=== PATIENT | female | born 1980 | race Hispanic/Latino ===

== ENCOUNTER 2021-01-30 18:51 | Emergency (ER) | payer SELFPAY ==
[2021-01-30 19:24] LABS: Absolute Lymphocytes (CBC) 2.9 K/uL (0.7-4.9); Basophils % 0.5 % (0-1.3); Hematocrit 37.7 % (36.0-45.0); MPV 8.1 fL (7.6-11.3); RBC Red Blood Cell Count 4.06 M/uL (3.86-4.86)
[2021-01-30 19:29] LABS: Protime INR 0.97
--- NOTE | 2021-01-30 20:04 | RAD REPORT ---
EXAM DESCRIPTION: RAD - Chest Single View - 01/30/2021 7:32 pm CLINICAL HISTORY: COUGH COMPARISON: No comparisons FINDINGS: Lines: None. Lungs: No evidence of edema or pneumonia. Pleural: No significant pleural effusions or pneumothorax. Cardiac: The heart size is within normal limits. Bones: No acute fractures. Other: IMPRESSION: No acute cardiopulmonary disease.
[2021-01-30 20:07] LABS: ALT/SGPT 17 U/L (12-78); AST/SGOT 10 U/L (15-37); Albumin 2.8 g/dL (3.4-5.0); Alkaline Phosphatase 77 U/L (45-117); BUN Blood Urea Nitrogen 10 mg/dL (7-18); Bicarbonate 23 mmol/L (21-32); Bilirubin Direct < 0.1 mg/dL (0-0.2); Bilirubin Total 0.2 mg/dL (0.2-1.0); Lipase 68 U/L (73-393); NT PRO-BNP 79 pg/mL (<125); Potassium 3.5 mmol/L (3.5-5.1); Protein, Total 6.9 g/dL (6.4-8.2); Sodium Level 135 mmol/L (136-145); Troponin (Emerg Dept Use Only) < 0.02 ng/mL (0.0-0.045)
[2021-01-30 20:10] LABS: Glucose Level 448 mg/dL (74-106)
[2021-01-30 20:32] LABS: Urine Blood 3+ (Negative); Urine Glucose 2+ (Negative); Urine Protein Negative (Negative); Urine pH 5.5 (5.0-7.0)
[2021-01-30] MEDS ORDERED: NA CHLORIDE 0.9% 2,000 ML ONE (20:43)
--- NOTE | 2021-01-30 21:41 | EDPHYS ---
Physician Documentation [facility] Name: Brenda Loyd Age: 40 yrs Sex: Female : 1980 Arrival Date: 01/30/2021 Time: 18:55 Bed 6 Private MD: ED Physician Lauri Liao HPI: 01/30 21:34 This 40 yrs old Female presents to ER via EMS with complaints of anxious, cp jamaal and high blood glucose. 21:34 The patient presents to the emergency department with anxiety, over unknown jamaal circumstances. Onset: The symptoms/episode began/occurred just prior to arrival. Past psychiatric history: Prior diagnosis: depression. The patient or guardian reports chest pain that is located primarily in the vague, mainly palpitations. Onset: just prior to arrival, today. high glucose , HI. The pain does not radiate. Associated signs and symptoms: Pertinent positives; anxiety, palpitations. The chest pain is described as palpitations. Severity of pain: At its worst the pain was mild in the emergency department the pain has resolved. 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 - Social history:: Smoking status: Patient denies any tobacco usage or history of. - Family history:: not pertinent. ROS: 21:34 Constitutional: Negative for fever, chills, and weight loss, Eyes: Negative for injury, jamaal pain, redness, and discharge, ENT: Negative for injury, pain, and discharge, Neck: Negative for injury, pain, and swelling, Respiratory: Negative for shortness of breath, cough, wheezing, and pleuritic chest pain, Abdomen/GI: Negative for abdominal pain, nausea, vomiting, diarrhea, and constipation, Back: Negative for injury and pain, : Negative for injury, bleeding, discharge, and swelling, MS/Extremity: Negative for injury and deformity, Skin: Negative for injury, rash, and discoloration, Neuro: Negative for headache, weakness, numbness, tingling, and seizure, Psych: Negative for depression, anxiety, suicide ideation, homicidal ideation, and hallucinations, Allergy/Immunology: Negative for hives, rash, and allergies, Endocrine: Negative for neck swelling, polydipsia, polyuria, polyphagia, and marked weight changes, Hematologic/Lymphatic: Negative for swollen nodes, abnormal bleeding, and unusual bruising. 21:34 Cardiovascular: Positive for palpitations. Exam: 21:37 Constitutional: This is a well developed, well nourished patient who is awake, alert, jamaal and in no acute distress. Head/Face: Normocephalic, atraumatic. Eyes: Pupils equal round and reactive to light, extra-ocular motions intact. Lids and lashes normal. Conjunctiva and sclera are non-icteric and not injected. Cornea within normal limits. Periorbital areas with no swelling, redness, or edema. ENT: Nares patent. No nasal discharge, no septal abnormalities noted. Tympanic membranes are normal and external auditory canals are clear. Oropharynx with no redness, swelling, or masses, exudates, or evidence of obstruction, uvula midline. Mucous membranes moist. Neck: Trachea midline, no thyromegaly or masses palpated, and no cervical lymphadenopathy. Supple, full range of motion without nuchal rigidity, or vertebral point tenderness. No Meningismus. Chest/axilla: Normal chest wall appearance and motion. Nontender with no deformity. No lesions are appreciated. Cardiovascular: Regular rate and rhythm with a normal S1 and S2. No gallops, murmurs, or rubs. Normal PMI, no JVD. No pulse deficits. Respiratory: Lungs have equal breath sounds bilaterally, clear to auscultation and percussion. No rales, rhonchi or wheezes noted. No increased work of breathing, no retractions or nasal flaring. Abdomen/GI: Soft, non-tender, with normal bowel sounds. No distension or tympany. No guarding or rebound. No evidence of tenderness throughout. Back: No spinal tenderness. No costovertebral tenderness. Full range of motion. Skin: Warm, dry with normal turgor. Normal color with no rashes, no lesions, and no evidence of cellulitis. MS/ Extremity: Pulses equal, no cyanosis. Neurovascular intact. Full, normal range of motion. Neuro: Awake and alert, GCS 15, oriented to person, place, time, and situation. Cranial nerves II-XII grossly intact. Motor strength 5/5 in all extremities. Sensory grossly intact. Cerebellar exam normal. Normal gait. Psych: Awake, alert, with orientation to person, place and time. Behavior, mood, and affect are within normal limits. 21:37 Musculoskeletal/extremity: DVT Exam: No signs of deep vein thrombosis. no pain, no swelling, no tenderness, negative Homans' sign noted on exam, no appreciated bluish discoloration, no erythema, no increased warmth. 21:43 ECG was reviewed by the Attending Physician. [facility] Vital Signs: 18:59 BP 146 / 79; Pulse 92; Resp 20 S; Temp 97.0(TE); Pulse Ox 100% on R/A; Weight 90.72 kg jd3 (R); Height 4 ft. 10 in. (147.32 cm) (R); Pain 9/10; 20:52 BP 132 / 79 RA Sitting (auto/lg); Pulse 83; Resp 16 S; Pulse Ox 99% on R/A; Pain 0/10; sj1 22:17 BP 145 / 85; Pulse 80; Resp 17; Pulse Ox 100% on R/A; Pain 0/10; dc2 18:59 Body Mass Index 41.80 (90.72 kg, 147.32 cm) jd3 MDM: 19:02 Patient medically screened. [facility] 21:37 Differential diagnosis: abnormal EKG, acute myocardial infarction, anxiety, coronary jamaal artery disease chest wall pain, stable angina, unstable angina. HEART Score: History: Slightly Suspicious (0), ECG: Normal (0), Age: < or = 45 years (0), Risk Factors: 1 or 2 risk factors (1), [+ Family HX] [Obesity]. The patient was given aspirin in the Emergency Department. The patient's deep vein thrombosis risk score was calculated as follows: Total Score: 0. This patient was found to be at low risk for a deep vein thrombosis by using the Well's assessment criteria. The patient's pulmonary embolism risk score was calculated as follows: Total Score: 0-2 points. This patient was found to be at low risk for a pulmonary embolism by using the Well's assessment criteria. YULISSA Risk Score: TOTAL SCORE = 0. Data reviewed: vital signs, nurses notes, lab test result(s), EKG, radiologic studies, plain films. Data interpreted: awake overnight monitor: rate is 83 beats/min, rhythm is regular, Pulse oximetry: on room air is 99 %. 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 01/30 19:04 Order name: Basic Metabolic Panel [facility] 01/30 19:04 Order name: CBC with Diff [facility] 01/30 19:04 Order name: LFT's [facility] 01/30 19:04 Order name: Magnesium [facility] 01/30 19:04 Order name: NT PRO-BNP [facility] 01/30 19:04 Order name: PT-INR; Complete Time: 20:02 [facility] 01/30 19:04 Order name: Troponin (emerg Dept Use Only); Complete Time: 20:24 [facility] 01/30 19:04 Order name: Urine Culture [facility] 01/30 19:04 Order name: Ketone, Serum; Complete Time: 20:24 [facility] 01/30 19:04 Order name: Lipase; Complete Time: 20:24 [facility] 01/30 19:05 Order name: Basic Metabolic Panel; Complete Time: 20:24 [facility] 01/30 19:05 Order name: CBC with Automated Diff; Complete Time: 20:02 [facility] 01/30 19:05 Order name: Liver (Hepatic) Function; Complete Time: 20:24 [facility] 01/30 19:05 Order name: Magnesium; Complete Time: 20:24 [facility] 01/30 19:04 Order name: XRAY Chest (1 view); Complete Time: 20:24 [facility] 01/30 19:04 Order name: EKG; Complete Time: 19:05 [facility] 01/30 19:04 Order name: Cardiac monitoring; Complete Time: 19:07 [facility] 01/30 19:04 Order name: EKG - Nurse/Tech; Complete Time: 19:07 [facility] 01/30 19:04 Order name: IV Saline Lock; Complete Time: 19:07 [facility] 01/30 19:05 Order name: NT PRO-BNP; Complete Time: 20:24 [facility] 01/30 19:09 Order name: Glucose, Ancillary Testing; Complete Time: 20:02 [facility] 01/30 20:32 Order name: Urine Dipstick-Ancillary; Complete Time: 20:43 [facility] 01/30 21:00 Order name: Glucose, Ancillary Testing; Complete Time: 21:32 [facility] 01/30 19:04 Order name: Labs collected and sent; Complete Time: 19:07 [facility] 01/30 19:04 Order name: O2 Per Protocol; Complete Time: 19:07 [facility] 01/30 19:04 Order name: O2 Sat Monitoring; Complete Time: 19:07 [facility] 01/30 19:04 Order name: Urine Dipstick-Ancillary (obtain specimen); Complete Time: 20:33 [facility] EC:43 Rate is 85 beats/min. Rhythm is regular. QRS [place] is Normal. [place] interval is normal. QRS jamaal interval is normal. QT interval is normal. No Q waves. T waves are Normal. No ST changes noted. Clinical impression: Normal ECG and No evidence of ischemia. Interpreted by me. Reviewed by me. Administered Medications: 20:24 Drug: NS 0.9% 1000 ml Route: IV; Rate: 125 ml/hr; Site: left antecubital; sj1 20:24 Drug: NS 0.9% 1000 ml Route: IV; Rate: 1 bolus; Site: left antecubital; sj1 22:16 Drug: Cipro (ciprofloxacin) 500 mg Route: PO; dc2 22:17 Drug: Rocephin (cefTRIAXone) 1 grams Route: IV; Rate: per protocol; Site: left dc2 antecubital; 22:17 Drug: Aspirin Chewable Tablet 324 mg Route: PO; dc2 Disposition Summary: 01/30/21 21:40 Discharge Ordered Location: Home jamaal Problem: new jamaal Symptoms: have improved jamaal Condition: Stable jamaal Diagnosis - Anxiety disorder, unspecified jamaal - Type 2 diabetes mellitus with hyperglycemia jamaal - Chest pain, unspecified jamaal - Obesity, unspecified jamaal Followup: jamaal - With: Private Physician - When: 2 - 3 days - Reason: Recheck today's complaints, Continuance of care, Re-evaluation by your physician Followup: jamaal - With: Bola Vieira MD - When: 2 - 3 days - Reason: Recheck today's complaints, Re-evaluation by your physician Discharge Instructions: - Discharge Summary Sheet jamaal - Nonspecific Chest Pain, Adult jamaal - Type 2 Diabetes Mellitus, Diagnosis, Adult jamaal - Hyperglycemia jamaal - Obesity, Adult jamaal - Nonspecific Chest Pain, Adult, [id number] jamaal - Diabetes Mellitus and Nutrition, Adult jamaal - Aspirin and Your Heart [facility] - Managing Anxiety, Adult [facility] Forms: - Medication Reconciliation Form [facility] - Thank You Letter jamaal - Antibiotic Education [facility] - Prescription Opioid Use [facility] Prescriptions: - Metformin 500 mg Oral Tablet - take 1 tablet by ORAL route every 12 hours for 21 days Then take 1 tablet with [facility] morning meals AND evening meals; 42 tablet; Refills: 0, Product Selection Permitted - Cipro 250 mg Oral Tablet - take 1 tablet by ORAL route every 12 hours; 14 tablet; Refills: 0, Product [facility] Selection Permitted Signatures: Dispatcher [employer] EDLauri Gloria MD MD cha Attema, Lee, WATER HAULER-C WATER HAULER-Cla1 Nathaniel Underwood RN RN jd3 Andree Clay RN RN dc2 Dione Fam RN RN sj1
--- NOTE | 2021-01-30 21:41 | ER ---
Nurse's Notes [facility] Name: Brenda Loyd Age: 40 yrs Sex: Female : 1980 Arrival Date: 01/30/2021 Time: 18:55 Bed 6 Private MD: Diagnosis: Anxiety disorder, unspecified;Type 2 diabetes mellitus with hyperglycemia;Chest pain, unspecified;Obesity, unspecified Presentation: 01/30 18:55 Chief complaint: EMS states: "pt is reporting anxiety and shortness of breath/chest jd3 pain as well as high blood sugar. pt reports having diabetes and her blood sugar on our monitor just read high. we started a 20 G IV to the left AC and started a 1 L bolus of NS.". Coronavirus screen: Vaccine status: Patient reports being unvaccinated. At this time, the client does not indicate any symptoms associated with coronavirus-19. Ebola Screen: Patient negative for fever greater than or equal to 101.5 degrees Fahrenheit, and additional compatible Ebola Virus Disease symptoms. Initial Sepsis Screen: Does the patient meet any 2 criteria? No. Patient's initial sepsis screen is negative. Does the patient have a suspected source of infection? No. Patient's initial sepsis screen is negative. Risk Assessment: Do you want to hurt yourself or someone else? Patient reports no desire to harm self or others. Onset of symptoms was January 30, 2021. 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 - Social history:: Smoking status: Patient denies any tobacco usage or history of. - Family history:: not pertinent. Screenin:00 Abuse screen: Denies threats or abuse. Nutritional screening: No deficits noted. jd3 Tuberculosis screening: No symptoms or risk factors identified. Fall Risk IV access (20 points). Ambulatory Aid- None/Bed Rest/Nurse Assist (0 pts). Gait- Normal/Bed Rest/Wheelchair (0 pts) Mental Status- Oriented to own ability (0 pts). Total Romo Fall Scale indicates No Risk (0-24 pts). Assessment: 20:50 Reassessment: MD aware of blood sugar 294 prior to insulin administration. Awaiting new sj1 orders. General: Appears in no apparent distress. comfortable, well groomed, Behavior is calm, cooperative, appropriate for age. Pain: Denies pain. Neuro: No deficits noted. Cardiovascular: No deficits noted. Respiratory: No deficits noted. GI: No deficits noted. : No deficits noted. EENT: No deficits noted. Derm: No deficits noted. Musculoskeletal: No deficits noted. 22:39 Reassessment: Pt had ordered meds after discharge patient. Patient left the ED around dc2 2220. Vital Signs: 18:59 BP 146 / 79; Pulse 92; Resp 20 S; Temp 97.0(TE); Pulse Ox 100% on R/A; Weight 90.72 kg jd3 (R); Height 4 ft. 10 in. (147.32 cm) (R); Pain 9/10; 20:52 BP 132 / 79 RA Sitting (auto/lg); Pulse 83; Resp 16 S; Pulse Ox 99% on R/A; Pain 0/10; sj1 22:17 BP 145 / 85; Pulse 80; Resp 17; Pulse Ox 100% on R/A; Pain 0/10; dc2 18:59 Body Mass Index 41.80 (90.72 kg, 147.32 cm) jd3 ED Course: 18:55 Patient arrived in ED. jd3 18:58 Triage completed. jd3 19:00 Arm band placed on. EKG completed in triage. Results shown to MD. jd3 19:00 Patient has correct armband on for positive identification. Placed in gown. Bed in low jd3 position. Call light in reach. Side rails up X 1. Adult w/ patient. panel monitor on. Pulse ox on. NIBP on. 19:00 Maintain EMS IV. Dressing intact. Good blood return noted. Site clean \\T\\ dry. Gauge \\T\\ isaac 3 site: 20 G left AC. 19:02 Lauri Liao MD is Attending Physician. jamaal 19:33 XRAY Chest (1 view) In Process Unspecified. EDMS 20:34 Basic Metabolic Panel Sent. sj1 20:34 CBC with Diff Sent. sj1 20:34 LFT's Sent. sj1 20:34 Magnesium Sent. sj1 20:34 NT PRO-BNP Sent. sj1 20:52 No provider procedures requiring assistance completed. sj1 21:39 Bola Vieira MD is Referral Physician. jamaal 22:10 IV discontinued, intact, bleeding controlled, No redness/swelling at site. Pressure dc2 dressing applied. Administered Medications: 20:24 Drug: NS 0.9% 1000 ml Route: IV; Rate: 125 ml/hr; Site: left antecubital; sj1 20:24 Drug: NS 0.9% 1000 ml Route: IV; Rate: 1 bolus; Site: left antecubital; sj1 22:16 Drug: Cipro (ciprofloxacin) 500 mg Route: PO; dc2 22:17 Drug: Rocephin (cefTRIAXone) 1 grams Route: IV; Rate: per protocol; Site: left dc2 antecubital; 22:17 Drug: Aspirin Chewable Tablet 324 mg Route: PO; dc2 Outcome: 21:40 Discharge ordered by . jamaal 22:10 Discharged to home ambulatory. dc2 22:10 Condition: stable 22:10 Discharge instructions given to patient, Instructed on discharge instructions, Demonstrated understanding of instructions, Prescriptions given X 2. 22:40 Patient left the ED. dc2 Signatures: Dispatcher [employer] Lauri Lang MD MD cha Davies, Jonathon RN RN jd3 Andree Clay RN RN dc2 Dione Fam RN RN sj1
[2021-01-30] MEDS ORDERED: CIPROFLOXACIN HCL 500 MG TAB ONE (22:39)
[2021-01-30] MEDS ORDERED: ASPIRIN EC 81 MG TAB PO ONE (22:39)
[2021-01-30] MEDS ORDERED: CEFTRIAXONE 1000 MG/VIAL ONE (22:39)
[2021-01-30 22:46] VITALS: TEMP 97
[2021-01-30 22:50] VITALS: BP 145/85; O2SAT 100
--- NOTE | 2021-01-31 16:38 | EKG ---
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
== END 2021-01-30 22:40 | disposition home or self-care (01) ==
LOC: ER 18:51
DX: F41.9 Anxiety disorder, unspecified (principal); E11.65 Type 2 diabetes mellitus with hyperglycemia; E66.9 Obesity, unspecified
CPT/HCPCS: 36415; 71045; 80048; 80076; 81003; 82010; 82947; 83690; 83735; 83880; 84484; 85025; 85610; 87086; 87088; 93005; 96374; 99284; J7030

== ENCOUNTER 2021-01-31 05:21 | Emergency (ER) | payer SELFPAY ==
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
[2021-01-31] MEDS ORDERED: HYDROCODONE/APAP 10/325 TAB ONE (06:59)
[2021-01-31 07:11] VITALS: O2SAT 100
[2021-01-31 07:16] VITALS: BP 150/97; TEMP 97.9
--- NOTE | 2021-01-31 07:45 | RAD REPORT ---
EXAM DESCRIPTION: RAD - Humerus Right - 01/31/2021 6:14 am CLINICAL HISTORY: PAIN COMPARISON: <Comparisons> FINDINGS: No acute fracture. No malalignment. No significant focal degenerative changes. IMPRESSION: No acute osseous abnormality involving the right humerus.
== END 2021-01-31 06:43 | disposition home or self-care (01) ==
LOC: ER 05:21
DX: S40.011A Contusion of right shoulder, initial encounter (principal); S40.021A Contusion of right upper arm, initial encounter; E11.65 Type 2 diabetes mellitus with hyperglycemia; W18.39XA Other fall on same level, initial encounter
CPT/HCPCS: 99284

== ENCOUNTER 2021-02-01 19:48 | Emergency (ER) | payer SELFPAY ==
[2021-02-01] MEDS ORDERED: NA CHLORIDE 0.9% 1,000 ML ONE (20:48)
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
--- NOTE | 2021-02-01 21:08 | ER ---
Nurse's Notes [facility] Name: Brenda Loyd Age: 40 yrs Sex: Female : 1980 Arrival Date: 02/01/2021 Time: 20:00 Bed 13 Private MD: Diagnosis: Dizziness and giddiness;Diabetes mellitus due to underlying condition with hyperglycemia ED Course: 02/01 20:00 Patient arrived in ED. tt3 20:05 Deion Tucker MD is Attending Physician. rn 20:05 Lauri Sorensen PA is PHCP. marychuy 20:14 Khoi Stanley, RN is Primary Nurse. mr2 Administered Medications: 21:07 Not Given (Patient Refused): NS 0.9% 1000 ml IV at 1 bolus Per protocol; 1000 mL bolus em 21:07 Not Given (Patient Refused): NS 0.9% 1000 ml IV at 1 bolus Per protocol; 1000 mL bolus em Outcome: 21:08 Patient left the ED. em Signatures: Doug Beckett RN RN em Deion Tucker MD MD rn Page, Corey, PA PA Jameson Dodson tt3 Khoi Stanley, RN RN mr2
== END 2021-02-01 21:08 | disposition left against medical advice (07) ==
LOC: ER 19:48
DX: E11.65 Type 2 diabetes mellitus with hyperglycemia (principal)
CPT/HCPCS: J7030

== ENCOUNTER 2021-02-16 19:09 | Emergency (ER) | payer SELFPAY ==
[2021-02-16] MEDS ORDERED: HYDROCODONE/APAP 5/325 MG TAB ONE (20:44)
--- NOTE | 2021-02-16 20:50 | RAD REPORT ---
EXAM DESCRIPTION: RAD - Foot Left 3 View - 02/16/2021 8:21 pm CLINICAL HISTORY: 2nd toe;Pain COMPARISON: Foot Left 3 View dated 11/12/2014 FINDINGS: No fracture, dislocation or periosteal reaction. Soft tissues of the second toe are promin ent. No acute or destructive bony process. No acute or joint finding seen. Moderately large plantar spur is present. No air or foreign body in the soft tissues. IMPRESSION: Negative left foot examination for acute bone or joint finding. No air or foreign body soft tissues.
[2021-02-16] MEDS ORDERED: NA CHLORIDE 0.9% 1,000 ML ONE (21:24)
[2021-02-16 21:25] LABS: Basophils % 0.9 % (0-1.3); Hematocrit 37.8 % (36.0-45.0); Lymphocytes % 36.1 % (15.3-44.8); RBC Red Blood Cell Count 4.08 M/uL (3.86-4.86)
[2021-02-16 21:44] LABS: Urine Blood 1+ (Negative); Urine Glucose 2+ (Negative); Urine Protein Negative (Negative)
[2021-02-16 21:45] LABS: ALT/SGPT 17 U/L (12-78); AST/SGOT 10 U/L (15-37); Albumin 2.9 g/dL (3.4-5.0); Alkaline Phosphatase 89 U/L (45-117); BUN Blood Urea Nitrogen 12 mg/dL (7-18); Bicarbonate 25 mmol/L (21-32); Bilirubin Direct < 0.1 mg/dL (0-0.2); Bilirubin Total 0.3 mg/dL (0.2-1.0); Glucose Level 311 mg/dL (74-106); Potassium 3.7 mmol/L (3.5-5.1); Protein, Total 7.3 g/dL (6.4-8.2); Sodium Level 135 mmol/L (136-145)
[2021-02-16 22:06] LABS: Urine Bacteria >50 /HPF (<20)
[2021-02-16 22:07] LABS: Urine Amorphous Sediment 1+ /HPF (NONE SEEN); Urine Mucus 2+ /HPF (NONE SEEN); Urine Yeast MANY (NONE SEEN)
--- NOTE | 2021-02-16 22:11 | EDPHYS ---
Physician Documentation [facility] Name: Brenda Loyd Age: 40 yrs Sex: Female : 1980 Arrival Date: 02/16/2021 Time: 19:12 Bed 13 Private MD: ED Physician Lucien Neal HPI: 02/16 20:00 This 40 yrs old Female presents to ER via Ambulatory with complaints of Foot mh7 Pain - infection. 20:00 The patient presents with a bite, by an insect. The complaints affect the Left foot, mh7 second toe. Context: The problem was sustained at an unknown location, resulted from Possible insect bite, but not certain, Mechanism of Injury: Possible insect bite the patient can fully bear weight, the patient is able to ambulate, without difficulty. Onset: The symptoms/episode began/occurred yesterday. Modifying factors: The symptoms are alleviated by nothing, the symptoms are aggravated by nothing. Associated signs and symptoms: Pertinent negatives: calf tenderness, fever, nausea, rash, swelling, vomiting, warmth, weakness. Severity of symptoms: At their worst the symptoms were mild, last night, in the emergency department the symptoms have improved, moderately. 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 - Social history:: Smoking status: Smoking status: Patient denies any tobacco usage or history of. Patient/guardian denies using alcohol. ROS: 20:00 Constitutional: Negative for fever, chills, and weight loss, Eyes: Negative for injury, mh7 pain, redness, and discharge, ENT: Negative for injury, pain, and discharge, Neck: Negative for injury, pain, and swelling, Cardiovascular: Negative for chest pain, palpitations, and edema, Respiratory: Negative for shortness of breath, cough, wheezing, and pleuritic chest pain, Abdomen/GI: Negative for abdominal pain, nausea, vomiting, diarrhea, and constipation, Back: Negative for injury and pain, : Negative for injury, bleeding, discharge, and swelling, Skin: Negative for injury, rash, and discoloration, Neuro: Negative for headache, weakness, numbness, tingling, and seizure, Psych: Negative for depression, anxiety, suicide ideation, homicidal ideation, and hallucinations, Allergy/Immunology: Negative for hives, rash, and allergies, Endocrine: Negative for neck swelling, polydipsia, polyuria, polyphagia, and marked weight changes, Hematologic/Lymphatic: Negative for swollen nodes, abnormal bleeding, and unusual bruising. Exam: 20:00 Constitutional: This is a well developed, well nourished patient who is awake, alert, mh7 and in no acute distress. Head/Face: Normocephalic, atraumatic. Eyes: Pupils equal round and reactive to light, extra-ocular motions intact. Lids and lashes normal. Conjunctiva and sclera are non-icteric and not injected. Cornea within normal limits. Periorbital areas with no swelling, redness, or edema. Neck: Trachea midline, no thyromegaly or masses palpated, and no cervical lymphadenopathy. Supple, full range of motion without nuchal rigidity, or vertebral point tenderness. No Meningismus. Chest/axilla: Normal chest wall appearance and motion. Nontender with no deformity. No lesions are appreciated. Cardiovascular: Regular rate and rhythm with a normal S1 and S2. No gallops, murmurs, or rubs. Normal PMI, no JVD. No pulse deficits. Respiratory: Lungs have equal breath sounds bilaterally, clear to auscultation and percussion. No rales, rhonchi or wheezes noted. No increased work of breathing, no retractions or nasal flaring. Abdomen/GI: Soft, non-tender, with normal bowel sounds. No distension or tympany. No guarding or rebound. No evidence of tenderness throughout. Back: No spinal tenderness. No costovertebral tenderness. Full range of motion. Neuro: Awake and alert, GCS 15, oriented to person, place, time, and situation. Cranial nerves II-XII grossly intact. Motor strength 5/5 in all extremities. Sensory grossly intact. Cerebellar exam normal. Normal gait. Psych: Awake, alert, with orientation to person, place and time. Behavior, mood, and affect are within normal limits. 20:00 Musculoskeletal/extremity: Extremities: noted in the Left foot, second toe: erythema, mh7 puncture, tenderness, No discharge or induration, ROM: intact in all extremities, Circulation is intact in all extremities. Sensation intact. Compartment Syndrome exam of affected extremity: is normal. no numbness, no tingling, no sensation deficit, no palor, no weak pulses, Joints: All joints appear normal with full range of motion. Weight bearing: able to fully bear weight, without difficulty, Tendon exam: specific tendon testing normal through active and passive range of motion 20:00 Skin: cellulitis, that is mild, irregular, on the Left foot, second toe, distal, mh7 dorsal aspect, induration, is not appreciated. Vital Signs: 19:19 BP 159 / 85; Pulse 90; Resp 18; Temp 97.5(TE); Pulse Ox 99% on R/A; Weight 90.72 kg; ld1 Height 4 ft. 10 in. (147.32 cm); Pain 0/10; 21:41 BP 144 / 91; Pulse 91; Resp 18; Pulse Ox 100% on R/A; ld1 22:15 BP 136 / 90; Pulse 92; Resp 18; Pulse Ox 100% on R/A; ld1 19:19 Body Mass Index 41.80 (90.72 kg, 147.32 cm) ld1 MDM: 22:07 Differential diagnosis: fracture, sprain, foreign body, penetrating trauma, arthritis, mh7 cellulitis, Insect bite. Data reviewed: vital signs, nurses notes, old medical records, lab test result(s), CBC, electrolytes, urinalysis, UPT: negative radiologic studies, plain films. Data interpreted: Pulse oximetry: on room air is 100 %. Interpretation: normal. Counseling: I had a detailed discussion with the patient and/or guardian regarding: the historical points, exam findings, and any diagnostic results supporting the discharge/admit diagnosis, the presence of at least one elevated blood pressure reading (>120/80) during this emergency department visit, lab results, radiology results, the need for outpatient follow up, to return to the emergency department if symptoms worsen or persist or if there are any questions or concerns that arise at home. Response to treatment: the patient's symptoms have markedly improved after treatment. 22:10 Patient medically screened. [facility] 02/16 20:26 Order name: Glucose, Ancillary Testing; Complete Time: 20:31 [facility] 02/16 20:32 Order name: CBC with Diff [facility] 02/16 20:32 Order name: Basic Metabolic Panel; Complete Time: 21:56 [facility] 02/16 20:32 Order name: LFT's; Complete Time: 21:56 [facility] 02/16 20:32 Order name: CBC with Automated Diff; Complete Time: 21:39 [facility] 02/16 21:44 Order name: Urine Dipstick-Ancillary; Complete Time: 21:44 [facility] 02/16 20:08 Order name: Foot Left 3 View XRAY; Complete Time: 21:21 [facility] 02/16 21:46 Order name: Urine Microscopic Only [facility] 02/16 21:46 Order name: Urine Culture [facility] 02/16 21:46 Order name: Urine Microscopic Only [facility] 02/16 21:47 Order name: Urine --Ancillary (enter results); Complete Time: 21:56 oe 02/16 20:08 Order name: Accucheck Blood Glucose; Complete Time: 20:16 [facility] 02/16 20:32 Order name: Urine Dipstick-Ancillary (obtain specimen); Complete Time: 21:43 [facility] 02/16 20:32 Order name: Urine Test (obtain specimen); Complete Time: 21:43 [facility] 02/16 20:32 Order name: Saline Lock; Complete Time: 21:17 [facility] Administered Medications: 20:21 Drug: Victor (HYDROcodone-acetaminophen) 5 mg-325 mg 1 tabs Route: PO; pv 21:16 Follow up: Response: No adverse reaction; Pain is decreased; RASS: Alert and Calm (0) bb 21:16 Drug: NS 0.9% 1000 ml Route: IV; Rate: 1000 ml; Site: left antecubital; bb 22:09 Drug: Rocephin (cefTRIAXone) 1 grams Route: IV; Rate: per protocol; Site: left ld1 antecubital; 22:09 Follow up: Response: No adverse reaction ld1 22:09 Drug: Bactrim (trimethoprim-sulfamethoxazole) (160 mg-800 mg (DS) 1 tablet Route: PO; ld1 22:09 Follow up: Response: No adverse reaction ld1 Disposition Summary: 02/16/21 22:10 Discharge Ordered Location: Home [facility] Problem: new [facility] Symptoms: have improved [facility] Condition: Stable [facility] Diagnosis - Cellulitis of left toe [facility] - UTI/ Urinary tract infection, site not specified [facility] - Other specified diabetes mellitus with hyperglycemia [facility] Followup: [facility] - With: Private Physician - When: 1 - 2 days - Reason: Worsening of condition, Recheck today's complaints, Continuance of care, Re-evaluation by your physician Followup: [facility] - With: Reagan Gordon DPM - When: 1 - 2 days - Reason: Worsening of condition, Recheck today's complaints Discharge Instructions: - Discharge Summary Sheet [facility] - Urinary Tract Infection, Adult, [id number] [facility] - Cellulitis, Adult, [id number] [facility] - Diabetes Mellitus and Nutrition, Adult [facility] - Hyperglycemia, [id number] [facility] Forms: - Medication Reconciliation Form [facility] - Thank You Letter [facility] - Antibiotic Education [facility] - Prescription Opioid Use [facility] Prescriptions: - Cephalexin 500 mg Oral Capsule - take 1 capsule by ORAL route every 6 hours for 10 days; 40 capsule; Refills: 0, [facility] Product Selection Permitted - Ibuprofen 600 mg Oral Tablet - take 1 tablet by ORAL route every 8 hours As needed take with food; 15 tablet; [facility] Refills: 0, Product Selection Permitted - Metformin 500 mg Oral Tablet - take 1 tablet by ORAL route once daily . Then take 1 tablet with morning meals [facility] AND evening meals; 30 tablet; Refills: 0, Product Selection Permitted - Bactrim DS 800-160 mg Oral Tablet - take 1 tablet by ORAL route every 12 hours for 10 days; 20 tablet; Refills: 0, [facility] Product Selection Permitted Signatures: Dispatcher [employer] Kamryn Truong RN RN Lucien Neal MD MD [facility] Claire Denson RN RN ld1 Don Davila RN RN pv Corrections: (The following items were deleted from the chart) 19:23 19:21 Immunization history: Adult Immunizations ld1 ld1
--- NOTE | 2021-02-16 22:11 | ER ---
Nurse's Notes [facility] Name: Brenda Loyd Age: 40 yrs Sex: Female : 1980 Arrival Date: 02/16/2021 Time: 19:12 Bed 13 Private MD: Diagnosis: Cellulitis of left toe;UTI/ Urinary tract infection, site not specified;Other specified diabetes mellitus with hyperglycemia Presentation: 02/16 19:19 Chief complaint: Patient states: "My left foot feels weird. I got bit by something, ld1 maybe a bug." Pt showed picture of foot and it appears to be a wound. Coronavirus screen: At this time, the client does not indicate any symptoms associated with coronavirus-19. Ebola Screen: No symptoms or risks identified at this time. Initial Sepsis Screen: Does the patient meet any 2 criteria? No. Patient's initial sepsis screen is negative. Does the patient have a suspected source of infection? Yes: Skin breakdown/wound. Risk Assessment: Do you want to hurt yourself or someone else? Patient reports no desire to harm self or others. Onset of symptoms was February 16, 2021. 19:19 Method Of Arrival: Ambulatory ld1 19:19 Acuity: SUSAN 4 ld1 Triage Assessment: 19:19 General: Appears in no apparent distress. comfortable, Behavior is calm, cooperative, ld1 appropriate for age. Pain: Denies pain. Derm: Wound noted left foot Pt reports being bit by a bug \\T\\ "popping a bump on left foot last night in shower." Woke up this morning and reports left foot has been weeping. 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 - Social history:: Smoking status: Smoking status: Patient denies any tobacco usage or history of. Patient/guardian denies using alcohol. Screenin:00 Abuse screen: Denies threats or abuse. Nutritional screening: No deficits noted. bb Tuberculosis screening: No symptoms or risk factors identified. Fall Risk None identified. Assessment: 20:00 General: Appears in no apparent distress. uncomfortable, obese, Behavior is calm, bb cooperative. Pain: Complains of pain in left foot. Neuro: Level of Consciousness is awake, alert, obeys commands, Oriented to person, place, time, situation. Cardiovascular: Capillary refill < 3 seconds Patient's skin is warm and dry. Respiratory: Airway is patent Respiratory effort is even, unlabored, Respiratory pattern is regular. GI: Abdomen is round. Derm: Skin is pink, warm \\T\\ dry. Musculoskeletal: Circulation, motion, and sensation intact. multiple abrasions to left toes. 21:19 Reassessment: Patient is alert, oriented x 3, equal unlabored respirations, skin bb warm/dry/pink. awaiting diagnostic results. 21:41 Reassessment: Patient appears in no apparent distress at this time. Patient is alert, ld1 oriented x 3, equal unlabored respirations, skin warm/dry/pink. Pt stating she is ready to go home. Denies pain at this time. 22:36 Reassessment: Patient appears in no apparent distress at this time. No changes from ld1 previously documented assessment. Patient and/or family updated on plan of care and expected duration. Pain level reassessed. Patient is alert, oriented x 3, equal unlabored respirations, skin warm/dry/pink. Vital Signs: 19:19 BP 159 / 85; Pulse 90; Resp 18; Temp 97.5(TE); Pulse Ox 99% on R/A; Weight 90.72 kg; ld1 Height 4 ft. 10 in. (147.32 cm); Pain 0/10; 21:41 BP 144 / 91; Pulse 91; Resp 18; Pulse Ox 100% on R/A; ld1 22:15 BP 136 / 90; Pulse 92; Resp 18; Pulse Ox 100% on R/A; ld1 19:19 Body Mass Index 41.80 (90.72 kg, 147.32 cm) ld1 ED Course: 19:12 Patient arrived in ED. as 19:19 Arm band placed on right wrist. ld1 19:21 Triage completed. ld1 19:57 Lucien Neal MD is Attending Physician. 7 20:00 Patient has correct armband on for positive identification. Bed in low position. Call bb light in reach. 20:00 Initial lab(s) drawn, by ED staff, sent to lab. Inserted saline lock: 20 gauge in left bb antecubital area, using aseptic technique. Blood collected. 20:21 Foot Left 3 View XRAY In Process Unspecified. EDMS 22:09 Reagan Gordon DPM is Referral Physician. [facility] 22:37 No provider procedures requiring assistance completed. IV discontinued, intact, ld1 bleeding controlled, No redness/swelling at site. Administered Medications: 20:21 Drug: [place] (HYDROcodone-acetaminophen) 5 mg-325 mg 1 tabs Route: PO; pv 21:16 Follow up: Response: No adverse reaction; Pain is decreased; RASS: Alert and Calm (0) 21:16 Drug: NS 0.9% 1000 ml Route: IV; Rate: 1000 ml; Site: left antecubital; bb 22:09 Drug: Rocephin (cefTRIAXone) 1 grams Route: IV; Rate: per protocol; Site: left ld1 antecubital; 22:09 Follow up: Response: No adverse reaction ld1 22:09 Drug: Bactrim (trimethoprim-sulfamethoxazole) (160 mg-800 mg (DS) 1 tablet Route: PO; ld1 22:09 Follow up: Response: No adverse reaction ld1 Outcome: 22:10 Discharge ordered by . [facility] 22:37 Discharged to home ambulatory. ld1 22:37 Condition: stable 22:37 Discharge instructions given to patient, Instructed on discharge instructions, follow up and referral plans. Demonstrated understanding of instructions, follow-up care. 22:37 Patient left the ED. ld1 Addendum: 02/21/2021 18:43 Addendum: Culture Results: Positive urine culture. No further action required. Bacteria s s sensitive to prescribed antibiotic. Signatures: Dispatcher [employer] EDMS Yesenia Julio Brenda RN RN bb Hannah St RN RN Lucien Neal MD MD [facility] Claire Denson RN RN 1 Don Davila RN RN pv Corrections: (The following items were deleted from the chart) 02/16 19:22 19:19 Pulse 90bpm; Resp 18bpm; Pulse Ox 99% RA; Temp 97.5F Temporal; 90.72 kg; Height 4 ld1 ft. 10 in.; BMI: 41.8; Pain 0/10; ld1 19:23 19:21 Immunization history: Adult Immunizations ld1 ld1
[2021-02-16] MEDS ORDERED: SMZ./TMP. 800/160 MG TABLET ONE (22:30)
[2021-02-16] MEDS ORDERED: CEFTRIAXONE 1000 MG/VIAL ONE (22:33)
[2021-02-16 22:44] VITALS: TEMP 97.5
[2021-02-16 22:45] VITALS: O2SAT 100
[2021-02-16 22:46] VITALS: BP 136/90
== END 2021-02-16 22:37 | disposition home or self-care (01) ==
LOC: ER 19:09
DX: L03.032 Cellulitis of left toe (principal); N39.0 Urinary tract infection, site not specified; E13.65 Other specified diabetes mellitus with hyperglycemia
CPT/HCPCS: 36415; 80048; 80076; 81003; 81015; 81025; 82947; 85025; 87077; 87086; 87088; 87186; 96374; 99284; J7030

== ENCOUNTER 2021-08-30 14:06 | Emergency (ER) | payer SELFPAY ==
--- NOTE | 2021-08-30 15:29 | RAD REPORT ---
EXAM DESCRIPTION: RAD - Foot Right 3 View - 08/30/2021 3:21 pm CLINICAL HISTORY: Right foot pain FINDINGS: No fracture or dislocation is seen No bony destructive lesions seen
[2021-08-30 17:01] LABS: RBC Red Blood Cell Count 4.29 M/uL (3.86-4.86)
[2021-08-30 17:02] LABS: Absolute Lymphocytes (CBC) 2.2 K/uL (0.7-4.9); Hematocrit 38.5 % (36.0-45.0); Lymphocytes % 23.7 % (15.3-44.8); MPV 8.2 fL (7.6-11.3)
[2021-08-30] MEDS ORDERED: NA CHLORIDE 0.9% 1,000 ML ONE (17:05)
[2021-08-30] MEDS ORDERED: VANCOMYCIN 1 GM/VIAL ONE (17:05)
[2021-08-30] MEDS ORDERED: NA CHLORIDE 0.9% 500 ML ONE ×2 (17:05→18:49)
[2021-08-30 17:09] LABS: Albumin 2.8 g/dL (3.4-5.0); Bilirubin Total 0.3 mg/dL (0.2-1.0); Potassium 3.5 mmol/L (3.5-5.1); Protein, Total 7.8 g/dL (6.4-8.2); Protime INR 1.03
[2021-08-30] MEDS ORDERED: PIPERACIL/TAZO 3.375 GM VIAL IV ONE ×2 (18:48→19:11)
[2021-08-30] MEDS ORDERED: NA CHLORIDE 0.9% 100 ML IV ONE ×2 (18:48→19:10)
--- NOTE | 2021-08-30 19:44 | ER ---
Nurse's Notes [facility] Name: Brenda Loyd Age: 41 yrs Sex: Female : 1980 Arrival Date: 08/30/2021 Time: 14:08 Bed 15 Private MD: Diagnosis: Cellulitis of right lower limb;Diabetes mellitus due to underlying condition with hyperglycemia Presentation: 08/30 14:33 Chief complaint: Patient states: redness and swelling, drainage to 2nd toe on right iw foot, noticed it this morning, picks up scrap metal with her father in law and maybe that's what happened, is diabetic. Coronavirus screen: At this time, the client does not indicate any symptoms associated with coronavirus-19. Ebola Screen: Patient negative for fever greater than or equal to 101.5 degrees Fahrenheit, and additional compatible Ebola Virus Disease symptoms Patient denies exposure to infectious person. Patient denies travel to an Ebola-affected area in the 21 days before illness onset. No symptoms or risks identified at this time. Initial Sepsis Screen: Does the patient meet any 2 criteria? No. Patient's initial sepsis screen is negative. Does the patient have a suspected source of infection? No. Patient's initial sepsis screen is negative. Risk Assessment: Do you want to hurt yourself or someone else? Patient reports no desire to harm self or others. Onset of symptoms was August 30, 2021. 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 - Social history:: Smoking status: Patient denies any tobacco usage or history of. Screenin:20 Abuse screen: Denies threats or abuse. Denies injuries from another. Nutritional ph screening: No deficits noted. Tuberculosis screening: No symptoms or risk factors identified. Fall Risk None identified. Assessment: 16:00 General: Appears in no apparent distress. comfortable, Behavior is calm, cooperative, ph appropriate for age, Denies fever. Pain: Complains of pain in plantar aspect of right second toe and right second toe. Neuro: Level of Consciousness is awake, alert, obeys commands, Oriented to person, place, time, situation. Cardiovascular: Capillary refill < 3 seconds in bilateral fingers Patient's skin is warm and dry. Respiratory: Airway is patent Respiratory effort is even, unlabored. Derm: Skin is healthy with good turgor, Skin is pink, warm \T\ dry. Derm: Wound noted plantar aspect of right second toe. Musculoskeletal: Circulation, motion, and sensation intact. Range of motion: intact in all extremities. 17:00 Reassessment: Patient appears in no apparent distress at this time. No changes from ph previously documented assessment. Patient and/or family updated on plan of care and expected duration. Pain level reassessed. Patient is alert, oriented x 3, equal unlabored respirations, skin warm/dry/pink. 18:00 Reassessment: Patient appears in no apparent distress at this time. Patient and/or ph family updated on plan of care and expected duration. Pain level reassessed. Patient is alert, oriented x 3, equal unlabored respirations, skin warm/dry/pink. Vital Signs: 14:33 BP 133 / 100; Pulse 93; Resp 16; Temp 97.9; Pulse Ox 100% on R/A; iw 16:15 BP 146 / 98; Pulse 87; Resp 18; Pulse Ox 99% on R/A; ph 17:35 BP 131 / 97; Pulse 89; Resp 18; Temp 98.2; Pulse Ox 99% on R/A; ph 19:28 BP 164 / 93; Pulse 77; Resp 18; Pulse Ox 97% on R/A; ph 20:18 BP 153 / 94; Pulse 83; Resp 17; Pulse Ox 99% on R/A; sm5 ED Course: 14:08 Patient arrived in ED. ds1 14:12 Lauri Sorensen PA is PHCP. cp 14:12 Ajit Carlton DO is Attending Physician. cp 14:35 Triage completed. iw 14:36 Arm band placed on. iw 15:20 Carmina Hartman, GIOVANNY is Primary Nurse. ph 15:22 Foot Right 3 View XRAY In Process Unspecified. EDMS 16:32 Inserted saline lock: 20 gauge in right antecubital area, using aseptic technique. zm Blood collected. 16:32 CBC with Diff Sent. zm 16:32 PT-INR Sent. zm 16:32 ESR Sent. zm 16:32 Procalcitonin Sent. zm 16:32 CRP Sent. zm 16:32 Lactate Sent. zm 16:33 CMP Sent. zm 16:39 Bed in low position. Call light in reach. Side rails up X 1. Door closed. Noise mb7 minimized. Warm blanket given. 16:44 Wound Culture Sent. mb7 19:31 Wound Culture Sent. ph 20:01 No provider procedures requiring assistance completed. Wound care: to cellulitis sm5 located on right second toe was cleaned with soap and water, dressed with cling, ABD pads. 20:18 IV discontinued, intact, bleeding controlled, No redness/swelling at site. Pressure sm5 dressing applied. Administered Medications: 17:33 Drug: NS 0.9% 1000 ml Route: IV; Rate: 1000 ml/hr; Site: right antecubital; ph 17:33 Drug: vancoMYCIN 1 grams Route: IVPB; Infused Over: 2 hrs; Site: right antecubital; ph 19:27 Follow up: Response: No adverse reaction; IV Status: Completed infusion ph 19:27 Drug: Zosyn (piperacillin-tazobactam) 3.375 grams Route: IVPB; Infused Over: 60 mins; ph Site: right antecubital; 20:25 Follow up: IV Status: Completed infusion; IV Intake: 500ml sm5 19:27 Drug: NS 0.9% 500 ml Route: IV; Rate: bolus; Site: right antecubital; ph 20:25 Follow up: IV Status: Completed infusion; IV Intake: 500ml sm5 19:37 Not Given (Physician Discretion): Insulin Regular Human 10 units IVP once cp Medication: 17:36 VIS not applicable for this client. ph Intake: 20:25 IV: 500ml; Total: 500ml. sm5 20:25 IV: 500ml; Total: 1000ml. sm5 Outcome: 19:43 Discharge ordered by MD. cp 20:18 Discharged to home ambulatory. sm5 20:18 Condition: stable 20:18 Discharge instructions given to patient, family, Instructed on discharge instructions, follow up and referral plans. medication usage, Demonstrated understanding of instructions, follow-up care, medications, Prescriptions given X 2. 20:27 Patient left the ED. sm5 Signatures: Dispatcher [employer] Doretha Dinero ds1 Sneha Ramírez, GIOVANNY RN Carmina Judge RN RN ph Page, Corey, PA PA [facility] Aleyda Lennon RN RN 5 Kristin Julio Corrections: (The following items were deleted from the chart) 20:27 20:25 IV Status: Completed infusion; IV Intake: 500ml sm5 sm5
--- NOTE | 2021-08-30 19:44 | EDPHYS ---
Physician Documentation [facility] Name: Brenda Loyd Age: 41 yrs Sex: Female : 1980 Arrival Date: 08/30/2021 Time: 14:08 Bed 15 Private MD: ED Physician Ajit Carlton HPI: 08/30 15:25 This 41 yrs old Female presents to ER via Ambulatory with complaints of Foot cp Pain. 15:25 The patient presents with pain, that is acute. The complaints affect the right second cp toe. 15:25 Context: resulted from an unknown cause, the patient can fully bear weight, the patient cp is able to ambulate, with mild difficulty. Onset: The symptoms/episode began/occurred yesterday. Associated signs and symptoms: Pertinent positives: swelling, warmth, Pertinent negatives fever. 15:25 Patient reports history DM and takes oral metformin prescribed by physician in [place]. 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 - Social history:: Smoking status: Patient denies any tobacco usage or history of. ROS: 15:30 MS/extremity: Positive for erythema, pain, swelling, tenderness, of the right second cp toe. 15:30 Constitutional: Negative for body aches, chills, fever, poor PO intake. cp 15:30 Cardiovascular: Negative for chest pain. 15:30 Respiratory: Negative for cough, shortness of breath, wheezing. 15:30 Abdomen/GI: Negative for abdominal pain. 15:30 Neuro: Negative for altered mental status, headache, weakness. 15:30 All other systems are negative. Exam: 15:35 Constitutional: The patient appears in no acute distress, alert, awake, non-toxic, well cp developed, well nourished, overweight 15:35 Head/Face: Normocephalic, atraumatic. cp 15:35 Eyes: Periorbital structures: appear normal, Conjunctiva: normal, no exudate, no injection, Sclera: no appreciated abnormality, Lids and lashes: appear normal, bilaterally. 15:35 ENT: External ear(s): are unremarkable, Nose: is normal, Mouth: Lips: moist, Oral mucosa: moist, Posterior pharynx: Airway: no evidence of obstruction, patent. 15:35 Chest/axilla: Inspection: normal. 15:35 Cardiovascular: Rate: normal, Rhythm: regular. 15:35 Respiratory: the patient does not display signs of respiratory distress, Respirations: normal, no use of accessory muscles, no retractions, labored breathing, is not present, Breath sounds: are clear throughout, no decreased breath sounds. 15:35 Abdomen/GI: Inspection: abdomen appears normal, Palpation: abdomen is soft and non-tender, in all quadrants. 15:35 Musculoskeletal/extremity: Extremities: grossly normal except: noted in the right foot: second toe appears with erythema, swelling, scant drainage from distal aspect of toe with superficial skin ulceration. Vital Signs: 14:33 BP 133 / 100; Pulse 93; Resp 16; Temp 97.9; Pulse Ox 100% on R/A; iw 16:15 BP 146 / 98; Pulse 87; Resp 18; Pulse Ox 99% on R/A; ph 17:35 BP 131 / 97; Pulse 89; Resp 18; Temp 98.2; Pulse Ox 99% on R/A; ph 19:28 BP 164 / 93; Pulse 77; Resp 18; Pulse Ox 97% on R/A; ph 20:18 BP 153 / 94; Pulse 83; Resp 17; Pulse Ox 99% on R/A; sm5 MDM: 15:18 Patient medically screened. cp 16:00 Differential diagnosis: cellulitis, abscess, osteomyelitis, sepsis. cp 17:49 Data reviewed: vital signs, nurses notes, lab test result(s), radiologic studies, plain cp films. Counseling: I had a detailed discussion with the patient and/or guardian regarding: the historical points, exam findings, and any diagnostic results supporting the discharge/admit diagnosis, lab results, radiology results. ED course: Discussed results of labs with ESR rate >140 indicating concern for osteomyelitis and recommendation for inpatient treatment with IV Vancomycin and Zosyn. Patient refuses at this time and requests outpatient treatment with oral antibiotics. 08/30 15:33 Order name: CBC with Diff; Complete Time: 17:44 cp 08/30 17:39 Interpretation: Normal except: MCV 89.8. cp 08/30 15:33 Order name: PT-INR; Complete Time: 17:39 cp 08/30 15:33 Order name: ESR; Complete Time: 17:44 cp 08/30 15:33 Order name: Procalcitonin; Complete Time: 17:39 cp 08/30 15:33 Order name: CRP; Complete Time: 17:39 cp 08/30 17:40 Interpretation: Abnormal: C-REACTIVE PROT 144.00. 08/30 15:33 Order name: CMP; Complete Time: 17:39 cp 08/30 17:40 Interpretation: Normal except: NA 134; GLUC 316; GFR 74; AST 7; ALB 2.8; GLOB 5.0; A/G cp 0.6. 08/30 14:40 Order name: Foot Right 3 View XRAY; Complete Time: 15:37 iw 08/30 15:37 Interpretation: Report reviewed. 08/30 15:33 Order name: Lactate; Complete Time: 17:39 cp 08/30 15:33 Order name: Wound Culture 08/30 19:39 Order name: Glucose, Ancillary Testing; Complete Time: 19:42 EDMS 08/30 19:42 Interpretation: Reviewed. 08/30 19:06 Order name: Wound dressing; Complete Time: 20:09 cp Administered Medications: 17:33 Drug: NS 0.9% 1000 ml Route: IV; Rate: 1000 ml/hr; Site: right antecubital; ph 17:33 Drug: vancoMYCIN 1 grams Route: IVPB; Infused Over: 2 hrs; Site: right antecubital; ph 19:27 Follow up: Response: No adverse reaction; IV Status: Completed infusion ph 19:27 Drug: Zosyn (piperacillin-tazobactam) 3.375 grams Route: IVPB; Infused Over: 60 mins; ph Site: right antecubital; 20:25 Follow up: IV Status: Completed infusion; IV Intake: 500ml sm5 19:27 Drug: NS 0.9% 500 ml Route: IV; Rate: bolus; Site: right antecubital; ph 20:25 Follow up: IV Status: Completed infusion; IV Intake: 500ml sm5 19:37 Not Given (Physician Discretion): Insulin Regular Human 10 units IVP once cp Disposition: 22:19 Co-signature as Attending Physician, Ajit STODDARD was immediately available on-site ms3 in the Emergency Department for consultation in the care of the patient.. Disposition Summary: 08/30/21 19:43 Discharge Ordered Location: Home cp Problem: new cp Symptoms: have improved cp Condition: Stable cp Diagnosis - Cellulitis of right lower limb cp - Diabetes mellitus due to underlying condition with hyperglycemia cp Followup: cp - With: Private Physician - When: 2 - 3 days - Reason: Recheck today's complaints Discharge Instructions: - Discharge Summary Sheet cp - Cellulitis, Adult cp - Hyperglycemia cp - Blood Glucose Monitoring, Adult cp - Diabetes Mellitus and Nutrition, Adult cp Forms: - Family Work Release sm5 - Medication Reconciliation Form cp - Thank You Letter cp - Antibiotic Education cp - Prescription Opioid Use cp Prescriptions: - Augmentin 875-125 mg Oral Tablet - take 1 tablet by ORAL route every 12 hours for 10 days; 20 tablet; Refills: 0, cp Product Selection Permitted - Bactrim DS 800-160 mg Oral Tablet - take 1 tablet by ORAL route every 12 hours for 10 days; 20 tablet; Refills: 0, cp Product Selection Permitted Signatures: Dispatcher [employer] Sneha Colon, RN RN Carmina Judge RN RN Lauri Soler, KRAIG PA cp Ajit Carlton DO DO ms3 Aleyda Lennon RN sm5
[2021-08-31 01:22] VITALS: TEMP 98.2
[2021-08-31 01:25] VITALS: BP 153/94; O2SAT 99
== END 2021-08-30 20:27 | disposition home or self-care (01) ==
LOC: ER 14:06
DX: L03.115 Cellulitis of right lower limb (principal); E11.65 Type 2 diabetes mellitus with hyperglycemia
CPT/HCPCS: 36415; 80053; 82947; 83605; 84145; 85025; 85610; 85652; 86140; 87070; 87077; 87186; 87205; 96365; 96366; 96367; 99284; J2543; J3370; J7030; J7040

== ENCOUNTER 2021-09-01 14:22 | Emergency (ER) | payer SELFPAY ==
--- NOTE | 2021-09-01 15:51 | EDPHYS ---
Physician Documentation [facility] Name: Brenda Loyd Age: 41 yrs Sex: Female : 1980 Arrival Date: 09/01/2021 Time: 14:23 Bed Waiting Private MD: ED Physician Alex Sandra HPI: 09/01 15:34 This 41 yrs old Female presents to ER via Ambulatory with complaints of Foot en Pain. 15:34 The patient presents with Left 2nd toe pain, swelling. The complaints affect the L 2nd en toe. Context: ulceration. Onset: The symptoms/episode began/occurred 2 week(s) ago. Modifying factors: The symptoms are alleviated by nothing. the symptoms are aggravated by movement, weight bearing. Associated signs and symptoms: The patient has no apparent associated signs or symptoms. Treatment prior to arrival includes: Pt seen in ED 2 days ago, given Rx for . 15:38 . pt was offered admission at last ED visit but declined. Given Rxs for Augmentin and en bactrim without improvement. Returns today for wound care because she doesn't want to clean it herself. She reports increased swelling and persistent drainage with pain walking. 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 No F/C/N/V. . Historical: - Allergies: 15:09 No Known Allergies; jb4 - Home Meds: 15:09 metformin 850 mg Oral tab 2 times per day [Active]; jb4 - PMHx: 15:09 diabetes mellitus; jb4 - Immunization history:: Adult Immunizations up to date. - Social history:: Smoking status: Patient denies any tobacco usage or history of. Patient uses alcohol, occasionally. Patient/guardian denies using street drugs. ROS: 15:38 Constitutional: Negative for fever, chills, and weight loss. en 15:38 MS/extremity: Positive for pain, rash, swelling, r foot and r 2nd toe. 15:38 Skin: Positive for persistent wound to right 2nd toe with drainage. . 15:38 All other systems are negative. Exam: 15:38 Constitutional: This is a well developed, well nourished patient who is awake, alert, en and in no acute distress. 15:38 Eyes: Exam is negative for erythema, exudate. 15:38 Cardiovascular: Rate: normal, Rhythm: regular, Pulses: no pulse deficits are appreciated, Heart sounds: normal, murmur, not appreciated, rub, not appreciated, gallop, not appreciated. 15:38 Respiratory: the patient does not display signs of respiratory distress, Respirations: normal, Breath sounds: are clear throughout. 15:38 Musculoskeletal/extremity: right foot with dependent edema, circumferential erythema, swelling and skin uleration to 2nd toe with thickened callous to tuft. Cap refill delayed, DROM. no cyanosis. 1+ DP pulse. No lymphantic streaking. Seen by RN that took care of pt 2 days ago who reports wound is stable.. 15:38 Skin: R 2nd toe maceration and ulceration with swelling and circumferential erythema. Vital Signs: 15:04 BP 137 / 88; Pulse 87; Resp 16; Temp 98.0(TE); Pulse Ox 99% on R/A; Weight 90.72 kg jb4 (R); Height 4 ft. 10 in. (147.32 cm) (R); Pain 9/10; 15:04 Body Mass Index 41.80 (90.72 kg, 147.32 cm) jb4 MDM: 15:35 Patient medically screened. en 15:38 Differential diagnosis: cellulitis, abscess, wet gangrene, osteomyelitis. Data en reviewed: vital signs, nurses notes, old medical records, and as a result, I will discharge patient. Counseling: I had a detailed discussion with the patient and/or guardian regarding: the historical points, exam findings, and any diagnostic results supporting the discharge/admit diagnosis, the need for further work-up and treatment in the hospital, Spoke with patient at length regarding previous recommendation for admission for IV abx at last ED visit, which she declined. Explained concern for osteomyelitis and no improvement in po medication. She is again declining admission and would like to try a "stronger" abx 2/2 primary provider for a 2mo baby. She understands chronicity of wound, concern and sequelae of untreated osteomyelitis including loss of limb, sepsis, and . She is not able to be admitted at this time and will come back after the weekend once she arranges child and family services specialist. Will switch to po doxycycline instead of bactrim and offer pain control. ED course: See above extensive counseling with pt regarding admission. . Administered Medications: No medications were administered Disposition: 18:02 Co-signature as Attending Physician, Alex Sandra MD. ma2 Disposition Summary: 09/01/21 15:50 Discharge Ordered Location: Home en Condition: Fair en Diagnosis - Cellulitis of left toe en - Other specified diabetes mellitus with foot ulcer en Followup: en - With: Carlos Queen MD - When: 1 - 2 days - Reason: Discharge Instructions: - Discharge Summary Sheet en - Cellulitis, Adult en - Diabetes Mellitus and Foot Care en Forms: - Medication Reconciliation Form en - Thank You Letter en - Antibiotic Education en - Prescription Opioid Use en Prescriptions: - Ibuprofen 600 mg Oral Tablet - take 1 tablet by ORAL route every 6 hours As needed take with food; 30 tablet; en Refills: 0, Product Selection Permitted - Neurontin 300 mg Oral Capsule - take 1 capsule by ORAL route At bedtime; 20 capsule; Refills: 0, Product en Selection Permitted - Doxycycline Hyclate 100 mg Oral Tablet - take 1 tablet by ORAL route every 12 hours; 20 tablet; Refills: 0, Product en Selection Permitted Signatures: Alan Gaitan RN RN jb4 Alex Sandra MD MD ma2 Salena Kaufman PA PA en
--- NOTE | 2021-09-01 15:51 | ER ---
Nurse's Notes [facility] Name: Brenda Loyd Age: 41 yrs Sex: Female : 1980 Arrival Date: 09/01/2021 Time: 14:23 Bed Waiting Private MD: Diagnosis: Cellulitis of left toe;Other specified diabetes mellitus with foot ulcer Presentation: 09/01 15:04 Chief complaint: Patient states: I have something on my right foot. I tried to clean it jb4 with water. When I walk it gets worse. I tried to put Osmar on it. I was seen here recently for the same thing and it has just gotten worse. Pt has a wound to her second toe. No drainage noted. appears open. Coronavirus screen: At this time, the client does not indicate any symptoms associated with coronavirus-19. Ebola Screen: No symptoms or risks identified at this time. Initial Sepsis Screen: Does the patient meet any 2 criteria? No. Patient's initial sepsis screen is negative. Does the patient have a suspected source of infection? Yes: Skin breakdown/wound. Risk Assessment: Do you want to hurt yourself or someone else? Patient reports no desire to harm self or others. Onset of symptoms was September 01, 2021. Transition of care: patient was not received from another setting of care. 15:04 Method Of Arrival: Ambulatory [facility] 15:04 Acuity: SUSAN 3 jb4 Historical: - Allergies: 15:09 No Known Allergies; jb4 - Home Meds: 15:09 metformin 850 mg Oral tab 2 times per day [Active]; jb4 - PMHx: 15:09 diabetes mellitus; jb4 - Immunization history:: Adult Immunizations up to date. - Social history:: Smoking status: Patient denies any tobacco usage or history of. Patient uses alcohol, occasionally. Patient/guardian denies using street drugs. Vital Signs: 15:04 BP 137 / 88; Pulse 87; Resp 16; Temp 98.0(TE); Pulse Ox 99% on R/A; Weight 90.72 kg jb4 (R); Height 4 ft. 10 in. (147.32 cm) (R); Pain 9/10; 15:04 Body Mass Index 41.80 (90.72 kg, 147.32 cm) 4 ED Course: 14:23 Patient arrived in ED. as 15:08 Triage completed. jb4 15:09 Arm band placed on right wrist. jb4 15:26 Salena Kaufman PA is PHCP. en 15:26 Alex Sandra MD is Attending Physician. en 15:49 Carlos Queen MD is Referral Physician. en 15:58 Sneha Ramírez, RN is Primary Nurse. iw Administered Medications: No medications were administered Outcome: 15:50 Discharge ordered by MD. en 15:58 Patient left the ED. iw Signatures: Yesenia Julio as Sneha Ramírez, RN RN iw Alan Gaitan RN RN jb4 Salena Kaufman PA PA en
[2021-09-01 20:25] VITALS: BP 137/88; TEMP 98; O2SAT 99
== END 2021-09-01 15:58 | disposition home or self-care (01) ==
LOC: ER 14:22
DX: L03.031 Cellulitis of right toe (principal); E13.621 Other specified diabetes mellitus with foot ulcer; L97.519 Non-pressure chronic ulcer of other part of right foot with unspecified severity
CPT/HCPCS: 99281

== ENCOUNTER 2021-10-31 08:08 | Emergency (ER) | payer SELFPAY ==
[2021-10-31 08:38] LABS: Urine Blood Negative (Negative); Urine Glucose 3+ (Negative); Urine Protein Negative (Negative); Urine Specific Gravity <=1.005 (1.005-1.030); Urine pH 5.5 (5.0-7.0)
[2021-10-31 08:56] LABS: Absolute Lymphocytes (CBC) 1.5 K/uL (0.7-4.9); Hematocrit 38.6 % (36.0-45.0); Lymphocytes % 19.8 % (15.3-44.8); MCV 93.1 fL (80-100); MPV 8.8 fL (7.6-11.3); RBC Red Blood Cell Count 4.15 M/uL (3.86-4.86)
[2021-10-31 09:16] LABS: Albumin 2.8 g/dL (3.4-5.0); Bilirubin Total 0.2 mg/dL (0.2-1.0); Protein, Total 7.3 g/dL (6.4-8.2)
[2021-10-31] MEDS ORDERED: NA CHLORIDE 0.9% 2,000 ML ONE (09:34)
[2021-10-31] MEDS ORDERED: INSULIN -REGULAR HUMAN 50 UNIT/0.5 ML ML ONE (09:34)
--- NOTE | 2021-10-31 11:47 | EDPHYS ---
Physician Documentation [facility] Name: Brenda Loyd Age: 41 yrs Sex: Female : 1980 Arrival Date: 10/31/2021 Time: 08:09 Bed 10 Private MD: ED Physician Lauri Liao HPI: 10/31 08:39 This 41 yrs old Female presents to ER via Wheelchair with complaints of pm1 Nausea/Vomiting. 08:39 The patient presents to the emergency department with nausea, vomiting. Onset: The pm1 symptoms/episode began/occurred yesterday. Possible causes: Patient concerned that she might be . The symptoms are aggravated by nothing. Associated signs and symptoms: The patient has no apparent associated signs or symptoms, Pertinent negatives: abdominal pain, dysuria, fever, chest pain, shortness of breath, cough. Severity of symptoms: in the emergency department the symptoms. The patient has not recently seen a physician. 08:39 Patient presenting to the ER with complaints of nausea and 1 episode of vomiting in the pm1 morning yesterday and today. Patient reports that her is concerned she might be . Patient with history of diabetes. Patient does not check her blood sugar on a regular basis and has not taken her metformin after it ran out. 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 - Social history:: Smoking status: . ROS: 08:39 Constitutional: Negative for fever, chills, and weight loss, Cardiovascular: Negative pm1 for chest pain, palpitations, and edema, Respiratory: Negative for shortness of breath, cough, wheezing, and pleuritic chest pain. 08:39 ENT: Negative for injury, pain, and discharge, Back: Negative for injury and pain, : Negative for injury, bleeding, discharge, and swelling, MS/Extremity: Negative for injury and deformity, Skin: Negative for injury, rash, and discoloration, Neuro: Negative for headache, weakness, numbness, tingling, and seizure. 08:39 Abdomen/GI: Positive for nausea and vomiting, Negative for abdominal pain, diarrhea. 08:39 All other systems are negative. Exam: 08:39 Constitutional: This is a well developed, well nourished patient who is awake, alert, pm1 and in no acute distress. Head/Face: Normocephalic, atraumatic. 08:39 Back: No spinal tenderness. No costovertebral tenderness. Full range of motion. Skin: Warm, dry with normal turgor. Normal color with no rashes, no lesions, and no evidence of cellulitis. MS/ Extremity: Pulses equal, no cyanosis. Neurovascular intact. Full, normal range of motion. 08:39 Eyes: Exam is negative for acute changes, Periorbital structures: appear normal, Extraocular movements: no acute changes, Conjunctiva: no acute changes, no injection, Sclera: icterus, is not appreciated. 08:39 ENT: Exam is negative for acute changes, Mouth: no acute changes, Lips: normal, moist, Oral mucosa: normal, pink and intact, moist. 08:39 Cardiovascular: Exam negative for acute changes, Rate: normal, Rhythm: regular, Pulses: no pulse deficits are appreciated, Heart sounds: normal, normal S1and S2. 08:39 Respiratory: Exam negative for acute changes, respiratory distress, shortness of breath, Breath sounds: are clear throughout. 08:39 Abdomen/GI: Inspection: obese Palpation: abdomen is soft and non-tender, in all quadrants. 08:39 Neuro: Exam negative for acute changes, Orientation: is normal, Mentation: is normal, Motor: is normal, moves all fours. Vital Signs: 08:15 BP 145 / 79; Pulse 85; Resp 16; Temp 98.4; Pulse Ox 100% on R/A; iw 08:16 Weight 72.57 kg; iw 09:11 BP 129 / 65; Pulse 77; Resp 17; Pulse Ox 100% on R/A; tw2 10:43 BP 100 / 60; Pulse 72; Resp 17; Pulse Ox 99% on R/A; tw2 MDM: 08:24 Patient medically screened. jamaal 10:43 Data reviewed: vital signs. Data interpreted: Pulse oximetry: on room air is 100 %. pm1 Interpretation: normal. 11:46 Counseling: I had a detailed discussion with the patient and/or guardian regarding: the pm1 historical points, exam findings, and any diagnostic results supporting the discharge/admit diagnosis, lab results, the need for outpatient follow up, for definitive care, a family practitioner, to return to the emergency department if symptoms worsen or persist or if there are any questions or concerns that arise at home. 10/31 08:38 Order name: CBC with Diff pm1 10/31 08:38 Order name: CMP; Complete Time: 09:17 pm1 10/31 08:38 Order name: Flu; Complete Time: 10:07 pm1 10/31 08:38 Order name: COVID-19 SARS RT PCR (Document "Date of Onset" if Symptomatic); Complete pm1 Time: 10:57 10/31 08:38 Order name: Urine Dipstick-Ancillary; Complete Time: 08:42 EDMS 10/31 08:51 Order name: Test, Serum; Complete Time: 10:07 em1 10/31 08:38 Order name: IV Saline Lock; Complete Time: 08:58 pm1 10/31 08:38 Order name: Urine Dipstick-Ancillary (obtain specimen); Complete Time: 08:50 pm1 10/31 08:38 Order name: Urine Test (obtain specimen); Complete Time: 08:50 pm1 10/31 11:41 Order name: Glucose, Ancillary Testing; Complete Time: 11:47 EDMS Administered Medications: 09:18 CANCELLED (Physician Discretion): Insulin Regular Human 10 units Sub-Q once pm1 09:32 Drug: NS 0.9% 1000 ml Route: IV; Rate: 1000 ml; Site: right antecubital; tw2 11:29 Follow up: Response: No adverse reaction; IV Status: Completed infusion; IV Intake: tw2 1000ml 09:32 Drug: NS 0.9% 1000 ml Route: IV; Rate: 1000 ml; Site: right antecubital; tw2 09:32 Drug: Insulin Regular Human 10 units {Co-Signature: bp (Kirk Clemente RN).} Route: IVP; tw2 Site: right antecubital; Point of Care Testing: Blood Glucose: 11:29 Blood Glucose: 289 mg/dL; tw2 Ranges: Critical Glucose Levels:Adult <50 mg/dl or >400 mg/dl <40 mg/dl or >180 mg/dl Disposition Summary: 10/31/21 11:46 Discharge Ordered Location: Home pm1 Problem: new pm1 Symptoms: have improved pm1 Condition: Stable pm1 Diagnosis - Hyperglycemia, unspecified pm1 Followup: pm1 - With: Emergency Department - When: As needed - Reason: Worsening of condition Followup: pm1 - With: Private Physician - When: 2 - 3 days - Reason: Recheck today's complaints, Continuance of care, Re-evaluation by your physician Discharge Instructions: - Hyperglycemia pm1 - Blood Glucose Monitoring, Adult pm1 - Discharge Summary Sheet tw2 - Diabetes Mellitus and Exercise pm1 - Diabetes Mellitus and Nutrition, Adult pm1 Forms: - Work release form tw2 - Medication Reconciliation Form pm1 - Thank You Letter pm1 - Antibiotic Education pm1 - Prescription Opioid Use pm1 - Family Work Release iw Prescriptions: - Metformin 500 mg Oral Tablet - take 1 tablet by ORAL route once daily for 7 days Then take 1 tablet with pm1 morning meals AND evening meals; 21 tablet; Refills: 0, Product Selection Permitted Signatures: Dispatcher [employer] EDLauri Gloria MD MD cha Williams, Irene, RN RN iw King Watson, MYRNA DISTRIBUTION SUPERINTENDENT pm1 Brigida Aragon RN RN tw2 Kirk Clemente RN bp Corrections: (The following items were deleted from the chart) 09:18 09:17 Insulin Regular Human 10 units Sub-Q once ordered. pm1 pm1
--- NOTE | 2021-10-31 11:47 | ER ---
Nurse's Notes [facility] Name: Brenda Loyd Age: 41 yrs Sex: Female : 1980 Arrival Date: 10/31/2021 Time: 08:09 Bed 10 Private MD: Diagnosis: Hyperglycemia, unspecified Presentation: 10/31 08:12 Chief complaint: Patient states: 3-4 days with nausea and she vomited three times today iw and feels weak, felt sweaty. Coronavirus screen: Client presents with at least one sign or symptom that may indicate coronavirus-19. Ebola Screen: Patient negative for fever greater than or equal to 101.5 degrees Fahrenheit, and additional compatible Ebola Virus Disease symptoms Patient denies exposure to infectious person. Patient denies travel to an Ebola-affected area in the 21 days before illness onset. No symptoms or risks identified at this time. Risk Assessment: Do you want to hurt yourself or someone else? Patient reports no desire to harm self or others. Onset of symptoms was October 28, 2021. 08:12 Method Of Arrival: Wheelchair iw 08:12 Acuity: SUSAN 3 iw 08:15 Initial Sepsis Screen: Does the patient meet any 2 criteria? No. Patient's initial iw sepsis screen is negative. Does the patient have a suspected source of infection? No. Patient's initial sepsis screen is negative. 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 - Social history:: Smoking status: . Screenin:20 Abuse screen: Denies threats or abuse. Nutritional screening: No deficits noted. tw2 Tuberculosis screening: No symptoms or risk factors identified. Fall Risk None identified. Assessment: 08:20 Reassessment: pt ambulating to the restroom at this time for urine sample. tw2 08:59 General: Appears in no apparent distress. uncomfortable, obese, well groomed, Behavior tw2 is calm, cooperative, appropriate for age. General: Reports "just nauseous in the morning and i vomit like once". Pain: Denies pain. Neuro: Level of Consciousness is awake, alert, obeys commands, Oriented to person, place, time, situation. Respiratory: Airway is patent Respiratory effort is even, unlabored, Respiratory pattern is regular, symmetrical. GI: Abdomen is round Reports bloating. 09:09 Reassessment: pt reports "i have been out of my metformin for my diabetes so that could tw2 be why i am feeling this way too, i take 500 mg of metformin just in the morning, can the provider write me a prescription", provider notified. 10:43 Reassessment: Patient appears in no apparent distress at this time. Patient and/or tw2 family updated on plan of care and expected duration. Pain level reassessed. Patient is alert, oriented x 3, equal unlabored respirations, skin warm/dry/pink. pt given water at this time, provider agreeable. 11:29 Reassessment: Patient appears in no apparent distress at this time. Patient and/or tw2 family updated on plan of care and expected duration. Pain level reassessed. Patient is alert, oriented x 3, equal unlabored respirations, skin warm/dry/pink. 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 can you let him know my sugar is down so he will let me go" ,provider notified. Vital Signs: 08:15 BP 145 / 79; Pulse 85; Resp 16; Temp 98.4; Pulse Ox 100% on R/A; iw 08:16 Weight 72.57 kg; iw 09:11 BP 129 / 65; Pulse 77; Resp 17; Pulse Ox 100% on R/A; tw2 10:43 BP 100 / 60; Pulse 72; Resp 17; Pulse Ox 99% on R/A; tw2 ED Course: 08:09 Patient arrived in ED. am2 08:15 Triage completed. iw 08:16 Arm band placed on. iw 08:17 King Watson NP is PHCP. pm1 08:17 Lauri Liao MD is Attending Physician. pm1 08:20 Brigida Araogn RN is Primary Nurse. tw2 08:23 Bed in low position. Call light in reach. Pulse ox on. NIBP on. tw2 08:59 Inserted saline lock: 20 gauge in right antecubital area, using aseptic technique. tw2 Blood collected. 09:03 Test, Serum Sent. tw2 09:13 Notified Nurse Practitioner and/or Physician [employer] Manager of a critical lab result(s), 549 tw2 mg/dL glucose. 11:51 No provider procedures requiring assistance completed. tw2 12:17 IV discontinued, intact, bleeding controlled, No redness/swelling at site. Pressure iw dressing applied. Administered Medications: 09:18 CANCELLED (Physician Discretion): Insulin Regular Human 10 units Sub-Q once pm1 09:32 Drug: NS 0.9% 1000 ml Route: IV; Rate: 1000 ml; Site: right antecubital; tw2 11:29 Follow up: Response: No adverse reaction; IV Status: Completed infusion; IV Intake: tw2 1000ml 09:32 Drug: NS 0.9% 1000 ml Route: IV; Rate: 1000 ml; Site: right antecubital; tw2 09:32 Drug: Insulin Regular Human 10 units {Co-Signature: bp (Kirk Clemente RN).} Route: IVP; tw2 Site: right antecubital; Medication: 08:21 VIS not applicable for this client. tw2 Point of Care Testing: Blood Glucose: 11:29 Blood Glucose: 289 mg/dL; tw2 Ranges: Intake: 11:29 IV: 1000ml; Total: 1000ml. tw2 Outcome: 11:46 Discharge ordered by MD. pm1 12:17 Discharged to home ambulatory. iw 12:17 Condition: good 12:17 Discharge instructions given to patient, Instructed on discharge instructions, follow up and referral plans. medication usage, Demonstrated understanding of instructions, follow-up care, medications, Prescriptions given X 1. 12:17 Patient left the ED. iw Signatures: Sneha Ramírez, RN RN iw King Watson, CHURCH SECRETARY CHURCH SECRETARY pm1 Brigida Aragon RN RN tw2 Dunia Lemos am2 Kirk Clemente RN bp
[2021-10-31 12:26] VITALS: TEMP 98.4
[2021-10-31 12:29] VITALS: BP 100/60; O2SAT 99
== END 2021-10-31 12:17 | disposition home or self-care (01) ==
LOC: ER 08:08
DX: E11.65 Type 2 diabetes mellitus with hyperglycemia (principal); Z20.822 Contact with and (suspected) exposure to COVID-19
CPT/HCPCS: 36415; 80053; 81003; 82947; 84703; 85025; 87804; J1815; J7030; U0003

== ENCOUNTER 2021-11-13 06:49 | Emergency (ER) | payer SELFPAY ==
[2021-11-13 08:54] LABS: Absolute Lymphocytes (CBC) 1.9 K/uL (0.7-4.9); Hematocrit 39.2 % (36.0-45.0); Lymphocytes % 25.7 % (15.3-44.8); MCV 90.8 fL (80-100); MPV 8.2 fL (7.6-11.3); RBC Red Blood Cell Count 4.32 M/uL (3.86-4.86)
[2021-11-13 08:56] LABS: Protime INR 1.08
--- NOTE | 2021-11-13 09:06 | RAD REPORT ---
EXAM DESCRIPTION: US - Extremity Venous Uni Ltd - 11/13/2021 8:55 am CLINICAL HISTORY: PAIN Leg swelling and edema. COMPARISON: <Comparisons> FINDINGS: Left lower extremity venous system was interrogated with Doppler technique. Normal flow, c ompressibility and augmentation was noted. There is no DVT present. IMPRESSION: No evidence of left lower extremity deep venous thrombosis.
[2021-11-13 09:11] LABS: Albumin 3.1 g/dL (3.4-5.0); Bilirubin Direct 0.1 mg/dL (0-0.2); Bilirubin Total 0.3 mg/dL (0.2-1.0); Potassium 3.5 mmol/L (3.5-5.1); Protein, Total 8.1 g/dL (6.4-8.2); Troponin High Sensitivity 3.3 pg/mL (<58.9)
[2021-11-13] MEDS ORDERED: NA CHLORIDE 0.9% 1,000 ML ONE (09:49)
[2021-11-13] MEDS ORDERED: ONDANSETRON 4 MG/2 ML VIAL ONE (09:49)
[2021-11-13] MEDS ORDERED: MORPHINE 2 MG/ML SYR ONE (09:49)
[2021-11-13 09:55] LABS: SARS-CoV-2 Antigen Rapid Res Negative (Negative)
--- NOTE | 2021-11-13 10:12 | RAD REPORT ---
EXAM DESCRIPTION: RAD - Chest Single View - 11/13/2021 9:34 am CLINICAL HISTORY: COUGH Chest pain. COMPARISON: Chest Single View dated 01/30/2021 FINDINGS: Portable technique limits examination quality. The lungs are underinflated resulting in vascular crowding. The heart is normal in size. No displaced fractures. IMPRESSION: Underinflated lungs resulting in vascular crowding.
--- NOTE | 2021-11-13 10:13 | RAD REPORT ---
EXAM DESCRIPTION: RAD - Tib Fib Left - 11/13/2021 9:34 am CLINICAL HISTORY: PAIN COMPARISON: Ankle Left 3 View dated 11/13/2021; Foot Left 3 View dated 11/13/2021 FINDINGS: Significant edema is present involving the left leg and ankle. Numerous phleboliths are pr esent in the anterior soft tissues. No fracture or evidence of osteomyelitis.
--- NOTE | 2021-11-13 10:14 | RAD REPORT ---
EXAM DESCRIPTION: RAD - Ankle Left 3 View - 11/13/2021 9:34 am CLINICAL HISTORY: PAIN COMPARISON: Ankle Left 3 View dated 11/12/2014; Foot Left 3 View dated 11/13/2021 FINDINGS: There is evidence of significant midfoot collapse present compatible with Lisfranc fractur e/ dislocation. Large plantar calcaneal spur.
--- NOTE | 2021-11-13 10:15 | RAD REPORT ---
EXAM DESCRIPTION: RAD - Foot Left 3 View - 11/13/2021 9:34 am CLINICAL HISTORY: PAIN COMPARISON: Foot Left 3 View dated 02/16/2021; Foot Left 3 View dated 11/12/2014 FINDINGS: There is Lisfranc dislocation identified. Bony fragment is seen along the dorsum of the mi dfoot presumably related to a fracture fragment. Moderate soft tissue swelling. Midfoot moderate demond apse is present. Large plantar calcaneal spur. Mild vascular calcification. IMPRESSION: Moderate Lisfranc fracture/dislocation.
--- NOTE | 2021-11-13 11:24 | ER ---
Nurse's Notes [facility] Name: Brenda Loyd Age: 41 yrs Sex: Female : 1980 Arrival Date: 11/13/2021 Time: 06:53 Bed 16 Private MD: Diagnosis: Pain in left foot-FRACTURE DISLOCATION OF LEFT FOOT, LisFranc;Type 2 diabetes mellitus with hyperglycemia-poorly controlled Presentation: 11/13 06:59 Chief complaint: Patient states: PATIENT STATES SHE NOTED SEVERE SWELLING AND PAIN IN [facility] HER LEFT FOOT AND ANKLE. Coronavirus screen: Vaccine status: Patient reports receiving the 2nd dose of the covid vaccine. At this time, the client does not indicate any symptoms associated with coronavirus-19. Ebola Screen: Patient negative for fever greater than or equal to 101.5 degrees Fahrenheit, and additional compatible Ebola Virus Disease symptoms. Initial Sepsis Screen: Does the patient meet any 2 criteria? No. Patient's initial sepsis screen is negative. Does the patient have a suspected source of infection? No. Patient's initial sepsis screen is negative. Risk Assessment: Do you want to hurt yourself or someone else? Patient reports no desire to harm self or others. Onset of symptoms was November 13, 2021. 06:59 Method Of Arrival: Ambulatory [facility] 06:59 Acuity: SUSAN 4 [facility] Triage Assessment: 07:01 General: Appears in no apparent distress. uncomfortable, Behavior is calm, cooperative, [facility] appropriate for age. Pain: Complains of pain in LEFT ANKLE AND FOOT. 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 - Social history:: Smoking status: Patient denies any tobacco usage or history of. Screenin:55 Abuse screen: Denies threats or abuse. Nutritional screening: No deficits noted. vg1 Tuberculosis screening: No symptoms or risk factors identified. Fall Risk No fall in past 12 months (0 pts). No secondary diagnosis (0 pts). IV access (20 points). Ambulatory Aid- None/Bed Rest/Nurse Assist (0 pts). Gait- Normal/Bed Rest/Wheelchair (0 pts) Mental Status- Oriented to own ability (0 pts). Total Romo Fall Scale indicates No Risk (0-24 pts). Assessment: 09:53 General: Appears in no apparent distress. uncomfortable, Behavior is calm, cooperative. vg1 Pain: Complains of pain in left foot Pain currently is 8 out of 10 on a pain scale. Quality of pain is described as heavy, throbbing. Neuro: Level of Consciousness is awake, alert, obeys commands, Oriented to person, place, time, situation. Cardiovascular: Denies chest pain, shortness of breath, Capillary refill < 3 seconds in bilateral toes Pulses are palpable in right dorsalis pedis artery and left dorsalis pedis artery. Respiratory: Airway is patent Respiratory effort is even, unlabored. GI: No signs and/or symptoms were reported involving the gastrointestinal system. : No signs and/or symptoms were reported regarding the genitourinary system. Derm: Skin is red, left foot Skin temperature is hot. Musculoskeletal: Swelling present in left foot. 10:55 Reassessment: provider at bedside. vg1 11:00 Reassessment: Patient appears in no apparent distress at this time. No changes from vg1 previously documented assessment. Patient and/or family updated on plan of care and expected duration. Pain level reassessed. Patient is alert, oriented x 3, equal unlabored respirations, skin warm/dry/pink. 12:00 Reassessment: Patient appears in no apparent distress at this time. No changes from vg1 previously documented assessment. Patient and/or family updated on plan of care and expected duration. Pain level reassessed. Patient is alert, oriented x 3, equal unlabored respirations, skin warm/dry/pink. 13:00 Reassessment: Patient appears in no apparent distress at this time. No changes from vg1 previously documented assessment. Patient and/or family updated on plan of care and expected duration. Pain level reassessed. Patient is alert, oriented x 3, equal unlabored respirations, skin warm/dry/pink. 14:00 Reassessment: Patient appears in no apparent distress at this time. Patient and/or vg1 family updated on plan of care and expected duration. Pain level reassessed. Patient is alert, oriented x 3, equal unlabored respirations, skin warm/dry/pink. resting with eyes closed. 14:30 Reassessment: report called to Ratna BALTAZAR at [facility] ER. 1 Vital Signs: 06:59 BP 145 / 83; Pulse 79; Resp 18; Temp 97.7; Pulse Ox 100% on R/A; Weight 72.57 kg; bh1 Height 4 ft. 10 in. (147.32 cm); Pain 9/10; 11:00 BP 146 / 76; Pulse 85; Resp 16; Pulse Ox 99% on R/A; vg1 12:00 BP 131 / 69; Pulse 73; Resp 16; Pulse Ox 100% on R/A; vg1 13:00 BP 131 / 81; Pulse 63; Resp 14; Pulse Ox 100% on R/A; vg1 14:00 BP 146 / 90; Pulse 70; Resp 20; Pulse Ox 100% on R/A; vg1 15:00 BP 144 / 72; Pulse 70; Resp 16; Pulse Ox 99% on R/A; vg1 06:59 Body Mass Index 33.44 (72.57 kg, 147.32 cm) [facility] ED Course: 06:53 Patient arrived in ED. ja2 07:01 Triage completed. 1 07:01 Arm band placed on right wrist. 1 07:14 Lina Coleman, GIOVANNY is Primary Nurse. jl7 07:23 Lauir Liao MD is Attending Physician. jamaal 08:35 First set of blood cultures drawn Second set of blood cultures drawn. Inserted saline kj1 lock: 20 gauge in right antecubital area, using aseptic technique. Blood collected. 08:57 US Extremity Venous Unilateral Ltd In Process Unspecified. EDMS 09:06 SARS RAPID Sent. kj1 09:06 Sed Rate Sent. kj1 09:06 Lactate Sent. kj1 09:07 Blood Culture Adult (2) Sent. kj1 09:30 Foot Left 3 View XRAY In Process Unspecified. EDMS 09:31 Ankle Left 3 View XRAY In Process Unspecified. EDMS 09:31 Tib Fib Left XRAY In Process Unspecified. EDMS 09:31 XRAY Chest (1 view) In Process Unspecified. EDMS 10:30 Patient has correct armband on for positive identification. Placed in gown. Bed in low vg1 position. Call light in reach. Side rails up X 1. 11:20 Edin Taveras MD is Referral Physician. jamaal 15:14 No provider procedures requiring assistance completed. Patient transferred, IV remains vg1 in place. Administered Medications: 09:45 Drug: NS 0.9% 1000 ml Route: IV; Rate: 125 ml/hr; Site: right antecubital; vg1 15:12 Follow up: IV Status: Infusion continued upon transfer vg1 09:45 Drug: Zofran (Ondansetron) 4 mg Route: IVP; Site: right antecubital; vg1 11:21 Follow up: Response: No adverse reaction vg1 09:47 Drug: morphine 2 mg Route: IVP; Infused Over: 4 mins; Site: right antecubital; vg1 11:15 Follow up: Response: Pain is decreased tp1 11:43 Drug: Insulin Regular Human 8 units {Co-Signature: tp1 (Luz Elena Freire RN).} Route: vg1 IVP; Site: right antecubital; 15:11 Follow up: Response: No adverse reaction; Blood sugar is lowered vg1 11:47 Drug: Zosyn (piperacillin-tazobactam) 3.375 grams Route: IVPB; Infused Over: 60 mins; vg1 Site: right antecubital; 12:50 Follow up: Response: No adverse reaction; IV Status: Completed infusion; IV Intake: vg1 100ml 11:58 Not Given (Duplicate Order): Semaglutide Pen Injector 30 mg Sub-Q once jamaal 12:01 Drug: Semaglutide Pen Injector 30 units Route: Sub-Q; Site: right upper arm; tp1 15:11 Follow up: Response: Blood sugar is lowered vg1 Medication: 15:14 VIS not applicable for this client. vg1 Intake: 12:50 IV: 100ml; Total: 100ml. vg1 Outcome: 11:23 Discharge ordered by . jamaal 12:25 ER care complete, transfer ordered by . jamaal 15:14 Transferred by ground EMS to [facility]. vg1 15:14 Condition: good 15:14 Instructed on the need for transfer. 15:15 Patient left the ED. vg1 Signatures: Dispatcher [employer] Lauri Lang MD MD cha Leal, Jahala, RN RN [id number] Sully Braden kjBerta Huffman RN RN vg1 Nola Strauss Tiffany, RN RN tp1 Isabel Abernathy RN RN bh1 Luz Elena Freire RN tp1 Corrections: (The following items were deleted from the chart) 09:57 09:53 Cardiovascular: Capillary refill < 3 seconds in bilateral toes Pulses are vg1 palpable in right dorsalis pedis artery and left dorsalis pedis artery vg1
--- NOTE | 2021-11-13 11:24 | EDPHYS ---
Physician Documentation [facility] Name: Brenda Loyd Age: 41 yrs Sex: Female : 1980 Arrival Date: 11/13/2021 Time: 06:53 Bed 16 Private MD: YVONNE Physician Lauri Liao HPI: 11/13 08:14 This 41 yrs old Female presents to ER via Ambulatory with complaints of Feet jamaal Swelling. 08:14 The patient presents with decreased range of motion, pain, swelling, tenderness. The jamaal complaints affect the lateral aspect of left calf, left lateral ankle, lateral aspect of left foot, left calf, left Achilles, medial aspect of left calf, left medial ankle, medial aspect of left foot, left nixon, anterior aspect of left ankle and dorsum of left foot. Onset: The symptoms/episode began/occurred 2 day(s) ago. Context: The problem was sustained at an unknown location. Associated signs and symptoms: The patient has no apparent associated signs or symptoms. The complaints affect the left foot, left foot, lateral aspect of left calf, left lateral ankle, lateral aspect of left foot, left calf, left Achilles, medial aspect of left calf, left medial ankle, medial aspect of left foot, left nixon, anterior aspect of left ankle and dorsum of left foot. Context: The problem was sustained at an unknown location. Modifying factors: The symptoms are alleviated by elevation of extremity, the symptoms are aggravated by weight bearing, movement. [employer]: 07:01 LMP 11/08/2021 [facility] Historical: - Allergies: 07:01 NKDA; [facility] - Home Meds: 07:01 metformin 850 mg Oral tab 2 times per day [Active]; [facility] - PMHx: 07:01 diabetes mellitus; 1 - Immunization history:: Adult Immunizations up to date. - Social history:: Smoking status: Patient denies any tobacco usage or history of. ROS: 08:15 Constitutional: Negative for fever, chills, and weight loss, Eyes: Negative for injury, jamaal pain, redness, and discharge, ENT: Negative for injury, pain, and discharge, Neck: Negative for injury, pain, and swelling, Cardiovascular: Negative for chest pain, palpitations, and edema, Respiratory: Negative for shortness of breath, cough, wheezing, and pleuritic chest pain, Abdomen/GI: Negative for abdominal pain, nausea, vomiting, diarrhea, and constipation, Back: Negative for injury and pain, : Negative for injury, bleeding, discharge, and swelling, Skin: Negative for injury, rash, and discoloration, Neuro: Negative for headache, weakness, numbness, tingling, and seizure, Psych: Negative for depression, anxiety, suicide ideation, homicidal ideation, and hallucinations, Allergy/Immunology: Negative for hives, rash, and allergies, Endocrine: Negative for neck swelling, polydipsia, polyuria, polyphagia, and marked weight changes, Hematologic/Lymphatic: Negative for swollen nodes, abnormal bleeding, and unusual bruising. 08:15 MS/extremity: Positive for decreased range of motion, pain, swelling, tenderness, of the left foot, lateral aspect of left calf, left lateral ankle, lateral aspect of left foot, medial aspect of left calf, left medial ankle, medial aspect of left foot, left nixon, anterior aspect of left ankle and dorsum of left foot. Exam: 08:15 Constitutional: This is a well developed, well nourished patient who is awake, alert, jamaal and in no acute distress. Head/Face: Normocephalic, atraumatic. Eyes: Pupils equal round and reactive to light, extra-ocular motions intact. Lids and lashes normal. Conjunctiva and sclera are non-icteric and not injected. Cornea within normal limits. Periorbital areas with no swelling, redness, or edema. ENT: Nares patent. No nasal discharge, no septal abnormalities noted. Tympanic membranes are normal and external auditory canals are clear. Oropharynx with no redness, swelling, or masses, exudates, or evidence of obstruction, uvula midline. Mucous membranes moist. Neck: Trachea midline, no thyromegaly or masses palpated, and no cervical lymphadenopathy. Supple, full range of motion without nuchal rigidity, or vertebral point tenderness. No Meningismus. Chest/axilla: Normal chest wall appearance and motion. Nontender with no deformity. No lesions are appreciated. Cardiovascular: Regular rate and rhythm with a normal S1 and S2. No gallops, murmurs, or rubs. Normal PMI, no JVD. No pulse deficits. Respiratory: Lungs have equal breath sounds bilaterally, clear to auscultation and percussion. No rales, rhonchi or wheezes noted. No increased work of breathing, no retractions or nasal flaring. Abdomen/GI: Soft, non-tender, with normal bowel sounds. No distension or tympany. No guarding or rebound. No evidence of tenderness throughout. Back: No spinal tenderness. No costovertebral tenderness. Full range of motion. Skin: Warm, dry with normal turgor. Normal color with no rashes, no lesions, and no evidence of cellulitis. Neuro: Awake and alert, GCS 15, oriented to person, place, time, and situation. Cranial nerves II-XII grossly intact. Motor strength 5/5 in all extremities. Sensory grossly intact. Cerebellar exam normal. Normal gait. Psych: Awake, alert, with orientation to person, place and time. Behavior, mood, and affect are within normal limits. 08:15 Musculoskeletal/extremity: ROM: full active range of motion, full passive range of motion, limited active range of motion due to pain, limited passive range of motion due to pain, Circulation is intact in all extremities. Pulses: noted to be 4+ in the left popliteal artery, bilateral radial, brachial, femoral, popliteal, posterior tibial and and dorsalis pedis arteries., Sensation intact. Compartment Syndrome exam of affected extremity: is normal. DVT Exam: negative Homans' sign noted on exam, no appreciated bluish discoloration, pain, swelling, tenderness, erythema, increased warmth. 11:37 ECG was reviewed by the Attending Physician. jamaal Vital Signs: 06:59 BP 145 / 83; Pulse 79; Resp 18; Temp 97.7; Pulse Ox 100% on R/A; Weight 72.57 kg; bh1 Height 4 ft. 10 in. (147.32 cm); Pain 9/10; 11:00 BP 146 / 76; Pulse 85; Resp 16; Pulse Ox 99% on R/A; vg1 12:00 BP 131 / 69; Pulse 73; Resp 16; Pulse Ox 100% on R/A; vg1 13:00 BP 131 / 81; Pulse 63; Resp 14; Pulse Ox 100% on R/A; vg1 14:00 BP 146 / 90; Pulse 70; Resp 20; Pulse Ox 100% on R/A; vg1 15:00 BP 144 / 72; Pulse 70; Resp 16; Pulse Ox 99% on R/A; vg1 06:59 Body Mass Index 33.44 (72.57 kg, 147.32 cm) [facility] MDM: 07:23 Patient medically screened. [facility] 08:17 Differential diagnosis: fracture, sprain, arthritis, gout, cellulitis. Data reviewed: [facility] vital signs, nurses notes, lab test result(s), EKG, radiologic studies, plain films. Data interpreted: laboratory monitor: not applicable for this patient encounter. rate is 79 beats/min, rhythm is regular, Pulse oximetry: on room air is 100 %. Test interpretation: by ED physician or midlevel provider: ECG, plain radiologic studies. Counseling: I had a detailed discussion with the patient and/or guardian regarding: the historical points, exam findings, and any diagnostic results supporting the discharge/admit diagnosis, lab results, radiology results. 11/13 08:13 Order name: Basic Metabolic Panel; Complete Time: 10:36 [facility] 11/13 08:13 Order name: CBC with Diff; Complete Time: 10:36 [facility] 11/13 08:13 Order name: LFT's; Complete Time: 10:36 [facility] 11/13 08:13 Order name: Magnesium; Complete Time: 10:36 [facility] 11/13 08:13 Order name: NT PRO-BNP; Complete Time: 10:36 [facility] 11/13 08:13 Order name: PT-INR; Complete Time: 10:36 [facility] 11/13 08:13 Order name: Foot Left 3 View XRAY; Complete Time: 10:36 [facility] 11/13 08:13 Order name: Ankle Left 3 View XRAY; Complete Time: 10:36 [facility] 11/13 08:13 Order name: Tib Fib Left XRAY; Complete Time: 10:36 [facility] 11/13 08:13 Order name: Troponin HS; Complete Time: 10:36 [facility] 11/13 08:14 Order name: Blood Culture Adult (2) [facility] 11/13 08:14 Order name: Lactate; Complete Time: 10:36 [facility] 11/13 08:17 Order name: Sed Rate; Complete Time: 10:36 11/13 08:19 Order name: SARS RAPID; Complete Time: 10:36 kj 11/13 08:13 Order name: XRAY Chest (1 view); Complete Time: 10:36 [facility] 11/13 08:13 Order name: EKG; Complete Time: 08:14 [facility] 11/13 08:13 Order name: Cardiac monitoring; Complete Time: 15:12 [facility] 11/13 08:13 Order name: EKG - Nurse/Tech; Complete Time: 09:09 [facility] 11/13 08:13 Order name: IV Saline Lock; Complete Time: 09: [facility] 11/13 08:13 Order name: Labs collected and sent; Complete Time: 09: [facility] 11/13 08:13 Order name: O2 Per Protocol; Complete Time: 11:31 [facility] 11/13 08:13 Order name: US Extremity Venous Unilateral Ltd; Complete Time: 10:36 [facility] 11/13 08:13 Order name: O2 Sat Monitoring; Complete Time: 11:31 [facility] EC:37 Rate is 70 beats/min. Rhythm is regular. QRS Louann is Normal. SD interval is normal. QRS jamaal interval is normal. QT interval is normal. No Q waves. T waves are Normal. No ST changes noted. Clinical impression: NSR w/ Non-specific ST/T Changes and No evidence of ischemia. Interpreted by me. Reviewed by me. Administered Medications: 09:45 Drug: NS 0.9% 1000 ml Route: IV; Rate: 125 ml/hr; Site: right antecubital; vg1 15:12 Follow up: IV Status: Infusion continued upon transfer vg1 09:45 Drug: Zofran (Ondansetron) 4 mg Route: IVP; Site: right antecubital; vg1 11:21 Follow up: Response: No adverse reaction 1 09:47 Drug: morphine 2 mg Route: IVP; Infused Over: 4 mins; Site: right antecubital; vg1 11:15 Follow up: Response: Pain is decreased tp1 11:43 Drug: Insulin Regular Human 8 units {Co-Signature: tp1 (Luz Elena Freire RN).} Route: vg1 IVP; Site: right antecubital; 15:11 Follow up: Response: No adverse reaction; Blood sugar is lowered 1 11:47 Drug: Zosyn (piperacillin-tazobactam) 3.375 grams Route: IVPB; Infused Over: 60 mins; vg1 Site: right antecubital; 12:50 Follow up: Response: No adverse reaction; IV Status: Completed infusion; IV Intake: vg1 100ml 11:58 Not Given (Duplicate Order): Semaglutide Pen Injector 30 mg Sub-Q once [facility] 12:01 Drug: Semaglutide Pen Injector 30 units Route: Sub-Q; Site: right upper arm; tp1 15:11 Follow up: Response: Blood sugar is lowered vg1 Disposition Summary: 11/13/21 12:25 Transfer Ordered Transfer Location: [facility] jamaal Reason: Higher level of care jamaal Condition: Fair(11/13/21 12:25) jamaal Problem: new(11/13/21 12:25) jamaal Symptoms: have improved(11/13/21 12:25) jamaal Accepting Physician: to [facility](11/13/21 15:15) vg1 Diagnosis - Pain in left foot - FRACTURE DISLOCATION OF LEFT FOOT, LisFranc(11/13/21 12:25) jamaal - Type 2 diabetes mellitus with hyperglycemia - poorly controlled(11/13/21 12:25) jamaal Forms: - Medication Reconciliation Form jamaal - SBAR form jamaal Signatures: Dispatcher [employer] EDLauri Gloria MD MD cha Garcia, Victoria, RN RN vg1 Luz Elena Freire RN RN tp1 Isabel Abernathy RN RN [facility] Luz Elena Freire RN tp1 Corrections: (The following items were deleted from the chart) 12:19 11:23 Home jamaal jamaal 12:19 11:23 new jamaal jamaal 12:19 11:23 have improved jamaal jamaal 12:19 11:23 Fair jamaal jamaal 12:19 11:23 Pain in left foot - COMPLEX Lisfranc FRACTURE/DISLOCATION, modersate soft tissue jamaal swelling jamaal 12:19 11:23 Type 2 diabetes mellitus with hyperglycemia - uncontrolled jamaal jamaal 15:15 12:25 to [facility] jamaal vg1
[2021-11-13] MEDS ORDERED: NA CHLORIDE 0.9% 100 ML ONE (11:45)
[2021-11-13] MEDS ORDERED: INSULIN -REGULAR HUMAN 50 UNIT/0.5 ML ML ONE (11:45)
[2021-11-13] MEDS ORDERED: PIPERACIL/TAZO 3.375 GM VIAL IV ONE (11:46)
[2021-11-13] MEDS ORDERED: INSULIN GLARGINE 100 UNIT/ML SQ ONE (12:03)
[2021-11-13 15:23] VITALS: TEMP 97.7
[2021-11-13 15:30] VITALS: BP 144/72; O2SAT 99
--- NOTE | 2021-11-14 06:40 | EKG ---
Test Date: 2021-11-13 Test Time: 09:22:35 [employer] Architect: CHRISTIANNE MEASUREMENT RESULTS: Intervals: Rate: 70 OR: 140 QRSD: 68 QT: 396 QTc: 427 [place]: P: 37 OR: 140 QRS: -27 T: 3 INTERPRETIVE STATEMENTS: Normal sinus rhythm Low voltage QRS Cannot rule out Anterior infarct, age undetermined Abnormal ECG Compared to ECG 01/30/2021 19:11:22 Myocardial infarct finding now present Electronically Signed On 11-14-21 06:38:42 CDT by Bola Vieira
== END 2021-11-13 15:15 | disposition short-term general hospital (02) ==
LOC: ER 06:49
DX: S92.902A Unspecified fracture of left foot, initial encounter for closed fracture (principal); E11.65 Type 2 diabetes mellitus with hyperglycemia; Z20.822 Contact with and (suspected) exposure to COVID-19
CPT/HCPCS: 36415; 71045; 80048; 80076; 82947; 83605; 83735; 83880; 84484; 85025; 85610; 85652; 87040; 87811; 93005; 93971; 96361; 96365; 96372; 96375; 99285; J1815; J2270; J2405; J2543; J7030

== ENCOUNTER 2022-07-09 08:38 | Emergency (ER) | payer SELFPAY ==
--- NOTE | 2022-07-09 09:24 | ER ---
Nurse's Notes [facility] Name: Brenda Loyd Age: 41 yrs Sex: Female : 1980 Arrival Date: 07/09/2022 Time: 08:39 Bed 12 Private MD: Diagnosis: Cutaneous abscess of right hand-Middle finger Presentation: 07/09 08:41 Risk Assessment: Do you want to hurt yourself or someone else?. kb3 08:57 Chief complaint: Patient states: abscess to right middle finger since this weekend. iw Coronavirus screen: At this time, the client does not indicate any symptoms associated with coronavirus-19. Ebola Screen: Patient negative for fever greater than or equal to 101.5 degrees Fahrenheit, and additional compatible Ebola Virus Disease symptoms Patient denies exposure to infectious person. Patient denies travel to an Ebola-affected area in the 21 days before illness onset. No symptoms or risks identified at this time. Initial Sepsis Screen: Does the patient meet any 2 criteria? No. Patient's initial sepsis screen is negative. Does the patient have a suspected source of infection? No. Patient's initial sepsis screen is negative. Onset of symptoms was July 09, 2022. 08:57 Method Of Arrival: Ambulatory iw 08:57 Acuity: SUSAN 4 iw Historical: - Allergies: 08:57 NKDA; iw - Home Meds: 08:57 metformin 850 mg Oral tab 2 times per day [Active]; iw - PMHx: 08:57 diabetes mellitus; iw - Family history:: not pertinent. - Hospitalizations: : No recent hospitalization is reported. Vital Signs: 08:57 BP 132 / 78; Pulse 89; Resp 16; Pulse Ox 100% on R/A; iw ED Course: 08:39 Patient arrived in ED. am2 08:47 Deion Tucker MD is Attending Physician. rn 08:57 Triage completed. iw 08:57 Arm band placed on. iw 09:41 Sneha Ramírez RN is Primary Nurse. iw Administered Medications: No medications were administered Outcome: 09:23 Discharge ordered by . rn 09:41 Patient left the ED. iw Signatures: Sneha Ramírez RN RN iw Deion Tucker MD MD rn Moreno, Amanda am2 Reena Gao RN RN kb3
--- NOTE | 2022-07-09 09:24 | EDPHYS ---
Physician Documentation [facility] Name: Brenda Loyd Age: 41 yrs Sex: Female : 1980 Arrival Date: 07/09/2022 Time: 08:39 Bed 12 Private MD: ED Physician Deion Tucker HPI: 07/09 08:52 This 41 yrs old Female presents to ER via Unassigned with complaints of Insect rn Bite - right middle finger. 08:52 The patient presents with an abscess of the right hand. Description: erythematous, rn swollen, warm. Onset: The symptoms/episode began/occurred 2 day(s) ago. Possible cause(s): unknown. Associated signs and symptoms: Pertinent positives: erythema, swelling, Pertinent negatives: discharge, drainage, fever. Modifying factors: the symptoms are alleviated by nothing, the symptoms are aggravated by squeezing the lesion and expressing the contents, touching. Severity of symptoms: At their worst the symptoms were mild, in the emergency department the symptoms are unchanged. The patient has not experienced similar symptoms in the past. The patient has not recently seen a physician. Pt reports possible spider or insect bite while at work, to right middle finger, 2 days ago. NO fever. Tried topical abx and wrapped it but not improving. . Historical: - Allergies: 08:57 NKDA; iw - Home Meds: 08:57 metformin 850 mg Oral tab 2 times per day [Active]; iw - PMHx: 08:57 diabetes mellitus; iw - Family history:: not pertinent. - Hospitalizations: : No recent hospitalization is reported. ROS: 08:52 Constitutional: Negative for fever, chills, and weight loss, Skin: + swelling and rn redness to right middle finger Exam: 08:52 Constitutional: This is a well developed, well nourished patient who is awake, alert, rn and in no acute distress. MS/ Extremity: Pulses equal, no cyanosis. Neurovascular intact. Full, normal range of motion. + small 1cm pustular lesion right middle finger with mild erythema surrounding lesion. No streaking. Able to fully flex finger. No tenderness along flexors of finger. No fudiform swelling. Vital Signs: 08:57 BP 132 / 78; Pulse 89; Resp 16; Pulse Ox 100% on R/A; iw Procedures: 09:21 I \T\ D: Incision and drainage was performed for an abscess of the right middle finger rn Prepped with Betadine, Incised with 18g . Drained small amount purulent fluid. serosanguinous fluid. Dressing: sterile 4x4 gauze, the patient tolerated the procedure well. MDM: 08:48 Patient medically screened. rn 09:21 Differential diagnosis: abscess, cellulitis, insect bite. Data reviewed: vital signs, rn nurses notes, and as a result, I will discharge patient. Counseling: I had a detailed discussion with the patient and/or guardian regarding: the historical points, exam findings, and any diagnostic results supporting the discharge/admit diagnosis, the need for outpatient follow up, to return to the emergency department if symptoms worsen or persist or if there are any questions or concerns that arise at home. Response to treatment: the patient's symptoms have mildly improved after treatment, and as a result, I will discharge patient. Special discussion: I discussed with the patient/guardian in detail that at this point there is no indication for admission to the hospital. It is understood, however, that if the symptoms persist or worsen the patient needs to return immediately for re-evaluation. Administered Medications: No medications were administered Disposition Summary: 07/09/22 09:23 Discharge Ordered Location: Home rn Problem: new rn Symptoms: have improved rn Condition: Stable rn Diagnosis - Cutaneous abscess of right hand - Middle finger rn Followup: rn - With: Private Physician - When: As needed - Reason: Recheck today's complaints, Re-evaluation by your physician Discharge Instructions: - Discharge Summary Sheet rn - Skin Abscess rn - Incision and Drainage rn - Incision and Drainage, Care After rn Forms: - Work release form iw - Medication Reconciliation Form rn - Thank You Letter rn - Antibiotic rn occupational health - Prescription Opioid Use rn Prescriptions: - Doxycycline Hyclate 100 mg Oral Tablet - take 1 tablet by ORAL route every 12 hours; 20 tablet; Refills: 0, Product rn Selection Permitted - Bactrim DS 800-160 mg Oral Tablet - take 1 tablet by ORAL route every 12 hours for 10 days; 20 tablet; Refills: 0, rn Product Selection Permitted Signatures: Sneha Ramírez RN RN iw Deion Tucker MD MD rn
[2022-07-09 14:28] VITALS: BP 132/78; O2SAT 100
== END 2022-07-09 09:41 | disposition home or self-care (01) ==
LOC: ER 08:38
PROC: 0H9FXZZ Drainage of Right Hand Skin, External Approach (ICD-10-PCS; principal; 2022-07-09)
DX: L02.511 Cutaneous abscess of right hand (principal)
CPT/HCPCS: 99281

== ENCOUNTER 2022-11-13 09:55 | Emergency (ER) | payer BC, SELFPAY ==
--- NOTE | 2022-11-13 10:22 | RAD REPORT ---
EXAM DESCRIPTION: Justo Single View11/13/2022 10:14 am CLINICAL HISTORY: Hyperglycemia COMPARISON: 2021 FINDINGS: The lungs appear clear of acute infiltrate. The heart is normal size IMPRESSION: No acute abnormalities displayed
[2022-11-13] MEDS ORDERED: NA CHLORIDE 0.9% 1,000 ML ONE (10:35)
[2022-11-13 10:43] LABS: Absolute Lymphocytes (CBC) 1.4 K/uL (0.7-4.9); Hematocrit 38.5 % (36.0-45.0); Lymphocytes % 20.2 % (15.3-44.8); MCV 88.9 fL (80-100); RBC Red Blood Cell Count 4.34 M/uL (3.86-4.86)
[2022-11-13 11:11] LABS: Albumin 3.2 g/dL (3.4-5.0); Bilirubin Total 0.4 mg/dL (0.2-1.0); Potassium 4.1 mEq/L (3.5-5.1)
[2022-11-13] MEDS ORDERED: NA CHLORIDE 0.9% 2,000 ML ONE (11:36)
[2022-11-13 12:47] LABS: Protime INR 1.08
[2022-11-13] MEDS ORDERED: INSULIN -REGULAR HUMAN 50 UNIT/0.5 ML ML ONE (13:13)
--- NOTE | 2022-11-13 13:26 | EDPHYS ---
Physician Documentation [facility] Name: Brenda Loyd Age: 42 yrs Sex: Female : 1980 Arrival Date: 11/13/2022 Time: 09:55 Bed 5 Private MD: ED Physician Tamanna Pacheco HPI: 11/13 10:24 This 42 yrs old Female presents to ER via Ambulatory with complaints of High snw Blood Sugar. 10:24 that was potentially precipitated by no particular event. Onset: The symptoms/episode snw began/occurred suddenly. Associated signs and symptoms: Pertinent positives: SOB, weak, dizzy. Current symptoms: In the emergency department the patient's symptoms are unchanged from the initial presentation. The patient has experienced similar episodes in the past. It is unknown whether or not the patient has recently seen a physician. 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 - Social history:: Smoking status: Patient denies any tobacco usage or history of. ROS: 10:22 Constitutional: Positive for body aches, high blood sugar. snw 10:23 Eyes: Negative for injury, pain, redness, and discharge, ENT: Negative for injury, snw pain, and discharge, Neck: Negative for injury, pain, and swelling, Cardiovascular: Negative for chest pain, palpitations, and edema. 10:23 Abdomen/GI: Negative for abdominal pain, nausea, vomiting, diarrhea, and constipation, Back: Negative for injury and pain, : Negative for injury, bleeding, discharge, and swelling, MS/Extremity: Negative for injury and deformity, Skin: Negative for injury, rash, and discoloration. 10:23 Psych: Negative for depression, anxiety, suicide ideation, homicidal ideation, and hallucinations. 10:23 Respiratory: Positive for shortness of breath. 10:23 Neuro: Positive for dizziness, weakness. Exam: 13:59 Constitutional: This is a well developed, well nourished patient who is awake, alert, snw and in no acute distress. Head/Face: Normocephalic, atraumatic. Eyes: Pupils equal round and reactive to light, extra-ocular motions intact. Lids and lashes normal. Conjunctiva and sclera are non-icteric and not injected. Cornea within normal limits. Periorbital areas with no swelling, redness, or edema. ENT: Nares patent. No nasal discharge, no septal abnormalities noted. Tympanic membranes are normal and external auditory canals are clear. Oropharynx with no redness, swelling, or masses, exudates, or evidence of obstruction, uvula midline. Mucous membranes moist. Neck: Trachea midline, no thyromegaly or masses palpated, and no cervical lymphadenopathy. Supple, full range of motion without nuchal rigidity, or vertebral point tenderness. No Meningismus. Chest/axilla: Normal chest wall appearance and motion. Nontender with no deformity. No lesions are appreciated. Cardiovascular: Regular rate and rhythm with a normal S1 and S2. No gallops, murmurs, or rubs. Normal PMI, no JVD. No pulse deficits. Respiratory: Lungs have equal breath sounds bilaterally, clear to auscultation and percussion. No rales, rhonchi or wheezes noted. No increased work of breathing, no retractions or nasal flaring. Abdomen/GI: Soft, non-tender, with normal bowel sounds. No distension or tympany. No guarding or rebound. No evidence of tenderness throughout. Back: No spinal tenderness. No costovertebral tenderness. Full range of motion. Skin: Warm, dry with normal turgor. Normal color with no rashes, no lesions, and no evidence of cellulitis. MS/ Extremity: Pulses equal, no cyanosis. Neurovascular intact. Full, normal range of motion. Neuro: Awake and alert, GCS 15, oriented to person, place, time, and situation. Cranial nerves II-XII grossly intact. Motor strength 5/5 in all extremities. Sensory grossly intact. Cerebellar exam normal. Normal gait. Psych: Awake, alert, with orientation to person, place and time. Behavior, mood, and affect are within normal limits. Vital Signs: 10:11 BP 160 / 94; Pulse 97; Resp 18; Temp 97.5; Height 4 ft. 10 in. ; Pain 0/10; ll1 10:30 BP 137 / 80; Pulse 96; Resp 16; Pulse Ox 99% on R/A; db 11:19 Weight 99.79 kg (R); db 12:30 BP 149 / 82; Pulse 80; Resp 16; Pulse Ox 96% on R/A; db 13:30 BP 149 / 98; Pulse 81; Resp 16; Pulse Ox 100% on R/A; db 11:19 Body Mass Index 45.98 (99.79 kg, 147.32 cm) db 10:11 Pain Scale: Adult ll1 MDM: 10:05 Patient medically screened. [facility] 10:25 Differential diagnosis: hyperglycemia, hyperthyroidism, hypoglycemic episode. Data [facility] reviewed: vital signs, nurses notes. 13:24 I considered the following discharge prescriptions or medication management in the [facility] emergency department Medications were administered in the Emergency Department. See MAR. Counseling: I had a detailed discussion with the patient and/or guardian regarding: the historical points, exam findings, and any diagnostic results supporting the discharge/admit diagnosis, lab results, radiology results, the need for outpatient follow up, to return to the emergency department if symptoms worsen or persist or if there are any questions or concerns that arise at home. Response to treatment: the patient's symptoms have mildly improved after treatment. Special discussion: I have referred the patient to see his PCP for further evaluation of high blood pressure. Based on the history and exam findings, there is no indication for further emergent testing or inpatient evaluation. I discussed with the patient/guardian the need to see the orthopedic surgeon for further evaluation of the symptoms. I discussed with the patient/guardian the need to see the primary care provider for further evaluation of the symptoms. 11/13 10:04 Order name: Blood Culture Adult (2) [facility] 11/13 10:04 Order name: CBC with Diff; Complete Time: 10:53 [facility] 11/13 10:04 Order name: CMP; Complete Time: 11:14 [facility] 11/13 10:04 Order name: Lactate w/ 2H reflex if indic.; Complete Time: 11:08 [facility] 11/13 10:04 Order name: Protime (+inr); Complete Time: 12:50 [facility] 11/13 10:04 Order name: Ptt, Activated; Complete Time: 12:50 snw 11/13 10:25 Order name: TSH; Complete Time: 11:08 sn 11/13 10:28 Order name: Glucose, Ancillary Testing; Complete Time: 10:38 EDMS 11/13 12:49 Order name: Glucose, Ancillary Testing; Complete Time: 12:50 EDMS 11/13 10:04 Order name: Chest Single View XRAY; Complete Time: 10:w 11/13 10:04 Order name: EKG; Complete Time: 10: snw 11/13 10:04 Order name: Accucheck; Complete Time: 10: snw 11/13 10:04 Order name: Cardiac monitoring; Complete Time: 10:w 11/13 10:04 Order name: EKG - Nurse/Tech; Complete Time: 10:11/13 10:04 Order name: IV Saline Lock - Large Bore; Complete Time: 10:11/13 10:04 Order name: Labs collected and sent; Complete Time: :w 11/13 10:04 Order name: O2 Per Protocol; Complete Time: :w 11/13 10:04 Order name: O2 Sat Monitoring; Complete Time: 10:w 11/13 10:04 Order name: Vital Signs; Complete Time: : snw EC:42 Rate is 93 beats/min. Rhythm is regular. QRS Garrett is Normal. OK interval is normal. QRS snw interval is normal. QT interval is normal. No Q waves. Clinical impression: Normal ECG. Administered Medications: 10:35 Drug: NS 0.9% IV 1000 ml Route: IV; Rate: 125 ml/hr; Site: right antecubital; db 13:50 Follow up: Response: No adverse reaction; IV Status: Completed infusion db 11:31 Drug: NS 0.9% IV (30 ml/kg) 30 ml/kg {Note: 3 Liters.} Route: IV; Rate: bolus; Site: db right antecubital; 13:50 Follow up: Response: No adverse reaction; IV Status: Completed infusion; IV Intake: db 3000ml 13:12 Drug: Insulin Regular Human IVP 3 units {Co-Signature: polly (Joselin Mauro RN).} ko1 Route: IVP; Site: right antecubital; 13:50 Follow up: Response: No adverse reaction db Point of Care Testing: Blood Glucose: 13:52 Blood Glucose: 208 mg/dL; db Ranges: Critical Glucose Levels:Adult <50 mg/dl or >400 mg/dl <40 mg/dl or >180 mg/dl Disposition Summary: 11/13/22 13:25 Discharge Ordered Location: Home snw Condition: Stable snw Diagnosis - Diabetes mellitus due to underlying condition with hyperglycemia snw - Acute stress reaction snw - Pain in left foot snw Followup: snw - With: Emergency Department - When: As needed - Reason: Worsening of condition Followup: snw - With: Private Physician - When: 2 - 3 days - Reason: Recheck today's complaints, Continuance of care, Re-evaluation by your physician Discharge Instructions: - Dehydration, Adult snw - Diabetes Mellitus and Sick Day Management snw - Carbohydrate Counting for Diabetes Mellitus, Adult snw - Daily Diabetes Mellitus Record snw - Diabetes Mellitus and Nutrition, Adult snw - Rehydration, Adult snw - Foot Pain snw - Discharge Summary Sheet ll1 Forms: - Medication Reconciliation Form snw - Thank You Letter snw - Antibiotic Education snw - Prescription Opioid Use snw - Patient Portal Instructions snw - Work release form ll1 Prescriptions: - Metformin 500 mg Oral Tablet Sustained Release 24 hr - take 1 tablet by ORAL route once daily with evening meal; 20 tablet; Refills: snw 0, Product Selection Permitted Signatures: Dispatcher [employer] EDMS Shaunna Baig, BOARDING ROOM FIXER-C BOARDING ROOM FIXER-Csnw Chris Beckett, RN RN 1 Marva Dennis, RN RN 1 Joselin Mauro, RN RN db Joselin Mauro RN db Corrections: (The following items were deleted from the chart) 13:53 10:04 BETA HYDROXYBUTYRATE+C.LAB.BRZ ordered. snw db
--- NOTE | 2022-11-13 13:26 | ER ---
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 ll1 Wanted us to call her job, before we checked her blood sugar. Coronavirus screen: Vaccine status: Patient reports receiving the 2nd dose of the covid vaccine. Client denies travel out of the [place] in the last 14 days. At this time, the client does not indicate any symptoms associated with coronavirus-19. Ebola Screen: Patient denies travel to an Ebola-affected area in the 21 days before illness onset. Initial Sepsis Screen: Does the patient meet any 2 criteria? No. Patient's initial sepsis screen is negative. Does the patient have a suspected source of infection? No. Patient's initial sepsis screen is negative. Risk Assessment: Do you want to hurt yourself or someone else? Patient reports no desire to harm self or others. Onset of symptoms was November 13, 2022. 10:11 Method Of Arrival: Ambulatory ll1 10:11 Acuity: SUSAN 3 ll1 Triage Assessment: 10:13 General: Appears uncomfortable, Behavior is calm, cooperative, appropriate for age. ll1 General: Reports feeling ill for fatigue for. Pain: Denies pain. Neuro: Reports dizziness, weakness. Cardiovascular: Reports chest pain, shortness of breath. Respiratory: Reports shortness of breath pain with respiration. 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 - Social history:: Smoking status: Patient denies any tobacco usage or history of. Screenin:37 [facility] ED Fall Risk Assessment (Adult) History of falling in the last 3 months, db including since admission No falls in past 3 months (0 pts) Confusion or Disorientation No (0 pts) Intoxicated or Sedated No (0 pts) Impaired Gait No (0 pts) Mobility Assist Device Used No (0 pt) Altered Elimination Yes (1 pt) Score/Fall Risk Level 0 - 2 = Low Risk Oriented to surroundings, Maintained a safe environment. Abuse screen: Denies threats or abuse. Denies injuries from another. Nutritional screening: No deficits noted. Tuberculosis screening: No symptoms or risk factors identified. Assessment: 10:30 Reassessment: Patient appears in no apparent distress at this time. Patient and/or db family updated on plan of care and expected duration. Pain level reassessed. Patient is alert, oriented x 3, equal unlabored respirations, skin warm/dry/pink. General: Appears in no apparent distress. comfortable, Behavior is calm, cooperative. Neuro: Level of Consciousness is awake, alert, obeys commands, Oriented to person, place, time, Reports dizziness. 10:39 Reassessment: patient request that we notify her boyfriend Juventino [phone] that she db is here and in the hospital. Called Juventino and notified and he states will come here and visit patient. 12:37 Reassessment: GLUCOSE 273. db 12:37 Reassessment: PATIENT STATES WANTS TO LEAVE AND GO HOME. NOTIFIED PROVIDER. db 13:50 Reassessment: Patient appears in no apparent distress at this time. Patient and/or db family updated on plan of care and expected duration. Pain level reassessed. Patient is alert, oriented x 3, equal unlabored respirations, skin warm/dry/pink. Vital Signs: 10:11 BP 160 / 94; Pulse 97; Resp 18; Temp 97.5; Height 4 ft. 10 in. ; Pain 0/10; ll1 10:30 BP 137 / 80; Pulse 96; Resp 16; Pulse Ox 99% on R/A; db 11:19 Weight 99.79 kg (R); db 12:30 BP 149 / 82; Pulse 80; Resp 16; Pulse Ox 96% on R/A; db 13:30 BP 149 / 98; Pulse 81; Resp 16; Pulse Ox 100% on R/A; db 11:19 Body Mass Index 45.98 (99.79 kg, 147.32 cm) db 10:11 Pain Scale: Adult ll1 ED Course: 09:58 Patient arrived in ED. im 10:02 Shaunna Baig FNP-C is PHCP. snw 10:02 Tamanna Pacheco MD is Attending Physician. snw 10:10 Arm band placed on Patient placed in an exam room, on a stretcher. ll1 10:11 Marva Dennis, GIOVANNY is Primary Nurse. ko1 10:13 Triage completed. ll1 10:15 Notified Nurse Practitioner and/or Physician Sheet Tester of a critical lab result(s), ll1 Fingerstick 409. 10:16 Chest Single View XRAY In Process Unspecified. EDMS 10:28 Inserted saline lock: 20 gauge in right antecubital area, using aseptic technique. db 10:28 First set of blood cultures drawn by me. db 10:56 Blood Culture Adult (2) Sent. ko1 10:56 CMP Sent. ko1 10:56 Lactate w/ 2H reflex if indic. Sent. ko1 10:56 Protime (+inr) Sent. ko1 10:56 Ptt, Activated Sent. ko1 10:56 TSH Sent. ko1 11:13 Notified Nurse Practitioner and/or Physician Sheet Tester of a critical lab result(s), ll1 Blood glucose 404. 12:30 Patient has correct armband on for positive identification. Bed in low position. Call db light in reach. Side rails up X2. Provided Education on: DISCHARGE. 12:30 No provider procedures requiring assistance completed. IV discontinued, intact, db bleeding controlled, No redness/swelling at site. Administered Medications: 10:35 Drug: NS 0.9% IV 1000 ml Route: IV; Rate: 125 ml/hr; Site: right antecubital; db 13:50 Follow up: Response: No adverse reaction; IV Status: Completed infusion db 11:31 Drug: NS 0.9% IV (30 ml/kg) 30 ml/kg {Note: 3 Liters.} Route: IV; Rate: bolus; Site: db right antecubital; 13:50 Follow up: Response: No adverse reaction; IV Status: Completed infusion; IV Intake: db 3000ml 13:12 Drug: Insulin Regular Human IVP 3 units {Co-Signature: db (Joselin Mauro RN).} ko1 Route: IVP; Site: right antecubital; 13:50 Follow up: Response: No adverse reaction db Medication: 12:30 VIS not applicable for this client. db Point of Care Testing: Blood Glucose: 13:52 Blood Glucose: 208 mg/dL; db Ranges: Intake: 13:50 IV: 3000ml; Total: 3000ml. db Outcome: 12:30 Discharged to home ambulatory. db 12:30 Condition: stable 12:30 Discharge instructions given to patient, Instructed on discharge instructions, follow up and referral plans. Prescriptions given X 1. 13:25 Discharge ordered by MD. crowder 13:53 Patient left the ED. db Signatures: Dispatcher [employer] EDMS Shaunna Baig, HANDICRAFTS TEACHER-C HANDICRAFTS TEACHER-Csnw Chris Beckett RN RN ll1 Marva Dennis RN RN ko1 Joselin Mauro, GIOVANNY RN db Graciela Hernandez Danielle RN db Corrections: (The following items were deleted from the chart) 13:53 10:55 BETA HYDROXYBUTYRATE+C.LAB.BRZ drawn and sent. koOle matias
[2022-11-13 14:24] VITALS: TEMP 97.5
[2022-11-13 14:27] VITALS: BP 149/98; O2SAT 100
[2022-11-13] MEDS ORDERED: LACTULOSE 20 GM/30 ML UCUP ONE (14:53)
--- NOTE | 2022-11-14 13:22 | EKG ---
Test Date: 2022-11-13 Test Time: 10:42:58 [place] Carpenter: ABBY MEASUREMENT RESULTS: Intervals: Rate: 93 TX: 132 QRSD: 74 QT: 372 QTc: 462 [place]: P: 36 TX: 132 QRS: -29 T: -4 INTERPRETIVE STATEMENTS: Normal sinus rhythm Normal ECG Compared to ECG 11/13/2021 09:22:35 Myocardial infarct finding no longer present Electronically Signed On 11-14-22 13:20:01 CDT by Gus Melara
== END 2022-11-13 13:53 | disposition home or self-care (01) ==
LOC: ER 09:55
DX: E11.65 Type 2 diabetes mellitus with hyperglycemia (principal); F43.0 Acute stress reaction; M79.672 Pain in left foot
CPT/HCPCS: 87040 ×2; 85025; 36415; 85610; 82947 ×3; 83605; 85730; 84443; 80053; 71045; J1815; J7030 ×2; 93005; 96361; 96365; 96366; 96375; 99284

== ENCOUNTER 2022-12-02 13:21 | Emergency (ER) | payer BC ==
[2022-12-02] MEDS ORDERED: ASPIRIN 81 MG CHEWABLE TABLET ONE (13:43)
[2022-12-02 13:47] LABS: Absolute Lymphocytes (CBC) 2.2 K/uL (0.7-4.9); Hematocrit 36.2 % (36.0-45.0); Lymphocytes % 29.7 % (15.3-44.8); MCV 87.6 fL (80-100); MPV 7.8 fL (7.6-11.3); Platelets 297 thou/uL (152-406); RBC Red Blood Cell Count 4.13 M/uL (3.86-4.86)
--- NOTE | 2022-12-02 13:59 | RAD REPORT ---
EXAM DESCRIPTION: RAD - Chest Single View - 12/02/2022 1:48 pm CLINICAL HISTORY: CHEST PAIN Chest pain. COMPARISON: <Comparisons> FINDINGS: Portable technique limits examination quality. The lungs are grossly clear. The heart is normal in size. No displaced fractures. IMPRESSION: No acute intrathoracic process suspected.
[2022-12-02 14:05] LABS: Magnesium 2.4 mg/dL (1.6-2.4); Potassium 3.7 mEq/L (3.5-5.1); Troponin High Sensitivity 3.1 pg/mL (<58.9)
--- NOTE | 2022-12-02 16:43 | ER ---
Nurse's Notes [facility] Name: Brenda Loyd Age: 42 yrs Sex: Female : 1980 Arrival Date: 12/02/2022 Time: 13:21 Bed 20 Private MD: Diagnosis: Chest pain, unspecified;Elevated blood-pressure reading, without diagnosis of hypertension;Type 2 diabetes mellitus with hyperglycemia Presentation: 12/02 13:18 Chief complaint: EMS states: PATIENT ARRIVED TO ED FOR CP STARTED AT 1100 TODAY. FELT db DIZZY. LEFT CHEST PAIN. GLUCOSE IN 300'S. Coronavirus screen: Vaccine status: Patient reports receiving the 1st dose of the Covid vaccine. Client denies travel out of the [place] in the last 14 days. At this time, the client does not indicate any symptoms associated with coronavirus-19. Ebola Screen: Patient negative for fever greater than or equal to 101.5 degrees Fahrenheit, and additional compatible Ebola Virus Disease symptoms Patient denies exposure to infectious person. Patient denies travel to an Ebola-affected area in the 21 days before illness onset. No symptoms or risks identified at this time. Initial Sepsis Screen: Does the patient meet any 2 criteria? No. Patient's initial sepsis screen is negative. Does the patient have a suspected source of infection? No. Patient's initial sepsis screen is negative. Risk Assessment: Do you want to hurt yourself or someone else? Patient reports no desire to harm self or others. Onset of symptoms was December 02, 2022. 13:18 Method Of Arrival: EMS: [facility] db 13:18 Acuity: SUSAN 2 db 13:18 Care prior to arrival: IV initiated. 20 GA, in the right antecubital area. db Triage Assessment: 13:29 General: Appears in no apparent distress. comfortable, Behavior is calm, cooperative. db Pain: Complains of pain in chest. Neuro: Level of Consciousness is awake, alert, obeys commands, Oriented to person, place, time, situation, Speech is normal, Reports dizziness. Cardiovascular: Reports chest pain. Respiratory: Airway is patent Respiratory effort is even, unlabored, Respiratory pattern is regular, symmetrical. 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 - Social history:: Smoking status: Patient denies any tobacco usage or history of. Patient/guardian denies using alcohol. Screenin:36 [facility] ED Fall Risk Assessment (Adult) Score/Fall Risk Level 0 - 2 = Low Risk nj1 Oriented to surroundings, Maintained a safe environment, Hourly rounding (assess needs \T\ fall precautionary measures) done. Abuse screen: Denies threats or abuse. Denies injuries from another. Nutritional screening: No deficits noted. Tuberculosis screening: No symptoms or risk factors identified. Assessment: 13:30 Reassessment: SEE TRIAGE FOR INITIAL ASSESSMENT. db 13:37 Pain: Pain does not radiate. nj1 13:38 Pain: Pain began 2 hours ago. nj1 14:30 Reassessment: Patient appears in no apparent distress at this time. Patient and/or la1 family updated on plan of care and expected duration. Pain level reassessed. Patient is alert, oriented x 3, equal unlabored respirations, skin warm/dry/pink. 15:30 Reassessment: Patient appears in no apparent distress at this time. Patient and/or nj1 family updated on plan of care and expected duration. Pain level reassessed. Patient is alert, oriented x 3, equal unlabored respirations, skin warm/dry/pink. 16:35 Reassessment: Patient appears in no apparent distress at this time. Patient and/or nj1 family updated on plan of care and expected duration. Pain level reassessed. Patient is alert, oriented x 3, equal unlabored respirations, skin warm/dry/pink. Patient denies pain at this time. Vital Signs: 13:18 BP 130 / 80; Pulse 73; Resp 18; Temp 99(O); Pulse Ox 99% ; Weight 102 kg (M); Height 4 db ft. 1 in. ; Pain 10/10; 14:30 BP 127 / 74; Pulse 74; Resp 15; Pulse Ox 98% ; nj1 15:30 BP 132 / 69; Pulse 72; Resp 15; Pulse Ox 100% ; nj1 16:34 BP 138 / 74; Pulse 72; Resp 19; Pulse Ox 98% ; Pain 0/10; nj1 13:18 Body Mass Index 65.85 (102.00 kg, 124.46 cm) db 13:18 Pain Scale: Adult db 16:34 Pain Scale: Adult nj1 ED Course: 13:25 Patient arrived in ED. ms3 13:25 Ajit Carlton DO is Attending Physician. ms3 13:29 Triage completed. db 13:30 Arm band placed on Patient placed in an exam room. db 13:36 Alyce Maki, RN is Primary Nurse. nj1 13:37 Patient has correct armband on for positive identification. Placed in gown. Bed in low nj1 position. Call light in reach. Side rails up X 1. Provided Education on: fall precautions, call light. Client placed on continuous cardiac and pulse oximetry monitoring. NIBP monitoring applied. 13:37 Patient maintains SpO2 saturation greater than 95% on room air. nj1 13:50 XRAY Chest (1 view) In Process Unspecified. EDMS 16:36 No provider procedures requiring assistance completed. nj1 16:42 Gus Melara MD is Referral Physician. ms3 16:58 IV discontinued, intact, bleeding controlled. nj1 Administered Medications: 13:36 Drug: Aspirin PO Chewable Tablet 324 mg Route: PO; nj1 14:00 Follow up: Response: No adverse reaction nj1 Medication: 16:36 VIS not applicable for this client. nj1 Outcome: 16:42 Discharge ordered by . ms3 16:57 Discharged to home ambulatory. nj1 16:57 Condition: stable 16:57 Discharge instructions given to patient, Instructed on discharge instructions, follow up and referral plans. Demonstrated understanding of instructions, follow-up care. 16:58 Patient left the ED. nj1 Signatures: Dispatcher [employer] EDMS Ajit Carlton DO DO ms3 Joselin Mauro, RN RN db Alyce Maki, GIOVANNY RN nj1
--- NOTE | 2022-12-02 16:43 | EDPHYS ---
Physician Documentation [facility] Name: Brenda Loyd Age: 42 yrs Sex: Female : 1980 Arrival Date: 12/02/2022 Time: 13:21 Bed 20 Private MD: ED Physician Ajit Carlton HPI: 12/02 14:53 This 42 yrs old Female presents to ER via EMS with complaints of Chest Pain. ms3 14:53 41-year-old female with past medical history of diabetes presents for chest pain that ms3 began at 11 AM. Patient states the pain was located in her left upper chest described as being sharp rated a 10/10. EMS notes patient twelve-lead to be normal sinus rhythm, vital signs were stable during transport.. 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 - Social history:: Smoking status: Patient denies any tobacco usage or history of. Patient/guardian denies using alcohol. ROS: 14:53 Constitutional: Negative for fever, and chills. Respiratory: Negative for shortness of ms3 breath, cough, wheezing, and pleuritic chest pain, Abdomen/GI: Negative for abdominal pain, nausea, vomiting, diarrhea, and constipation, MS/Extremity: Negative for injury and deformity, Skin: Negative for injury, rash, and discoloration. 14:53 Cardiovascular: Positive for chest pain. 14:53 All other systems are negative. Exam: 14:53 Constitutional: This is a well developed, well nourished patient who is awake, alert, ms3 and in no acute distress. Head/Face: Normocephalic, atraumatic. Neck: Trachea midline, no cervical lymphadenopathy. Supple, full range of motion without nuchal rigidity, or vertebral point tenderness. No Meningismus. Chest/axilla: Normal chest wall appearance and motion. Nontender with no deformity. Cardiovascular: Regular rate and rhythm with a normal S1 and S2. No gallops, murmurs, or rubs. Normal PMI, no JVD. No pulse deficits. Respiratory: Lungs have equal breath sounds bilaterally, clear to auscultation and percussion. No rales, rhonchi or wheezes noted. No increased work of breathing, no retractions or nasal flaring. Abdomen/GI: Soft, non-tender, with normal bowel sounds. No distension or tympany. No guarding or rebound. No evidence of tenderness throughout. Skin: Warm, dry with normal turgor. Normal color with no rashes, no lesions, and no evidence of cellulitis. MS/ Extremity: Pulses equal, no cyanosis. Neurovascular intact. Full, normal range of motion. Vital Signs: 13:18 BP 130 / 80; Pulse 73; Resp 18; Temp 99(O); Pulse Ox 99% ; Weight 102 kg (M); Height 4 db ft. 1 in. ; Pain 10/10; 14:30 BP 127 / 74; Pulse 74; Resp 15; Pulse Ox 98% ; nj1 15:30 BP 132 / 69; Pulse 72; Resp 15; Pulse Ox 100% ; nj1 16:34 BP 138 / 74; Pulse 72; Resp 19; Pulse Ox 98% ; Pain 0/10; nj1 13:18 Body Mass Index 65.85 (102.00 kg, 124.46 cm) db 13:18 Pain Scale: Adult db 16:34 Pain Scale: Adult nj1 MDM: 13:25 Patient medically screened. ms3 14:53 Differential diagnosis: abnormal EKG, acute myocardial infarction, chest wall pain, ms3 pneumonia, pulmonary embolus. HEART Score: History: Slightly Suspicious (0), ECG: Normal (0), Age: < or = 45 years (0), Risk Factors: 1 or 2 risk factors (1), Troponin: < or = 1 x Normal Limit (0), Total Score = 1. The patient was given aspirin in the Emergency Department. I considered the following discharge prescriptions or medication management in the emergency department Medications were administered in the Emergency Department. See MAR. Independent interpretation of the following test(s) in the Emergency Department EKG: See my EKG interpretation above. Historians other than the Patient: EMS: [facility]. Care significantly affected by the following chronic conditions: Diabetes. Scoring Tools PERC Rule for PE Age > /= 50 No (0) HR > /= 100 No (0) O2 Sat Room Air < 95% No (0) Unilateral leg swelling No (0) Hemoptysis No (0) Recent surgery or trauma </= 4 weeks ago, requiring treatment with General Anesthesia No (0) Prior PE or DVT No (0) Hormone use No (0). 16:46 Data reviewed: vital signs, nurses notes, old medical records, EKG, radiologic studies, ms3 and as a result, I will discharge patient. Consideration of Admission/Observation Escalation of care including admission/observation considered. Second troponin negative. HEART score 1. Counseling: I had a detailed discussion with the patient and/or guardian regarding: the historical points, exam findings, and any diagnostic results supporting the discharge/admit diagnosis, lab results, radiology results, the need for outpatient follow up, to return to the emergency department if symptoms worsen or persist or if there are any questions or concerns that arise at home. Special discussion: Based on the patient's history, exam, and Dx evaluation, there is no indication for emergent intervention or inpatient Tx. It is understood by the patient/guardian that if the Sx's persist or worsen they need to return immediately for re-evaluation. ED course: On reevaluation patient is alert and oriented x4, no apparent distress, nontoxic-appearing, speaking full sentences. Patient to follow-up with Dr. Melara in 1 to 2 days. Patient understands and agrees with plan. Return precautions discussed include worsening symptoms, shortness of breath, nausea, vomiting, diaphoresis, or any other concerns.. 12/02 13:26 Order name: Basic Metabolic Panel; Complete Time: 14:06 ms3 12/02 13:26 Order name: CBC with Diff; Complete Time: 14:06 ms3 12/02 13:26 Order name: Magnesium; Complete Time: 14:06 ms3 12/02 13:26 Order name: Troponin HS; Complete Time: 14:06 ms3 12/02 15:12 Order name: Troponin HS; Complete Time: 16:42 bp 12/02 15:55 Order name: Glucose, Ancillary Testing; Complete Time: 16:30 EDMS 12/02 13:26 Order name: XRAY Chest (1 view); Complete Time: 14:06 ms3 12/02 13:26 Order name: EKG; Complete Time: 13:27 ms3 12/02 13:26 Order name: Cardiac monitoring; Complete Time: 13:36 ms3 12/02 13:26 Order name: EKG - Nurse/Tech; Complete Time: 13:36 ms3 12/02 13:26 Order name: IV Saline Lock; Complete Time: 13:36 ms3 12/02 13:26 Order name: Labs collected and sent; Complete Time: 13:36 ms3 12/02 13:26 Order name: O2 Per Protocol; Complete Time: 13:36 ms3 12/02 13:26 Order name: O2 Sat Monitoring; Complete Time: 13:36 ms3 12/02 13:45 Order name: Repeat Cardiac Enzymes at; Complete Time: 15:45 ms3 Administered Medications: 13:36 Drug: Aspirin PO Chewable Tablet 324 mg Route: PO; nj1 14:00 Follow up: Response: No adverse reaction nj1 Disposition Summary: 12/02/22 16:42 Discharge Ordered Location: Home ms3 Condition: Stable ms3 Diagnosis - Chest pain, unspecified ms3 - Elevated blood-pressure reading, without diagnosis of hypertension ms3 - Type 2 diabetes mellitus with hyperglycemia ms3 Followup: ms3 - With: Gus Melara MD - When: 1 - 2 days - Reason: Recheck today's complaints Discharge Instructions: - Discharge Summary Sheet ms3 - Nonspecific Chest Pain, Adult ms3 Forms: - Medication Reconciliation Form ms3 - Thank You Letter ms3 - Antibiotic Education ms3 - Prescription Opioid Use ms3 - Patient Portal Instructions ms3 - Leadership Thank You Letter ms3 Signatures: Dispatcher [employer] EDAjit Oliva DO DO ms3 Joselin Mauro, RN RN Alyce Saravia RN RN nj1
[2022-12-02 17:16] VITALS: BP 138/74; O2SAT 98
--- NOTE | 2022-12-03 17:04 | EKG ---
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
== END 2022-12-02 16:58 | disposition home or self-care (01) ==
LOC: ER 13:21
DX: R07.9 Chest pain, unspecified (principal); R03.0 Elevated blood-pressure reading, without diagnosis of hypertension; E11.65 Type 2 diabetes mellitus with hyperglycemia
CPT/HCPCS: 36415; 71045; 80048; 82947; 83735; 84484; 85025; 93005; 99284

== ENCOUNTER 2023-10-20 15:23 | Emergency (ER) | payer SELFPAY ==
--- NOTE | 2023-10-20 16:19 | RAD REPORT ---
EXAM DESCRIPTION: CT - Head Brain Wo Cont - 10/20/2023 4:07 pm CLINICAL HISTORY: Dizziness;Headache Headache, drowsiness COMPARISON: <Comparisons> TECHNIQUE: All CT scans are performed using dose optimization technique as appropriate and may inclu de automated exposure control or mA/KV adjustment according to patient size. FINDINGS: No intracranial hemorrhage, hydrocephalus or extra-axial fluid collection.No areas of brai n edema or evidence of midline shift. The paranasal sinuses and mastoids are clear. The calvarium is intact. IMPRESSION: No acute intracranial abnormality.
[2023-10-20 16:28] LABS: Absolute Eosinophils 0.1 K/uL (0-0.5); Absolute Lymphocytes (CBC) 2.1 K/uL (0.7-4.9); Absolute Monocytes 0.4 K/uL (0.1-1.3); Absolute Neutrophil 4.3 K/uL (1.8-8.0); Basophils % 0.6 % (0-1.3); Eosinophils % 1.6 % (0-4.4); Hemoglobin 11.5 g/dL (12.0-15.0); Lymphocytes % 30.1 % (15.3-44.8); MCH 27.3 pg (27.0-35.0); MCHC 32.9 g/dL (32.0-36.0); MCV 82.9 fL (80-100); MPV 7.9 fL (7.6-11.3); Monocytes % 5.3 % (3.3-12.3); Neutrophils % 62.4 % (41.7-73.7); Nucleated Red Blood Cells % 0.2 % (0-0); Platelets 326 thou/uL (152-406); RBC Red Blood Cell Count 4.22 M/uL (3.86-4.86); Red Cell Distribution Width 15.3 % (12.1-15.2)
[2023-10-20 16:48] LABS: Albumin 2.7 g/dL (3.4-5.0); Albumin/Globulin Ratio 0.6 (1.1-1.8); Alkaline Phosphatase 95 U/L (45-117); Anion Gap 9.8 mEq/L (5.0-15.0); BUN Blood Urea Nitrogen 11 mg/dL (7-18); Bicarbonate 23 mEq/L (21-32); Bilirubin Total 0.2 mg/dL (0.2-1.0); Globulin 4.7 g/dL (2.3-3.5); Glomerular Filtration Rate 91 ml/min (=/>90); Glucose Level 365 mg/dL (74-106); Lipase 25 U/L (13-75); NT PRO-BNP 129 pg/mL (<125); Potassium 3.8 mEq/L (3.5-5.1); Protein, Total 7.4 g/dL (6.4-8.2); Sodium Level 132 mEq/L (136-145)
[2023-10-20 16:49] LABS: ALT/SGPT < 14 U/L (13-56); AST/SGOT < 10 U/L (15-37); Bilirubin Direct < 0.2 mg/dL (0-0.2); Troponin High Sensitivity < 3.0 pg/mL (<58.9)
--- NOTE | 2023-10-20 16:55 | RAD REPORT ---
EXAM DESCRIPTION: RAD - Chest Single View - 10/20/2023 4:45 pm CLINICAL HISTORY: COUGH Chest pain. COMPARISON: <Comparisons> FINDINGS: Portable technique limits examination quality. The lungs are grossly clear. The heart is normal in size. No displaced fractures. IMPRESSION: No acute intrathoracic process suspected.
[2023-10-20 17:16] LABS: Specific Gravity 1.029 (1.005-1.030); Sqamous Epithelial <5 /HPF (None Seen); Urine Bacteria <20 /HPF (<20); Urine Bilirubin NEGATIVE (Negative); Urine Blood 1+ (Negative); Urine Clarity Extremely Turbid (Clear); Urine Color Light-Orange (Yellow); Urine Culture Reflex Order REFLEXED; Urine Glucose 4+ (Over) (Negative); Urine Ketones NEGATIVE (Negative); Urine Microscopic Reflex YN ORDER UMIC; Urine Mucus Slight /HPF (None Seen); Urine Nitrite NEGATIVE (Negative); Urine Protein TRACE (Negative); Urine RBC >50 /HPF (None Seen); Urine Urobilinogen Normal (Normal); Urine WBC >50 /HPF (<5)
[2023-10-20 17:18] LABS: PT Prothrombin Time 11.5 SECONDS (9.4-12.5); Protime INR 1.05
[2023-10-20] MEDS ORDERED: INSULIN REGULAR (HUMAN) 100 UNIT/ML ONE (17:22)
--- NOTE | 2023-10-20 17:31 | EDPHYS ---
Physician Documentation [facility] Name: Brenda Loyd Age: 43 yrs Sex: Female : 1980 Arrival Date: 10/20/2023 Time: 15:23 Bed 4 Private MD: YVONNE Physician Lauri Liao HPI: 10/19 17:24 This 43 yrs old Female presents to ER via Ambulatory with complaints of jamaal Blurred Vision. 17:24 The patient is experiencing blurred vision. Onset: The symptoms/episode began/occurred jamaal 3 day(s) ago. Duration: the symptoms are continuous. Aggravated by nothing. Alleviated by nothing. Associated signs and symptoms: Pertinent positives: None. Pertinent negatives: None. diabetic out of meds. Patient wears glasses. Severity of symptoms: At their worst the symptoms were mild moderate in the emergency department the symptoms are unchanged. The patient has experienced similar episodes in the past, multiple times. 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 - Infectious Disease History:: Denies. - Social history:: Smoking status: Patient denies any tobacco usage or history of. - Family history:: not pertinent. ROS: 17:24 Constitutional: Negative for fever, chills, and weight loss, ENT: Negative for injury, jamaal pain, and discharge, Neck: Negative for injury, pain, and swelling, Cardiovascular: Negative for chest pain, palpitations, and edema, Respiratory: Negative for shortness of breath, cough, wheezing, and pleuritic chest pain, Abdomen/GI: Negative for abdominal pain, nausea, vomiting, diarrhea, and constipation, Back: Negative for injury and pain, : Negative for injury, bleeding, discharge, and swelling, MS/Extremity: Negative for injury and deformity, Skin: Negative for injury, rash, and discoloration, Neuro: Negative for headache, weakness, numbness, tingling, and seizure, Psych: Negative for depression, anxiety, suicide ideation, homicidal ideation, and hallucinations, Allergy/Immunology: Negative for hives, rash, and allergies, Endocrine: Negative for neck swelling, polydipsia, polyuria, polyphagia, and marked weight changes, Hematologic/Lymphatic: Negative for swollen nodes, abnormal bleeding, and unusual bruising, 17:24 Eyes: Positive for blurry vision, Exam: 17:24 Constitutional: This is a well developed, well nourished patient who is awake, alert, jamaal and in no acute distress. Head/Face: Normocephalic, atraumatic. Eyes: Pupils equal round and reactive to light, extra-ocular motions intact. Lids and lashes normal. Conjunctiva and sclera are non-icteric and not injected. Cornea within normal limits. Periorbital areas with no swelling, redness, or edema. ENT: Nares patent. No nasal discharge, no septal abnormalities noted. Tympanic membranes are normal and external auditory canals are clear. Oropharynx with no redness, swelling, or masses, exudates, or evidence of obstruction, uvula midline. Mucous membranes moist. Neck: Trachea midline, no thyromegaly or masses palpated, and no cervical lymphadenopathy. Supple, full range of motion without nuchal rigidity, or vertebral point tenderness. No Meningismus. Chest/axilla: Normal chest wall appearance and motion. Nontender with no deformity. No lesions are appreciated. Cardiovascular: Regular rate and rhythm with a normal S1 and S2. No gallops, murmurs, or rubs. Normal PMI, no JVD. No pulse deficits. Respiratory: Lungs have equal breath sounds bilaterally, clear to auscultation and percussion. No rales, rhonchi or wheezes noted. No increased work of breathing, no retractions or nasal flaring. Abdomen/GI: Soft, non-tender, with normal bowel sounds. No distension or tympany. No guarding or rebound. No evidence of tenderness throughout. Back: No spinal tenderness. No costovertebral tenderness. Full range of motion. Skin: Warm, dry with normal turgor. Normal color with no rashes, no lesions, and no evidence of cellulitis. MS/ Extremity: Pulses equal, no cyanosis. Neurovascular intact. Full, normal range of motion. Neuro: Awake and alert, GCS 15, oriented to person, place, time, and situation. Cranial nerves II-XII grossly intact. Motor strength 5/5 in all extremities. Sensory grossly intact. Cerebellar exam normal. Normal gait. Psych: Awake, alert, with orientation to person, place and time. Behavior, mood, and affect are within normal limits. 17:24 Musculoskeletal/extremity: Circulation is intact in all extremities. Pulses: are normal with no appreciated deficits, Sensation intact. Compartment Syndrome exam of affected extremity: is normal. Weight bearing: able to fully bear weight, without difficulty, DVT Exam: No signs of deep vein thrombosis. no pain, no swelling, no tenderness, negative Homans' sign noted on exam, no appreciated bluish discoloration, no erythema, no increased warmth, Vital Signs: 15:37 BP 174 / 93; Pulse 92; Resp 17; Temp 97.6; Pulse Ox 96% ; Weight 81.65 kg; Height 4 ft. ll1 10 in. ; Pain 0/10; 16:14 BP 144 / 91; Pulse 85; Resp 18; Pulse Ox 100% on R/A; tl4 17:00 BP 178 / 93; Pulse 91; Resp 19; Pulse Ox 100% on R/A; tl4 18:00 BP 147 / 74; Pulse 82; Resp 21; Pulse Ox 100% on R/A; tl4 18:44 BP 154 / 92; Pulse 80; Resp 16; Temp 98.3(O); Pulse Ox 99% on R/A; Pain 0/10; tl4 15:37 Body Mass Index 37.62 (81.65 kg, 147.32 cm) ll1 15:37 Pain Scale: Adult ll1 18:44 Pain Scale: Adult tl4 MDM: 15:36 Patient medically screened. [facility] 17:27 Differential diagnosis: Corneal abrasion of Acute glaucoma in. Differential Diagnosis jamaal sepsis. Data reviewed: vital signs, nurses notes, lab test result(s), EKG, radiologic studies. Consideration of Admission/Observation Escalation of care including admission/observation considered. I considered the following discharge prescriptions or medication management in the emergency department Medications were administered in the Emergency Department. See MAR. Independent interpretation of the following test(s) in the Emergency Department EKG: See my EKG interpretation above. Test considered but Not performed: MRI: no mri brain. Care significantly affected by the following chronic conditions: Diabetes, Obesity. 10/19 15:41 Order name: Basic Metabolic Panel; Complete Time: 17:07 [facility] 10/19 15:41 Order name: CBC with Diff; Complete Time: 17: [facility] 10/19 15:41 Order name: LFT's; Complete Time: 17:07 [facility] 10/19 15:41 Order name: Magnesium; Complete Time: 17:07 [facility] 10/19 15:41 Order name: NT PRO-BNP; Complete Time: 17:07 [facility] 10/19 15:41 Order name: PT-INR [facility] 10/19 15:41 Order name: Troponin HS; Complete Time: 17:07 [facility] 10/19 15:41 Order name: Lipase; Complete Time: 17:07 [facility] 10/19 15:41 Order name: Urinalysis w/ reflexes [facility] 10/19 17:19 Order name: Urine Culture EDMS 10/19 15:41 Order name: XRAY Chest (1 view); Complete Time: 17:07 [facility] 10/19 15:41 Order name: CT Head Brain wo Cont; Complete Time: 17:07 [facility] 10/19 15:41 Order name: Cardiac monitoring; Complete Time: 16:03 [facility] 10/19 15:41 Order name: EKG - Nurse/Tech; Complete Time: 16:03 [facility] 10/19 15:41 Order name: IV Saline Lock; Complete Time: 16:22 [facility] 10/19 15:41 Order name: Labs collected and sent; Complete Time: 16:22 [facility] 10/19 15:41 Order name: O2 Per Protocol; Complete Time: 15:56 [facility] 10/19 15:41 Order name: O2 Sat Monitoring; Complete Time: 15:56 [facility] 10/19 16:32 Order name: Misc. Order: recollect blue top-hemolyzed, reprinted to LER; Complete Time: la1 17:08 Administered Medications: 16:22 Drug: NS 0.9% IV 1000 ml IV at 1 bolus Per protocol; 1000 mL bolus Route: IV; Rate: 1 kc6 bolus; Site: right antecubital; 18:24 Follow up: Response: No adverse reaction; IV Status: Completed infusion; IV Intake: tl4 1000ml 17:27 Drug: Insulin Regular Human Sub-Q 10 units Sub-Q once {Co-Signature: tl4 (Ignacio Gorman kc6 RN).} Route: Sub-Q; Site: right upper arm; 18:24 Follow up: Response: No adverse reaction tl4 17:36 Drug: Insulin Glargine Sub-Q 30 units Sub-Q once {Co-Signature: tl4 (Ignacio Gorman kc6 RN).} Route: Sub-Q; Site: left upper arm; 18:24 Follow up: Response: No adverse reaction tl4 Disposition Summary: 10/20/23 17:30 Discharge Ordered Notes: Location: Home jamaal Problem: new jamaal Symptoms: have improved jamaal Condition: Stable jamaal Diagnosis - Type 2 diabetes mellitus with hyperglycemia jamaal - Other visual disturbances - Blurry vision secondary to uncontrolled diabetes jamaal Followup: jamaal - With: Private Physician - When: 2 - 3 days - Reason: Recheck today's complaints, Continuance of care, Re-evaluation by your physician Followup: jamaal - With: Dale Pacheco, DO - When: 2 - 3 days - Reason: Recheck today's complaints, Re-evaluation by your physician Discharge Instructions: - Discharge Summary Sheet jamaal - Blurred Vision, Adult jamaal - Type 2 Diabetes Mellitus, Diagnosis, Adult jamaal - Hyperglycemia jamaal - Visual Disturbances jamaal - Blood Glucose Monitoring, Adult jamaal - Diabetes Mellitus and Nutrition, Adult [facility] Forms: - Medication Reconciliation Form [facility] - Antibiotic Education jamaal - Prescription Opioid Use jamaal - Patient Portal Instructions [facility] - Leadership Thank You Letter [facility] - Work release form tl4 Prescriptions: - Metformin 500 mg Oral tablet - take 1 tablet ORAL route once daily for 30 days Then take 1 tablet with morning jamaal meals AND evening meals; 60 tablet; Refills: 0, Product Selection Permitted Signatures: Dispatcher [employer] Lauri Lang MD MD cha Attema, Lee, GUARD IMMIGRATION-C GUARD IMMIGRATION-Cla1 Chris Beckett RN RN ll1 Triny Sinha RN RN kc6 Ignacio Gorman RN RN tl4 Ignacio Gorman RN tl4 Corrections: (The following items were deleted from the chart) 15:41 15:41 BASIC METABOLIC PANEL+C.LAB.BRZ ordered. EDMS EDMS 15:41 15:41 CBC+H.LAB.BRZ ordered. EDMS EDMS 15:41 15:41 HEPATIC FUNCTION+C.LAB.BRZ ordered. EDMS EDMS 15:41 15:41 MAGNESIUM+C.LAB.BRZ ordered. EDMS EDMS 15:41 15:41 PROBNP+C.LAB.BRZ ordered. EDMS EDMS 15:41 15:41 PROTIME (+INR)+COAG.LAB.BRZ ordered. EDMS EDMS 15: 15:41 Troponin High Sensitivity+C.LAB.BRZ ordered. EDMS EDMS 15: 15:41 LIPASE+C.LAB.BRZ ordered. EDMS EDMS 15: 15:41 Urinalysis+U.LAB.BRZ ordered. EDMS EDMS 15: 15:41 Chest Single View+RAD.RAD.BRZ ordered. EDMS EDMS 15: 15:42 Head Brain Wo Cont+CT.RAD.BRZ ordered. EDMS EDMS
--- NOTE | 2023-10-20 17:31 | ER ---
Nurse's Notes [facility] Name: Brenda Loyd Age: 43 yrs Sex: Female : 1980 Arrival Date: 10/20/2023 Time: 15:23 Bed 4 Private MD: Diagnosis: Type 2 diabetes mellitus with hyperglycemia;Other visual disturbances-Blurry vision secondary to uncontrolled diabetes Presentation: 10/19 15:34 Coronavirus screen: Client denies travel out of the [place] in the last 14 days. At this ll1 time, the client does not indicate any symptoms associated with coronavirus-19. Ebola Screen: Patient denies travel to an Ebola-affected area in the 21 days before illness onset. Initial Sepsis Screen: Does the patient meet any 2 criteria? No. Patient's initial sepsis screen is negative. Does the patient have a suspected source of infection? No. Patient's initial sepsis screen is negative. Risk Assessment: Do you want to hurt yourself or someone else? Patient reports no desire to harm self or others. 15:34 Method Of Arrival: Ambulatory ll1 15:37 Chief complaint: Patient states: Near syncope, weak, dizzy started yesterday, worse ll1 today. Onset of symptoms was October 19, 2023. 15:37 Acuity: SUSAN 3 ll1 SPECIAL LIBRARIAN: 18:46 LMP N/A - Post-menopause, Not tl4 Historical: - Allergies: 15:34 NKDA; ll1 - Home Meds: 18:47 metformin 850 mg Oral tab 2 times per day [Active]; tl4 - PMHx: 15:34 diabetes mellitus; ll1 - Immunization history:: Adult Immunizations up to date. - Infectious Disease History:: Denies. - Social history:: Smoking status: Patient denies any tobacco usage or history of. - Family history:: not pertinent. Screenin:06 [facility] ED Fall Risk Assessment (Adult) History of falling in the last 3 months, tl4 including since admission No falls in past 3 months (0 pts) Confusion or Disorientation No (0 pts) Intoxicated or Sedated No (0 pts) Impaired Gait No (0 pts) Mobility Assist Device Used No (0 pt) Altered Elimination No (0 pt) Score/Fall Risk Level 0 - 2 = Low Risk Oriented to surroundings, Maintained a safe environment, Educated pt \T\ family on fall prevention, incl call for assistance when getting out of bed, Assessed \T\ reinforced patient's understanding of fall precautions. Abuse screen: Denies threats or abuse. Denies injuries from another. Nutritional screening: No deficits noted. Tuberculosis screening: No symptoms or risk factors identified. Assessment: 16:03 General: Appears in no apparent distress. Behavior is calm, cooperative. Pain: Denies tl4 pain. Neuro: Level of Consciousness is awake, alert, obeys commands, Oriented to person, place, time, situation, Abrasive Sawyer are equal bilaterally Moves all extremities. Full function Speech is normal, Facial symmetry appears normal, Pupils are PERRLA. Cardiovascular: Capillary refill < 3 seconds Patient's skin is warm and dry. Respiratory: Airway is patent Respiratory effort is even, unlabored, Respiratory pattern is regular, symmetrical, Breath sounds are clear bilaterally. GI: No signs and/or symptoms were reported involving the gastrointestinal system. : No signs and/or symptoms were reported regarding the genitourinary system. EENT: No signs and/or symptoms were reported regarding the EENT system. Derm: No signs and/or symptoms reported regarding the dermatologic system. Musculoskeletal: No signs and/or symptoms reported regarding the musculoskeletal system. 17:22 Reassessment: Patient and/or family updated on plan of care and expected duration. Pain tl4 level reassessed. Patient is alert, oriented x 3, equal unlabored respirations, skin warm/dry/pink. Patient states feeling better. 18:22 Reassessment: Patient and/or family updated on plan of care and expected duration. Pain tl4 level reassessed. Patient is alert, oriented x 3, equal unlabored respirations, skin warm/dry/pink. Patient states feeling better. 18:45 Reassessment: Extended time to discharge due to RN not available. tl4 Vital Signs: 15:37 BP 174 / 93; Pulse 92; Resp 17; Temp 97.6; Pulse Ox 96% ; Weight 81.65 kg; Height 4 ft. ll1 10 in. ; Pain 0/10; 16:14 BP 144 / 91; Pulse 85; Resp 18; Pulse Ox 100% on R/A; tl4 17:00 BP 178 / 93; Pulse 91; Resp 19; Pulse Ox 100% on R/A; tl4 18:00 BP 147 / 74; Pulse 82; Resp 21; Pulse Ox 100% on R/A; tl4 18:44 BP 154 / 92; Pulse 80; Resp 16; Temp 98.3(O); Pulse Ox 99% on R/A; Pain 0/10; tl4 15:37 Body Mass Index 37.62 (81.65 kg, 147.32 cm) ll1 15:37 Pain Scale: Adult ll1 18:44 Pain Scale: Adult tl4 ED Course: 15:26 Patient arrived in ED. mg5 15:34 Arm band placed on. ll1 15:35 Lauri Liao MD is Attending Physician. jamaal 15:38 Triage completed. ll1 15:56 Triny Sinha, GIOVANNY is Primary Nurse. kc6 16:09 CT Head Brain wo Cont In Process Unspecified. EDMS 16:14 Patient has correct armband on for positive identification. Placed in gown. Bed in low tl4 position. Call light in reach. Side rails up X 1. Provided Education on: ed process, call cuello. Client placed on continuous cardiac and pulse oximetry monitoring. NIBP monitoring applied. infrastructure technician on. Door closed. Noise minimized. Lights dimmed. Moved to private room. Warm blanket given. Pillow given. 16:14 No provider procedures requiring assistance completed. tl4 16:22 Inserted saline lock: 20 gauge in right antecubital area, using aseptic technique. kc6 Blood collected. 16:46 XRAY Chest (1 view) In Process Unspecified. EDMS 17:08 Urinalysis w/ reflexes Sent. kc6 17:29 Dale Pacheco DO is Referral Physician. jamaal 18:45 IV discontinued, intact, bleeding controlled, No redness/swelling at site. Pressure tl4 dressing applied. Administered Medications: 16:22 Drug: NS 0.9% IV 1000 ml IV at 1 bolus Per protocol; 1000 mL bolus Route: IV; Rate: 1 kc6 bolus; Site: right antecubital; 18:24 Follow up: Response: No adverse reaction; IV Status: Completed infusion; IV Intake: tl4 1000ml 17:27 Drug: Insulin Regular Human Sub-Q 10 units Sub-Q once {Co-Signature: tl4 (Ignacio Gorman RN).} Route: Sub-Q; Site: right upper arm; 18:24 Follow up: Response: No adverse reaction tl4 17:36 Drug: Insulin Glargine Sub-Q 30 units Sub-Q once {Co-Signature: tl4 (Ignacio Gorman6 RN).} Route: Sub-Q; Site: left upper arm; 18:24 Follow up: Response: No adverse reaction tl4 Medication: 16:06 VIS not applicable for this client. tl4 Intake: 18:24 IV: 1000ml; Total: 1000ml. tl4 Outcome: 17:30 Discharge ordered by MD. hinton 18:46 Discharged to home ambulatory, tl4 18:46 Condition: stable 18:46 Discharge instructions given to patient, Instructed on discharge instructions, follow up and referral plans. medication usage, Demonstrated understanding of instructions, follow-up care, medications, Prescriptions given X 1, 18:49 Patient left the ED. tl4 Signatures: Dispatcher [employer] Lauri Lang MD MD cha Lewis, Lynsay RN RN ll1 Triny Sinha RN RN kc6 Virginia Kelley mg5 Ignacio Gorman RN RN tl4 Ignacio Gorman RN tl4
[2023-10-20] MEDS ORDERED: INSULIN GLARGINE 100 UNIT/ML SQ ONE ×2 (17:32→17:45)
[2023-10-20 19:07] VITALS: BP 154/92; TEMP 98.3; O2SAT 99
--- NOTE | 2023-10-21 14:34 | EKG ---
Test Date: 2023-10-20 Test Time: 16:00:16 Transition Assistant: TL MEASUREMENT RESULTS: Intervals: Rate: 84 WY: 130 QRSD: 78 QT: 380 QTc: 449 [place]: P: 43 WY: 130 QRS: -10 T: 13 INTERPRETIVE STATEMENTS: Normal sinus rhythm Normal ECG Compared to ECG 12/02/2022 13:28:32 No significant changes Electronically Signed On 10-21-23 14:32:27 CDT by Gus Melara
== END 2023-10-20 18:49 | disposition home or self-care (01) ==
LOC: ER 15:23
DX: E11.65 Type 2 diabetes mellitus with hyperglycemia (principal)
CPT/HCPCS: 36415; 70450; 71045; 80048; 80076; 81001; 83690; 83735; 83880; 84484; 85025; 85610; 87077; 87086; 87088; 87186; 93005; 96360; 96361; 96372; 99285

== ENCOUNTER 2023-12-25 08:32 | Emergency (ER) | payer SELFPAY ==
[2023-12-25] MEDS ORDERED: KETOROLAC 30 MG/ML INJ ONE (09:05)
--- NOTE | 2023-12-25 10:18 | ER ---
Nurse's Notes [facility] Name: Brenda Loyd Age: 43 yrs Sex: Female : 1980 Arrival Date: 12/25/2023 Time: 08:32 Bed 14 Private MD: Diagnosis: Pain in right lower leg Presentation: 12/24 08:37 Chief complaint: EMS states: toned out to home for chronic leg pain. Pt denies injury. ld1 Coronavirus screen: At this time, the client does not indicate any symptoms associated with coronavirus-19. Ebola Screen: No symptoms or risks identified at this time. Risk Assessment: Do you want to hurt yourself or someone else? Patient reports no desire to harm self or others. Onset of symptoms was December 25, 2023 at 08:38. 08:37 Method Of Arrival: EMS: [facility] ld1 08:37 Method Of Arrival: Ambulatory ld1 08:37 Acuity: SUSAN 4 ld1 08:42 Initial Sepsis Screen: Does the patient meet any 2 criteria? No. Patient's initial ld1 sepsis screen is negative. Does the patient have a suspected source of infection? No. Patient's initial sepsis screen is negative. Triage Assessment: 08:35 General: Appears in no apparent distress. uncomfortable, Behavior is anxious, crying, ld1 fussy. Pain: Complains of pain in right leg Pain does not radiate. Pain currently is 9 out of 10 on a pain scale. Quality of pain is described as throbbing. EENT: No signs and/or symptoms were reported regarding the EENT system. Neuro: Level of Consciousness is awake, alert, obeys commands, Oriented to person, place, time, situation, Appropriate for age. Cardiovascular: Capillary refill < 3 seconds Patient's skin is warm and dry. Respiratory: Airway is patent Respiratory effort is even, unlabored. GI: Abdomen is flat, non-distended. : No signs and/or symptoms were reported regarding the genitourinary system. Derm: No signs and/or symptoms reported regarding the dermatologic system. Musculoskeletal: No signs and/or symptoms reported regarding the musculoskeletal system. WET TRIMMER: 10:49 LMP 12/14/2023, unknown kj2 Historical: - Allergies: 08:35 NKDA; ld1 - Home Meds: 08:35 metformin 850 mg Oral tab 2 times per day [Active]; ld1 - PMHx: 08:35 diabetes mellitus; Chronic nerve pain; ld1 - Immunization history:: Adult Immunizations up to date. - Infectious Disease History:: Denies. - Social history:: Smoking status: Patient denies any tobacco usage or history of. Screenin:33 [facility] ED Fall Risk Assessment (Adult) History of falling in the last 3 months, ko1 including since admission No falls in past 3 months (0 pts) Confusion or Disorientation No (0 pts) Intoxicated or Sedated No (0 pts) Impaired Gait No (0 pts) Mobility Assist Device Used No (0 pt) Altered Elimination No (0 pt) Score/Fall Risk Level 0 - 2 = Low Risk Oriented to surroundings, Maintained a safe environment, Hourly rounding (assess needs \T\ fall precautionary measures) done. Abuse screen: Denies threats or abuse. Nutritional screening: No deficits noted. Tuberculosis screening: No symptoms or risk factors identified. Assessment: 09:33 General: Appears uncomfortable, Behavior is cooperative, crying. Pain: Complains of ko1 pain in Rt lower leg Pain currently is 10 out of 10 on a pain scale. Neuro: No deficits noted. Cardiovascular: No deficits noted. Respiratory: No deficits noted. GI: No deficits noted. No signs and/or symptoms were reported involving the gastrointestinal system. : No deficits noted. No signs and/or symptoms were reported regarding the genitourinary system. EENT: No deficits noted. No signs and/or symptoms were reported regarding the EENT system. Derm: No deficits noted. No signs and/or symptoms reported regarding the dermatologic system. Musculoskeletal: Range of motion: intact in all extremities, Reports pain in right leg. Vital Signs: 08:42 Pulse 90; Resp 18; Temp 98.2(TE); Pulse Ox 98% on R/A; Height 5 ft. 2 in. ; Pain 9/10; ld1 08:43 BP 166 / 143; ld1 08:44 Pain 9/10; ld1 10:48 BP 151 / 89; Pulse 72; Resp 20; Temp 98; Pulse Ox 100% on R/A; kj2 08:42 Pain Scale: Adult ld1 08:44 Pain Scale: Adult ld1 ED Course: 08:34 Patient arrived in ED. ld1 08:35 Arm band placed on right wrist. ld1 08:36 Ajit Carlton DO is Attending Physician. ms3 08:38 Triage completed. ld1 08:38 Maintain EMS IV. Dressing intact. Good blood return noted. Site clean \T\ dry. Gauge \T\ ld 1 site: 20G LAC. 09:33 Patient has correct armband on for positive identification. Bed in low position. Call ko1 light in reach. Side rails up X2. Provided Education on: medication, call light. Client placed on continuous cardiac and pulse oximetry monitoring. NIBP monitoring applied. Door closed. Warm blanket given. 09:33 No provider procedures requiring assistance completed. ko1 10:17 Dale Pacheco DO is Referral Physician. ms3 10:34 Cheli Velasquez, GIOVANNY is Primary Nurse. kj2 10:49 IV discontinued, intact, bleeding controlled, No redness/swelling at site. Pressure kj2 dressing applied. Administered Medications: 09:07 Drug: Ketorolac IM 15 mg IM once Route: IM; Site: right deltoid; dd2 10:49 Follow up: Response: No adverse reaction kj2 10:48 Drug: Cyclobenzaprine PO 10 mg PO once Route: PO; kj2 10:49 Follow up: Response: No adverse reaction; Medication administered at discharge. kj2 Medication: 09:33 VIS not applicable for this client. ko1 Outcome: 10:17 Discharge ordered by . ms3 10:35 Discharged to home ambulatory, kj2 10:35 Condition: stable 10:35 Discharge instructions given to patient, Instructed on discharge instructions, follow up and referral plans. medication usage, Demonstrated understanding of instructions, follow-up care, medications, Prescriptions given X 2, 10:50 Patient left the ED. kj2 Signatures: Ajit Carlton DO DO ms3 Claire Carlton RN RN ld1 Marva Dennis, RN RN ko1 Cheli Velasquez RN RN kj2 MANDY CHADWICK RN RN dd2
--- NOTE | 2023-12-25 10:18 | EDPHYS ---
Physician Documentation [facility] Name: Brenda Loyd Age: 43 yrs Sex: Female : 1980 Arrival Date: 12/25/2023 Time: 08:32 Bed 14 Private MD: ED Physician Ajit Carlton HPI: 12/24 08:58 This 43 yrs old Female presents to ER via Ambulatory with complaints of Leg ms3 Pain. 08:58 43-year-old female with past medical history of diabetes, chronic nerve pain presents ms3 to the emergency department for right tibial pain that radiates to her foot. Patient states she is experienced this in the past and received an injection that improved her symptoms. Patient denies any alleviating or inciting factors.. COTTON TIPPER: 10:49 LMP 12/14/2023, unknown kj2 Historical: - Allergies: 08:35 NKDA; ld1 - Home Meds: 08:35 metformin 850 mg Oral tab 2 times per day [Active]; ld1 - PMHx: 08:35 diabetes mellitus; Chronic nerve pain; ld1 - Immunization history:: Adult Immunizations up to date. - Infectious Disease History:: Denies. - Social history:: Smoking status: Patient denies any tobacco usage or history of. ROS: 08:58 Constitutional: Negative for fever, and chills. Cardiovascular: Negative for chest ms3 pain, and palpitations. Respiratory: Negative for shortness of breath, cough, wheezing, and pleuritic chest pain, Abdomen/GI: Negative for abdominal pain, nausea, vomiting, diarrhea, and constipation, 08:58 MS/extremity: Positive for pain, of the right leg, Exam: 08:58 Constitutional: This is a well developed, well nourished patient who is awake, alert, ms3 and in no acute distress. Chest/axilla: Normal chest wall appearance and motion. Nontender with no deformity. Cardiovascular: Regular rate and rhythm with a normal S1 and S2. No gallops, murmurs, or rubs. Normal PMI, no JVD. No pulse deficits. Respiratory: Lungs have equal breath sounds bilaterally, clear to auscultation and percussion. No rales, rhonchi or wheezes noted. No increased work of breathing, no retractions or nasal flaring. Abdomen/GI: Soft, non-tender, with normal bowel sounds. No distension or tympany. No guarding or rebound. No evidence of tenderness throughout. Skin: Warm, dry with normal turgor. Normal color with no rashes, no lesions, and no evidence of cellulitis. 08:58 Musculoskeletal/extremity: Extremities: noted in the right leg: pain, There is no evidence of decreased ROM, deformity, ecchymosis, erythema, swelling, tenderness, Compartments soft, dorsalis pedis and posterior tibial pulses 2+/4, Vital Signs: 08:42 Pulse 90; Resp 18; Temp 98.2(TE); Pulse Ox 98% on R/A; Height 5 ft. 2 in. ; Pain 9/10; ld1 08:43 BP 166 / 143; ld1 08:44 Pain 9/10; ld1 10:48 BP 151 / 89; Pulse 72; Resp 20; Temp 98; Pulse Ox 100% on R/A; kj2 08:42 Pain Scale: Adult ld1 08:44 Pain Scale: Adult ld1 MDM: 08:58 Differential diagnosis: contusion, tendonitis, Peripheral neuropathy. ms3 09:01 Patient medically screened. ms3 16:29 Data reviewed: vital signs, nurses notes, and as a result, I will discharge patient. I ms3 considered the following discharge prescriptions or medication management in the emergency department Medications were administered in the Emergency Department. See MAR. Care significantly affected by the following chronic conditions: Diabetes. Counseling: I had a detailed discussion with the patient and/or guardian regarding the historical points, exam findings, and any diagnostic results supporting the discharge/admit diagnosis, the need for outpatient follow up, to return to the emergency department if symptoms worsen or persist or if there are any questions or concerns that arise at home. Special discussion: I discussed with the patient/guardian in detail that at this point there is no indication for admission to the hospital. It is understood, however, that if the symptoms persist or worsen the patient needs to return immediately for re-evaluation. ED course: On reevaluation patient is alert, pain improved, compartments soft and right lower extremity, DP and PT pulses 2+/4. Patient to follow-up with primary care physician in 2 to 3 days. Patient understands and agrees with plan. All questions were answered. Return precautions discussed include worsening symptoms, or any other concerns. Administered Medications: 09:07 Drug: Ketorolac IM 15 mg IM once Route: IM; Site: right deltoid; dd2 10:49 Follow up: Response: No adverse reaction kj2 10:48 Drug: Cyclobenzaprine PO 10 mg PO once Route: PO; kj2 10:49 Follow up: Response: No adverse reaction; Medication administered at discharge. kj2 Disposition Summary: 12/25/23 10:17 Discharge Ordered Notes: Location: Home ms3 Condition: Stable ms3 Diagnosis - Pain in right lower leg ms3 Followup: ms3 - With: Dale Pacheco DO - When: 2 - 3 days - Reason: Recheck today's complaints Discharge Instructions: - Discharge Summary Sheet ms3 - Musculoskeletal Pain ms3 Forms: - Medication Reconciliation Form ms3 - Antibiotic Education ms3 - Prescription Opioid Use ms3 - Patient Portal Instructions ms3 - Leadership Thank You Letter ms3 Prescriptions: - Ibuprofen 600 mg Oral Tablet - take 1 tablet ORAL route every 6 hours As needed take with food; 30 tablet; ms3 Refills: 0, Product Selection Permitted - Cyclobenzaprine 10 mg Oral Tablet - take 1 tablet ORAL route every 8 hours As needed; 30 tablet; Refills: 0, ms3 Product Selection Permitted Signatures: Ajit Carlton DO DO ms3 Claire Carlton RN RN ld1 Cheli Velasquez RN RN kj2 MANDY CHADWICK RN RN dd2
[2023-12-25] MEDS ORDERED: CYCLOBENZAPRINE 10 MG TAB ONE (10:40)
[2023-12-25 10:59] VITALS: BP 151/89; TEMP 98; O2SAT 100
== END 2023-12-25 10:50 | disposition home or self-care (01) ==
LOC: ER 08:32
DX: M79.661 Pain in right lower leg (principal)
CPT/HCPCS: 96372; 99284

== ENCOUNTER 2024-07-04 08:52 | Emergency (ER) | payer SELFPAY ==
--- NOTE | 2024-07-04 09:18 | ER ---
Nurse's Notes [facility] Name: Brenda Loyd Age: 43 yrs Sex: Female : 1980 Arrival Date: 07/04/2024 Time: 08:52 Bed IW1 Private MD: Diagnosis: Encounter for examination and observation following work accident Presentation: 07/04 09:11 Chief complaint: Sent home from work yesterday, needs work note. Stood up after bending hb over working for a while and almost passed out, but feels better today. Coronavirus screen: At this time, the client does not indicate any symptoms associated with coronavirus-19. Ebola Screen: No symptoms or risks identified at this time. Initial Sepsis Screen: Does the patient meet any 2 criteria? No. Patient's initial sepsis screen is negative. Does the patient have a suspected source of infection? No. Patient's initial sepsis screen is negative. Risk Assessment: Do you want to hurt yourself or someone else? Patient reports no desire to harm self or others. Onset of symptoms was July 04, 2024. 09:11 Method Of Arrival: Ambulatory hb 09:11 Acuity: SUSAN 5 hb Historical: - Allergies: 09:13 NKDA; hb - Home Meds: 09:13 metformin 850 mg Oral tab 2 times per day [Active]; hb - PMHx: 09:13 Chronic nerve pain; diabetes mellitus; hb - Immunization history:: Adult Immunizations up to date. - Infectious Disease History:: Denies. - Social history:: Smoking status: Patient denies any tobacco usage or history of. Vital Signs: 09:11 BP 136 / 80; Pulse 78; Resp 16; Temp 97.8(TE); Pulse Ox 100% on R/A; Weight 83.91 kg; hb Height 4 ft. 10 in. ; Pain 0/10; 09:11 Body Mass Index 38.66 (83.91 kg, 147.32 cm) hb 09:11 Pain Scale: Adult hb ED Course: 08:57 Patient arrived in ED. al6 08:57 Seth Guzman FNP-C [facility]. dr5 08:57 Aaron Crain MD is Attending Physician. dr5 09:13 Triage completed. hb 09:13 Arm band placed on. hb Administered Medications: No medications were administered Outcome: 09:17 Discharge ordered by . dr5 09:28 Patient left the ED. hb Signatures: Sasha Veliz, RN RN Seth Farr, ANTWAN-C DIESEL MOTOR MECHANIC-Cdr5 Katharine Olivo
--- NOTE | 2024-07-04 09:18 | EDPHYS ---
Physician Documentation [facility] Name: Brenda Loyd Age: 43 yrs Sex: Female : 1980 Arrival Date: 07/04/2024 Time: 08:52 Bed IW1 Private MD: ED Physician Aaron Crain HPI: 07/04 10:11 This 43 yrs old Female presents to ER via Ambulatory with complaints of NEEDS dr5 WORK NOTE. 10:11 Patient is a 43-year-old female with history of diabetes coming in with needing dr5 prescription refilled and work release to return back to work. 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 Patient reports that when she stood up she became lightheaded. Patient also reports that she had not eaten any breakfast when the symptoms started. Patient reports that her symptoms have resolved and she is feeling much better. Patient reports that she needs a work note to return. Patient also reports that she ran of her metformin and would like a refill.. Historical: - Allergies: 09:13 NKDA; hb - Home Meds: 09:13 metformin 850 mg Oral tab 2 times per day [Active]; hb - PMHx: 09:13 Chronic nerve pain; diabetes mellitus; hb - Immunization history:: Adult Immunizations up to date. - Infectious Disease History:: Denies. - Social history:: Smoking status: Patient denies any tobacco usage or history of. ROS: 10:11 Constitutional: as per hpi dr5 Exam: 10:11 Constitutional: This is a well developed, well nourished patient who is awake, alert, dr5 and in no acute distress. Head/Face: Normocephalic, atraumatic. ENT: Nares patent. No nasal discharge, no septal abnormalities noted. Tympanic membranes are normal and external auditory canals are clear. Oropharynx with no redness, swelling, or masses, exudates, or evidence of obstruction, uvula midline. Mucous membranes moist. Neck: Trachea midline, no thyromegaly or masses palpated, and no cervical lymphadenopathy. Supple, full range of motion without nuchal rigidity, or vertebral point tenderness. No Meningismus. Chest/axilla: Normal chest wall appearance and motion. Nontender with no deformity. No lesions are appreciated. Cardiovascular: Regular rate and rhythm with a normal S1 and S2. Normal PMI, no JVD. No pulse deficits. Respiratory: Lungs have equal breath sounds bilaterally, clear to auscultation. No rales, rhonchi or wheezes noted. No increased work of breathing, no retractions or nasal flaring. Back: No spinal tenderness. No costovertebral tenderness. Full range of motion. Skin: Warm, dry with normal turgor. Normal color with no rashes, no lesions, and no evidence of cellulitis. MS/ Extremity: Pulses equal, no cyanosis. Neurovascular intact. Full, normal range of motion. Neuro: Awake and alert, GCS 15, oriented to person, place, time, and situation. Cranial nerves II-XII grossly intact. Motor strength 5/5 in all extremities. Sensory grossly intact. Cerebellar exam normal. Normal gait. Vital Signs: 09:11 BP 136 / 80; Pulse 78; Resp 16; Temp 97.8(TE); Pulse Ox 100% on R/A; Weight 83.91 kg; hb Height 4 ft. 10 in. ; Pain 0/10; 09:11 Body Mass Index 38.66 (83.91 kg, 147.32 cm) hb 09:11 Pain Scale: Adult hb MDM: 09:01 Medical Screening Exam initiated dr5 10:11 Differential Diagnosis altered mental status, Medication Refill Encounter, Work dr5 Release. Data reviewed: vital signs, nurses notes. Care significantly affected by the following chronic conditions: Diabetes. Care significantly affected by the following Social Determinants of Health: Poor access to healthcare and/or lack of insurance, Poor access to transportation, Problems related to employment. Counseling: I had a detailed discussion with the patient and/or guardian regarding the historical points, exam findings, and any diagnostic results supporting the discharge/admit diagnosis, the presence of at least one elevated blood pressure reading (>120/80) during this emergency department visit, the need for outpatient follow up, for definitive care, a family practitioner, to return to the emergency department if symptoms worsen or persist or if there are any questions or concerns that arise at home. ED course: Patient is exam is normal in ER today. Work note given so she can return tomorrow. Metformin was refilled and recommended her to follow-up with primary care doctor this week for further management. All questions answered.. Administered Medications: No medications were administered Disposition Summary: 07/04/24 09:17 Discharge Ordered Notes: Location: Home dr5 Condition: Stable dr5 Diagnosis - Encounter for examination and observation following work accident dr5 Followup: dr5 - With: Emergency Department - When: As needed - Reason: Worsening of condition Followup: dr5 - With: Private Physician - When: 1 - 2 days - Reason: Recheck today's complaints, Continuance of care, Re-evaluation by your physician Discharge Instructions: - Discharge Summary Sheet dr5 Forms: - Work release form dr5 - Medication Reconciliation Form dr5 - Patient Portal Instructions dr5 - Leadership Thank You Letter dr5 Prescriptions: - Metformin 500 mg Oral tablet - take 1 tablet ORAL route once daily for 30 days Then take 1 tablet with morning dr5 meals AND evening meals; 30 tablet; Refills: 0, Product Selection Permitted Signatures: Sasha Veliz RN RN Seth Farr, DIRECTOR [employer]-C DIRECTOR [employer]-Cdr5
[2024-07-04 09:36] VITALS: BP 136/80; TEMP 97.8; O2SAT 100
== END 2024-07-04 09:28 | disposition home or self-care (01) ==
LOC: ER 08:52
DX: Z02.79 Encounter for issue of other medical certificate (principal)
CPT/HCPCS: 99281

== ENCOUNTER 2024-11-21 19:14 | Inpatient (IN) | payer OTHER, SELFPAY ==
[2024-11-21 20:47] LABS: PT Prothrombin Time 13.1 SECONDS (10-13.0); Protime INR 1.16
--- NOTE | 2024-11-21 20:52 | RAD REPORT ---
EXAMINATION: US Extrem Venous W Compress Mt CLINICAL INDICATION: [facility] MAIN Pain;Swelling Bed: N TECHNIQUE: Complete bilateral duplex sonography of the BILATERAL lower extremity veins was performed. The examination included compression for vein patency, color Doppler imaging and flow augmentation in response to distal compression of the distal external iliac, common femoral, femoral, popliteal, t ibial, and great and small saphenous veins. COMPARISON: No prior exam. FINDINGS: Duplex sonography testing of the veins of the BILATERAL lower extremity was performed. Color flow robe ging shows all veins to be compressible with [id number] color filling. Pulsatile and phasic flow is present within all lower extremity deep and superficial veins examined. Mildly prominent likely re active lymph nodes in the right groin. IMPRESSION: There is no deep vein or superficial vein thrombosis.
[2024-11-21 21:06] LABS: Absolute Lymphocytes (CBC) 1.6 K/uL (0.7-4.9); Albumin 2.9 g/dL (3.4-5.0); Albumin/Globulin Ratio 0.6 (1.1-1.8); Alkaline Phosphatase 117 U/L (45-117); Anion Gap 11.2 mEq/L (5.0-15.0); BUN Blood Urea Nitrogen 9 mg/dL (7-18); Globulin 5.0 g/dL (2.3-3.5); Hematocrit 32.6 % (36.0-45.0); Hemoglobin 10.8 g/dL (12.0-15.0); MCH 25.9 pg (27.0-35.0); MCHC 33.1 g/dL (32.0-36.0); MCV 78.2 fL (80-100); MPV 8.0 fL (7.6-11.3); Magnesium 2.1 mg/dL (1.6-2.4); NT PRO-BNP 282 pg/mL (<125); Nucleated RBC Absolute Count 0.0 (0-0); Nucleated Red Blood Cells % 0.1 % (0-0); Potassium 3.2 mEq/L (3.5-5.1); RBC Red Blood Cell Count 4.17 M/uL (3.86-4.86); Troponin High Sensitivity 4.1 pg/mL (<58.9); White Blood Count 8.70 thou/uL (4.3-10.9)
[2024-11-21 21:07] LABS: ALT/SGPT < 14 U/L (13-56); AST/SGOT < 10 U/L (15-37); Bilirubin Indirect, Calculated 0.1 mg/dL (0.2-0.8)
[2024-11-21 21:09] LABS: Glucose Level 465 mg/dL (74-106)
[2024-11-21 21:14] LABS: Sqamous Epithelial None Seen /HPF (None Seen); Urine Crystals Unidentified Moderate /HPF (None Seen); Urine Culture Reflex Order REFLEXED; Urine Microscopic Reflex YN ORDER UMIC; Urine WBC Clump Occasional /HPF (None Seen)
[2024-11-21] MEDS ORDERED: NA CHLORIDE 0.9% 500 ML ONE (21:59)
[2024-11-21] MEDS ORDERED: CEFAZOLIN SODIUM 2 GM/VIAL ONE (21:59)
[2024-11-21] MEDS ORDERED: VANCOMYCIN 1 GM/VIAL ONE (21:59)
[2024-11-21] MEDS ORDERED: NA CHLORIDE 0.9% 100 ML ONE (22:00)
--- NOTE | 2024-11-21 22:04 | ER ---
Nurse's Notes [facility] Name: Brenda Loyd Age: 44 yrs Sex: Female : 1980 Arrival Date: 11/21/2024 Time: 19:14 Bed 17 Private MD: Diagnosis: Cellulitis and acute lymphangitis of other parts of limb-left foot and ankle;Type 2 diabetes mellitus with hyperglycemia;Type 2 diabetes mellitus with foot ulcer-cellulitis Presentation: 11/21 19:51 Chief complaint: Patient states: SHE 'SAW A BROWN SPOT ON HER FOOT AND PUT MEDICINE dd2 FROM [employer] ON IT, WOKE UP AT 10 THIS MORNING AND FOOT HURT BAD AND WAS SWOLLEN'. Coronavirus screen: At this time, the client does not indicate any symptoms associated with coronavirus-19. Ebola Screen: No symptoms or risks identified at this time. Initial Sepsis Screen: Does the patient meet any 2 criteria? No. Patient's initial sepsis screen is negative. Does the patient have a suspected source of infection? No. Patient's initial sepsis screen is negative. Risk Assessment: Do you want to hurt yourself or someone else? Patient reports no desire to harm self or others. Onset of symptoms was November 20, 2024. 19:51 Method Of Arrival: Ambulatory dd2 19:51 Acuity: SUSAN 3 dd2 Triage Assessment: 19:54 General: Appears in no apparent distress. uncomfortable, Behavior is calm, cooperative, dd2 appropriate for age. Pain: Complains of pain in dorsum of left foot Pain currently is 10 out of 10 on a pain scale. Derm: Wound noted dorsum of left foot Wound is EDEMA, REDNESS NOTED Reports pain that is 10 out of 10 on a pain scale. Historical: - Allergies: 19:54 NKDA; dd2 - PMHx: 19:54 Chronic nerve pain; diabetes mellitus; dd2 - PSHx: 19:54 None; dd2 - Immunization history:: Adult Immunizations unknown. - Infectious Disease History:: Denies. - Social history:: Smoking status: Patient denies any tobacco usage or history of. - Family history:: not pertinent. Screenin:37 [facility] ED Fall Risk Assessment (Adult) History of falling in the last 3 months, tb4 including since admission No falls in past 3 months (0 pts) Confusion or Disorientation No (0 pts) Intoxicated or Sedated No (0 pts) Impaired Gait Yes (1 pt) Mobility Assist Device Used No (0 pt) Altered Elimination No (0 pt) Score/Fall Risk Level 0 - 2 = Low Risk Oriented to surroundings, Maintained a safe environment, Educated pt \T\ family on fall prevention, incl call for assistance when getting out of bed. Abuse screen: Denies threats or abuse. Nutritional screening: No deficits noted. Tuberculosis screening: No symptoms or risk factors identified. Assessment: 20:37 Reassessment: Patient is alert, oriented x 3, equal unlabored respirations, skin tb4 warm/dry/pink. See triage note. General: Appears uncomfortable, Behavior is cooperative. Pain: Complains of pain in dorsum of left foot Pain does not radiate. Pain currently is 0 out of 10 on a pain scale. Quality of pain is described as heavy, Pain began gradually, 1 day ago. Is continuous, Alleviated by nothing. 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 Full function Gait is unsteady, Has difficulty walking due to pain.. Speech is normal, Facial symmetry appears normal. Cardiovascular: Denies. Respiratory: Airway is patent Trachea midline Respiratory effort is even, unlabored, Respiratory pattern is regular, symmetrical. GI: No signs and/or symptoms were reported involving the gastrointestinal system. : No signs and/or symptoms were reported regarding the genitourinary system. EENT: No signs and/or symptoms were reported regarding the EENT system. Injury Description: Patient stated she found a black spot on her foot x1 day but thinks it could be a insect bite. Vital Signs: 19:51 BP 147 / 98; Pulse 102; Resp 17; Temp 98.5; Pulse Ox 100% ; Weight 65.77 kg; Height 4 dd2 ft. 10 in. ; Pain 10/10; 20:37 BP 149 / 80; Pulse 93; Resp 18; Temp 98.6(O); Pulse Ox 96% on R/A; Weight 68.04 kg; tb4 Height 4 ft. 10 in. ; Pain 0/10; 21:40 BP 143 / 91; Pulse 96; Resp 18; Temp 98.1(O); Pulse Ox 100% on R/A; Pain 0/10; tb4 22:45 BP 159 / 95; Pulse 96; Resp 20; Pulse Ox 97% on R/A; Pain 0/10; tb4 23:50 BP 138 / 82; Pulse 99; Resp 20; Pulse Ox 100% on R/A; Pain 0/10; tb4 11/22 00:55 BP 140 / 87; Pulse 74; Resp 18; Pulse Ox 100% on R/A; Pain 0/10; tb4 11/21 20:37 Body Mass Index 31.35 (68.04 kg, 147.32 cm) tb4 11/21 19:51 Pain Scale: Adult dd2 20:37 Pain Scale: Adult tb4 21:40 Pain Scale: Adult tb4 22:45 Pain Scale: Adult tb4 23:50 Pain Scale: Adult tb4 11/22 00:55 Pain Scale: Adult tb4 ED Course: 11/21 19:16 Patient arrived in ED. im 19:17 Lauri Liao MD is Attending Physician. jamaal 19:54 Triage completed. dd2 19:54 Arm band placed on right wrist. dd2 20:22 US Extremity Venous W Compression Mt In Process Unspecified. EDMS 20:32 Inserted saline lock: 20 gauge in right antecubital area, using aseptic technique. ts3 Blood collected. Flushed with 10 mL NS. 20:33 Initial lab(s) drawn, by analytical laboratory technician, sent to lab. ts3 20:37 Patient has correct armband on for positive identification. Placed in gown. Bed in low tb4 position. Call light in reach. Side rails up X 1. Client placed on continuous cardiac and pulse oximetry monitoring. NIBP monitoring applied. Door closed. Warm blanket given. 20:48 EKG done, by veterinary technician assistant. ts3 21:55 Ricardo Silva, RN is Primary Nurse. ss12 21:55 First set of blood cultures drawn by me. ts3 21:59 Foot Left 3 View XRAY In Process Unspecified. EDMS 22:02 Alex Ji MD is Hospitalizing Provider. jamaal 22:10 Second set of blood cultures drawn by me. ts3 22:19 Urine collected: clean catch specimen, sent to lab. ts3 11/22 00:04 No provider procedures requiring assistance completed. tb4 Administered Medications: 11/21 22:10 Drug: ceFAZolin IVPB 2 grams IVPB once over 30 mins; (mix in 100 mL NS) Route: IVPB; ss12 Infused Over: 30 mins; Site: left antecubital; 23:18 Follow up: Response: No adverse reaction; IV Status: Completed infusion tb4 22:10 Drug: Insulin Regular Human IVP 10 units IVP once {Co-Signature: tb4 (Carissa Jackson RN).} Route: IVP; Site: left antecubital; 22:10 Drug: Famotidine IVP 20 mg IVP once; dilute with 10 mL 0.9% NaCl; give over 2 minutes ss12 Route: IVP; Site: left antecubital; 23:18 Follow up: Response: No adverse reaction tb4 22:13 Drug: NS 0.9% IV (30 ml/kg) 30 ml/kg IV at bolus once; Sepsis Protocol; to be given as ss12 a bolus over 90 minutes Route: IV; Rate: bolus; Site: left antecubital; 23:56 Follow up: Response: No adverse reaction; IV Status: Completed infusion tb4 23:18 Drug: vancoMYCIN IVPB 2 grams IVPB at calculated rate once Route: IVPB; Rate: tb4 calculated rate; Site: right antecubital; 11/22 01:21 Follow up: Response: No adverse reaction; IV Status: Completed infusion tb4 11/21 23:55 Drug: Boostrix Tdap IM 0.5 ml IM once; as a single dose Route: IM; Site: right deltoid; tb4 Medication: 20:37 VIS not applicable for this client. tb4 Outcome: 22:03 Decision to Hospitalize by Provider. [facility] 11/22 01:34 Patient left the ED. tb4 Signatures: Dispatcher [employer] EDLauri Gloria MD MD cha Mendoza, Itzel im DAVIS, DIANA RN RN dd2 Carissa Jackson, RN RN tb4 Kelsey Rosales 3 Ricardo Silva RN RN ss12 Carissa Jackson RN tb4
--- NOTE | 2024-11-21 22:04 | EDPHYS ---
Physician Documentation [facility] Name: Brenda Loyd Age: 44 yrs Sex: Female : 1980 Arrival Date: 11/21/2024 Time: 19:14 Bed 17 Private MD: YVONNE Physician Lauri Liao HPI: 11/21 21:49 This 44 yrs old Female presents to ER via Ambulatory with complaints of Foot jamaal Pain - left, Feet Swelling - left. 21:49 The patient presents with decreased range of motion, an injury. The complaints affect jamaal the left foot, left foot. Context: The problem was sustained at an unknown location, resulted from a chronic condition, an old injury, the patient can partially bear weight. Modifying factors: The symptoms are alleviated by the symptoms are aggravated by weight bearing, movement. Associated signs and symptoms: Pertinent positives: calf tenderness, swelling, warmth. Severity of symptoms: At their worst the symptoms were moderate, 7 day(s) ago. The patient has experienced similar episodes in the past, multiple times. Historical: - Allergies: 19:54 NKDA; dd2 - PMHx: 19:54 Chronic nerve pain; diabetes mellitus; dd2 - PSHx: 19:54 None; dd2 - Immunization history:: Adult Immunizations unknown. - Infectious Disease History:: Denies. - Social history:: Smoking status: Patient denies any tobacco usage or history of. - Family history:: not pertinent. ROS: 21:49 Constitutional: Negative for fever, chills, and weight loss, Eyes: Negative for injury, jamaal pain, redness, and discharge, ENT: Negative for injury, pain, and discharge, Neck: Negative for injury, pain, and swelling, Cardiovascular: Negative for chest pain, palpitations, and edema, Respiratory: Negative for shortness of breath, cough, wheezing, and pleuritic chest pain, Abdomen/GI: Negative for abdominal pain, nausea, vomiting, diarrhea, and constipation, Back: Negative for injury and pain, : Negative for injury, bleeding, discharge, and swelling, Neuro: Negative for headache, weakness, numbness, tingling, and seizure, Psych: Negative for depression, anxiety, suicide ideation, homicidal ideation, and hallucinations, Allergy/Immunology: Negative for hives, rash, and allergies, Endocrine: Negative for neck swelling, polydipsia, polyuria, polyphagia, and marked weight changes, Hematologic/Lymphatic: Negative for swollen nodes, abnormal bleeding, and unusual bruising, 21:49 MS/extremity: Positive for decreased range of motion, erythema, pain, swelling, tenderness, of the left foot, Exam: 21:49 Constitutional: This is a well developed, well nourished patient who is awake, alert, jamaal and in no acute distress. Head/Face: Normocephalic, atraumatic. Eyes: Pupils equal round and reactive to light, extra-ocular motions intact. Lids and lashes normal. Conjunctiva and sclera are non-icteric and not injected. Cornea within normal limits. Periorbital areas with no swelling, redness, or edema. ENT: Nares patent. No nasal discharge, no septal abnormalities noted. Tympanic membranes are normal and external auditory canals are clear. Oropharynx with no redness, swelling, or masses, exudates, or evidence of obstruction, uvula midline. Mucous membranes moist. Neck: Trachea midline, no thyromegaly or masses palpated, and no cervical lymphadenopathy. Supple, full range of motion without nuchal rigidity, or vertebral point tenderness. No Meningismus. Chest/axilla: Normal chest wall appearance and motion. Nontender with no deformity. No lesions are appreciated. Cardiovascular: Regular rate and rhythm with a normal S1 and S2. No gallops, murmurs, or rubs. Normal PMI, no JVD. No pulse deficits. Respiratory: Lungs have equal breath sounds bilaterally, clear to auscultation and percussion. No rales, rhonchi or wheezes noted. No increased work of breathing, no retractions or nasal flaring. Abdomen/GI: Soft, non-tender, with normal bowel sounds. No distension or tympany. No guarding or rebound. No evidence of tenderness throughout. Back: No spinal tenderness. No costovertebral tenderness. Full range of motion. Neuro: Awake and alert, GCS 15, oriented to person, place, time, and situation. Cranial nerves II-XII grossly intact. Motor strength 5/5 in all extremities. Sensory grossly intact. Cerebellar exam normal. Normal gait. 21:49 ECG was reviewed by the Attending Physician. 21:49 Musculoskeletal/extremity: ROM: full active range of motion, full passive range of motion, limited active range of motion due to pain, limited passive range of motion due to pain, in the left foot, Pulses: noted to be 4+ in the bilateral radial, brachial, femoral, popliteal, posterior tibial and and dorsalis pedis arteries., the left foot decreased sensation, Compartment Syndrome exam of affected extremity: is normal. Weight bearing: able to fully bear weight, without difficulty, DVT Exam: no tenderness, negative Homans' sign noted on exam, no appreciated bluish discoloration, pain, swelling, tenderness, erythema, increased warmth, 21:49 Skin: cellulitis, that is mild, that is moderate, on the left foot and left leg, Vital Signs: 19:51 BP 147 / 98; Pulse 102; Resp 17; Temp 98.5; Pulse Ox 100% ; Weight 65.77 kg; Height 4 dd2 ft. 10 in. ; Pain 10/10; 20:37 BP 149 / 80; Pulse 93; Resp 18; Temp 98.6(O); Pulse Ox 96% on R/A; Weight 68.04 kg; tb4 Height 4 ft. 10 in. ; Pain 0/10; 21:40 BP 143 / 91; Pulse 96; Resp 18; Temp 98.1(O); Pulse Ox 100% on R/A; Pain 0/10; tb4 22:45 BP 159 / 95; Pulse 96; Resp 20; Pulse Ox 97% on R/A; Pain 0/10; tb4 23:50 BP 138 / 82; Pulse 99; Resp 20; Pulse Ox 100% on R/A; Pain 0/10; 4 11/22 00:55 BP 140 / 87; Pulse 74; Resp 18; Pulse Ox 100% on R/A; Pain 0/10; 4 11/21 20:37 Body Mass Index 31.35 (68.04 kg, 147.32 cm) [facility] 11/21 19:51 Pain Scale: Adult dd2 20:37 Pain Scale: Adult tb4 21:40 Pain Scale: Adult tb4 22:45 Pain Scale: Adult tb4 23:50 Pain Scale: Adult tb4 11/22 00:55 Pain Scale: Adult tb4 MDM: 11/21 19:17 Medical Screening Exam initiated jamaal 22:01 Differential diagnosis: fracture, sprain, foreign body, penetrating trauma, arthritis, jamaal cellulitis. Data reviewed: vital signs, nurses notes, lab test result(s), EKG, radiologic studies, doppler, plain films. Consideration of Admission/Observation Patient was admitted/placed on observation. Escalation of care including admission/observation considered. I considered the following discharge prescriptions or medication management in the emergency department Medications were administered in the Emergency Department. See MAR. Independent interpretation of the following test(s) in the Emergency Department EKG: See my EKG interpretation above. Test considered but Not performed: MRI: no mri. Care significantly affected by the following chronic conditions: Diabetes, Hypertension, Obesity. 11/21 19:19 Order name: Basic Metabolic Panel; Complete Time: 21:43 [facility] 11/21 19:19 Order name: CBC with Diff; Complete Time: 21:43 [facility] 11/21 19:19 Order name: LFT's; Complete Time: :43 [facility] 11/21 19:19 Order name: Magnesium; Complete Time: 21:43 [facility] 11/21 19:19 Order name: NT PRO-BNP; Complete Time: :43 [facility] 11/21 19:19 Order name: PT-INR; Complete Time: 21:43 [facility] 11/21 19:19 Order name: Troponin HS; Complete Time: 21:43 [facility] 11/21 19:19 Order name: UA Rfx Kendrick Cult if indicated; Complete Time: 21:43 [facility] 11/21 19:19 Order name: PREGU; Complete Time: 21:43 [facility] 11/21 19:23 Order name: Lipase; Complete Time: 21:43 [facility] 11/21 21:39 Order name: Urine Culture EDCT 11/21 21:49 Order name: Blood Culture Adult (2) [facility] 11/21 21:49 Order name: Lactate w/ 2H reflex if indic. jamaal 11/21 23:01 Order name: CBC with Automated Diff EDMS 11/21 23:01 Order name: CBC with Automated Diff EDMS 11/21 23:01 Order name: CBC with Automated Diff EDMS 11/21 23:01 Order name: CBC with Automated Diff EDMS 11/21 23:01 Order name: Comprehensive Metabolic Panel EDMS 11/21 23:01 Order name: Comprehensive Metabolic Panel EDMS 11/21 23:01 Order name: Comprehensive Metabolic Panel EDMS 11/21 23:01 Order name: Comprehensive Metabolic Panel EDMS 11/21 23:02 Order name: Magnesium EDMS 11/21 23:02 Order name: Magnesium EDMS 11/21 23:02 Order name: Magnesium [facility] 11/21 23:02 Order name: Magnesium [facility] 11/22 00:18 Order name: Glucose, Ancillary Testing [facility] 11/21 19:19 Order name: US Extremity Venous W Compression Tm; Complete Time: 21:43 [facility] 11/21 21:41 Order name: Foot Left 3 View XRAY [facility] 11/21 22:51 Order name: Dr Krystal Queen [facility] 11/21 22:56 Order name: [facility] 11/21 19:19 Order name: Cardiac monitoring; Complete Time: 20:48 [facility] 11/21 19:19 Order name: EKG - Nurse/Tech; Complete Time: 20:48 [facility] 11/21 19:19 Order name: IV Saline Lock; Complete Time: 20:48 [facility] 11/21 19:19 Order name: Labs collected and sent; Complete Time: 20:48 [facility] 11/21 19:19 Order name: O2 Per Protocol; Complete Time: 20:48 [facility] 11/21 19:19 Order name: O2 Sat Monitoring; Complete Time: 20:48 [facility] 11/21 21:41 Order name: Wound dressing; Complete Time: 21:48 [facility] EC:49 Rate is 93 beats/min. Rhythm is regular. QRS Bivins is Normal. QRS interval is normal. QT jamaal interval is normal. No Q waves. T waves are Normal. No ST changes noted. Clinical impression: NSR w/ Non-specific ST/T Changes and No evidence of ischemia. Interpreted by me. Reviewed by me. Administered Medications: 22:10 Drug: ceFAZolin IVPB 2 grams IVPB once over 30 mins; (mix in 100 mL NS) Route: IVPB; ss12 Infused Over: 30 mins; Site: left antecubital; 23:18 Follow up: Response: No adverse reaction; IV Status: Completed infusion tb4 22:10 Drug: Insulin Regular Human IVP 10 units IVP once {Co-Signature: tb4 (Carissa Jackson ss12 RN).} Route: IVP; Site: left antecubital; 22:10 Drug: Famotidine IVP 20 mg IVP once; dilute with 10 mL 0.9% NaCl; give over 2 minutes ss12 Route: IVP; Site: left antecubital; 23:18 Follow up: Response: No adverse reaction tb4 22:13 Drug: NS 0.9% IV (30 ml/kg) 30 ml/kg IV at bolus once; Sepsis Protocol; to be given as ss12 a bolus over 90 minutes Route: IV; Rate: bolus; Site: left antecubital; 23:56 Follow up: Response: No adverse reaction; IV Status: Completed infusion tb4 23:18 Drug: vancoMYCIN IVPB 2 grams IVPB at calculated rate once Route: IVPB; Rate: tb4 calculated rate; Site: right antecubital; 11/22 01:21 Follow up: Response: No adverse reaction; IV Status: Completed infusion tb4 11/21 23:55 Drug: Boostrix Tdap IM 0.5 ml IM once; as a single dose Route: IM; Site: right deltoid; tb4 Disposition Summary: 11/21/24 22:03 Hospitalization Ordered Notes: Hospitalization Status: Inpatient Admission jamaal Provider: Alex Ji cha Location: Telemetry/MedSurg (Inpatient) jamaal Condition: Fair jamaal Problem: new jamaal Symptoms: have improved jamaal Bed/Room Type: Standard [facility] Room Assignment: 411(11/21/24 22:51) Diagnosis - Cellulitis and acute lymphangitis of other parts of limb - left foot and ankle jamaal - Type 2 diabetes mellitus with hyperglycemia jamaal - Type 2 diabetes mellitus with foot ulcer - cellulitis jamaal Forms: - Medication Reconciliation Form jamaal - SBAR form jamaal - Leadership Thank You Letter jamaal Critical care time excluding procedures: 22:01 Critical care time: Bedside Care: 25 minutes, Consultation: 10 minutes, Family jamaal Intervention: 5 minutes. Total time: 40 minutes Signatures: Dispatcher [employer] Lauri Lang MD MD cha Garcia, Cindy RN RN MANDY Mejias RN RN dd2 Carissa Jackson, RN RN tb4 Ricardo Silva RN RN ss12 Carissa Jackson RN tb4 Corrections: (The following items were deleted from the chart) 19:20 19:20 BASIC METABOLIC PANEL+C.LAB.BRZ ordered. EDMS EDMS 19:20 19:20 CBC+H.LAB.BRZ ordered. EDMS EDMS 19:20 19:20 HEPATIC FUNCTION+C.LAB.BRZ ordered. EDMS EDMS 19:20 19:20 MAGNESIUM+C.LAB.BRZ ordered. EDMS EDMS 19:20 19:20 PROBNP+C.LAB.BRZ ordered. EDMS EDMS 19:20 19:20 PROTIME (+INR)+COAG.LAB.BRZ ordered. EDMS EDMS 19:20 19:20 Troponin High Sensitivity+C.LAB.BRZ ordered. EDMS EDMS 19:20 19:20 UA Rfx Kendrick Cult if indicated+U.LAB.BRZ ordered. EDMS EDMS 19:20 19:20 Test, Urine+UC.LAB.BRZ ordered. EDMS EDMS 19:20 19:20 Chest Single View+RAD.RAD.BRZ ordered. EDMS EDMS 19:20 19:20 Extrem Venous W Compression Mt+US.RAD.BRZ ordered. EDMS EDMS 21:41 21:41 Foot Left 3 View+RAD.RAD.BRZ ordered. EDMS EDMS 21:49 21:49 BLOOD CULTURE*+BA.LAB.BRZ ordered. EDMS EDMS 21:49 21:49 LACTATE+C.LAB.BRZ ordered. EDMS EDMS 22:51 22:03 jamaal cg
[2024-11-21] MEDS ORDERED: INSULIN REGULAR (HUMAN) 100 UNIT/ML ONE (22:19)
[2024-11-21] MEDS ORDERED: FAMOTIDINE 20 MG/2 ML VIAL IV ONE (22:19)
[2024-11-21] MEDS ORDERED: TDAP (DIPHTH,PERTUSS(ACELL),TET VAC) 0.5 ML VIAL IMVAC ONE (22:19)
[2024-11-21] MEDS ORDERED: NA CHLORIDE 0.9% 1,000 ML ONE (22:19)
--- NOTE | 2024-11-21 22:33 | RAD REPORT ---
EXAMINATION: XR Foot Left 3 View CLINICAL INDICATION: Female, 44 years old. [facility] MAIN Pain;Swelling Bed Name: 17 TECHNIQUE: 3 view radiographs of the left foot were obtained. COMPARISON: No prior exam. FINDINGS: No evidence of fracture. 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 Progressive pes planus deformity, a lthough nonweightbearing positioning limits evaluation, with progressive remodeling and callus formation at the bases of the second through fourth metatarsals. Other scattered mild degenerative in terphalangeal and metatarsophalangeal joint changes. Soft tissue swelling about the forefoot and midfoot. IMPRESSION: Progressive findings suggestive of Charcot arthropathy.
[2024-11-21] MEDS ORDERED: HYDROCODONE/APAP 7.5/325 MG TAB PO PRN (22:53)
[2024-11-21] MEDS ORDERED: ACETAMINOPHEN 325 MG TABLET PO PRN (22:57)
--- NOTE | 2024-11-21 22:57 | P.HP ---
Certification for Inpatient Patient admitted to: Inpatient With expected LOS: >2 Midnights Patient will require the following post-hospital care: None Practitioner: I am a practitioner with admitting privileges, knowledge of patient current condition, hospital course, and medical plan of care. Services: Services provided to patient in accordance with Admission requirements found in Title 42 Section 412.3 of the Code of Federal Regulations Patient History Date of Service: 11/21/24 Reason for admission: Left foot diabetic ulcer. History of Present Illness: Patient is a 44-year-old female with past medical history of type 2 diabetes mellitus, charcot arthropathy, planus deformity, who presents to the ER today complaining of pain left foot secondary to diabetic ulcer/cellulitis. Patient states she noticed that her left foot was getting red with a small open wound couple of days ago, states today the redness progressed, and the wound bigger than when she noticed couple of days. Patient states she went to one of her friend for wound care, was then instructed to go to the ER for further management. Patient states she is a diabetic, but apparently she does not have any medications so she takes her mom diabetic medication of metformin 500 mg p.o. twice daily. Patient states she does not have any PCP. Patient appears to be very defensive with questions regarding her medical health, I had to talk to her several times to stop calling and talking on the phone while trying to do her admission assessment. In assessment of patient diabetic left foot ulcer, has tunneling, and appears infected, erythema left foot. Patient denies of any fever or chills. Patient will benefit from wound debridement. Will consult surgery Dr. Queen. Course in ER: (1) x-ray left foot, impression: Progressive findings suggestive of Charcot arthropathy. (2) ultrasound extremities venous, impression: No deep vein or superficial vein thrombosis. Lisfranc deformity. Progressive pes planus deformity. Allergies No Known Allergies Allergy (Unverified 09/22/13 13:18) Home Medications: Metformin HCl 250 mg PO BID 11/22/24 - Past Medical/Surgical History -: Type 2 diabetes mellitus. -: section. - Family History Family History: Reviewed- Non-Contributory - Social History Smoking Status: Never smoker Alcohol use: Yes CD- Drugs: No Caffeine use: No Place of Residence: Home Review of Systems 10-point ROS is otherwise unremarkable Musculoskeletal: Other (Left foot diabetic ulcer.) Integumentary: Other (Left foot diabetic ulcer.) Physical Examination - Physical Exam General: Alert, Oriented x3, Cooperative HEENT: Atraumatic, Normocephalic, Mucous membr. moist/pink, Sclerae nonicteric Neck: Supple, 2+ carotid pulse no bruit, No LAD, Without JVD or thyroid abnormality Respiratory: Clear to auscultation bilaterally, Normal air movement Cardiovascular: Normal pulses, Regular rate/rhythm, Normal S1 S2, No gallops, No rubs, No murmurs Capillary refill: <2 Seconds Gastrointestinal: Normal bowel sounds, Soft and benign, Non-distended, No ascites, No tenderness, No masses, No rebound, No guarding Musculoskeletal: No clubbing, Erythema, Tenderness, Other (Cellulitis left foot) Integumentary: No cyanosis, Tenderness/swelling (Left foot diabetic ulcer and cellulitis.), Erythema Neurological: Normal speech, Normal strength at 5/5 x4 extr, Normal tone, Sensation intact, Cranial nerves 3-12 intact, Normal reflexes 2+, Other (Very defensive with simple questions asked.) Lymphatics: No axilla or inguinal lymphadenopathy - Studies Laboratory Data (last 24 hrs) 11/21/24 11/21/24 11/21/24 20:27 20:27 20:27 WBC 8.70 Hgb 10.8 L Hct 32.6 L Plt Count 324 PT 13.1 H INR 1.16 Sodium Potassium BUN Creatinine Glucose Magnesium Total Bilirubin AST ALT Alkaline Phosphatase Lipase 14 11/21/24 20:27 WBC Hgb Hct Plt Count PT INR Sodium 132 L Potassium 3.2 L BUN 9 Creatinine 0.96 Glucose 465 H* Magnesium 2.1 Total Bilirubin 0.3 AST < 10 L ALT < 14 Alkaline Phosphatase 117 Lipase Female Exam - Breasts Breasts: Normal configuration Assessment and Plan - Plan Patient is a 44-year-old female admitted inpatient with left foot diabetic ulcer/ cellulitis, with no associated chest pain, shortness of breath, fever or chills. (1)Left foot diabetic ulcer/cellulitis. - Vancomycin 1.25 g IV every 24 hours. -Ancef 2 g every 8 hours IV. -Collected wound culture. -Consult wound care team. -Consult surgery Dr. Queen for possible debridement. Patient will benefit from wound debridement. -[place]wein 7.5/325 mg 1 p.o. every 4 hrs as needed. (2)Chronic type 2 diabetes mellitus. Patient has not been controlling or managing her diabetes for a long time. Patient states she does not have any PCP, and takes her mom metformin medication 500 mg p.o. twice daily. Not sure if she adequately takes the metformin since she is borrowing the medication from her mom. Patient initial serum glucose in ER was in the 400s. - Order Lantus 20 units SQ every morning. -Order metformin 500 mg p.o. twice daily. -Moderate sliding scale coverage ACHS. -Order A1c to evaluate patient current diabetic status. (3)Explained the entire treatment plan to the patient, solicit questions answered and voiced understanding. Discharge Plan: Home Plan to discharge in: Greater than 2 days - Advance Directives Does patient have a Living Will: No Does patient have a Durable POA for Healthcare: No - Code Status/Comfort Care Code Status Assessed: Yes Code Status: Full Code Critical Care: No Time Spent Managing Pts Care (In Minutes): 55
[2024-11-21] MEDS: VANCOMYCIN 1 GM in NA CHLORIDE 0.9% 250 ML IVPB SCH (23:00)
[2024-11-22 02:41] VITALS: BMI 31.3
[2024-11-22] MEDS: CEFAZOLIN SODIUM 2 GM in NA CHLORIDE 0.9% 100 ML IVPB SCH (05:51)
[2024-11-22 06:08] LABS: Absolute Lymphocytes (CBC) 2.2 K/uL (0.7-4.9); Hematocrit 28.8 % (36.0-45.0); Hemoglobin 9.3 g/dL (12.0-15.0); MCH 25.2 pg (27.0-35.0); MCHC 32.3 g/dL (32.0-36.0); MCV 78.2 fL (80-100); MPV 8.2 fL (7.6-11.3); Nucleated RBC Absolute Count 0.0 (0-0); Nucleated Red Blood Cells % 0.1 % (0-0); RBC Red Blood Cell Count 3.68 M/uL (3.86-4.86); White Blood Count 10.70 thou/uL (4.3-10.9)
[2024-11-22 06:30] LABS: Albumin 2.2 g/dL (3.4-5.0); Albumin/Globulin Ratio 0.5 (1.1-1.8); Alkaline Phosphatase 99 U/L (45-117); Anion Gap 7.3 mEq/L (5.0-15.0); BUN Blood Urea Nitrogen 6 mg/dL (7-18); Globulin 4.2 g/dL (2.3-3.5); Glucose Level 227 mg/dL (74-106); Magnesium 1.9 mg/dL (1.6-2.4); Potassium 3.3 mEq/L (3.5-5.1)
[2024-11-22 06:32] LABS: ALT/SGPT < 14 U/L (13-56); AST/SGOT < 10 U/L (15-37)
[2024-11-22] MEDS: INSULIN REGULAR (HUMAN) 100 UNIT/ML SQ SCH (07:30)
[2024-11-22] MEDS: METFORMIN HCL 500 MG TAB PO SCH (08:00)
[2024-11-22] MEDS: INSULIN GLARGINE 100 UNIT/ML SQ SCH (08:31)
[2024-11-22] MEDS: POTASSIUM CL SA 10 MEQ TAB PO ONE (08:31)
[2024-11-22 10:03] LABS: White Blood Cell Scan OK (OK)
[2024-11-22 10:04] LABS: Anisocytosis 1+; Blood Morphology Comment NOTED (NOT SEEN)
[2024-11-22] MEDS: CEFAZOLIN SODIUM 1 GM/VIAL ONE (10:30)
--- NOTE | 2024-11-22 11:52 | P.PN ---
Date of Service: 11/22/24 Subjective: awaiting surgery no changes Physical Exam: GEN: Alert, oriented, NAD CV: Regular rate and rhythm, no edema Pulm: Nonlabored respirations on room air, clear bilaterally Integumentary: Left foot wound with small opening. +redness, tenderness. Photos in EMR Neuro: Normal speech, normal affect Problem List: Diabetic Left foot wound, possible osteomyelitis Possible UTI NIDDM2 with severe hyperglycemia Diabetic Left foot wound, possible osteomyelitis on admission, presents with worsening left foot pain, redness. Left foot wound started as a small wound a few days ago and has since progressed xray L foot (11/21): Progressive findings suggestive of Charcot arthropathy. Venous ultrasound negative for DVT in BLE MRI Left foot ordered to rule out Osteo Arterial doppler ordered to eval blood flow Dr. Queen, general surgeon consulted NPO for possible OR time after MRI/Ultrasound Continue IV cefazolin/Vanc [facility] consult, pain control Follow blood and wound cultures Possible UTI UA concerning for UTI On cefazolin/Vanc Follow urine culture NIDDM2 with severe hyperglycemia accu-cheks, SSI Start semglee 20u daily; titrate as needed VTE: SCD Code: Full Dispo: Home Pending MRI, possible surgery Time Spent Managing Pts Care (In Minutes): 55
[2024-11-22] MEDS ORDERED: ONDANSETRON 4 MG/2 ML VIAL ONE (13:32)
[2024-11-22] MEDS ORDERED: FENTANYL CITR 100 MCG/2 ML ONE (13:32)
[2024-11-22] MEDS ORDERED: MIDAZOLAM HCL 2 MG/2 ML INJ ONE (13:33)
[2024-11-22] MEDS ORDERED: LIDOCAINE 2% MPF 5 ML VIAL ONE (13:33)
--- NOTE | 2024-11-22 13:43 | RAD REPORT ---
EXAM: Lower Extremity Arterial Bilat HISTORY: PVD COMPARISON: None TECHNIQUE: Multiplanar grayscale and color Doppler images were obtained and a bilateral lower extrem ity arterial ultrasound. Spectral analysis of the Doppler waveforms were performed. FINDINGS: Right lower extremity: Common femoral artery: Biphasic Superficial femoral artery: Biphasic Popliteal artery: Biphasic Posterior tibial artery: Biphasic Dorsalis pedis artery: Biphasic Left lower extremity: Common femoral artery: Biphasic Superficial femoral artery: Biphasic Popliteal artery: Biphasic Posterior tibial artery: Biphasic Dorsalis pedis artery: Biphasic IMPRESSION: No significant arterial abnormality of the extremities.
[2024-11-22] MEDS: NA CHLORIDE 0.9% 1,000 ML ONE (15:00)
[2024-11-22] MEDS: BUPIVACAINE 0.5% PF 10 ML VIAL ONE (15:24)
[2024-11-22] MEDS: COLLAGENASE 30 GM OINTMENT TOP ONE (15:34)
--- NOTE | 2024-11-22 15:38 | P.OP ---
Date of Service: 11/22/24 Preop diagnosis: Infected wound left foot Postop diagnosis: Same Procedure performed: Excisional debridement infected wound left foot through subcutaneous tissue and tendon 3 x 3 cm Surgeon: Carlos Queen MD School Leader: None Estimated blood loss: Minimal Specimen: Infected tissue for culture and sensitivity Findings: As above Anesthesia: General Complications: None Drains: None Fluids and blood products: Nonapplicable Disposition: Recovery room Operative note: Patient brought to the OR and placed in supine position. Gen eral anesthesia began. Patient prepped and draped in the usual sterile fashion. Marcaine 0.5%. Locally. Sharp dissection proceeded around the 2.5 cm area infected wound up to approximately 3 x 3 cm. All subcutaneous tissue and necrotic tissue excised and sent to lab for culture and sensitivity. There was tendon that was infected also. Part of the tendon was debrided as well. Wound irrigated and bleeding controlled cautery. Santyl wet-to-dry normal saline dressing change applied. Patient tolerated the procedure in stable condition and taken to recovery room in good general condition. CC:
--- NOTE | 2024-11-22 16:52 | RAD REPORT ---
EXAM: MRI of the left foot without contrast HISTORY: Evaluate for osteomyelitis. Rule out oeteomyletis COMPARISON: 11/21/2024 plain radiograph TECHNIQUE: Multiplanar multisequence MR images were obtained of the left foot without contrast. FINDINGS: No marrow signal abnormality is seen in the visualized bones to suggest osteomyelitis. No focal flui d collection is seen in the soft tissues. Midfoot collapse is present with destructive changes and joint space loss with erosions intertarsal a nd tarsal metatarsal region. Lisfranc dislocation suspected. Plantar midfoot soft tissue edema is present with muscle edema noted. IMPRESSION: No significant marrow signal abnormality to suggest osteomyelitis. Midfoot collapse with developing Charcot arthropathy and Lisfranc dislocation noted. Please note that evaluation is limited without IV contrast.
--- NOTE | 2024-11-22 17:25 | CON ---
Date of Consultation: 11/22/2024 Reason: Infected wound, left foot. History Of Present Illness: Patient is a 44-year-old female, who is a poor historian, presented to [facility] emergency room with an open wound that she noticed first time yesterday. She was at [facility] and was told that her foot looked swollen. She looked down. There was a hole in there and the n she was advised to come to the emergency room. Patient denies any purulent discharge. No sore thr oat, runny nose, cough, headaches, or dizziness. No chest pain. No fever or chills. Patient has di abetic neuropathy. She also has a history of Charcot arthropathy and planus deformity. Review of Systems: Otherwise, unremarkable. Past Medical History: Diabetes. Past Surgical History: . Allergies: NO ALLERGIES. Social History: Patient does not smoke. Drinks alcohol occasionally. Family History: Noncontributory. Physical Examination: Vital Signs: Stable. She is afebrile. General: She is awake and alert. Again, not able to provide a very good review of systems. Head and Neck: No masses. Chest: Clear. Heart: S1-S2. Abdomen: Soft. Extremities: Diminished dorsalis pedis and posterior tibial pulses. On the left anterior foot, ther e is approximately a 2.5 cm open wound with necrotic fibrin in it surrounding by erythema, warmth, an d edema. The extent of the infection is unclear based on looking at the wound. Laboratory Data: White count is 10.7, platelets are 235. INR is 1.16. Chemistry reviewed. Her glu cose is elevated. Potassium is low, which is being replaced. Her albumin is 2.2. Patient had an ex tremity venous study, which did not show any evidence of a DVT. She had a foot x-ray, which showed p rogressive finding suggestive of Charcot arthropathy and there is soft tissue swelling about the fore foot and midfoot. Assessment: A 44-year-old female with infected diabetic foot wound with Charcot arthropathy. Recommendations: We will get an arterial Doppler to evaluate her peripheral vascular disease. We wi ll get an MRI to make sure she does not have osteomyelitis as well as a deeper abscess and may need m ore aggressive debridement following which we will proceed with debridement of infected left foot wou nd. Patient understands risks, benefits, and alternatives, agrees to procedure. Plan of care discus sed with the Hospitalist team. /MODL Voice ID: [id number] Report ID: [id number]
[2024-11-22] MEDS: VANCOMYCIN 1.25 GM in NA CHLORIDE 0.9% 250 ML IVPB SCH (21:02)
[2024-11-22 22:58] VITALS: O2SAT 100
[2024-11-23 04:39] LABS: Absolute Lymphocytes (CBC) 1.6 K/uL (0.7-4.9); Hematocrit 26.4 % (36.0-45.0); Hemoglobin 8.8 g/dL (12.0-15.0); MCH 26.1 pg (27.0-35.0); MCHC 33.2 g/dL (32.0-36.0); MCV 78.6 fL (80-100); MPV 7.8 fL (7.6-11.3); Nucleated RBC Absolute Count 0.0 (0-0); Nucleated Red Blood Cells % 0.1 % (0-0); RBC Red Blood Cell Count 3.36 M/uL (3.86-4.86); White Blood Count 6.80 thou/uL (4.3-10.9)
[2024-11-23 04:55] LABS: Albumin 1.9 g/dL (3.4-5.0); Albumin/Globulin Ratio 0.5 (1.1-1.8); Alkaline Phosphatase 84 U/L (45-117); Anion Gap 8.6 mEq/L (5.0-15.0); BUN Blood Urea Nitrogen 7 mg/dL (7-18); Globulin 4.0 g/dL (2.3-3.5); Glucose Level 300 mg/dL (74-106); Magnesium 1.9 mg/dL (1.6-2.4); Potassium 3.6 mEq/L (3.5-5.1)
[2024-11-23 05:00] LABS: ALT/SGPT < 14 U/L (13-56); AST/SGOT < 10 U/L (15-37)
[2024-11-23] MEDS ORDERED: POTASSIUM CL SA 10 MEQ TAB PO ONE (09:00)
[2024-11-23] MEDS: HYDROCODONE/APAP 5/325 MG TAB PO PRN (09:29)
[2024-11-23] MEDS: POTASS/SODIUM PHOSPHATE 1 PKT POWD.PACK PO SCH (09:31)
--- NOTE | 2024-11-23 13:57 | PN ---
Date of Progress Note: 11/23/2024 Subjective: The patient is awake, alert, complaining of minimal pain. Vital signs are stable. She is afebrile. Her white count is 6.8. No significant change. H and H are 8.8 and 26.4. Her wound c ultures are pending. Her dressing is clean, dry, intact. Assessment: Status post debridement of infected wound with cellulitis of the left foot. Recommendations: Continue wound care as ordered. IV antibiotics as ordered. Check cultures and adj ust antibiotics accordingly. Once that is obtained, then patient can be discharged home. The patien hesham needs followup for her diabetes as she has not been doing well with her medications at home. /MODL Voice ID: [id number] Report ID: [id number]
--- NOTE | 2024-11-23 15:49 | P.PN ---
Date of Service: 11/23/24 Subjective: afebrile awaiting cx s/p debridement of foot Physical Exam: GEN: Alert, oriented, NAD CV: Regular rate and rhythm, no edema Pulm: Nonlabored respirations on room air, clear bilaterally Integumentary: Left foot wound with small opening. . Photos in EMR Neuro: Normal speech, normal affect Problem List: Diabetic Left foot wound, possible osteomyelitis Possible UTI NIDDM2 with severe hyperglycemia Diabetic Left foot wound, possible osteomyelitis on admission, presents with worsening left foot pain, redness. Left foot wound started as a small wound a few days ago and has since progressed xray L foot (11/21): Progressive findings suggestive of Charcot arthropathy. Venous ultrasound negative for DVT in BLE MRI Left foot ordered to rule out Osteo Arterial doppler ordered to eval blood flow Dr. Queen, general surgeon consulted s/p debridement 11/22 Continue IV cefazolin/Vanc . followup cultures [facility] consult, pain control Follow blood and wound cultures Possible UTI UA concerning for UTI On cefazolin/Vanc follow cultures NIDDM2 with severe hyperglycemia accu-cheks, SSI Start semglee 20u daily; titrate as n
[2024-11-24 06:05] LABS: Absolute Lymphocytes (CBC) 2.0 K/uL (0.7-4.9); Hematocrit 26.4 % (36.0-45.0); Hemoglobin 8.7 g/dL (12.0-15.0); MCH 26.0 pg (27.0-35.0); MCHC 33.0 g/dL (32.0-36.0); MCV 78.7 fL (80-100); MPV 7.9 fL (7.6-11.3); Nucleated RBC Absolute Count 0.0 (0-0); Nucleated Red Blood Cells % 0.0 % (0-0); RBC Red Blood Cell Count 3.36 M/uL (3.86-4.86); White Blood Count 6.40 thou/uL (4.3-10.9)
[2024-11-24 06:28] LABS: Albumin 2.0 g/dL (3.4-5.0); Albumin/Globulin Ratio 0.5 (1.1-1.8); Alkaline Phosphatase 83 U/L (45-117); Anion Gap 7.7 mEq/L (5.0-15.0); BUN Blood Urea Nitrogen 5 mg/dL (7-18); Globulin 4.0 g/dL (2.3-3.5); Glucose Level 257 mg/dL (74-106); Magnesium 2.0 mg/dL (1.6-2.4); Potassium 3.7 mEq/L (3.5-5.1)
[2024-11-24 06:30] LABS: ALT/SGPT < 14 U/L (13-56); AST/SGOT < 10 U/L (15-37)
[2024-11-24] MEDS: POTASSIUM CL SA 10 MEQ TAB PO ONE (08:37)
[2024-11-24] MEDS: COLLAGENASE 30 GM OINTMENT TOP SCH (09:00)
--- NOTE | 2024-11-24 16:41 | P.PN ---
Subjective Date of Service: 11/24/24 Chief Complaint: Left foot diabetic ulcer. Patient denies any new complaint. Physical Examination - Vital Signs Temperature: 98.1 F Blood Pressure: 146/72 Pulse: 80 Respirations: 17 Pulse Ox (%): 98 - Studies Microbiology Data (last 24 hrs): 11/21/24 20:51 Clean Catch Urine [place] Count - Final No growth. 11/21/24 20:51 Clean Catch Urine - Final Assessment And Plan - Plan Physical Exam: GEN: Alert, oriented, NAD CV: Regular rate and rhythm, no edema Pulm: Nonlabored respirations on room air, clear bilaterally Integumentary: Left foot wound with small opening on the dorsum. Neuro: Normal speech, normal affect Problem List: Diabetic Left foot wound, possible osteomyelitis Possible UTI NIDDM2 with severe hyperglycemia Diabetic Left foot wound, possible osteomyelitis on admission, presents with worsening left foot pain, redness. Left foot wound started as a small wound a few days ago and has since progressed xray L foot (11/21): Progressive findings suggestive of Charcot arthropathy. Venous ultrasound negative for DVT in BLE MRI Left foot negative for osteomyelitis Arterial doppler of the lower extremity no significant flow stenosis Dr. Nelson, input appreciated s/p debridement 11/22. Deep tissue wound culture growing beta-hemolytic strep Continue IV vancomycin. Change cefazolin to cefepime for now. Awaiting organism ID and sensitivity for outpatient antibiotics. Continue local wound care. Possible UTI UA concerning for UTI Urine culture shows no growth Patient is on antibiotics. NIDDM2 with severe hyperglycemia Hemoglobin A1c of 11 accu-cheks, SSI Continue Semglee 20 units daily. Planning to DC with insulin therapy given high hemoglobin A1c. DVT prophylaxis:
[2024-11-24] MEDS: ENOXAPARIN 40 MG/0.4 ML SQ SCH (16:55)
[2024-11-24] MEDS: CEFEPIME 2 GM in NA CHLORIDE 0.9% 100 ML IV SCH (20:21)
[2024-11-25 05:18] LABS: Anion Gap 7.8 mEq/L (5.0-15.0); BUN Blood Urea Nitrogen 10.0 mg/dL (7-18); Glucose Level 167.0 mg/dL (74-106); Potassium 3.8 mEq/L (3.5-5.1)
[2024-11-25] MEDS: POTASSIUM CL SA 10 MEQ TAB PO ONE (08:06)
[2024-11-25] MEDS: VANCOMYCIN 1.25 GM in NA CHLORIDE 0.9% 250 ML IVPB SCH (09:49)
[2024-11-25] MEDS: SIMETHICONE 125 MG TAB PO PRN (12:22)
--- NOTE | 2024-11-25 12:27 | PN ---
Date of Progress Note: 11/25/2024 Subjective: The patient is awake, alert. No complaint. Vital signs stable. Afebrile. Her dressi ng is clean, dry, and intact. The cultures are still pending. Assessment: Status post debridement of infected wound, left foot. Recommendations: Continue antibiotics. Check cultures and adjust antibiotics accordingly and then w ound care as ordered and discharge after we get the cultures and sensitivity. Plan of care discussed with the hospitalist. ROBERT/JOHN Voice ID: [id number] Report ID: [id number]
--- NOTE | 2024-11-25 16:40 | P.DS ---
Admission Date: 11/21/24 Discharge Date: 11/25/24 Disposition: ROUTINE DISCHARGE Discharge Condition: FAIR Reason for Admission: Left foot diabetic ulcer. Hospital Course: 44-year-old female with past medical history of type 2 diabetes mellitus, charcot arthropathy, planus deformity presented to the ER today complaining of pain in the left foot secondary to diabetic ulcer/cellulitis. She reports this redness on her left foot along with a small wound, she states that the redness progressed, and the wound got bigger. X-ray of the foot showed Charcot arthropathy. Patient admitted to the medical floor, arterial Doppler of the lower extremity did not show any significant vascular occlusions. Venous Doppler of the lower extremity did not show any deep vein thrombosis. Problem List: Diabetic Left foot wound, possible osteomyelitis Possible UTI NIDDM2 with severe hyperglycemia Patient was evaluated by general surgery Dr. Queen who performed excisional debridement of her wound. MRI of the foot did not show any osteomyelitis. Deep tissue wound culture grew Staph aureus and strep agalactiae, both organisms sensitive to the Levaquin. Patient was discharged with Levaquin. Wound care instructions provided to the family by Dr. Queen. Patient blood sugar was elevated during the hospital stay. Her hemoglobin A1c checked was 11.9 indicating poorly controlled diabetes. Patient placed on Lantus insulin and insulin sliding scale. Patient fingerstick glucose readings improved with Lantus insulin 20 units daily. Patient is discharged with Lantus insulin 20 units daily to take with metformin. Please follow-up with Dr. Queen at the wound care center within 1 week for wound check. Vital Signs/Physical Exam: Temp Pulse Resp BP Pulse Ox 98.3 F 78 16 139/84 99 11/25/24 12:00 11/25/24 12:00 11/25/24 12:00 11/25/24 12:11/25/24 12:00 General: Alert, In no apparent distress, Oriented x3 HEENT: Mucous membr. moist/pink Neck: JVD not distended Respiratory: Clear to auscultation bilaterally, Normal air movement Cardiovascular: Regular rate/rhythm, Normal S1 S2 Gastrointestinal: Soft and benign, Non-distended Integumentary: No cyanosis Neurological: Normal strength at 5/5 x4 extr Laboratory Data at Discharge: WBC 6.40 thou/uL (4.3-10.9) 11/24/24 05:16 Hgb 8.7 g/dL (12.0-15.0) L 11/24/24 05:16 Hct 26.4 % (36.0-45.0) L 11/24/24 05:16 Plt Count 283 thou/uL (152-406) 11/24/24 05:16 PT 13.1 SECONDS (10-13.0) H 11/21/24 20:27 INR 1.16 11/21/24 20:27 Sodium 136 mEq/L (136-145) 11/25/24 04:12 Potassium 3.8 mEq/L (3.5-5.1) 11/25/24 04:12 BUN 10 mg/dL (7-18) 11/25/24 04:12 Creatinine 0.54 mg/dL (0.55-1.02) L 11/25/24 04:12 Glucose 167 mg/dL (74-106) H 11/25/24 04:12 Phosphorus 2.3 mg/dL (2.5-4.9) L 11/23/24 03:58 Magnesium 2.0 mg/dL (1.6-2.4) 11/24/24 05:16 Total Bilirubin 0.2 mg/dL (0.2-1.0) 11/24/24 05:16 AST < 10 U/L (15-37) L 11/24/24 05:16 ALT < 14 U/L (13-56) 11/24/24 05:16 Alkaline Phosphatase 83 U/L (45-117) 11/24/24 05:16 Lipase 14 U/L (13-75) 11/21/24 20:27 Home Medications: Acidophilus/Bulgaricus [Lactinex Tablet Chewable] 1 each PO BID #30 tab.chew 11/25/24 Alcohol Antiseptic Pads [Alcohol Prep Pads] 1 each TP DAILY #100 ea 11/25/24 Blood Sugar Diagnostic [Blood Glucose Test Strip] 1 each MC DAILY #30 strip 11/25/24 Blood-Glucose Meter [Blood Glucose Monitoring] 1 each MC DAILY #1 kit 11/25/24 Collagenase [Santyl Ointment*] 1 appl TOP DAILY #30 gm 11/25/24 Hydrocodone 5/APAP 325 [[place] 5/325*] 1 tab PO Q6H PRN #15 tab 11/25/24 Insulin Glargine,Hum.rec.anlog [Lantus Solostar] 20 unit SQ DAILY #15 ml 11/25/24 Lancets 1 each MC DAILY #100 ea 11/25/24 Metformin HCl 500 mg PO BID #60 tab 11/25/24 Syrge-Ndl,Ins 0.3 ml Half Jeremy [Insulin Syringe] 1 each MC DAILY #100 ea 11/25/24 levoFLOXacin [Levaquin] 750 mg PO DAILY #10 tab 11/25/24 New Medications: Alcohol Antiseptic Pads [Alcohol Prep Pads] 1 each TP DAILY #100 ea Blood-Glucose Meter [Blood Glucose Monitoring] 1 each MC DAILY #1 kit Blood Sugar Diagnostic [Blood Glucose Test Strip] 1 each MC DAILY #30 strip Syrge-Ndl,Ins 0.3 ml Half Jeremy [Insulin Syringe] 1 each MC DAILY #100 ea Acidophilus/Bulgaricus [Lactinex Tablet Chewable] 1 each PO BID #30 tab.chew Lancets 1 each MC DAILY #100 ea Insulin Glargine,Hum.rec.anlog [Lantus Solostar] 20 unit SQ DAILY #15 ml levoFLOXacin [Levaquin] 750 mg PO DAILY #10 tab Metformin HCl 500 mg PO BID #60 tab Hydrocodone 5/APAP 325 [[place] 5/325*] 1 tab PO Q6H PRN #15 tab PRN Reason: Pain Scale 5-7 (Moderate) Collagenase [Santyl Ointment*] 1 appl TOP DAILY #30 gm Physician Discharge Instructions: 44-year-old female with past medical history of type 2 diabetes mellitus, charcot arthropathy, planus deformity presented to the ER today complaining of pain in the left foot secondary to diabetic ulcer/cellulitis. X-ray of the foot showed Charcot arthropathy. Arterial Doppler of the lower extremity did not show any significant vascular occlusions. Venous Doppler of the lower extremity did not show any deep vein thrombosis. Patient was evaluated by general surgery Dr. Queen who performed excisional debridement of her wound. MRI of the foot did not show any osteomyelitis. Deep tissue wound culture grew Staph aureus and strep agalactiae, both organisms sensitive to the Levaquin. Patient was discharged with Levaquin. Wound care instructions provided to the family by Dr. Queen. Patient blood sugar was elevated during the hospital stay. Her hemoglobin A1c checked was 11.9 indicating poorly controlled diabetes. Patient placed on Lantus insulin and insulin sliding scale. Patient fingerstick glucose readings improved with Lantus insulin 20 units daily. Patient is discharged with Lantus insulin 20 units daily to take with metformin. Please follow-up with Dr. Queen at the wound care center within 1 week for wound check. Diet: ADA Activity: Ad geoff Followup: NONE,NONE [Primary Care Provider] - 1-2 Weeks (Call for appointment.) Carlos Queen MD [ACTIVE - CAN ADMIT] - 1 Week (At the wound care center) Time spent managing pt's care (in minutes): 39
[2024-11-25 16:58] VITALS: BP 148/86; TEMP 98.5
== END 2024-11-25 17:18 | disposition home or self-care (01) | DRG 264 ==
LOC: ER 19:14 → ERHOLD 22:45 → 4TH 11-22 00:08
PROVIDERS: ADMIT Hospitalist; ATTEND Internal Medicine
PROC: 0JBR0ZZ Excision of Left Foot Subcutaneous Tissue and Fascia, Open Approach (ICD-10-PCS; principal; 2024-11-22 14:00)
DX: E11.52 Type 2 diabetes mellitus with diabetic peripheral angiopathy with gangrene (principal); L03.116 Cellulitis of left lower limb; N39.0 Urinary tract infection, site not specified; E11.65 Type 2 diabetes mellitus with hyperglycemia; E11.40 Type 2 diabetes mellitus with diabetic neuropathy, unspecified; E11.610 Type 2 diabetes mellitus with diabetic neuropathic arthropathy; E11.621 Type 2 diabetes mellitus with foot ulcer; L97.529 Non-pressure chronic ulcer of other part of left foot with unspecified severity; I10 Essential (primary) hypertension; E66.9 Obesity, unspecified; B95.1 Streptococcus, group B, as the cause of diseases classified elsewhere; B95.61 Methicillin susceptible Staphylococcus aureus infection as the cause of diseases classified elsewhere; Z68.31 Body mass index [BMI] 31.0-31.9, adult; Z79.84 Long term (current) use of oral hypoglycemic drugs; Z79.899 Other long term (current) drug therapy
CPT/HCPCS: 36415; 80048; 80053; 80076; 80202; 81001; 81025; 82947; 83036; 83605; 83690; 83735; 83880; 84100; 84484; 85025; 85610; 87040; 87070; 87075; 87077; 87086; 87088; 87176; 87186; 87205; 90715; 93925; 93970; 96372; 99284; J0690; J0692; J1650; J1815; J2003; J2250; J2405; J2704; J3010; J3370; J3590; J7030; J7040; J7050

== ENCOUNTER 2024-11-29 12:36 | Inpatient (IN) | payer OTHER ==
--- NOTE | 2024-11-29 13:28 | RAD REPORT ---
EXAMINATION: US LOWER EXTREMITY VENOUS DOPPLER BILATERAL CLINICAL INDICATION: Female, 44 years old.PAIN TECHNIQUE: Complete bilateral duplex sonography of the lower extremity veins was performed. The exami nation included compression for vein patency, color Doppler imaging and flow augmentation in response to distal compression of the distal external iliac, common femoral, femoral, popliteal, thomas joao, tibial and great saphenous veins. [id number]. COMPARISON: No prior exams FINDINGS: Duplex sonography imaging demonstrates all deep examined to be fully compressible with spontaneous, p hasic and augmented flow bilaterally. IMPRESSION: No evidence of deep venous thrombosis seen in either lower extremity.
[2024-11-29] MEDS ORDERED: ONDANSETRON 4 MG/2 ML VIAL ONE (13:39)
[2024-11-29] MEDS ORDERED: MORPHINE 4 MG/ML SYR ONE (13:39)
[2024-11-29] MEDS ORDERED: NA CHLORIDE 0.9% 1,000 ML ONE (13:40)
[2024-11-29] MEDS ORDERED: FAMOTIDINE 20 MG/2 ML VIAL IV ONE (13:40)
--- NOTE | 2024-11-29 13:54 | RAD REPORT ---
EXAM: Chest Single View HISTORY: 44 years Female Chest pain;Abdominal distention COMPARISON: 01/15/2024 FINDINGS: LUNGS/PLEURA: Low lung volumes with likely bibasilar atelectasis. CARDIAC/MEDIASTINUM: Magnified by portable technique, but probably within normal limits. UPPER ABDOMEN: Dilated bowel in the left upper quadrant. BONES: No acute abnormality. LINES/TUBES/OTHER: N/A IMPRESSION: Low lung volumes with possible basilar atelectasis. A Chest CT is pending.
[2024-11-29 14:11] LABS: Absolute Lymphocytes (CBC) 1.2 K/uL (0.7-4.9); Hematocrit 30.5 % (36.0-45.0); Hemoglobin 10.0 g/dL (12.0-15.0); MCH 25.5 pg (27.0-35.0); MCHC 32.6 g/dL (32.0-36.0); MCV 78.3 fL (80-100); MPV 7.5 fL (7.6-11.3); Nucleated RBC Absolute Count 0.0 (0-0); Nucleated Red Blood Cells % 0.0 % (0-0); RBC Red Blood Cell Count 3.90 M/uL (3.86-4.86); White Blood Count 7.10 thou/uL (4.3-10.9)
[2024-11-29 14:21] LABS: PT Prothrombin Time 13.4 SECONDS (10-13.0); Protime INR 1.19
[2024-11-29 14:35] LABS: AST/SGOT 11 U/L (15-37); Albumin 2.3 g/dL (3.4-5.0); Albumin/Globulin Ratio 0.5 (1.1-1.8); Alkaline Phosphatase 111 U/L (45-117); Anion Gap 8.1 mEq/L (5.0-15.0); BUN Blood Urea Nitrogen 17 mg/dL (7-18); Globulin 5.0 g/dL (2.3-3.5); Glucose Level 339 mg/dL (74-106); Lipase 10 U/L (13-75); Magnesium 2.1 mg/dL (1.6-2.4); NT PRO-BNP 362 pg/mL (<125); Potassium 3.1 mEq/L (3.5-5.1)
[2024-11-29 14:38] LABS: ALT/SGPT < 14 U/L (13-56); Bilirubin Indirect, Calculated 0.1 mg/dL (0.2-0.8); Troponin High Sensitivity < 3.0 pg/mL (<58.9)
--- NOTE | 2024-11-29 15:42 | RAD REPORT ---
EXAMINATION: CTA CHEST PE CLINICAL INDICATION: Female, 44 years old. ABDOMINAL DISTENTION TECHNIQUE: This examination was performed according to an angiographic protocol with 3D post-processi ng. This involves 3D reconstructions, MIPs, volume rendered images and/or shaded surface rendering. One or more of the following dose reduction techniques were used: Automated exposure control, adjustm ent of the mA and/or kV according to patient size, and/or iterative reconstruction. Unless otherwise specified, incidental findings do not require dedicated imaging follow-up. [id number]. COMPARISON: No priors. FINDINGS: LOWER NECK: Visualized thyroid gland and soft tissues are normal. MEDIASTINUM AND LYMPH NODES: No mediastinal mass or fluid collection. Normal size mediastinal, hilar, and axillary lymph nodes. Mild distal esophageal thickening. THORACIC AORTA: No thoracic aortic aneurysm. PULMONARY ARTERIES: Caliber is within normal limits. No pulmonary emboli identified. HEART: Mild cardiomegaly. No coronary calcifications.No significant pericardial effusion. LUNGS AND AIRWAYS: Low lung volumes with scattered bilateral ground glass opacities could be secondar y to atelectasis or edema. Some component of air trapping may also be present.. No suspicious and/or stable pulmonary nodules. PLEURA: No pleural effusions. No pneumothorax. OSSEOUS STRUCTURES AND CHEST WALL: Multilevel degenerative changes. No acute fracture. UPPER ABDOMEN: No acute abnormalities. IMPRESSION: Negative for pulmonary embolism. Low lung volumes with bilateral groundglass opacities that could ref lect atelectasis and/or edema.
--- NOTE | 2024-11-29 15:53 | RAD REPORT ---
EXAMINATION: Abdomen Pelvis W Contrast CLINICAL INDICATION: Female, 44 years old.ABD PAIN TECHNIQUE: CT abdomen and pelvis was performed, after the administration of IV contrast, as [facility]. Axial, sagittal and coronal reconstructions were obtained. One or more of the following dose reduction techniques were used: Automated exposure control, adjustment of the mA and/o r kV according to patient size, and/or iterative reconstruction. Unless otherwise specified, incidental findings do not require dedicated imaging follow-up. [id number]. COMPARISON: 09/22/2013 FINDINGS: LOWER CHEST: See separate report. UPPER GI: No significant abnormality. LIVER: Hepatic steatosis, but otherwise unremarkable. GALLBLADDER/BILE DUCTS: Cholelithiasis without CT evidence of acute cholecystitis.? PANCREAS: Atrophy but no acute findings. SPLEEN: Unremarkable. ADRENALS: No adrenal masses. KIDNEYS AND URETERS: No hydronephrosis.No suspicious renal mass.No renal calculi.No ureteral calculi. ABDOMINAL AORTA AND OTHER VESSELS: Normal caliber aorta and IVC. PERITONEUM: Nonspecific free fluid. LYMPH NODES: No pathologic lymphadenopathy. ABDOMINAL WALL: Body wall edema. Small fat-containing umbilical hernia. SMALL BOWEL/COLON: Significantly dilated: Secondary to high-grade obstruction at the proximal sigmoid likely due to an annular constricting mass. The colon measures up to 10 cm. Distal small bowel is dilated. Small volume of pneumatosis at the colon URINARY BLADDER: Underdistended but grossly unremarkable. REPRODUCTIVE ORGANS: Interval development of a large uterine mass that may represent a large intramur al uterine fibroid measuring 11.7 x 10.3 cm. MUSCULOSKELETAL: No acute or suspicious osseous abnormality. ADDITIONAL FINDINGS: None. 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 Mild pneumatosis which is nonspecific but can be seen with ischemia. No portal venous gas or free air. Mild ascites. Recommend surgical consultation. The findings were communicated to Dr. Liao on 11/29/2024 3:46 PM.
[2024-11-29] MEDS ORDERED: CIPROFLOXACIN 400mg IV 400 MG/200 ML BAG IV ONE (15:59)
[2024-11-29] MEDS ORDERED: METRONIDAZOLE 500mg IVPB 500 MG/100 ML BAG IV ONE (15:59)
--- NOTE | 2024-11-29 16:58 | ER ---
Nurse's Notes [facility] Name: Brenda Loyd Age: 44 yrs Sex: Female : 1980 Arrival Date: 11/29/2024 Time: 12:36 Bed 6 Private MD: Diagnosis: Other intestinal obstruction-HIGH GRADE PROXIMAL SIGMOID , ANNULAR MASS , WITH PNEUNONITIS, DISTAL SMALL BOWEL DISTENTION;Hypokalemia;Type 2 diabetes mellitus with hyperglycemia Presentation: 11/29 12:39 Chief complaint: EMS states: PT REPORTING LEFT FLANK AND LT UPPER/LOWER ABDOMINAL PAIN dd2 SINCE FRIDAY, BLOATING ON FRIDAY. PT REPORTS SX ON THE , UNABLE TO REPORTS WHAT SX. Coronavirus screen: At this time, the client does not indicate any symptoms associated with coronavirus-19. Ebola Screen: No symptoms or risks identified at this time. Initial Sepsis Screen: Does the patient meet any 2 criteria? No. Patient's initial sepsis screen is negative. Does the patient have a suspected source of infection? No. Patient's initial sepsis screen is negative. Risk Assessment: Do you want to hurt yourself or someone else? Patient reports no desire to harm self or others. Onset of symptoms was November 26, 2024. 12:39 Method Of Arrival: EMS: [facility] dd2 12:39 Acuity: SUSAN 3 dd2 Triage Assessment: 12:42 General: Appears uncomfortable, Behavior is calm, cooperative, appropriate for age. dd2 Pain: Complains of pain in posterior aspect of left lateral abdomen, anterior aspect of left lateral abdomen, left upper quadrant and left lower quadrant Pain currently is 10 out of 10 on a pain scale. GI: Reports lower abdominal pain, upper abdominal pain, bloating, nausea, vomiting. 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 - Infectious Disease History:: Denies. - Social history:: Smoking status: Patient denies any tobacco usage or history of. Screenin:30 [facility] ED Fall Risk Assessment (Adult) History of falling in the last 3 months, bp including since admission No falls in past 3 months (0 pts) Confusion or Disorientation No (0 pts) Intoxicated or Sedated No (0 pts) Impaired Gait No (0 pts) Mobility Assist Device Used No (0 pt) Altered Elimination No (0 pt) Score/Fall Risk Level 0 - 2 = Low Risk Oriented to surroundings. Abuse screen: Denies threats or abuse. Denies injuries from another. Nutritional screening: No deficits noted. Tuberculosis screening: No symptoms or risk factors identified. Assessment: 12:45 General: Appears in no apparent distress. obese, Behavior is cooperative, appropriate bp for age, anxious, SEE TRIAGE NOTE. 16:30 Reassessment: No changes from previously documented assessment. Patient is alert, bp oriented x 3, equal unlabored respirations, skin warm/dry/pink. 17:45 Reassessment: Patient appears in no apparent distress at this time. Patient and/or db family updated on plan of care and expected duration. Pain level reassessed. Patient is alert, oriented x 3, equal unlabored respirations, skin warm/dry/pink. 17:52 Reassessment: PT STATES DOES NOT WANT NG TUBE AT THIS TIME. db 19:30 General: Appears in no apparent distress. Behavior is cooperative, anxious. kd3 19:30 Neuro: Level of Consciousness is awake, alert, obeys commands, Oriented to person, kd3 place, time, situation. Cardiovascular: Capillary refill < 3 seconds. Respiratory: Airway is patent Trachea midline Respiratory effort is even, unlabored, Respiratory pattern is regular, symmetrical. 19:30 GI: Bowel sounds present X 4 quads. Abd is soft X 4 quads. kd3 Vital Signs: 12:39 BP 137 / 73; Pulse 90; Resp 17; Temp 98; Pulse Ox 99% on R/A; Pain 10/10; dd2 14:16 BP 137 / 73; Pulse 76; Resp 20; Pulse Ox 99% ; bp 16:29 BP 174 / 97; Pulse 84; Resp 16; Pulse Ox 99% ; bp 17:00 BP 146 / 79; Pulse 78; Resp 16; Pulse Ox 95% ; db 19:30 BP 122 / 76; Pulse 81; Resp 18; Pulse Ox 95% on R/A; kd3 12:39 Pain Scale: Adult dd2 ED Course: 12:38 Patient arrived in ED. im 12:40 Lauri Liao MD is Attending Physician. jamaal 12:42 Triage completed. dd2 12:42 Arm band placed on right wrist. dd2 13:20 US Extremity Venous W Compression Mt In Process Unspecified. EDMS 13:35 Kirk Clemente, RN is Primary Nurse. bp 13:40 XRAY Chest (1 view) In Process Unspecified. EDMS 13:50 Initial lab(s) drawn, by me, sent to lab. Inserted saline lock: 20 gauge in right bp forearm, using aseptic technique. Blood collected. Flushed with 10 mL NS. 14:30 Patient has correct armband on for positive identification. bp 15:22 CT Chest For PE Angio In Process Unspecified. EDMS 15:22 CT Abd/Pelvis - IV Contrast Only In Process Unspecified. EDMS 16:56 Hank Cota is Hospitalizing Provider. jamaal 17:18 Abdomen 1 View (KUB) XRAY In Process Unspecified. EDMS 17:32 Inserted saline lock: 20 gauge in left antecubital area, using aseptic technique. db Flushed with 10 mL NS. 19:41 Primary Nurse role handed off by Kirk Clemente, RN rv1 20:08 Isabel Valenzuela, GIOVANNY is Primary Nurse. kd3 20:08 No provider procedures requiring assistance completed. Patient admitted, IV remains in lg3 place. 20:09 Provided Education on: fall risk. . kd3 Administered Medications: 13:50 Drug: NS 0.9% IV 1000 ml IV at 1000 ml once; to be given as a bolus over 60 minutes bp Route: IV; Rate: 1000 ml; Site: right forearm; 16:10 Follow up: Response: No adverse reaction; IV Status: Completed infusion; IV Intake: db 1000ml 13:50 Drug: Famotidine IVP 20 mg IVP once; dilute with 10 mL 0.9% NaCl; give over 2 minutes bp Route: IVP; Site: right forearm; 16:09 Follow up: Response: No adverse reaction db 13:50 Drug: morphine IVP or IV 4 mg IVP once over 4 mins Route: IVP; Infused Over: 4 mins; bp Site: right forearm; 16:09 Follow up: Response: No adverse reaction db 13:50 Drug: Ondansetron IVP 4 mg IVP once; over 2 minutes Route: IVP; Site: right forearm; bp 16:09 Follow up: Response: No adverse reaction db 16:00 Drug: metroNIDAZOLE IVPB 500 mg 100 ml IVPB at 200 ml/hr once over 30 mins Volume: 100 db ml; Route: IVPB; Rate: 200 ml/hr; Infused Over: 30 mins; Site: right antecubital; 16:40 Follow up: Response: No adverse reaction; IV Status: Completed infusion; IV Intake: db 100ml 16:55 Drug: Ciprofloxacin IVPB 400 mg 200 ml IVPB once over 60 mins Volume: 200 ml; Route: bp IVPB; Infused Over: 60 mins; Site: right forearm; 17:51 Follow up: Response: No adverse reaction; IV Status: Completed infusion; IV Intake: db 200ml 17:30 Drug: Insulin Regular Human IVP 8 units IVP once {Co-Signature: (Kirk Clemente RN).} Route: IVP; Site: right forearm; 20:09 Follow up: Response: No adverse reaction lg3 17:38 Drug: Rocephin IV 2 grams IV at per protocol once; Given slow IV push per pharmarcy db instructions Route: IV; Rate: per protocol; Site: left antecubital; 20:09 Follow up: Response: No adverse reaction; IV Status: Completed infusion; IV Intake: [id number] 17:51 Drug: NS 0.9% with KCl IV 20 mEq/L 1000 ml IV at 125 ml/hr continuous Route: IV; Rate: db 125 ml/hr; Site: right antecubital; 20:09 Follow up: IV Status: Infusion continued upon admission lg3 Medication: 20:08 VIS not applicable for this client. lg3 Intake: 16:10 IV: 1000ml; Total: 1000ml. db 16:40 IV: 100ml; Total: 1100ml. db 17:51 IV: 200ml; Total: 1300ml. db 20:09 IV: 20ml; Total: 1320ml. lg3 Outcome: 16:57 Decision to Hospitalize by Provider. jamaal 20:08 Admitted to Med/surg accompanied by tech, via stretcher, room 219, lg3 20:08 Condition: stable 20:08 Instructed on the need for admit, Demonstrated understanding of instructions, 20:11 Patient left the ED. kd3 Signatures: Dispatcher [facility] EDLauri Gloria MD MD cha Peltier, Brian, RN RN Valeri Miller RN RN lg3 Isabel Valenzuela RN RN kd3 Joselin Mauro, RN RN db Devi Tellez rv1 Graciela Hernandez DIANA, RN RN dd2 Kirk Clemente RN bp
--- NOTE | 2024-11-29 16:58 | EDPHYS ---
Physician Documentation [facility] Name: Brenda Loyd Age: 44 yrs Sex: Female : 1980 Arrival Date: 11/29/2024 Time: 12:36 Bed 6 Private MD: ED Physician Lauri Liao HPI: 11/29 16:42 This 44 yrs old Female presents to ER via EMS with complaints of Abdominal jamaal Pain. 16:42 The patient presents with abdominal pain abdominal distention in the upper abdomen, in jamaal the lower abdomen. Onset: The symptoms/episode began/occurred 3 day(s) ago. The patient presents to the emergency department with nausea, vomiting, that is intermittent, abdominal pain, of the right lower quadrant and left lower quadrant. Possible causes: unknown. The symptoms are aggravated by movement, food , The symptoms are alleviated by nothing. Associated signs and symptoms: The patient has no apparent associated signs or symptoms. The symptoms do not radiate. The symptoms are described as constant, crampy. 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 - Infectious Disease History:: Denies. - Social history:: Smoking status: Patient denies any tobacco usage or history of. ROS: 16:44 Constitutional: Negative for fever, chills, and weight loss, Eyes: Negative for injury, jamaal pain, redness, and discharge, ENT: Negative for injury, pain, and discharge, Neck: Negative for injury, pain, and swelling, Cardiovascular: Negative for chest pain, palpitations, and edema, Respiratory: Negative for shortness of breath, cough, wheezing, and pleuritic chest pain, Back: Negative for injury and pain, : Negative for injury, bleeding, discharge, and swelling, MS/Extremity: Negative for injury and deformity, Skin: Negative for injury, rash, and discoloration, Neuro: Negative for headache, weakness, numbness, tingling, and seizure, Psych: Negative for depression, anxiety, suicide ideation, homicidal ideation, and hallucinations, Allergy/Immunology: Negative for hives, rash, and allergies, Endocrine: Negative for neck swelling, polydipsia, polyuria, polyphagia, and marked weight changes, Hematologic/Lymphatic: Negative for swollen nodes, abnormal bleeding, and unusual bruising, 16:44 Abdomen/GI: Positive for abdominal pain, nausea, vomiting, abdominal cramps, abdominal distension, of the right upper quadrant, left upper quadrant, right lower quadrant and left lower quadrant, 16:44 MS/extremity: Positive for pain, of the left foot, Exam: 16:44 Constitutional: This is a well developed, well nourished patient who is awake, alert, jamaal and in no acute distress. Head/Face: Normocephalic, atraumatic. Eyes: Pupils equal round and reactive to light, extra-ocular motions intact. Lids and lashes normal. Conjunctiva and sclera are non-icteric and not injected. Cornea within normal limits. Periorbital areas with no swelling, redness, or edema. ENT: Nares patent. No nasal discharge, no septal abnormalities noted. Tympanic membranes are normal and external auditory canals are clear. Oropharynx with no redness, swelling, or masses, exudates, or evidence of obstruction, uvula midline. Mucous membranes moist. Neck: Trachea midline, no thyromegaly or masses palpated, and no cervical lymphadenopathy. Supple, full range of motion without nuchal rigidity, or vertebral point tenderness. No Meningismus. Chest/axilla: Normal chest wall appearance and motion. Nontender with no deformity. No lesions are appreciated. Cardiovascular: Regular rate and rhythm with a normal S1 and S2. No gallops, murmurs, or rubs. Normal PMI, no JVD. No pulse deficits. Respiratory: Lungs have equal breath sounds bilaterally, clear to auscultation and percussion. No rales, rhonchi or wheezes noted. No increased work of breathing, no retractions or nasal flaring. Back: No spinal tenderness. No costovertebral tenderness. Full range of motion. Skin: Warm, dry with normal turgor. Normal color with no rashes, no lesions, and no evidence of cellulitis. MS/ Extremity: Pulses equal, no cyanosis. Neurovascular intact. Full, normal range of motion., bilateral aka Neuro: Awake and alert, GCS 15, oriented to person, place, time, and situation. Cranial nerves II-XII grossly intact. Motor strength 5/5 in all extremities. Sensory grossly intact. Cerebellar exam normal. Normal gait. 16:44 ECG was reviewed by the Attending Physician. 16:44 Abdomen/GI: Inspection: distension, that is severe, Bowel sounds: diminished, Palpation: moderate abdominal tenderness, in the left upper quadrant, right lower quadrant and left lower quadrant, Liver: no appreciated palpable abnormalities, Hernia: not appreciated, 16:59 ECG was reviewed by the Attending Physician. [facility] Vital Signs: 12:39 BP 137 / 73; Pulse 90; Resp 17; Temp 98; Pulse Ox 99% on R/A; Pain 10/10; dd2 14:16 BP 137 / 73; Pulse 76; Resp 20; Pulse Ox 99% ; bp 16:29 BP 174 / 97; Pulse 84; Resp 16; Pulse Ox 99% ; bp 17:00 BP 146 / 79; Pulse 78; Resp 16; Pulse Ox 95% ; db 19:30 BP 122 / 76; Pulse 81; Resp 18; Pulse Ox 95% on R/A; kd3 12:39 Pain Scale: Adult dd2 MDM: 12:40 Medical Screening Exam initiated [facility] 16:46 Differential diagnosis: Nonspecific abd pain, gastritis, pancreatitis, appendicitis, jamaal diverticulitis, viral gastroenteritis, gastroenteritis, bowel obstruction, cholecystitis, Cholelithiasis, diverticulitis, Mesenteric ischemia or infarction, non-specific abd pain, pancreatitis, Peritonitis, Ureterolithiasis, urinary tract infection. Data reviewed: vital signs, nurses notes, lab test result(s), EKG, radiologic studies, plain films. Consideration of Admission/Observation Patient was admitted/placed on observation. Escalation of care including admission/observation considered. I considered the following discharge prescriptions or medication management in the emergency department Medications were administered in the Emergency Department. See MAR. Independent interpretation of the following test(s) in the Emergency Department EKG: See my EKG interpretation above. Test considered but Not performed: MRI: NO MRCP. Historians other than the Patient: EMS: EMS WELL INFORMED. Care significantly affected by the following chronic conditions: Diabetes, Hypertension, Obesity. Counseling: I had a detailed discussion with the patient and/or guardian regarding the historical points, exam findings, and any diagnostic results supporting the discharge/admit diagnosis, the presence of at least one elevated blood pressure reading (>120/80) during this emergency department visit, lab results, radiology results, the need to transfer to another facility, for higher level of care, [facility] required specialist, DR BRI NEUMANN. 11/29 12:42 Order name: Basic Metabolic Panel; Complete Time: 15:41 [facility] 11/29 12:42 Order name: CBC with Diff; Complete Time: 15:41 [facility] 11/29 12:42 Order name: LFT's; Complete Time: 15:41 [facility] 11/29 12:42 Order name: Magnesium; Complete Time: 15:41 [facility] 11/29 12:42 Order name: NT PRO-BNP; Complete Time: 15:41 [facility] 11/29 12:42 Order name: PT-INR; Complete Time: 15:41 [facility] 11/29 12:42 Order name: Troponin HS; Complete Time: 15:41 [facility] 11/29 12:42 Order name: Lipase; Complete Time: 15:41 [facility] 11/29 12:42 Order name: UA Rfx Kendrick Cult if indicated [facility] 11/29 18:06 Order name: Lipid Profile [facility] 11/29 18:06 Order name: Magnesium [facility] 11/29 18:06 Order name: Phosphorus [facility] 11/29 18:06 Order name: Basic Metabolic Panel [facility] 11/29 18:06 Order name: Basic Metabolic Panel [facility] 11/29 18:06 Order name: CBC with Automated Diff [facility] 11/29 18:06 Order name: CBC with Automated Diff [facility] 11/29 12:42 Order name: XRAY Chest (1 view); Complete Time: 15:41 [facility] 11/29 12:42 Order name: US Extremity Venous W Compression Mt; Complete Time: 15:41 [facility] 11/29 12:42 Order name: CT Chest For PE Angio; Complete Time: 16:38 [facility] 11/29 12:42 Order name: CT Abd/Pelvis - IV Contrast Only; Complete Time: 16:38 [facility] 11/29 17:01 Order name: Abdomen 1 View (KUB) XRAY [facility] 11/29 12:42 Order name: EKG; Complete Time: 12:43 [facility] 11/29 12:42 Order name: Cardiac monitoring; Complete Time: 13:50 [facility] 11/29 12:42 Order name: EKG - Nurse/Tech; Complete Time: 14:21 [facility] 11/29 12:42 Order name: IV Saline Lock; Complete Time: 13:50 [facility] 11/29 12:42 Order name: Labs collected and sent; Complete Time: 13:50 [facility] 11/29 12:42 Order name: O2 Per Protocol; Complete Time: 13:50 [facility] 11/29 12:42 Order name: O2 Sat Monitoring; Complete Time: 13:50 [facility] EC:59 Rate is 75 beats/min. Rhythm is regular. QRS Orosi is Normal. MN interval is normal. QRS jamaal interval is normal. QT interval is normal. No Q waves. T waves are Normal. No ST changes noted. Clinical impression: NSR w/ Non-specific ST/T Changes and No evidence of ischemia. Interpreted by me. Reviewed by me. Administered Medications: 13:50 Drug: NS 0.9% IV 1000 ml IV at 1000 ml once; to be given as a bolus over 60 minutes bp Route: IV; Rate: 1000 ml; Site: right forearm; 16:10 Follow up: Response: No adverse reaction; IV Status: Completed infusion; IV Intake: db 1000ml 13:50 Drug: Famotidine IVP 20 mg IVP once; dilute with 10 mL 0.9% NaCl; give over 2 minutes bp Route: IVP; Site: right forearm; 16:09 Follow up: Response: No adverse reaction db 13:50 Drug: morphine IVP or IV 4 mg IVP once over 4 mins Route: IVP; Infused Over: 4 mins; bp Site: right forearm; 16:09 Follow up: Response: No adverse reaction db 13:50 Drug: Ondansetron IVP 4 mg IVP once; over 2 minutes Route: IVP; Site: right forearm; bp 16:09 Follow up: Response: No adverse reaction db 16:00 Drug: metroNIDAZOLE IVPB 500 mg 100 ml IVPB at 200 ml/hr once over 30 mins Volume: 100 db ml; Route: IVPB; Rate: 200 ml/hr; Infused Over: 30 mins; Site: right antecubital; 16:40 Follow up: Response: No adverse reaction; IV Status: Completed infusion; IV Intake: db 100ml 16:55 Drug: Ciprofloxacin IVPB 400 mg 200 ml IVPB once over 60 mins Volume: 200 ml; Route: bp IVPB; Infused Over: 60 mins; Site: right forearm; 17:51 Follow up: Response: No adverse reaction; IV Status: Completed infusion; IV Intake: db 200ml 17:30 Drug: Insulin Regular Human IVP 8 units IVP once {Co-Signature: bp (Kirk Clemente RN).} Route: IVP; Site: right forearm; 20:09 Follow up: Response: No adverse reaction lg3 17:38 Drug: Rocephin IV 2 grams IV at per protocol once; Given slow IV push per pharmarcy db instructions Route: IV; Rate: per protocol; Site: left antecubital; 20:09 Follow up: Response: No adverse reaction; IV Status: Completed infusion; IV Intake: [id number] 17:51 Drug: NS 0.9% with KCl IV 20 mEq/L 1000 ml IV at 125 ml/hr continuous Route: IV; Rate: db 125 ml/hr; Site: right antecubital; 20:09 Follow up: IV Status: Infusion continued upon admission lg3 Disposition Summary: 11/29/24 16:57 Hospitalization Ordered Notes: Hospitalization Status: Inpatient Admission jamaal Provider: Hank Cota cha [facility] jamaal Condition: Serious jamaal Problem: new jamaal Symptoms: have improved jamaal Bed/Room Type: Standard jamaal Room Assignment: 219(11/29/24 18:19) bd Diagnosis - Hypokalemia jamaal - Type 2 diabetes mellitus with hyperglycemia jamaal - Other intestinal obstruction - HIGH GRADE PROXIMAL SIGMOID , ANNULAR MASS , WITH jamaal PNEUNONITIS, DISTAL SMALL BOWEL DISTENTION(11/29/24 17:02) Forms: - Medication Reconciliation Form jamaal - SBAR form jamaal - Leadership Thank You Letter jamaal Critical care time excluding procedures: 17:01 Critical care time: Bedside Care: 30 minutes, Consultation: 15 minutes, Family jamaal Intervention: 10 minutes. Total time: 55 minutes Signatures: Dispatcher [employer] Isabel Brooks Corey, MD MD cha Peltier, Brian, RN RN bp Joselin Mauro RN RN db DAVIS, DIANA RN GIOVANNY dd2 Valeri Noel RN lg3 Kirk Clemente RN bp Corrections: (The following items were deleted from the chart) 16:59 16:44 Rate is 79 beats/min. Rhythm is regular. QRS Orosi is Normal. MN interval is jamaal normal. QRS interval is normal. QT interval is normal. No Q waves. T waves are Normal. No ST changes noted. Clinical impression: NSR w/ Non-specific ST/T Changes and No evidence of ischemia. Interpreted by me. Reviewed by me. jamaal 17:02 16:57 Other intestinal obstruction - HIGH GRADE PROXIMAL SIGMOID , ANNULAR MASS , WITH jamaal PNEUNONITIS jamaal 18:19 16:57 jamaal bd 18:46 17:01 NG Tube ordered. [facility] bp
[2024-11-29] MEDS ORDERED: CEFTRIAXONE 2000 MG/VIAL ONE (17:10)
[2024-11-29] MEDS ORDERED: INSULIN REGULAR (HUMAN) 100 UNIT/ML ONE (17:11)
[2024-11-29] MEDS ORDERED: NS KCL 20MEQ 1,000 ML IV ONE (17:12)
[2024-11-29] MEDS ORDERED: NA CHLORIDE 0.9% 100 ML ONE (17:12)
--- NOTE | 2024-11-29 17:45 | RAD REPORT ---
EXAM: AP view(s) of the abdomen Abdomen 1 View (KUB) HISTORY: Abd pain;Abdominal distention COMPARISON: None FINDINGS: Significantly dilated colon. The cecum measures up to 12 cm.. No suspicious calcifications are seen. Contrast present in the bladder. No acute osseous abnormality. Other: n/a IMPRESSION: Dilated colon measuring up to 12 cm. Findings remain consistent with colonic obstruction as was seen on the same day CT.
[2024-11-29] MEDS ORDERED: ACETAMINOPHEN 650MG/RECT SUPP PR PRN (17:49)
[2024-11-29] MEDS ORDERED: D10W 125 ML IV PRN (18:01)
[2024-11-29] MEDS ORDERED: GLUCAGON 1 MG/VIAL IM PRN (18:01)
--- NOTE | 2024-11-29 18:07 | P.HP ---
Certification for Inpatient Patient admitted to: Inpatient With expected LOS: >2 Midnights Patient will require the following post-hospital care: None Practitioner: I am a practitioner with admitting privileges, knowledge of patient current condition, hospital course, and medical plan of care. Services: Services provided to patient in accordance with Admission requirements found in Title 42 Section 412.3 of the Code of Federal Regulations Patient History Date of Service: 11/29/24 Reason for admission: Abdominal pain and distention. History of Present Illness: Patient is a 44-year-old female female with a past medical history significant fo DM2 with neuropathy,obesity, charcot arthropathy who presents with complaint of abdominal pain and abdominal distention onset 2 days ago. Patient indicated she also started experiencing abdominal distention\pain 2 days ago. Patient rated pain as 10/10 in severity and described pain as aching quality. Patient reported associated signs and symptoms of nausea and vomiting. Patient denies any other signs and symptoms. Symptoms are aggravated or relieved by nothing. Patient decided to present to the hospital due to worsening symptoms. Allergies No Known Allergies Allergy (Unverified 09/22/13 13:18) Home Medications: Acidophilus/Bulgaricus [Lactinex Tablet Chewable] 1 each PO BID #30 tab.chew 11/25/24 Alcohol Antiseptic Pads [Alcohol Prep Pads] 1 each TP DAILY #100 ea 11/25/24 Blood Sugar Diagnostic [Blood Glucose Test Strip] 1 each MC DAILY #30 strip 11/25/24 Blood-Glucose Meter [Blood Glucose Monitoring] 1 each MC DAILY #1 kit 11/25/24 Collagenase [Santyl Ointment*] 1 appl TOP DAILY #30 gm 11/25/24 Hydrocodone 5/APAP 325 [Shoup 5/325*] 1 tab PO Q6H PRN #15 tab 11/25/24 Insulin Glargine,Hum.rec.anlog [Lantus Solostar] 20 unit SQ DAILY #15 ml 11/25/24 Lancets 1 each MC DAILY #100 ea 11/25/24 Metformin HCl 500 mg PO BID #60 tab 11/25/24 Syrge-Ndl,Ins 0.3 ml Half Jeremy [Insulin Syringe] 1 each MC DAILY #100 ea 11/25/24 levoFLOXacin [Levaquin] 750 mg PO DAILY #10 tab 11/25/24 - Past Medical/Surgical History Diabetic: Yes -: Type 2 diabetes mellitus. -: Obesity -: section. - Family History Mother -: Hypertension, Diabetes, Cancer Father -: Cancer - Social History Smoking Status: Never smoker Alcohol use: Yes CD- Drugs: No Caffeine use: No Place of Residence: Home Review of Systems General: Unremarkable Eyes: Unremarkable ENT: Unremarkable Respiratory: Unremarkable Gastrointestinal: Nausea, Vomiting, Abdominal Pain, Distention Genitourinary: Unremarkable Musculoskeletal: Unremarkable Integumentary: Unremarkable Neurological: Unremarkable Lymphatics: Unremarkable Physical Examination - Physical Exam General: Alert, In no apparent distress, Oriented x3, Cooperative HEENT: Atraumatic, PERRLA, Mucous membr. moist/pink, EOMI, Sclerae nonicteric Neck: Supple, 2+ carotid pulse no bruit, No LAD, Without JVD or thyroid abnormality Respiratory: Clear to auscultation bilaterally, Normal air movement Cardiovascular: No edema, Regular rate/rhythm, Normal S1 S2 Capillary refill: <2 Seconds Gastrointestinal: Normal bowel sounds, Distended, Tenderness Musculoskeletal: No clubbing, No tenderness Integumentary: No rashes, Other (Left foot wound) Neurological: Normal speech, Normal strength at 5/5 x4 extr, Normal tone, Normal affect Lymphatics: No axilla or inguinal lymphadenopathy - Studies Laboratory Data (last 24 hrs) 11/29/24 11/29/24 11/29/24 13:52 13:52 13:52 WBC 7.10 Hgb 10.0 L Hct 30.5 L Plt Count 441 H PT 13.4 H INR 1.19 Sodium 133 L Potassium 3.1 L BUN 17 Creatinine 0.96 Glucose 339 H Magnesium 2.1 Total Bilirubin 0.3 AST 11 L ALT < 14 Alkaline Phosphatase 111 Lipase 10 L Assessment and Plan - Plan Abdominal pain. Proximal sigmoid obstruction --CT abdomen indicates high-grade colonic obstruction secondary to suspected annular constricting mass at the proximal sigmoid. --Surgeon and gastroenterology consulted. Recommendations appreciated. --Will keep patient NPO. --Continue IV hydration. --Continue current pain medication regimen. DM2 with hyperglycemia --BS monitoring with sliding scale insulin and Lantus. Left foot wound Left charcot arthropathy. --S\P Excisional debridement on --Continue antibiotics. --Wound care consult initiated. Recommendations appreciated. Anemia of chronic disease. --H&H stable. --Transfuse if hemoglobin less than 7.0 Hypokalemia. --Replete as needed. CKD 2. --Stable. --Will continue to monitor renal functions. Obesity. --Likely secondary to excess calories intake --Patient will be counseled on weight reduction, diet and exercise therapy when appropriate. Nausea and vomiting. --Antiemetics on board. DVT prophylaxis with SCDs. Discharge Plan: Home Plan to discharge in: Greater than 2 days - Advance Directives Does patient have a Living Will: No Does patient have a Durable POA for Healthcare: No - Code Status/Comfort Care Code Status Assessed: Yes Comfort Measures: Palliative Care Physician Review: Patient Assessed, Agree with Above Assessment and Plan Critical Care: No
[2024-11-29] MEDS: FENTANYL CITR 100 MCG/2 ML IV PRN (18:58)
[2024-11-29] MEDS ORDERED: FENTANYL CITR 100 MCG/2 ML ONE (19:00)
[2024-11-29 19:51] LABS: Magnesium 2.0 mg/dL (1.6-2.4)
[2024-11-29] MEDS: Levofloxacin 750mg IV 750 MG/150 ML BAG IV SCH (21:50)
[2024-11-29] MEDS: KCL 20 MEQ/100 mL IVPB 20 MEQ/100 ML BAG IV SCH (21:50)
[2024-11-29] MEDS: NA CHLORIDE 0.9% 1,000 ML IV SCH (21:51)
[2024-11-29] MEDS: ONDANSETRON 4 MG/2 ML VIAL IV PRN (23:23)
[2024-11-29] MEDS: INSULIN REGULAR (HUMAN) 100 UNIT/ML SQ SCH (23:48)
--- NOTE | 2024-11-30 00:20 | RAD REPORT ---
CLINICAL HISTORY: S/P NGT Placement. COMPARISON: None. TECHNIQUE: Single view AP supine abdominal radiograph(s). FINDINGS: Nasogastric tube terminates in the stomach. Dilated bowel in the imaged upper abdomen. No evidence of free air by this technique. The lung bases are grossly clear. No concerning osseous abnormality. IMPRESSION: Nasogastric tube terminates in the stomach. Dilated bowel in the imaged upper abdomen. Electronically signed by: Cely Orozco MD 11/29/2024 11:59 PM CDT Due to temporary technical issues with the PACS/webme reporting system, reports are being perry d by the in-house radiologist without review as a courtesy to ensure prompt reporting the interpreting radiologist is fully responsible for the content of the report Transcribed Date/Time: 11/30/2024 12:20 AM
[2024-11-30] MEDS: KETOROLAC 30 MG/ML INJ IV PRN (01:12)
[2024-11-30] MEDS: METOCLOPRAMIDE 10 MG/2mL INJ IV PRN (01:12)
[2024-11-30 02:08] LABS: Sqamous Epithelial 20-50 /HPF (None Seen); Urine Culture Reflex Order REFLEXED; Urine Microscopic Reflex YN ORDER UMIC
[2024-11-30 06:39] LABS: Absolute Lymphocytes (CBC) 0.5 K/uL (0.7-4.9); Hematocrit 30.9 % (36.0-45.0); Hemoglobin 10.1 g/dL (12.0-15.0); MCH 25.7 pg (27.0-35.0); MCHC 32.7 g/dL (32.0-36.0); MCV 78.8 fL (80-100); MPV 7.4 fL (7.6-11.3); Nucleated RBC Absolute Count 0.0 (0-0); Nucleated Red Blood Cells % 0.1 % (0-0); RBC Red Blood Cell Count 3.92 M/uL (3.86-4.86); White Blood Count 13.00 thou/uL (4.3-10.9)
[2024-11-30 06:57] LABS: Anion Gap 11.6 mEq/L (5.0-15.0); BUN Blood Urea Nitrogen 15.0 mg/dL (7-18); Glucose Level 245.0 mg/dL (74-106); HDL Cholesterol 41.0 mg/dL (40-60); LDL Cholesterol, Calculated 105.0 mg/dL (<130); LDL Cholesterol,Calc NonReport 105.0; Potassium 3.6 mEq/L (3.5-5.1)
[2024-11-30] MEDS ORDERED: ROCURONIUM 50 MG/5 ML VIAL IV ONE (07:31)
[2024-11-30] MEDS ORDERED: KETOROLAC 30 MG/ML INJ ONE (07:31)
[2024-11-30] MEDS ORDERED: LIDOCAINE 2% MPF 5 ML VIAL ONE (07:31)
[2024-11-30] MEDS ORDERED: MIDAZOLAM HCL 2 MG/2 ML INJ ONE (07:31)
[2024-11-30] MEDS ORDERED: FENTANYL CITR 100 MCG/2 ML ONE (07:31)
[2024-11-30] MEDS ORDERED: ONDANSETRON 4 MG/2 ML VIAL ONE (07:31)
[2024-11-30] MEDS: BUPIVACAINE 0.5% PF 10 ML VIAL ONE (07:38)
[2024-11-30] MEDS: NA CHLORIDE 0.9% 0 ML ONE (08:16)
[2024-11-30] MEDS: PIPER TAZO 3.375 GM in NA CHLORIDE 0.9% 100 ML IV ONE (08:30)
[2024-11-30] MEDS: SUCCINYLCHOLINE 20 MG/ML (10 ML) IV ONE (08:51)
[2024-11-30] MEDS ORDERED: INSULIN GLARGINE 100 UNIT/ML SQ SCH (09:00)
[2024-11-30] MEDS: KCL 20 MEQ/100 mL IVPB 20 MEQ/100 ML BAG IV SCH (09:00)
[2024-11-30] MEDS ORDERED: HOME MED 1 EA UNK (Insulin Glargine,Hum.Rec.Anlog [Lantus Solostar] 100 UNIT/ML Insuln.Pen SQ SCH (09:00)
--- NOTE | 2024-11-30 09:19 | PREOPCON ---
Date of Consultation: 11/30/2024 Reason: Abdominal pain and distention. History Of Present Illness: The patient is a 44-year-old female who was recently admitted with a lef t foot infection with cellulitis with a wound that needed debridement, which was done approximately 9 to 10 days ago. She was discharged and following discharge, she started having increased abdominal distention. Over the last 2 days, it became worse associated with nausea. She did have episode of v omiting. She is passing gas and having small bowel movements, but she feels very ill with extremely distended abdomen. Her symptoms were getting worse. She came to the emergency room. She denies any sore throat, runny nose, cough, headaches, or dizziness. No chest pain. No fever or chills. No bl ood per rectum. No dysuria, hematuria. The patient does have family history of colon cancer in her father and brother. Review of Systems: Otherwise unremarkable. Past Medical History: Significant for diabetes, obesity. Past Surgical History: , recent foot debridement. Allergies: NONE. Social History: The patient does not smoke. Drinks occasionally. Family History: Colon cancer in brother and father and diabetes in the mother. Physical Examination: Vital Signs: Stable. She is afebrile. General: She is awake and alert. Head and Neck: No masses. No JVD. Throat clear. Neck is supple. Chest: Clear. Heart: S1, S2. Abdomen: Soft, but distended, diffusely tender. No rebound, rigidity, or guarding. Hypoactive kuldip l sounds. Moderate distention is present. Extremities: Adequately perfused. Nontender. Neuro: Nonfocal. Laboratory Data: Her white count this morning is 13,000 with a left shift. INR is 1.19. Chemistry reviewed. Electrolytes show elevation of glucose, otherwise unremarkable. Her LFTs are within gay l limits. CT of the abdomen and pelvis reviewed, which shows high-grade colonic obstruction secondar y to suspected annular constricting mass in the proximal sigmoid. Mild pneumatosis, which is nonspec ific. No portal venous gas or free air is seen. The patient also has an interval development of a l arge uterine fibroid, intramural. No other significant findings. No liver masses were seen. No enl arged lymph nodes were described. Assessment: Please note, there was also dilatation of the small b owel indicating small bowel obstruction secondary to this obstruction. Assessment: High-grade colon obstruction secondary to a constricting mass, most likely cancer based on the history. Recommendations: Would be to admit n.p.o., IV fluid, IV antibiotics. The patient did have an NG tub e, which she has not tolerated and she removed it, IV antibiotics, and then to the OR for exploratory laparotomy, bowel resection, possible colostomy. All surgical options were discussed in detail with the patient. She understands the risks, benefits, and alternatives and agrees to procedure. She do es get a colostomy, will be reversible in 3-4 months after she gets her treatment completed if she do es have colon cancer. ROBERT/JOHN Voice ID: [id number] Report ID: [id number]
[2024-11-30] MEDS ORDERED: NS 0.9% VIAL 10 ML ONE (09:27)
[2024-11-30] MEDS ORDERED: VECURONIUM 10 MG/VIAL IV ONE (09:27)
[2024-11-30] MEDS: INSULIN REGULAR (HUMAN) 100 UNIT/ML ONE (10:10)
[2024-11-30] MEDS ORDERED: EPINEPHRINE 1 MG/ML VIAL ONE (10:16)
[2024-11-30] MEDS ORDERED: BUPIVACAINE 0.25% PF 10 ML VIAL ONE (10:16)
[2024-11-30] MEDS ORDERED: BUPIVACAINE 0.5% PF 10 ML VIAL ONE (10:17)
[2024-11-30] MEDS: ROPIVACAINE HCL 20 ML ONE (10:23)
[2024-11-30] MEDS: SUGAMMADEX SODIUM 200 MG/2 ML VIAL IV ONE (10:23)
[2024-11-30] MEDS: ROPLVACAINE HCL 40 ML ONE (10:23)
[2024-11-30] MEDS: NA CHLORIDE 0.9% 1,000 ML ONE (10:30)
[2024-11-30 10:38] LABS: Differential Total Cells Count 100; Segmented Neutrophils 84 % (40-80)
[2024-11-30 10:39] LABS: Blood Morphology Comment NOT SEEN (NOT SEEN)
--- NOTE | 2024-11-30 11:33 | P.OP ---
Date of Service: 11/30/24 Preop diagnosis: Colon obstruction secondary to a sigmoid mass complicated by small bowel obstruction and a large uterine fibroid Postop diagnosis: Same with adhesions Procedure performed: Exploratory laparotomy, lysis of adhesion, sigmoid resection and creation of a end colostomy (Goel's procedure) Surgeon: Carlos Queen MD Electrical Superintendent: Maura LION Estimated blood loss: Minimal Specimen: Sigmoid colon Findings: Obstructing tumor with margins free Anesthesia: General Complications: None Drains: None Fluids and blood products: Nonapplicable Disposition: Recovery room Operative note: Patient brought to the OR and placed in the supine position. General anesthesia began. Patient prepped and draped in the usual sterile fashion. 10 blade used to make a generous midline incision from the epigastric region to below the umbilicus. Subcutaneous tissue divided and bleeding controlled cautery. Fascia identified and divided. Peritoneal cavity entered. There was some straw-colored ascites that was aspirated in the abdomen. The transverse colon and ascending colon descending colon small intestines were all dilated. There was a obstructive mass in the proximal sigmoid colon. The stomach is within normal limit. The duodenal sweep was within normal limit. The liver, gallbladder and all other structures were within normal limits. Patient had a large uterine fibroid present. There was some adhesions as well in the left side of the abdomen. These were lysed with cautery. LigaSure was used as well. As the colon was severely distended a colotomy was made to aspirate the air so that we could proceed with the surgery in a safe manner. The colotomy was closed with Endo KENNY stapling device. After the colon was decompressed it was much easier to start the dissection. White line of Toldt was identified on the left side and incised. The left colon was mobilized. Distally, the mesocolon was identified and approximately 5 cm distal to the obstructive mass Endo KENNY stapling device was used to divide the sigmoid colon. LigaSure was used to divide the mesocolon down to the white line of Toldt. Approximately Endo KENNY stapling device was used to divide the colon. Frozen section revealed normal margins. Adequate length of margins was obtained. The descending colon was mobilized further. A circular incision was made on the left middle abdomen. Subcutaneous tissue was excised. Fascia was identified and divided. And the proximal colon was grabbed and brought through for maturity of the colostomy after the abdomen was closed. Entire abdomen was irrigated thoroughly until the effluent was clear. There was no evidence of bleeding or bowel injury appreciated. On the transverse colon there was a few areas of mild ischemia but they had good motility. All bowel was viable. #2 nylon was used to close the midline fascia. Subcutaneous wound irrigated and bleeding controlled cautery. Staple used to close skin loosely. Then the colostomy was matured with 3-0 silk tie in the standard fashion. Patient proceeded to have a nerve block for postop pain control. Sterile dressing was applied. Patient was awakened and taken to recovery room in good general condition. CC:
--- NOTE | 2024-11-30 11:46 | P.PN ---
Date of Service: 11/30/24 Subjective: seen post-op in ICU resting comfortably, with some abd tenderness NGT in place Physical Exam: GEN: Alert, oriented, NAD, NGT in place CV: Regular rate and rhythm, no edema Pulm: Nonlabored respirations, clear bilaterally ABD: soft, dressing in place, ostomy bag Neuro: Normal speech, normal affect Problem List: Colonic obstruction secondary to sigmoid mass complicated by SBO and Uterine Fibroid now s/p Goel's procedure with lysis of adhesions (11/30) Left Foot wound s/p recent I&D (11/22) Chronic Anemia IDDM2 Colonic obstruction secondary to sigmoid mass complicated by SBO and Uterine Fibroid now s/p Goel's procedure with lysis of adhesions (11/30) CT abd/pelvis (11/29): High-grade colonic obstruction secondary to suspected annular constricting mass at the proximal sigmoid. Mild pneumatosis. Mild Ascites. Hepatic steatosis. Large Uterine fibroid. CTA chest (11/29): no PE. low lung volumes with bilateral groundglass opacities that could reflect atelectasis and/or edema. Mild distal esophageal thickening. Dr. Queen general surgeon consulted, GI consulted. Found to have Colonic obstruction secondary to sigmoid mass now s/p Goel's procedure with lysis of adhesions with Dr. Queen (11/30) Diet and wound care per surgery transferred to ICU after surgery for close monitoring Continue IV zosyn / Levaquin (11/29-) IV fluids, pain control UA concerning for possible UTI; follow urine culture Left Foot wound s/p recent I&D (11/22) Had recent I&D of left foot with Dr. Queen on 11/22. Discharged with levaquin reviewed culture sensitivities; continue zosyn Wound care per surgery pain control Chronic Anemia Daily labs. Stable. IDDM2 accu-cheks, SSI recently started on lantus insulin A1c was 11.9 last hospitalization VTE: SCD Code: Full Dispo: Home, several days Pending surgical recovery, improvement. Time Spent Managing Pts Care (In Minutes): 55
[2024-11-30] MEDS: METRONIDAZOLE 500mg IVPB 500 MG/100 ML BAG IV SCH (13:25)
[2024-11-30] MEDS: HYDROMORPHONE HCL 1 MG/ML INJ IV PRN (13:36)
--- NOTE | 2024-11-30 13:50 | RAD REPORT ---
EXAM: XR Abdomen 1 View (KUB) HISTORY: Placement of NGT/OGT. Post Insertion. COMPARISON: 11/29/2024 FINDINGS: Single view of the abdomen shows a nonspecific, nonobstructive bowel gas pattern. Enteric t ube has been placed, with tip projecting over the distal stomach. No suspicious calcifications are seen. The bones are unremarkable. IMPRESSION: Satisfactory positioning of the enteric tube.
[2024-11-30] MEDS: PIPER TAZO 3.375 GM in NA CHLORIDE 0.9% 100 ML IV SCH (16:05)
[2024-12-01] MEDS: NA CHLORIDE 0.9% 500 ML IV PRN (01:17)
[2024-12-01 05:06] LABS: Absolute Lymphocytes (CBC) 0.5 K/uL (0.7-4.9); Hematocrit 25.5 % (36.0-45.0); Hemoglobin 8.5 g/dL (12.0-15.0); MCH 26.0 pg (27.0-35.0); MCHC 33.4 g/dL (32.0-36.0); MCV 78.0 fL (80-100); MPV 7.5 fL (7.6-11.3); Nucleated RBC Absolute Count 0.0 (0-0); Nucleated Red Blood Cells % 0.0 % (0-0); RBC Red Blood Cell Count 3.27 M/uL (3.86-4.86); White Blood Count 13.30 thou/uL (4.3-10.9)
[2024-12-01 05:39] LABS: Anion Gap 7.9 mEq/L (5.0-15.0); BUN Blood Urea Nitrogen 16.0 mg/dL (7-18); Glucose Level 194.0 mg/dL (74-106); Magnesium 2.0 mg/dL (1.6-2.4); Potassium 2.9 mEq/L (3.5-5.1)
[2024-12-01] MEDS: KCL 20 MEQ/100 mL IVPB 20 MEQ/100 ML BAG IV SCH ×2 (06:04→16:34)
--- NOTE | 2024-12-01 08:20 | P.PN ---
Date of Service: 12/01/24 Subjective: abdominal pain mostly resolved, reports some mild soreness denies any new or worsening problems wants NGT out no events overnight Physical Exam: GEN: Alert, oriented, NAD, NGT in place CV: Regular rate and rhythm, no edema Pulm: Nonlabored respirations, clear bilaterally ABD: soft, dressing in place, ostomy bag with stool/air Neuro: Normal speech, normal affect Problem List: Colonic obstruction secondary to sigmoid mass complicated by SBO and Uterine Fibroid now s/p Goel's procedure with lysis of adhesions (11/30) Hypokalemia Pseudohypocalcemia Left Foot wound s/p recent I&D (11/22) Chronic Anemia IDDM2 Colonic obstruction secondary to sigmoid mass complicated by SBO and Uterine Fibroid now s/p Goel's procedure with lysis of adhesions (11/30) CT abd/pelvis (11/29): High-grade colonic obstruction secondary to suspected annular constricting mass at the proximal sigmoid. Mild pneumatosis. Mild Ascites. Hepatic steatosis. Large Uterine fibroid. CTA chest (11/29): no PE. low lung volumes with bilateral groundglass opacities that could reflect atelectasis and/or edema. Mild distal esophageal thickening. Dr. Queen general surgeon consulted, GI consulted. Found to have Colonic obstruction secondary to sigmoid mass now s/p Goel's procedure with lysis of adhesions with Dr. Queen (11/30) tentative plan for NGT removal later today. Diet per surgery Continue IV zosyn (11/29-) IV fluids, pain control UA concerning for possible UTI; follow urine culture Hypokalemia Pseudohypocalcemia Monitor and replete electrolytes as needed Suspect pseudohypocalcemia; albumin was low on 11/29 check ionized calcium Continue IV fluids for now Left Foot wound s/p recent I&D (11/22) Had recent I&D of left foot with Dr. Queen on 11/22. Discharged with levaquin reviewed culture sensitivities; continue IV zosyn (11/29-) Wound care per surgery pain control Chronic Anemia Daily labs. Monitor hgb. IDDM2 accu-cheks, SSI recently started on lantus insulin A1c was 11.9 last hospitalization VTE: Start Lovenox Code: Full Dispo: Home, several days Pending surgical recovery, improvement. anticipate downgrade from ICU today Time Spent Managing Pts Care (In Minutes): 55
[2024-12-01] MEDS: ENOXAPARIN 40 MG/0.4 ML SQ SCH (08:26)
--- NOTE | 2024-12-01 08:55 | PN ---
Date of Progress Note: 12/01/2024 Subjective: The patient is awake, alert. No complaints. Pain is minimal. Physical Examination: Vital Signs: Stable, afebrile. Her colostomy is working well. Very little output from the NG tube. Abdomen: Soft, nondistended. Positive bowel sounds. Dressing is clean, dry, intact. There are sto ol and gas in the colostomy bag. Laboratory Data: Reviewed. White count is 13.3 with left shift. Chemistry shows potassium to be lo w at 2.9, which is being replaced as well as phosphorus. Assessment: Status post Cyrs's procedure. Recommendations: We will discontinue the NG tube and start on sips of clear liquids today. Continue IV antibiotics, electrolyte replacement, physical therapy. The patient remains stable. She can lat er today be downgraded to regular floor. /MODL Voice ID: [id number] Report ID: [id number]
[2024-12-01] MEDS: INSULIN REGULAR (HUMAN) 100 UNIT/ML SQ SCH (11:56)
[2024-12-02 04:54] LABS: Absolute Lymphocytes (CBC) 1.4 K/uL (0.7-4.9); Hematocrit 27.0 % (36.0-45.0); Hemoglobin 8.6 g/dL (12.0-15.0); MCH 25.1 pg (27.0-35.0); MCHC 31.8 g/dL (32.0-36.0); MCV 79.2 fL (80-100); MPV 7.5 fL (7.6-11.3); Nucleated RBC Absolute Count 0.0 (0-0); Nucleated Red Blood Cells % 0.0 % (0-0); RBC Red Blood Cell Count 3.41 M/uL (3.86-4.86); White Blood Count 11.90 thou/uL (4.3-10.9)
[2024-12-02 05:15] LABS: AST/SGOT 13 U/L (15-37); Albumin 1.8 g/dL (3.4-5.0); Albumin/Globulin Ratio 0.4 (1.1-1.8); Alkaline Phosphatase 72 U/L (45-117); Anion Gap 9.4 mEq/L (5.0-15.0); BUN Blood Urea Nitrogen 14 mg/dL (7-18); Globulin 4.4 g/dL (2.3-3.5); Glucose Level 190 mg/dL (74-106); Magnesium 2.2 mg/dL (1.6-2.4); Potassium 3.4 mEq/L (3.5-5.1)
[2024-12-02 05:16] LABS: ALT/SGPT < 14 U/L (13-56)
[2024-12-02] MEDS: KCL 20 MEQ/100 mL IVPB 20 MEQ/100 ML BAG IV SCH (06:05)
--- NOTE | 2024-12-02 10:56 | PN ---
Date of Progress Note: 12/02/2024 Subjective: The patient is awake and alert. No complaint. Ambulating. The patient is hungry. She wants to eat regular food. Objective: Vital Signs: Stable. She is afebrile. Abdomen: Benign. Dressing is clean, dry, and intact. Ostomy is working well. Laboratory Data: Her white count is down to 11.9, the left shift is improving. Chemistry reviewed. Potassium is slightly low, but improving, albumin is 1.8. Assessment: Status post Crys's procedure. Recommendations: Colostomy teaching. Social service consult for colostomy supplies. Continue IV an tibiotics we will keep on clear liquids today and advance slowly as patient has some evide nce of ischemia on her bowel preoperatively. The patient is clinically doing well. Hopefully, disch arge in 48 to 72 hours. /MODL Voice ID: [id number] Report ID: [id number]
--- NOTE | 2024-12-02 11:36 | P.PN ---
Date of Service: 12/02/24 Subjective: feeling slightly better ostomy functioning with liquid stools ambulating around the floor afebrile Physical Exam: GEN: Alert, oriented, NAD CV: Regular rate and rhythm, no edema Pulm: Nonlabored respirations, clear bilaterally ABD: soft, dressing in place, ostomy bag with liquid stool Neuro: Normal speech, normal affect Problem List: Colonic obstruction secondary to sigmoid mass complicated by SBO and Uterine Fibroid now s/p Goel's procedure with lysis of adhesions (11/30) Hypokalemia Pseudohypocalcemia Left Foot wound s/p recent I&D (11/22) Chronic Anemia IDDM2 Colonic obstruction secondary to sigmoid mass complicated by SBO and Uterine Fibroid now s/p Goel's procedure with lysis of adhesions (11/30) CT abd/pelvis (11/29): High-grade colonic obstruction secondary to suspected annular constricting mass at the proximal sigmoid. Mild pneumatosis. Mild Ascites. Hepatic steatosis. Large Uterine fibroid. CTA chest (11/29): no PE. low lung volumes with bilateral groundglass opacities that could reflect atelectasis and/or edema. Mild distal esophageal thickening. Dr. Queen general surgeon consulted, GI consulted. Found to have Colonic obstruction secondary to sigmoid mass now s/p Goel's procedure with lysis of adhesions with Dr. Queen (11/30) NGT dc'd; Diet per surgery - CLD today IV fluids, pain control Continue IV zosyn (11/29-) Leukocytosis improving, afebrile Monet dc'd today; check PVR Hypokalemia Pseudohypocalcemia Monitor and replete electrolytes as needed Suspect pseudohypocalcemia; albumin was low on 11/29 Continue IV fluids for now Left Foot wound s/p recent I&D (11/22) Had recent I&D of left foot with Dr. Queen on 11/22. Discharged with levaquin reviewed culture sensitivities; continue IV zosyn (11/29-) Wound care per surgery pain control Chronic Anemia Daily labs. Monitor hgb. IDDM2 accu-cheks, SSI recently started on lantus insulin A1c was 11.9 last hospitalization VTE: Start Lovenox Code: Full Dispo: Home, !2-3 days Pending surgical recovery, improvement. home health, dressing changes / ostomy supplies Time Spent Managing Pts Care (In Minutes): 55
[2024-12-02] MEDS: AMINO ACIDS/PROTEIN HYDROLYS 30 ML LIQUID.PKT PO SCH (21:00)
[2024-12-03 06:49] LABS: Absolute Lymphocytes (CBC) 1.0 K/uL (0.7-4.9); Hematocrit 30.5 % (36.0-45.0); Hemoglobin 9.7 g/dL (12.0-15.0); MCH 25.1 pg (27.0-35.0); MCHC 31.8 g/dL (32.0-36.0); MCV 79.0 fL (80-100); MPV 7.5 fL (7.6-11.3); Nucleated RBC Absolute Count 0.0 (0-0); Nucleated Red Blood Cells % 0.0 % (0-0); RBC Red Blood Cell Count 3.86 M/uL (3.86-4.86); White Blood Count 10.10 thou/uL (4.3-10.9)
[2024-12-03 07:10] LABS: Anion Gap 10.9 mEq/L (5.0-15.0); BUN Blood Urea Nitrogen 8.0 mg/dL (7-18); Glucose Level 175.0 mg/dL (74-106); Magnesium 2.3 mg/dL (1.6-2.4); Potassium 2.9 mEq/L (3.5-5.1)
[2024-12-03] MEDS: PROMETHAZINE INJ 25 MG/ML AMP IM ONE (07:31)
[2024-12-03 08:49] LABS: Blood Morphology Comment NOTED (NOT SEEN); White Blood Cell Scan OK (OK)
[2024-12-03 08:50] LABS: Ovalocytes SLIGHT; Poikilocytosis 1+; Stomatocytes 1+
[2024-12-03 08:51] LABS: Polychromasia 1+
[2024-12-03] MEDS: MORPHINE 2 MG/ML SYR IV PRN (10:08)
[2024-12-03] MEDS ORDERED: SODIUM CHLORIDE 0.9% 10ML INJ IV PRN (10:11)
--- NOTE | 2024-12-03 10:22 | PN ---
Date of Progress Note: 12/03/2024 Subjective: The patient had one episode of emesis. She is feeling otherwise well. She thinks it wa s after one of the medication she got. Her colostomy is working well, and she is being taught on to care for the colostomy as well. Objective: Vital Signs: Stable. She is afebrile. Abdomen: Soft, nondistended, nontender. Colostomy is working well. Dressing is clean, dry, and int act. Laboratory Data: Her white count is 10.1, the left shift has improved over the last couple of days. Chemistry reviewed. Potassium is low, it is being replaced. Assessment: Status post Crys's procedure. Recommendations: Continue IV antibiotics. We will check an abdominal x-ray to make sure the patient does not have any ileus and then we will continue on clear liquids and slowly advance as tolerated. The patient is clinically stable, slowly improving. /MODL Voice ID: [id number] Report ID: [id number]
[2024-12-03] MEDS: KCL 20 MEQ/100 mL IVPB 20 MEQ/100 ML BAG IV SCH ×2 (11:00→17:59)
--- NOTE | 2024-12-03 11:08 | RAD REPORT ---
EXAM: Abdomen W Erect HISTORY: S/P Goel's procedure, vomiting COMPARISON: 11/30/2024 FINDINGS: Dilated small bowel identified in the upper abdomen. For example the small bowel measures up to 3.3 c m. There may also be dilated colon in the left upper quadrant. Possible opacities in the lung bases. Limited by motion. No acute osseous abnormality. Gallstone in the right upper quadrant. IMPRESSION: Dilated small bowel and possible dilated colon in the left upper quadrant. Findings could indicate a postoperative ileus.
[2024-12-03] MEDS: PANTOPRAZOLE 40 MG INJ IVP ONE (11:43)
--- NOTE | 2024-12-03 11:48 | P.PN ---
Date of Service: 12/03/24 Subjective: continues with some pain and nausea; vomiting overnight colostomy functioning with liquid stools ambulating to bathroom afebrile Physical Exam: GEN: Alert, oriented, NAD CV: Regular rate and rhythm, trace edema Pulm: Nonlabored respirations, clear bilaterally ABD: soft, dressing in place, ostomy bag with liquid stool Neuro: Normal speech, normal affect Problem List: Colonic obstruction secondary to sigmoid mass complicated by SBO and Uterine Fibroid now s/p Goel's procedure with lysis of adhesions (11/30) Post-op Ileus Hypokalemia Pseudohypocalcemia Left Foot wound s/p recent I&D (11/22) Chronic Anemia IDDM2 Colonic obstruction secondary to sigmoid mass complicated by SBO and Uterine Fibroid now s/p Goel's procedure with lysis of adhesions (11/30) Post-op Ileus CT abd/pelvis (11/29): High-grade colonic obstruction secondary to suspected annular constricting mass at the proximal sigmoid. Mild pneumatosis. Mild Ascites. Hepatic steatosis. Large Uterine fibroid. CTA chest (11/29): no PE. low lung volumes with bilateral groundglass opacities that could reflect atelectasis and/or edema. Mild distal esophageal thickening. Dr. Queen general surgeon consulted, GI consulted. Found to have Colonic obstruction secondary to sigmoid mass now s/p Goel's procedure with lysis of adhesions with Dr. Queen (11/30) IV fluids, pain control Continue IV zosyn (11/29-) KUB today concerning for possible post-op ileus Diet per surgery Hypokalemia Pseudohypocalcemia Monitor and replete electrolytes as needed Suspect pseudohypocalcemia; albumin was low on 11/29 Continue IV fluids for now Left Foot wound s/p recent I&D (11/22) Had recent I&D of left foot with Dr. Queen on 11/22. Discharged with levaquin reviewed culture sensitivities; continue IV zosyn (11/29-) Wound care per surgery pain control Chronic Anemia Daily labs. Monitor hgb. IDDM2 accu-cheks, SSI recently started on lantus insulin A1c was 11.9 last hospitalization VTE: Start Lovenox Code: Full Dispo: Home, 2-3 days Pending surgical recovery, improvement. home health, dressing changes / ostomy supplies Time Spent Managing Pts Care (In Minutes): 55
[2024-12-03] MEDS: COLLAGENASE 30 GM OINTMENT TOP SCH (14:46)
[2024-12-03] MEDS: NA CHLORIDE 0.9% 1,000 ML IV SCH (16:27)
[2024-12-04] MEDS: KCL 20 MEQ/100 mL IVPB 20 MEQ/100 ML BAG IV SCH ×2 (03:43→21:42)
[2024-12-04 05:44] LABS: Absolute Lymphocytes (CBC) 1.3 K/uL (0.7-4.9); Hematocrit 30.1 % (36.0-45.0); Hemoglobin 9.6 g/dL (12.0-15.0); MCH 25.2 pg (27.0-35.0); MCHC 32.1 g/dL (32.0-36.0); MCV 78.5 fL (80-100); MPV 7.7 fL (7.6-11.3); Nucleated RBC Absolute Count 0.0 (0-0); Nucleated Red Blood Cells % 0.1 % (0-0); RBC Red Blood Cell Count 3.83 M/uL (3.86-4.86); White Blood Count 7.90 thou/uL (4.3-10.9)
[2024-12-04 06:13] LABS: Anion Gap 10.9 mEq/L (5.0-15.0); BUN Blood Urea Nitrogen 6.0 mg/dL (7-18); Glucose Level 159.0 mg/dL (74-106); Magnesium 2.2 mg/dL (1.6-2.4); Potassium 2.9 mEq/L (3.5-5.1)
--- NOTE | 2024-12-04 09:57 | PN ---
Date of Progress Note: 12/04/2024 Subjective: The patient is awake, alert, feels better, tolerating clear liquids. No more nausea or vomiting. Her vital signs are stable. She is afebrile. Her white count is 7.9. Left shift is impr richa. Potassium is still low and being replaced. Abdomen is benign. Dressing is clean, dry, and in tact. Ostomy is working well. Assessment: Status post Crys's procedure. Recommendations: Advance diet to full liquids. Continue antibiotics and discharge planning, hopeful ly home with home health in the next day or 2. /MODL Voice ID: [id number] Report ID: [id number]
--- NOTE | 2024-12-04 12:05 | P.PN ---
Date of Service: 12/04/24 Subjective: feeling better today tolerating liquids without issues nursing staff reports difficult IV access ostomy bag functioning. Emptied twice overnight family updated Physical Exam: GEN: Alert, oriented, NAD CV: Regular rate and rhythm, trace edema Pulm: Nonlabored respirations, clear bilaterally ABD: soft, dressing in place, ostomy bag with liquid stool Neuro: Normal speech, normal affect Problem List: Colonic obstruction secondary to sigmoid mass complicated by SBO and Uterine Fibroid now s/p Goel's procedure with lysis of adhesions (11/30) Post-op Ileus Hypokalemia Pseudohypocalcemia Left Foot wound s/p recent I&D (11/22) Chronic Anemia IDDM2 Colonic obstruction secondary to sigmoid mass complicated by SBO and Uterine Fibroid now s/p Goel's procedure with lysis of adhesions (11/30) Post-op Ileus CT abd/pelvis (11/29): High-grade colonic obstruction secondary to suspected annular constricting mass at the proximal sigmoid. Mild pneumatosis. Mild Ascites. Hepatic steatosis. Large Uterine fibroid. CTA chest (11/29): no PE. low lung volumes with bilateral groundglass opacities that could reflect atelectasis and/or edema. Mild distal esophageal thickening. Dr. Queen general surgeon consulted, GI consulted. Found to have Colonic obstruction secondary to sigmoid mass now s/p Goel's procedure with lysis of adhesions with Dr. Queen (11/30) IV fluids, pain control Continue IV zosyn (11/29-) KUB today concerning for possible post-op ileus Feeling better today. Pain and nausea improving. Tolerating liquids Advance to FLD Midline ordered given difficult IV access Hypokalemia Pseudohypocalcemia Monitor and replete electrolytes as needed Suspect pseudohypocalcemia; albumin was low on 11/29 Continue IV fluids for now Left Foot wound s/p recent I&D (11/22) Had recent I&D of left foot with Dr. Queen on 11/22. Discharged with levaquin reviewed culture sensitivities; continue IV zosyn (11/29-) Wound care per surgery pain control Chronic Anemia Daily labs. Monitor hgb. IDDM2 accu-cheks, SSI recently started on lantus insulin A1c was 11.9 last hospitalization VTE: Start Lovenox Code: Full Dispo: Home, 2-3 days Pending surgical recovery, improvement. home health, dressing changes / ostomy supplies Time Spent Managing Pts Care (In Minutes): 45
[2024-12-04] MEDS: Mupirocin NASAL 2 APPL/1 GM TUBE NAS SCH (21:41)
[2024-12-05 06:00] LABS: Hematocrit 27.7 % (36.0-45.0); Hemoglobin 8.9 g/dL (12.0-15.0); MCH 25.0 pg (27.0-35.0); MCHC 32.1 g/dL (32.0-36.0); MCV 77.7 fL (80-100); MPV 7.4 fL (7.6-11.3); RBC Red Blood Cell Count 3.57 M/uL (3.86-4.86); White Blood Count 7.60 thou/uL (4.3-10.9)
[2024-12-05 06:27] LABS: Anion Gap 10.8 mEq/L (5.0-15.0); BUN Blood Urea Nitrogen 5.0 mg/dL (7-18); Glucose Level 188.0 mg/dL (74-106); Magnesium 2.1 mg/dL (1.6-2.4); Potassium 2.8 mEq/L (3.5-5.1)
[2024-12-05] MEDS: KCL 20 MEQ/100 mL IVPB 20 MEQ/100 ML BAG IV SCH (09:35)
--- NOTE | 2024-12-05 11:56 | P.PN ---
Date of Service: 12/05/24 Subjective: improving daily tolerating full liquid diet without issues ambulating with walker no new issues Physical Exam: GEN: Alert, oriented, NAD CV: Regular rate and rhythm, trace edema Pulm: Non-labored respirations, clear bilaterally ABD: soft, dressing in place, ostomy bag with liquid stool Neuro: Normal speech, normal affect Problem List: Colonic obstruction secondary to sigmoid mass complicated by SBO and Uterine Fibroid now s/p Goel's procedure with lysis of adhesions (11/30) Post-op Ileus Hypokalemia Pseudohypocalcemia Left Foot wound s/p recent I&D (11/22) Chronic Anemia IDDM2 Colonic obstruction secondary to sigmoid mass complicated by SBO and Uterine Fibroid now s/p Goel's procedure with lysis of adhesions (11/30) Post-op Ileus, resolved CT abd/pelvis (11/29): High-grade colonic obstruction secondary to suspected annular constricting mass at the proximal sigmoid. Mild pneumatosis. Mild Ascites. Hepatic steatosis. Large Uterine fibroid. CTA chest (11/29): no PE. low lung volumes with bilateral groundglass opacities that could reflect atelectasis and/or edema. Mild distal esophageal thickening. Dr. Queen general surgeon consulted, GI consulted. Found to have Colonic obstruction secondary to sigmoid mass now s/p Goel's procedure with lysis of adhesions with Dr. Queen (11/30) IV fluids, pain control Continue IV zosyn (11/29-) Midline placed yesterday KUB 12/03 concerning for possible post-op ileus Pain and nausea improving daily. Tolerating FLD without issues Advance diet. Possible DC tomorrow if continued improvement Hypokalemia Pseudohypocalcemia Monitor and replete electrolytes as needed Suspect pseudohypocalcemia; albumin was low on 11/29 dc IV fluids Left Foot wound s/p recent I&D (11/22) Had recent I&D of left foot with Dr. Queen on 11/22. Wound care per surgery pain control Chronic Anemia Daily labs. Monitor hgb. IDDM2 accu-cheks, SSI recently started on lantus insulin A1c was 11.9 last hospitalization VTE: Lovenox Code: Full Dispo: Home, anticipate discharge tomorrow if continues with improvement needs home health, dressing changes / ostomy supplies Time Spent Managing Pts Care (In Minutes): 45
--- NOTE | 2024-12-05 12:42 | PN ---
Date of Progress Note: 12/05/2024 Subjective: The patient is awake, alert, tolerating full liquid, wants regular diet. No nausea, no vomiting. Colostomy is working well. Objective: Vital Signs: Stable, afebrile. Abdomen: Benign. Skin: Wound clean, dry, and intact. Dressing clean, dry, and intact. Laboratory Data: Reviewed. Assessment: Status post Crys procedure. Plan: Advance diet to regular diet. The patient might be able to go home tomorrow with home health. The patient can follow up with me in [facility] upon discharge. /MODL Voice ID: [id number] Report ID: [id number]
[2024-12-06 06:42] VITALS: BMI 43.9
[2024-12-06 06:53] LABS: AST/SGOT 11 U/L (15-37); Albumin 1.6 g/dL (3.4-5.0); Albumin/Globulin Ratio 0.4 (1.1-1.8); Alkaline Phosphatase 57 U/L (45-117); Anion Gap 7.9 mEq/L (5.0-15.0); BUN Blood Urea Nitrogen 7 mg/dL (7-18); Globulin 4.1 g/dL (2.3-3.5); Glucose Level 192 mg/dL (74-106); Magnesium 1.9 mg/dL (1.6-2.4); Potassium 2.9 mEq/L (3.5-5.1)
[2024-12-06 06:56] LABS: ALT/SGPT < 14 U/L (13-56)
--- NOTE | 2024-12-06 09:08 | PN ---
Date of Progress Note: 12/06/2024 Subjective: The patient is awake and alert. Tolerating regular diet. Objective: Vital Signs: Stable, afebrile. Abdomen: Benign. Dressing clean, dry, intact. Assessment: Status post Crys procedure. Recommendation: The patient was cleared from Surgery for discharge. She will need some additional c olostomy care teaching. She will follow up with me in 1 week in the [facility] to remove e very other staple prior to discharge. /MODL Voice ID: [id number] Report ID: [id number]
--- NOTE | 2024-12-06 09:48 | P.PN ---
Date of Service: 12/06/24 Subjective: continues with daily improvement tolerating diet no issues overnight afebrile Physical Exam: GEN: Alert, oriented, NAD CV: Regular rate and rhythm, trace edema Pulm: Non-labored respirations, clear bilaterally ABD: soft, dressing in place, ostomy bag with liquid stool Neuro: Normal speech, normal affect Problem List: Colonic obstruction secondary to sigmoid mass complicated by SBO and Uterine Fibroid now s/p Goel's procedure with lysis of adhesions (11/30) Post-op Ileus Hypokalemia Pseudohypocalcemia Left Foot wound s/p recent I&D (11/22) Chronic Anemia IDDM2 Colonic obstruction secondary to sigmoid mass complicated by SBO and Uterine Fibroid now s/p Goel's procedure with lysis of adhesions (11/30) Post-op Ileus, resolved CT abd/pelvis (11/29): High-grade colonic obstruction secondary to suspected annular constricting mass at the proximal sigmoid. Mild pneumatosis. Mild Ascites. Hepatic steatosis. Large Uterine fibroid. CTA chest (11/29): no PE. low lung volumes with bilateral groundglass opacities that could reflect atelectasis and/or edema. Mild distal esophageal thickening. Dr. Queen general surgeon consulted, GI consulted. Found to have Colonic obstruction secondary to sigmoid mass now s/p Goel's procedure with lysis of adhesions with Dr. Queen (11/30) IV fluids, pain control Continue IV zosyn (11/29-) Pain and nausea improving daily. Tolerating Diet Clear for DC from surgical standpoint. however, post-op having moderate output, potassium remains low Hypokalemia Pseudohypocalcemia Monitor and replete electrolytes as needed Suspect pseudohypocalcemia; albumin was low on 11/29 Potassium persistently low replace potassium dc IV fluids Left Foot wound s/p recent I&D (11/22) Had recent I&D of left foot with Dr. Queen on 11/22. Wound care per surgery pain control Chronic Anemia Daily labs. Monitor hgb. IDDM2 accu-cheks, SSI recently started on lantus insulin A1c was 11.9 last hospitalization VTE: Lovenox Code: Full Dispo: Home Pending potassium improves needs home health, dressing changes / ostomy supplies Time Spent Managing Pts Care (In Minutes): 45
[2024-12-06] MEDS: POTASSIUM CL SA 10 MEQ TAB PO ONE ×2 (13:18→17:06)
[2024-12-07 05:28] LABS: Albumin 1.5 g/dL (3.4-5.0); Anion Gap 9.0 mEq/L (5.0-15.0); BUN Blood Urea Nitrogen 7.0 mg/dL (7-18); Glucose Level 175.0 mg/dL (74-106); Magnesium 1.8 mg/dL (1.6-2.4); Potassium 3.0 mEq/L (3.5-5.1)
[2024-12-07] MEDS: POTASSIUM CL SA 10 MEQ TAB PO ONE ×2 (06:00→06:21)
[2024-12-07] MEDS: MAGNESIUM SULFATE 1 gm IVPB 1 GM/100 ML BAG IV ONE (06:13)
[2024-12-07] MEDS: POTASS/SODIUM PHOSPHATE 1 PKT POWD.PACK PO SCH (06:21)
--- NOTE | 2024-12-07 10:39 | PN ---
Date of Progress Note: 12/07/2024 Subjective: The patient is awake, alert. No complaint. Objective: Vital Signs: Stable. Afebrile. Abdomen: Benign. Laboratory Data: Her potassium is 3.0, she is being replaced. Once her electrolytes are medically s tabilized, she could be discharged to home. Assessment: Status post Crys's procedure. Recommendation: Discharge plan in progress. Discharge per the medical team. The patient can follow up with me in [facility] in a week. /MODL Voice ID: [id number] Report ID: [id number]
--- NOTE | 2024-12-07 15:16 | RAD REPORT ---
EXAMINATION: ONE VIEW CHEST XR CLINICAL INDICATION: Chills, post-op TECHNIQUE: Frontal chest projection is submitted. Examination is limited by patient positioning and t echnique. COMPARISON: No prior exam. FINDINGS: Underinflated lung grewal results in mild vascular crowding. The heart is upper limit of normal in si ze. No displaced fractures identified. Catheter tubing proximal left arm. IMPRESSION: Underinflated lung grewal.
[2024-12-07] MEDS: Meropenem 1,000 MG in NA CHLORIDE 0.9% 100 ML IV SCH (16:14)
--- NOTE | 2024-12-07 16:26 | P.PN ---
Subjective Date of Service: 12/07/24 Chief Complaint: Abdominal pain and distention. Patient is complaining of chills and shortness of breath however no recorded fever. Colostomy has good urine output. Oral intake decreased. Physical Examination - Vital Signs Temperature: 98.5 F Blood Pressure: 146/89 Pulse: 98 Respirations: 16 Pulse Ox (%): 92 Assessment And Plan - Plan Physical Exam: GEN: Alert, oriented, mild distress due to rigors CV: Normal rhythm, tachycardic, trace edema Pulm: Non-labored respirations, clear bilaterally ABD: soft, dressing in place, ostomy bag with liquid stool Neuro: Normal speech, normal affect Problem List: Colonic obstruction secondary to sigmoid mass complicated by SBO and Uterine Fibroid now s/p Goel's procedure with lysis of adhesions (11/30) Post-op Ileus Hypokalemia Pseudohypocalcemia Left Foot wound s/p recent I&D (11/22) Chronic Anemia IDDM2 Colonic obstruction secondary to sigmoid mass complicated by SBO and Uterine Fibroid now s/p Goel's procedure with lysis of adhesions (11/30) Post-op Ileus, resolved CT abd/pelvis (11/29): High-grade colonic obstruction secondary to suspected annular constricting mass at the proximal sigmoid. Mild pneumatosis. Mild Ascites. Hepatic steatosis. Large Uterine fibroid. CTA chest (11/29): no PE. low lung volumes with bilateral groundglass opacities that could reflect atelectasis and/or edema. Mild distal esophageal thickening. Dr. Queen general surgeon consulted, GI consulted. Found to have Colonic obstruction secondary to sigmoid mass now s/p Goel's procedure with lysis of adhesions with Dr. Queen (11/30) IV fluids, pain control Continue IV zosyn (11/29-) Pain and nausea improving daily. Tolerating Diet Clear for DC from surgical standpoint. however, post-op having moderate output, potassium remains low Hypokalemia Pseudohypocalcemia Monitor and replete electrolytes as needed Suspect pseudohypocalcemia; albumin was low on 11/29 Potassium persistently low replace potassium dc IV fluids Left Foot wound s/p recent I&D (11/22) Had recent I&D of left foot with Dr. Queen on 11/22. Wound care per surgery pain control Chronic Anemia Daily labs. Monitor hgb. IDDM2 accu-cheks, SSI recently started on lantus insulin A1c was 11.9 last hospitalization 12/07 Patient has chills, no recorded fever Check blood culture, chest x-ray shows no significant acute infiltrate, obtain urinalysis to rule out UTI. Start IV vancomycin and and meropenem given prior history of infected foot ulcer. Abdominal midline surgical wound examined and noted it is clean with no discharge. Continue supportive measures with IV fluid, analgesics as needed, antiemetics as needed. Monitor and correct electrolytes. General surgery Dr. Queen continue to follow VTE: Lovenox Code: Full Dispo: Home Pending potassium improves needs home health, dressing changes / ostomy supplies
[2024-12-07] MEDS: VANCOMYCIN 2.5 GM in NA CHLORIDE 0.9% 500 ML IVPB ONE (17:00)
[2024-12-07] MEDS: INSULIN REGULAR (HUMAN) 100 UNIT/ML SQ SCH (20:54)
[2024-12-08 02:48] LABS: Urine Crystals Unidentified Few /HPF (None Seen); Urine Culture Reflex Order REFLEXED; Urine Microscopic Reflex YN NO UMIC; Urine Yeast (Budding) Many /HPF (None Seen)
[2024-12-08] MEDS: VANCOMYCIN 1.75 GM in NA CHLORIDE 0.9% 500 ML IVPB SCH (03:18)
[2024-12-08 06:43] LABS: Anion Gap 6.6 mEq/L (5.0-15.0); BUN Blood Urea Nitrogen 6.0 mg/dL (7-18); Glucose Level 152.0 mg/dL (74-106); Magnesium 1.8 mg/dL (1.6-2.4)
[2024-12-08 06:46] LABS: Potassium 2.6 mEq/L (3.5-5.1)
[2024-12-08] MEDS: NA CHLORIDE 0.9% 250 ML ONE (08:48)
[2024-12-08] MEDS: KCL 20 MEQ/100 mL IVPB 20 MEQ/100 ML BAG IV SCH (08:55)
[2024-12-08 09:12] LABS: Absolute Lymphocytes (CBC) 0.9 K/uL (0.7-4.9); Hematocrit 26.6 % (36.0-45.0); Hemoglobin 8.5 g/dL (12.0-15.0); MCH 24.6 pg (27.0-35.0); MCHC 32.0 g/dL (32.0-36.0); MCV 76.8 fL (80-100); MPV 7.9 fL (7.6-11.3); Nucleated RBC Absolute Count 0.0 (0-0); Nucleated Red Blood Cells % 0.3 % (0-0); RBC Red Blood Cell Count 3.46 M/uL (3.86-4.86); White Blood Count 14.60 thou/uL (4.3-10.9)
--- NOTE | 2024-12-08 14:05 | PN ---
Date of Progress Note: 12/08/2024 Subjective: Patient is awake, not really hungry. She states that she had restarted her period earli er than usual. Her vitals are stable. She is afebrile. Her white count, however, is jumped up to 1 4.6, her H and H are 8.5 and 26.6. There is a left shift. Her potassium is still very low at 2.6. The oral potassium supplement she took which she did not absorb, it came out in the colostomy. There fore, she is getting IV potassium right now. Her abdomen is benign. Ostomy is working. Assessment: Status post Crys's procedure with hypokalemia and probably prolonged ileus. Recommendations: Continue potassium replacement for the time being. Monitor H and H workup on oscar rhagia and I will order a Glucerna for nutritional support. The patient needs increased protein inta melodie. /MODL Voice ID: [id number] Report ID: [id number]
[2024-12-08] MEDS: NA CHLORIDE 0.9% 100 ML ONE (15:20)
--- NOTE | 2024-12-08 15:31 | P.PN ---
Subjective Date of Service: 12/08/24 Chief Complaint: Abdominal pain and distention. Patient states she feels better today. No recorded fever. She denies any chills today. UA done suggested UTI. Good colostomy output. Physical Examination - Vital Signs Temperature: 98.7 F Blood Pressure: 131/70 Pulse: 89 Respirations: 18 Pulse Ox (%): 92 Assessment And Plan - Plan Physical Exam: GEN: Alert, oriented, mild distress due to rigors CV: Normal rhythm, normal rate, no edema Pulm: Clear to auscultation bilaterally, adequate breath sounds bilaterally. ABD: soft, dressing in place, ostomy bag with liquid stool Neuro: Normal speech, normal affect Problem List: Colonic obstruction secondary to sigmoid mass complicated by SBO and Uterine Fibroid now s/p Goel's procedure with lysis of adhesions (11/30) Post-op Ileus Hypokalemia Pseudohypocalcemia Left Foot wound s/p recent I&D (11/22) Chronic Anemia IDDM2 Colonic obstruction secondary to sigmoid mass complicated by SBO and Uterine Fibroid now s/p Goel's procedure with lysis of adhesions (11/30) Post-op Ileus, resolved CT abd/pelvis (11/29): High-grade colonic obstruction secondary to suspected annular constricting mass at the proximal sigmoid. Mild pneumatosis. Mild Ascites. Hepatic steatosis. Large Uterine fibroid. CTA chest (11/29): no PE. low lung volumes with bilateral groundglass opacities that could reflect atelectasis and/or edema. Mild distal esophageal thickening. Dr. Queen general surgeon consulted, GI consulted. Found to have Colonic obstruction secondary to sigmoid mass now s/p Goel's procedure with lysis of adhesions with Dr. Queen (11/30) IV fluids, pain control Continue IV zosyn (11/29-) Pain and nausea improving daily. Tolerating Diet Clear for DC from surgical standpoint. however, post-op having moderate output, potassium remains low Hypokalemia Pseudohypocalcemia Monitor and replete electrolytes as needed Suspect pseudohypocalcemia; albumin was low on 11/29 Potassium persistently low replace potassium dc IV fluids Left Foot wound s/p recent I&D (11/22) Had recent I&D of left foot with Dr. Queen on 11/22. Wound care per surgery pain control Chronic Anemia Daily labs. Monitor hgb. IDDM2 accu-cheks, SSI recently started on lantus insulin A1c was 11.9 last hospitalization 12/07 Patient has chills, no recorded fever Check blood culture, chest x-ray shows no significant acute infiltrate, obtain urinalysis to rule out UTI. Start IV vancomycin and and meropenem given prior history of infected foot [facility]. Abdominal midline surgical wound examined and noted it is clean with no discharge. Continue supportive measures with IV fluid, analgesics as needed, antiemetics as needed. Monitor and correct electrolytes. General surgery Dr. Queen continue to follow 12/08 UA suggest the presence of UTI, associated leukocytosis. Blood cultures pending. Patient symptoms improved with IV meropenem and vancomycin. Patient has high risk for MRSA. Continue current antibiotics. Severe hypokalemia today noted. Family reports that they saw a potassium tablet and her colostomy output indicating poor absorption. Replace potassium IV. Monitor and correct electrolytes as needed Continue IV NS given decreased oral intake. General surgery Dr. Queen to follow. VTE: Lovenox Code: Full Dispo: Home
[2024-12-08] MEDS: NS KCL 20MEQ 20 MEQ/1,000 ML BAG IV SCH (16:45)
[2024-12-08] MEDS: MAGNESIUM SULFATE 1 gm IVPB 1 GM/100 ML BAG IV ONE (16:53)
[2024-12-08] MEDS: GLUCERNA SHAKE 237 ML CAN PO SCH (21:00)
[2024-12-09 04:07] LABS: MPV 7.5 fL (7.6-11.3); Nucleated Red Blood Cells % 0.0 % (0-0)
[2024-12-09 04:12] LABS: Absolute Lymphocytes (CBC) 0.8 K/uL (0.7-4.9); Hematocrit 26.9 % (36.0-45.0); Hemoglobin 9.0 g/dL (12.0-15.0); MCH 25.6 pg (27.0-35.0); MCHC 33.2 g/dL (32.0-36.0); MCV 76.9 fL (80-100); Nucleated RBC Absolute Count 0.0 (0-0); RBC Red Blood Cell Count 3.50 M/uL (3.86-4.86); White Blood Count 12.30 thou/uL (4.3-10.9)
[2024-12-09 04:20] LABS: Anion Gap 9.9 mEq/L (5.0-15.0); BUN Blood Urea Nitrogen 8.0 mg/dL (7-18); Glucose Level 151.0 mg/dL (74-106); Magnesium 2.0 mg/dL (1.6-2.4); Potassium 2.9 mEq/L (3.5-5.1)
[2024-12-09] MEDS: KCL 20 MEQ/100 mL IVPB 20 MEQ/100 ML BAG IV SCH (05:28)
--- NOTE | 2024-12-09 09:41 | PN ---
Date of Progress Note: 12/09/2024 Subjective: The patient is awake, alert, no new complaints. Tolerating diet, ostomy working. The p atient does have UTI, being treated for that. Objective: Vital Signs: Stable. She is afebrile. Abdomen: Benign. Wound is clean, dry, intact. Assessment: Status post Crys's procedure with UTI. Recommendations: Continue present management. Antibiotics per the Hospitalist Team regarding the UT I. The patient can be discharged when she has ostomy supplies and appropriate antibiotics for her UT I. Discharge instructions have been given. ROBERT/MODL Voice ID: [id number] Report ID: [id number]
--- NOTE | 2024-12-09 15:46 | P.PN ---
Subjective Date of Service: 12/09/24 Chief Complaint: Abdominal pain and distention. Patient states she continues to feel better. She states that she is eating more and ambulating more. Colostomy output is watery Physical Examination - Vital Signs Temperature: 98.3 F Blood Pressure: 137/76 Pulse: 94 Respirations: 18 Pulse Ox (%): 91 Assessment And Plan - Plan Physical Exam: GEN: Alert, oriented, mild distress due to rigors CV: Normal rhythm, normal rate, no edema Pulm: Clear to auscultation bilaterally, adequate breath sounds bilaterally. ABD: soft, dressing in place, ostomy bag with liquid stool Neuro: Normal speech, normal affect Problem List: Colonic obstruction secondary to sigmoid mass complicated by SBO and Uterine Fibroid now s/p Goel's procedure with lysis of adhesions (11/30) Post-op Ileus Hypokalemia Pseudohypocalcemia Left Foot wound s/p recent I&D (11/22) Chronic Anemia IDDM2 Colonic obstruction secondary to sigmoid mass complicated by SBO and Uterine Fibroid now s/p Goel's procedure with lysis of adhesions (11/30) Post-op Ileus, resolved CT abd/pelvis (11/29): High-grade colonic obstruction secondary to suspected annular constricting mass at the proximal sigmoid. Mild pneumatosis. Mild Ascites. Hepatic steatosis. Large Uterine fibroid. CTA chest (11/29): no PE. low lung volumes with bilateral groundglass opacities that could reflect atelectasis and/or edema. Mild distal esophageal thickening. Dr. Queen general surgeon consulted, GI consulted. Found to have Colonic obstruction secondary to sigmoid mass now s/p Goel's procedure with lysis of adhesions with Dr. Queen (11/30) IV fluids, pain control Continue IV zosyn (11/29-) Pain and nausea improving daily. Tolerating Diet Clear for DC from surgical standpoint. however, post-op having moderate output, potassium remains low Hypokalemia Pseudohypocalcemia Monitor and replete electrolytes as needed Suspect pseudohypocalcemia; albumin was low on 11/29 Potassium persistently low replace potassium dc IV fluids Left Foot wound s/p recent I&D (11/22) Had recent I&D of left foot with Dr. Queen on 11/22. Wound care per surgery pain control Chronic Anemia Daily labs. Monitor hgb. IDDM2 accu-cheks, SSI recently started on lantus insulin A1c was 11.9 last hospitalization 12/07 Patient has chills, no recorded fever Check blood culture, chest x-ray shows no significant acute infiltrate, obtain urinalysis to rule out UTI. Start IV vancomycin and and meropenem given prior history of infected foot ulcer. Abdominal midline surgical wound examined and noted it is clean with no discharge. Continue supportive measures with IV fluid, analgesics as needed, antiemetics as needed. Monitor and correct electrolytes. General surgery Dr. Queen continue to follow 12/08 UA suggest the presence of UTI, associated leukocytosis. Blood cultures pending. Patient symptoms improved with IV meropenem and vancomycin. Patient has high risk for MRSA. Continue current antibiotics. Severe hypokalemia today noted. Family reports that they saw a potassium tablet and her colostomy output indicating poor absorption. Replace potassium IV. Monitor and correct electrolytes as needed Continue IV NS given decreased oral intake. General surgery Dr. Queen to follow. 12/09 Clinically improved. WBC trending down. Blood cultures negative. Urine cultures pending. Continue aggressive broad-spectrum IV antibiotics-meropenem and vancomycin Hypokalemia secondary to increased GI losses from the colostomy. Continue to correct hypokalemia IV. May use potassium effervescent orally Continue to monitor electrolytes. Increase activity as tolerated. Continue IV NS with potassium. Monitor CBC to follow leukocytosis. VTE: Lovenox Code: Full Dispo: Home
[2024-12-09] MEDS: VANCOMYCIN 1.5 GM in NA CHLORIDE 0.9% 500 ML IVPB SCH (17:16)
--- NOTE | 2024-12-09 19:22 | CON ---
Reason For Consultation: Colonic obstruction, suspected cancer. History Of Presenting Illness: The patient is a 44-year-old woman whom I had seen on November 30. S he had presented a day earlier. She had past medical history significant for diabetes, neuropathy, o besity, arthropathy. Presented to the ER with complaint of 10/10 abdominal pain and distention along with nausea, vomiting. Imaging revealed colonic obstruction around the sigmoid region. She was adm itted and taken for surgery the next day. When I saw her, she was in the postop. Allergies: NO KNOWN DRUG ALLERGIES. Home Medications: As in the chart. Past Medical History: As above. Past Surgical History: Recent partial colon resection. Family History: Noncontributory. Some unknown cancer in mother and father. Social History: She denies toxic habits. Review of Systems: GI: As in HPI. Otherwise, negative. A 10-point review of systems is negative otherwise. Physical Examination: Vital Signs: The patient is afebrile, not tachycardic, not tachypneic, normotensive. HEENT: Pupils are equally reactive. Neck: Supple. Chest: Clear to auscultation bilaterally. Abdomen: Was not examined because of postoperative state. Extremities: No pedal edema. PARTNERSHIP MANAGER: Alert and oriented x3. CVS: S1, S2 plus. Laboratory Results: Reviewed. Mild anemia. Impression: A 44-year-old woman who appears to have colonic obstruction due to colon mass, likely ma lignancy. Plan: Continue current management. Now, she is status post colostomy. Will need outpatient colonos copy to rule out any other lesion before reversal. This was discussed with the patient. We will see her in the clinic as an outpatient for followup. US/MODL Voice ID: [id number] Report ID: [id number]
[2024-12-10 05:19] LABS: Absolute Lymphocytes (CBC) 0.8 K/uL (0.7-4.9); Hematocrit 25.5 % (36.0-45.0); Hemoglobin 8.1 g/dL (12.0-15.0); MCH 24.4 pg (27.0-35.0); MCHC 31.8 g/dL (32.0-36.0); MCV 76.8 fL (80-100); MPV 7.8 fL (7.6-11.3); Nucleated RBC Absolute Count 0.0 (0-0); Nucleated Red Blood Cells % 0.1 % (0-0); RBC Red Blood Cell Count 3.31 M/uL (3.86-4.86); White Blood Count 10.10 thou/uL (4.3-10.9)
[2024-12-10 05:21] LABS: Anion Gap 10.0 mEq/L (5.0-15.0); BUN Blood Urea Nitrogen 10.0 mg/dL (7-18); Glucose Level 180.0 mg/dL (74-106); Potassium 3.0 mEq/L (3.5-5.1)
[2024-12-10] MEDS: POTASSIUM 25 MEQ EFFERV TAB PO ONE ×2 (08:04→21:18)
--- NOTE | 2024-12-10 09:35 | RAD REPORT ---
EXAM: XR Abdomen W Erect HISTORY: [facility] S/P Goel's, Ileus COMPARISON: 12/03/2024 FINDINGS: Single view of the abdomen shows a nonspecific, nonobstructive bowel gas pattern, with impr richa distention since prior exam. Moderate diffuse distention of the stomach. Paucity of small bowel gas otherwise, nonspecific. No suspicious calcifications are seen. The bones are unremarkabl e. Sequelae of laparotomy with skin fernandez along the right hemiabdomen. IMPRESSION: Improved small bowel distention since prior exam. Paucity of small bowel gas limits evaluation.
--- NOTE | 2024-12-10 10:57 | PN ---
Date of Progress Note: 12/10/2024 Subjective: The patient states that she vomited last night. She is still not feeling well. Her uri ne culture is pending. Her laboratory data shows white count is normal. Left shift has improved. H and H were 8.1 and 25.5, and chemistry reviewed. Her potassium is low, being replaced. Objective: Vital Signs: Stable. She is currently afebrile. Abdomen: Slightly distended, but no tenderness. No rigidity. No rebound. No guarding. Wound is c lean, dry, and intact. Her ostomy is working well. Assessment: Status post Crys's procedure, UTI with probable ileus. Recommendations: We are going to continue present management. We will get an abdominal x-ray to see what that shows. Continue antibiotics and replace potassium. We will follow this patient closely. ROBERT/JOHN Voice ID: [id number] Report ID: [id number]
--- NOTE | 2024-12-10 14:40 | P.PN ---
Date of Service: 12/10/24 Subjective: Resting in wheelchair. Family at bedside. We discussed the next steps. She will follow-up with Dr. Dunne. Physical Examination - Vital Signs Temperature: 98.3 F Blood Pressure: 137/76 Pulse: 94 Respirations: 18 Pulse Ox (%): 91 Assessment And Plan - Plan Physical Exam: GEN: Alert, oriented, mild distress due to rigors CV: Normal rhythm, normal rate, no edema Pulm: Clear to auscultation bilaterally, adequate breath sounds bilaterally. ABD: soft, dressing in place, ostomy bag with liquid stool Neuro: Normal speech, normal affect Problem List: Colonic obstruction secondary to sigmoid mass complicated by SBO and Uterine Fibroid now s/p Goel's procedure with lysis of adhesions (11/30) Post-op Ileus Hypokalemia Pseudohypocalcemia Left Foot wound s/p recent I&D (11/22) Chronic Anemia IDDM2 Colonic obstruction secondary to sigmoid mass complicated by SBO and Uterine Fibroid now s/p Goel's procedure with lysis of adhesions (11/30) Post-op Ileus, resolved CT abd/pelvis (11/29): High-grade colonic obstruction secondary to suspected annular constricting mass at the proximal sigmoid. Mild pneumatosis. Mild Ascites. Hepatic steatosis. Large Uterine fibroid. CTA chest (11/29): no PE. low lung volumes with bilateral groundglass opacities that could reflect atelectasis and/or edema. Mild distal esophageal thickening. Dr. Queen general surgeon consulted, GI consulted. Found to have Colonic obstruction secondary to sigmoid mass now s/p Goel's procedure with lysis of adhesions with Dr. Queen (11/30) IV fluids, pain control Continue IV zosyn (11/29-) Pain and nausea improving daily. Tolerating Diet Clear for DC from surgical standpoint. however, post-op having moderate output, potassium remains low Hypokalemia Pseudohypocalcemia Monitor and replete electrolytes as needed Suspect pseudohypocalcemia; albumin was low on 11/29 Potassium persistently low replace potassium dc IV fluids Left Foot wound s/p recent I&D (11/22) Had recent I&D of left foot with Dr. Queen on 11/22. Wound care per surgery pain control Chronic Anemia Daily labs. Monitor hgb. Uncontrolled type 2 diabetes with hyperglycemia / IDDM2 accu-cheks, SSI recently started on lantus insulin A1c was 11.9 last hospitalization 12/07 Patient has chills, no recorded fever Check blood culture, chest x-ray shows no significant acute infiltrate, obtain urinalysis to rule out UTI. Start IV vancomycin and and meropenem given prior history of infected foot ulcer. Abdominal midline surgical wound examined and noted it is clean with no discharge. Continue supportive measures with IV fluid, analgesics as needed, antiemetics as needed. Monitor and correct electrolytes. General surgery Dr. Queen continue to follow 12/08 UA suggest the presence of UTI, associated leukocytosis. Blood cultures pending. Patient symptoms improved with IV meropenem and vancomycin. Patient has high risk for MRSA. Continue current antibiotics. Severe hypokalemia today noted. Family reports that they saw a potassium tablet and her colostomy output indicating poor absorption. Replace potassium IV. Monitor and correct electrolytes as needed Continue IV NS given decreased oral intake. General surgery Dr. Queen to follow. 12/09 Clinically improved. WBC trending down. Blood cultures negative. Urine cultures pending. Continue aggressive broad-spectrum IV antibiotics-meropenem and vancomycin Hypokalemia secondary to increased GI losses from the colostomy. Continue to correct hypokalemia IV. May use potassium effervescent orally Continue to monitor electrolytes. Increase activity as tolerated. Continue IV NS with potassium. Monitor CBC to follow leukocytosis. 822 Leukocytosis resolved, remains on Merrem and Vanco Will need outpatient colonoscopy with GI Follow-up with Dr. Dunne as outpatient Potassium remains low at 3. Supplement and check mag level Hyperglycemia, continue sliding scale insulin Awaiting results of biopsy KUB in the a.m. VTE: Lovenox Code: Full Dispo: Home
[2024-12-10] MEDS: Mupirocin NASAL 2 APPL/1 GM TUBE NAS SCH (21:18)
[2024-12-10] MEDS: PROMETHAZINE INJ 25 MG/ML AMP IM PRN (21:35)
[2024-12-10] MEDS: ACETAMINOPHEN 325 MG TABLET PO PRN (23:07)
[2024-12-11 00:16] LABS: Magnesium 2.1 mg/dL (1.6-2.4)
[2024-12-11 00:18] LABS: Potassium 2.6 mEq/L (3.5-5.1)
[2024-12-11] MEDS ORDERED: SODIUM CHLORIDE 0.9% 10ML INJ IV PRN (00:19)
[2024-12-11] MEDS: MORPHINE 2 MG/ML SYR IV PRN (01:02)
[2024-12-11] MEDS: LORazepam 2 MG/ML VIAL IV ONE (01:07)
[2024-12-11] MEDS: FUROSEMIDE 40 MG/4 ML VIAL IV ONE (01:22)
[2024-12-11] MEDS: ONDANSETRON 4 MG/2 ML VIAL IV ONE (01:22)
[2024-12-11] MEDS: PANTOPRAZOLE 40 MG INJ IVP ONE (01:22)
--- NOTE | 2024-12-11 02:00 | RAD REPORT ---
ADDENDUM #1 Additional image submitted for interpretation with similar findings of moderate gastric and hepatic f lexure distention. Overall paucity of small bowel gas. Electronically signed by: Mark Anthony Morales MD 12/11/2024 02:08 AM [facility] End of Addendum EXAM: XR Abdomen, 1 View CLINICAL HISTORY: ABD DISTENTION TECHNIQUE: Frontal supine view of the abdomen/pelvis. COMPARISON: 12/10/2024 at 9: 07 AM FINDINGS: Gastrointestinal tract: Moderate gastric distention and moderate distention at the level of the hep atic flexure similar to the prior. No small bowel dilation. Bones/joints: Unremarkable. No acute fracture. Soft tissues: Right paracentral skin fernandez remain in place. IMPRESSION: Moderate gastric distention and moderate distention at the level of the hepatic flexure similar to th e prior. Electronically signed by: Mark Anthony Morales MD 12/11/2024 01:55 AM T Due to temporary technical issues with the [employer] reporting system, reports are being perry d by the in-house radiologist without review as a courtesy to ensure prompt reporting the interpreting radiologist is fully responsible for the content of the report. Transcribed Date/Time: 12/11/2024 2:16 AM
--- NOTE | 2024-12-11 03:35 | RAD REPORT ---
EXAM: XR Chest, 1 View CLINICAL HISTORY: SOB TECHNIQUE: Frontal view of the chest. COMPARISON: No relevant prior studies available. FINDINGS: Lungs: Low lung volumes. Mild central pulmonary vascular and interstitial prominence. No consol idation. Pleural space: Unremarkable. No pneumothorax. Heart: The cardiac silhouette is mildly enlarged, in part accentuated by portable technique and deg ree of inspiration. Mediastinum: Unremarkable. Normal mediastinal contour. Bones/joints: Unremarkable. No acute fracture. IMPRESSION: Findings which may be related to mild pulmonary congestion. Electronically signed by: Mark Anthony Morales MD 12/11/2024 03:23 AM CDT Due to temporary technical issues with the [employer]ACS[employer] reporting system, reports are being perry d by the in-house radiologist without review as a courtesy to ensure prompt reporting the interpreting radiologist is fully responsible for the content of the report. Transcribed Date/Time: 12/11/2024 3:35 AM
[2024-12-11 08:21] LABS: Anion Gap 10.7 mEq/L (5.0-15.0); BUN Blood Urea Nitrogen 9.0 mg/dL (7-18); Glucose Level 150.0 mg/dL (74-106); Potassium 2.7 mEq/L (3.5-5.1)
[2024-12-11] MEDS: FLUCONAZOLE 200mg IVPB 200 MG/100 ML BAG IV SCH (08:26)
[2024-12-11] MEDS: POTASSIUM 25 MEQ EFFERV TAB PO ONE (08:35)
--- NOTE | 2024-12-11 12:08 | PN ---
Date of Progress Note: 12/11/2024 Subjective: Patient is awake, alert, complaining a little bit of abdominal distention. She burps wh en she sits up, but her ostomy is working well. She is tolerating diet. Her urine culture reviewed. She has jerson growing and I discussed with the hospitalist about restarting . Laboratory Data: Reviewed. Her chemistry is significant for potassium of 2.7, which is being replac ed. Objective: Vital Signs: Stable. She is afebrile. Abdomen: Soft, minimal distention, but no tenderness. No rebound, rigidity, or guarding. Ostomy is working well. Assessment: Status post Crys's procedure with urinary tract infection. Recommendation: Discharge planning is progressing as planned. The patient still needs supplies. Valentina levy may need physical therapy at home. Once we get her urine infection under control, from a surgical standpoint, she can be discharged with home health and we could follow her up in the [facility] for both her foot wound and her abdominal wounds. The patient will need Oncology followup for s taging of the cancer as well as possible chemotherapy. Plan of care discussed in detail with the pat ient and family. /MODL Voice ID: [id number] Report ID: [id number]
[2024-12-11 13:22] LABS: Absolute Lymphocytes (CBC) 0.6 K/uL (0.7-4.9); Hematocrit 23.6 % (36.0-45.0); Hemoglobin 7.5 g/dL (12.0-15.0); MCH 24.5 pg (27.0-35.0); MCHC 31.7 g/dL (32.0-36.0); MCV 77.4 fL (80-100); MPV 7.5 fL (7.6-11.3); Nucleated RBC Absolute Count 0.0 (0-0); Nucleated Red Blood Cells % 0.0 % (0-0); RBC Red Blood Cell Count 3.05 M/uL (3.86-4.86); White Blood Count 7.00 thou/uL (4.3-10.9)
--- NOTE | 2024-12-11 14:11 | P.PN ---
Date of Service: 12/11/24 Subjective: Resting in wheelchair. Family at bedside. We discussed the next steps. She will follow-up with Dr. Dunne. Physical Examination - Vital Signs Temperature: 98.3 F Blood Pressure: 137/76 Pulse: 94 Respirations: 18 Pulse Ox (%): 91 Assessment And Plan - Plan Physical Exam: GEN: Alert, oriented, mild distress due to rigors CV: Normal rhythm, normal rate, no edema Pulm: Clear to auscultation bilaterally, adequate breath sounds bilaterally. ABD: soft, dressing in place, ostomy bag with liquid stool Neuro: Normal speech, normal affect Problem List: Colonic obstruction secondary to sigmoid mass complicated by SBO and Uterine Fibroid now s/p Goel's procedure with lysis of adhesions (11/30) Post-op Ileus Hypokalemia Pseudohypocalcemia Left Foot wound s/p recent I&D (11/22) Chronic Anemia IDDM2 Colonic obstruction secondary to sigmoid mass complicated by SBO and Uterine Fibroid now s/p Goel's procedure with lysis of adhesions (11/30) Post-op Ileus, resolved CT abd/pelvis (11/29): High-grade colonic obstruction secondary to suspected annular constricting mass at the proximal sigmoid. Mild pneumatosis. Mild Ascites. Hepatic steatosis. Large Uterine fibroid. CTA chest (11/29): no PE. low lung volumes with bilateral groundglass opacities that could reflect atelectasis and/or edema. Mild distal esophageal thickening. Dr. Queen general surgeon consulted, GI consulted. Found to have Colonic obstruction secondary to sigmoid mass now s/p Goel's procedure with lysis of adhesions with Dr. Queen (11/30) IV fluids, pain control Continue IV zosyn (11/29-) Pain and nausea improving daily. Tolerating Diet Clear for DC from surgical standpoint. however, post-op having moderate output, potassium remains low Hypokalemia Pseudohypocalcemia Monitor and replete electrolytes as needed Suspect pseudohypocalcemia; albumin was low on 11/29 Potassium persistently low replace potassium dc IV fluids Left Foot wound s/p recent I&D (11/22) Had recent I&D of left foot with Dr. Queen on 11/22. Wound care per surgery pain control Chronic Anemia Daily labs. Monitor hgb. Uncontrolled type 2 diabetes with hyperglycemia / IDDM2 accu-cheks, SSI recently started on lantus insulin A1c was 11.9 last hospitalization 12/07 Patient has chills, no recorded fever Check blood culture, chest x-ray shows no significant acute infiltrate, obtain urinalysis to rule out UTI. Start IV vancomycin and and meropenem given prior history of infected foot ulcer. Abdominal midline surgical wound examined and noted it is clean with no discharge. Continue supportive measures with IV fluid, analgesics as needed, antiemetics as needed. Monitor and correct electrolytes. General surgery Dr. Queen continue to follow 12/08 UA suggest the presence of UTI, associated leukocytosis. Blood cultures pending. Patient symptoms improved with IV meropenem and vancomycin. Patient has high risk for MRSA. Continue current antibiotics. Severe hypokalemia today noted. Family reports that they saw a potassium tablet and her colostomy output indicating poor absorption. Replace potassium IV. Monitor and correct electrolytes as needed Continue IV NS given decreased oral intake. General surgery Dr. Queen to follow. 12/09 Clinically improved. WBC trending down. Blood cultures negative. Urine cultures pending. Continue aggressive broad-spectrum IV antibiotics-meropenem and vancomycin Hypokalemia secondary to increased GI losses from the colostomy. Continue to correct hypokalemia IV. May use potassium effervescent orally Continue to monitor electrolytes. Increase activity as tolerated. Continue IV NS with potassium. Monitor CBC to follow leukocytosis. 12/10 Leukocytosis resolved, remains on Merrem and Vanco Will need outpatient colonoscopy with GI Follow-up with Dr. Dunne as outpatient Potassium remains low at 3. Supplement and check mag level Hyperglycemia, continue sliding scale insulin Awaiting results of biopsy KUB in the a.m. 12/11 CBC and CMP reviewed and improved KUB and chest x-ray reviewed Add PT OT Follow-up with wound healing center for foot wound and abdominal wounds Needs follow-up with oncology for cancer staging and chemotherapy Abnormal UA with many yeast. Add 3 days of Diflucan Add as needed Phenergan for nausea VTE: Lovenox Code: Full Dispo: Home
[2024-12-11] MEDS: VANCOMYCIN 1.5 GM in NA CHLORIDE 0.9% 500 ML IVPB SCH (14:32)
[2024-12-11 21:01] LABS: Anion Gap 7.8 mEq/L (5.0-15.0); BUN Blood Urea Nitrogen 8.0 mg/dL (7-18); Glucose Level 158.0 mg/dL (74-106); Magnesium 1.9 mg/dL (1.6-2.4); Potassium 2.8 mEq/L (3.5-5.1)
[2024-12-11] MEDS: KCL 20 MEQ/100 mL IVPB 20 MEQ/100 ML BAG IV SCH (23:31)
[2024-12-11] MEDS: NA CHLORIDE 0.9% 500 ML IV ONE (23:36)
--- NOTE | 2024-12-12 07:44 | P.PN ---
Date of Service: 12/12/24 Subjective: Endorses swelling of her legs. Resting in wheelchair. No family at bedside today. Denies fevers and chills Physical Examination - Vital Signs Temperature: 98.3 F Blood Pressure: 137/76 Pulse: 94 Respirations: 18 Pulse Ox (%): 91 Assessment And Plan - Plan Physical Exam: GEN: Alert, oriented, mild distress due to rigors CV: Normal rhythm, normal rate, no edema Pulm: Clear to auscultation bilaterally, adequate breath sounds bilaterally. ABD: soft, dressing in place, ostomy bag with liquid stool Neuro: Normal speech, normal affect Problem List: Colonic obstruction secondary to sigmoid mass complicated by SBO and Uterine Fibroid now s/p Goel's procedure with lysis of adhesions (11/30) Post-op Ileus Hypokalemia Pseudohypocalcemia Left Foot wound s/p recent I&D (11/22) Chronic Anemia IDDM2 Colonic obstruction secondary to sigmoid mass complicated by SBO and Uterine Fibroid now s/p Goel's procedure with lysis of adhesions (11/30) Post-op Ileus, resolved CT abd/pelvis (11/29): High-grade colonic obstruction secondary to suspected annular constricting mass at the proximal sigmoid. Mild pneumatosis. Mild Ascites. Hepatic steatosis. Large Uterine fibroid. CTA chest (11/29): no PE. low lung volumes with bilateral groundglass opacities that could reflect atelectasis and/or edema. Mild distal esophageal thickening. Dr. Queen general surgeon consulted, GI consulted. Found to have Colonic obstruction secondary to sigmoid mass now s/p Goel's procedure with lysis of adhesions with Dr. Queen (11/30) IV fluids, pain control Continue IV zosyn (11/29-) Pain and nausea improving daily. Tolerating Diet Barriers to discharge: potassium remains low, await home health set up with supplies Hypokalemia Pseudohypocalcemia Monitor and replete electrolytes as needed Suspect pseudohypocalcemia; albumin was low on 11/29 Potassium persistently low replace potassium dc IV fluids Left Foot wound s/p recent I&D (11/22) Had recent I&D of left foot with Dr. Queen on 11/22. Wound care per surgery pain control Chronic Anemia Daily labs. Monitor hgb. Uncontrolled type 2 diabetes with hyperglycemia / IDDM2 accu-cheks, SSI recently started on lantus insulin A1c was 11.9 last hospitalization 12/07 Patient has chills, no recorded fever Check blood culture, chest x-ray shows no significant acute infiltrate, obtain urinalysis to rule out UTI. Start IV vancomycin and and meropenem given prior history of infected foot ulcer. Abdominal midline surgical wound examined and noted it is clean with no discharge. Continue supportive measures with IV fluid, analgesics as needed, antiemetics as needed. Monitor and correct electrolytes. General surgery Dr. Queen continue to follow 12/08 UA suggest the presence of UTI, associated leukocytosis. Blood cultures pending. Patient symptoms improved with IV meropenem and vancomycin. Patient has high risk for MRSA. Continue current antibiotics. Severe hypokalemia today noted. Family reports that they saw a potassium tablet and her colostomy output indicating poor absorption. Replace potassium IV. Monitor and correct electrolytes as needed Continue IV NS given decreased oral intake. General surgery Dr. Queen to follow. 12/09 Clinically improved. WBC trending down. Blood cultures negative. Urine cultures pending. Continue aggressive broad-spectrum IV antibiotics-meropenem and vancomycin Hypokalemia secondary to increased GI losses from the colostomy. Continue to correct hypokalemia IV. May use potassium effervescent orally Continue to monitor electrolytes. Increase activity as tolerated. Continue IV NS with potassium. Monitor CBC to follow leukocytosis. 12/10 Leukocytosis resolved, remains on Merrem and Vanco Will need outpatient colonoscopy with GI Follow-up with Dr. Dunne as outpatient Potassium remains low at 3. Supplement and check mag level Hyperglycemia, continue sliding scale insulin Awaiting results of biopsy KUB in the a.m. 12/11 CBC and CMP reviewed and improved KUB and chest x-ray reviewed Add PT OT Follow-up with wound healing center for foot wound and abdominal wounds Needs follow-up with oncology for cancer staging and chemotherapy Abnormal UA with many yeast. Add 3 days of Diflucan Add as needed Phenergan for nausea 12/12 - Urine culture with Lizzeth, continue Diflucan - Replace potassium, hypokalemia improved - Await home health care set up and supplies prior to discharge - Currently on Merrem, Vanco, Diflucan - Outpatient heme-onc follow-up VTE: Lovenox Code: Full Dispo: Home
--- NOTE | 2024-12-12 12:04 | PN ---
Date of Progress Note: 12/12/2024 Subjective: The patient is awake, alert. Feels better. No nausea. No vomiting. Tolerating diet. Objective: Vital Signs: Stable. Afebrile. Abdomen: Benign. Laboratory Data: Pending from today. Assessment: Status post Crys's procedure with urinary tract infection. Recommendation: Continue medical management per the Hospitalist team. Discharge planning in progres s. Hopefully, discharge in a day or so when all of her needs are met prior to discharge. /MODL Voice ID: [id number] Report ID: [id number]
[2024-12-12 12:44] LABS: Absolute Lymphocytes (CBC) 0.8 K/uL (0.7-4.9); Hematocrit 25.1 % (36.0-45.0); Hemoglobin 7.8 g/dL (12.0-15.0); MCH 24.3 pg (27.0-35.0); MCHC 31.2 g/dL (32.0-36.0); MCV 78.0 fL (80-100); MPV 8.0 fL (7.6-11.3); Nucleated RBC Absolute Count 0.0 (0-0); Nucleated Red Blood Cells % 0.0 % (0-0); RBC Red Blood Cell Count 3.21 M/uL (3.86-4.86); White Blood Count 7.40 thou/uL (4.3-10.9)
[2024-12-12 12:56] LABS: Albumin 1.3 g/dL (3.4-5.0); Albumin/Globulin Ratio 0.3 (1.1-1.8); Alkaline Phosphatase 59 U/L (45-117); Anion Gap 12.4 mEq/L (5.0-15.0); BUN Blood Urea Nitrogen 8 mg/dL (7-18); Globulin 4.5 g/dL (2.3-3.5); Glucose Level 177 mg/dL (74-106); Potassium 3.4 mEq/L (3.5-5.1)
[2024-12-12 12:58] LABS: ALT/SGPT < 14 U/L (13-56); AST/SGOT < 10 U/L (15-37)
[2024-12-12] MEDS: KCL 20 MEQ/100 mL IVPB 20 MEQ/100 ML BAG IV SCH (14:00)
[2024-12-13] MEDS: LORAZEPAM 0.5 MG TABLET PO ONE (02:10)
--- NOTE | 2024-12-13 07:47 | RAD REPORT ---
Exam:Abdomen 1 View (KUB) Clinical history: Abdominal pain FINDINGS: The stomach is mildly to moderately dilated. Air is present within a few loops of nondilated small bowel. Air within the colon is diminished. Surgical changes involve the abdomen.
[2024-12-13] MEDS: FUROSEMIDE 40 MG/4 ML VIAL ONE (09:13)
[2024-12-13] MEDS: FUROSEMIDE 40 MG/4 ML VIAL IV ONE (09:16)
[2024-12-13 09:19] VITALS: O2SAT 99
--- NOTE | 2024-12-13 09:45 | P.PN ---
Date of Service: 12/13/24 Subjective: She does not feel well today. She states she has been vomiting since this morning. In addition she feels bloated. We discussed her KUB results. She does not feel as if she can go home today. Physical Examination - Vital Signs Temperature: 98.3 F Blood Pressure: 137/76 Pulse: 94 Respirations: 18 Pulse Ox (%): 91 Assessment And Plan - Plan Physical Exam: GEN: Alert, oriented, mild distress due to rigors CV: Normal rhythm, normal rate, no edema Pulm: Clear to auscultation bilaterally, adequate breath sounds bilaterally. ABD: soft, dressing in place, ostomy bag with liquid stool Neuro: Normal speech, normal affect Problem List: Colonic obstruction secondary to sigmoid mass complicated by SBO and Uterine Fibroid now s/p Goel's procedure with lysis of adhesions (11/30) Post-op Ileus Hypokalemia Pseudohypocalcemia Left Foot wound s/p recent I&D (11/22) Chronic Anemia IDDM2 Colonic obstruction secondary to sigmoid mass complicated by SBO and Uterine Fibroid now s/p Goel's procedure with lysis of adhesions (11/30) Post-op Ileus, resolved CT abd/pelvis (11/29): High-grade colonic obstruction secondary to suspected annular constricting mass at the proximal sigmoid. Mild pneumatosis. Mild Ascites. Hepatic steatosis. Large Uterine fibroid. CTA chest (11/29): no PE. low lung volumes with bilateral groundglass opacities that could reflect atelectasis and/or edema. Mild distal esophageal thickening. Dr. Queen general surgeon consulted, GI consulted. Found to have Colonic obstruction secondary to sigmoid mass now s/p Goel's procedure with lysis of adhesions with Dr. Queen (11/30) IV fluids, pain control Continue IV zosyn (11/29-) Pain and nausea improving daily. Tolerating Diet Barriers to discharge: potassium remains low, await home health set up with supplies Hypokalemia Pseudohypocalcemia Monitor and replete electrolytes as needed Suspect pseudohypocalcemia; albumin was low on 11/29 Potassium persistently low replace potassium dc IV fluids Left Foot wound s/p recent I&D (11/22) Had recent I&D of left foot with Dr. Queen on 11/22. Wound care per surgery pain control Chronic Anemia Daily labs. Monitor hgb. Uncontrolled type 2 diabetes with hyperglycemia / IDDM2 accu-cheks, SSI recently started on lantus insulin A1c was 11.9 last hospitalization 12/07 Patient has chills, no recorded fever Check blood culture, chest x-ray shows no significant acute infiltrate, obtain urinalysis to rule out UTI. Start IV vancomycin and and meropenem given prior history of infected foot ulcer. Abdominal midline surgical wound examined and noted it is clean with no discharge. Continue supportive measures with IV fluid, analgesics as needed, antiemetics as needed. Monitor and correct electrolytes. General surgery Dr. Queen continue to follow 12/08 UA suggest the presence of UTI, associated leukocytosis. Blood cultures pending. Patient symptoms improved with IV meropenem and vancomycin. Patient has high risk for MRSA. Continue current antibiotics. Severe hypokalemia today noted. Family reports that they saw a potassium tablet and her colostomy output indicating poor absorption. Replace potassium IV. Monitor and correct electrolytes as needed Continue IV NS given decreased oral intake. General surgery Dr. Queen to follow. 12/09 Clinically improved. WBC trending down. Blood cultures negative. Urine cultures pending. Continue aggressive broad-spectrum IV antibiotics-meropenem and vancomycin Hypokalemia secondary to increased GI losses from the colostomy. Continue to correct hypokalemia IV. May use potassium effervescent orally Continue to monitor electrolytes. Increase activity as tolerated. Continue IV NS with potassium. Monitor CBC to follow leukocytosis. 12/10 Leukocytosis resolved, remains on Merrem and Vanco Will need outpatient colonoscopy with GI Follow-up with Dr. Dunne as outpatient Potassium remains low at 3. Supplement and check mag level Hyperglycemia, continue sliding scale insulin Awaiting results of biopsy KUB in the a.m. 12/11 CBC and CMP reviewed and improved KUB and chest x-ray reviewed Add PT OT Follow-up with wound healing center for foot wound and abdominal wounds Needs follow-up with oncology for cancer staging and chemotherapy Abnormal UA with many yeast. Add 3 days of Diflucan Add as needed Phenergan for nausea 12/12 - Urine culture with Lizzeth, continue Diflucan - Replace potassium, hypokalemia improved - Await home health care set up and supplies prior to discharge - Currently on Merrem, Vanco, Diflucan - Outpatient heme-onc follow-up 8/25 - Continue Zofran and as needed Phenergan - JUAN reviewed, obtain CT abdomen pelvis - Trial simethicone - 1 unit PRBC for hemoglobin less than 8 in the surgical patient - Recheck hemoglobin - Discussed with general surgery - Replace potassium - Complete IV Diflucan today - Day 6 of Merrem and day 3 of Vanco VTE: Lovenox Code: Full Dispo: 24 to 48 hours
[2024-12-13 09:58] LABS: Absolute Lymphocytes (CBC) 0.9 K/uL (0.7-4.9); Hematocrit 25.6 % (36.0-45.0); Hemoglobin 8.3 g/dL (12.0-15.0); MCH 24.8 pg (27.0-35.0); MCHC 32.2 g/dL (32.0-36.0); MCV 77.0 fL (80-100); MPV 7.4 fL (7.6-11.3); Nucleated RBC Absolute Count 0.0 (0-0); Nucleated Red Blood Cells % 0.1 % (0-0); RBC Red Blood Cell Count 3.33 M/uL (3.86-4.86); White Blood Count 7.30 thou/uL (4.3-10.9)
[2024-12-13] MEDS ORDERED: NA CHLORIDE 0.9% 250 ML IV SCH (10:00)
[2024-12-13 10:16] LABS: Albumin 1.2 g/dL (3.4-5.0); Albumin/Globulin Ratio 0.3 (1.1-1.8); Alkaline Phosphatase 58 U/L (45-117); Anion Gap 9.4 mEq/L (5.0-15.0); BUN Blood Urea Nitrogen 7 mg/dL (7-18); Globulin 4.6 g/dL (2.3-3.5); Glucose Level 183 mg/dL (74-106); Potassium 3.4 mEq/L (3.5-5.1)
[2024-12-13 10:18] LABS: ALT/SGPT < 14 U/L (13-56); AST/SGOT < 10 U/L (15-37)
[2024-12-13] MEDS: POTASSIUM CL SA 10 MEQ TAB PO ONE (14:16)
--- NOTE | 2024-12-14 00:01 | RAD REPORT ---
EXAMINATION: CT Abdomen Pelvis W Contrast CLINICAL INDICATION: Female, 44 years old. s/p francis now with vomiting, concern for ischemi TECHNIQUE: CT abdomen and pelvis was performed, after the administration of IV contrast, as per [facility] protocol. Axial, sagittal and coronal reconstructions were obtained. One or more of the following dose reduction techniques were used: Automated exposure control, adjustment of the mA and k V according to patient size, and iterative reconstruction. Unless otherwise specified, incidental findings do not require dedicated imaging follow-up. COMPARISON: 11/29/2024 FINDINGS: LOWER CHEST: Small to moderate left and small right layering pleural effusions. Central interstitial prominence and subsegmental left more than right basilar atelectasis. Decreased inspiratory effort limits evaluation. LIVER: Normal in size and contour. No focal lesion. BILIARY SYSTEM: 3.6 cm cholesterol containing gallstone again seen, now present near the neck No susp icious abnormalities. SPLEEN: Normal size. No focal lesion. PANCREAS: No mass, ductal dilation, or bryant-pancreatic fluid. ADRENALS: Normal; no mass. KIDNEYS: Normal size and contour. No hydronephrosis. URINARY BLADDER: Unremarkable. GASTROINTESTINAL TRACT: Sequelae of distal colectomy with left lower quadrant newly created colostomy . Crys pouch creation, with no extraluminal gas. Mild free ascites. Left parastomal hernia containing fluid and few locules of gas. No evidence of free air, bowel obstruction or abscess. APPENDIX: Appendix not visualized, but no inflammatory changes in region of appendix. LYMPH NODES: No lymphadenopathy. MUSCULOSKELETAL: No acute or suspicious osseous abnormality. ADDITIONAL FINDINGS: Bulky fibroid uterus again seen. Ovoid right adnexal cystic lesion measuring 4.7 cm, stable. IMPRESSION: Sequelae of distal colectomy and left lower quadrant colostomy creation. Mild free ascites. Left parastomal hernia containing fluid and few locules of gas, favored to relate to recent operative intervention. Bilateral layering pleural effusions larger left, with central interstitial prominence that could rel ate to central congestion or suboptimal inspiratory effort. Other stable incidental findings including large uterine fibroid near the fundus and cholelithiasis.
[2024-12-14 06:40] LABS: Anion Gap 9.1 mEq/L (5.0-15.0); BUN Blood Urea Nitrogen 5.0 mg/dL (7-18); Glucose Level 132.0 mg/dL (74-106); Magnesium 2.0 mg/dL (1.6-2.4); Potassium 3.1 mEq/L (3.5-5.1)
[2024-12-14 06:44] LABS: Absolute Lymphocytes (CBC) 0.9 K/uL (0.7-4.9); Hematocrit 25.9 % (36.0-45.0); Hemoglobin 8.4 g/dL (12.0-15.0); MCH 25.0 pg (27.0-35.0); MCHC 32.2 g/dL (32.0-36.0); MCV 77.6 fL (80-100); MPV 7.4 fL (7.6-11.3); Nucleated RBC Absolute Count 0.0 (0-0); Nucleated Red Blood Cells % 0.0 % (0-0); RBC Red Blood Cell Count 3.34 M/uL (3.86-4.86); White Blood Count 7.30 thou/uL (4.3-10.9)
[2024-12-14] MEDS: CALCIUM GLUCONATE 1 GM IVPB 1 GM/50 ML BAG IV ONE (07:19)
[2024-12-14] MEDS: VANCOMYCIN 1.5 GM in NA CHLORIDE 0.9% 500 ML IVPB SCH (09:45)
[2024-12-14] MEDS: POTASSIUM CL SA 10 MEQ TAB PO ONE (09:46)
[2024-12-14] MEDS: FUROSEMIDE 40 MG/4 ML VIAL IV SCH (09:46)
[2024-12-14] MEDS: MULTIVITAMIN TAB PO SCH (09:47)
--- NOTE | 2024-12-14 10:46 | P.DS ---
Admission Date: 11/29/24 Discharge Date: 12/14/24 Disposition: ROUTINE DISCHARGE Discharge Condition: FAIR Reason for Admission: Abdominal pain and distention. Brief History of Present Illness: Patient is a 44-year-old female female with a past medical history significant fo DM2 with neuropathy,obesity, charcot arthropathy who presents with complaint of abdominal pain and abdominal distention onset 2 days ago. Patient indicated she also started experiencing abdominal distention\pain 2 days ago. Patient rated pain as 10/10 in severity and described pain as aching quality. Patient reported associated signs and symptoms of nausea and vomiting. Patient denies any other signs and symptoms. Symptoms are aggravated or relieved by nothing. Patient decided to present to the hospital due to worsening symptoms. Hospital Course: Physical Exam: GEN: Alert, oriented, mild distress due to rigors CV: Normal rhythm, normal rate, no edema Pulm: Clear to auscultation bilaterally, adequate breath sounds bilaterally. ABD: soft, dressing in place, ostomy bag with liquid stool Neuro: Normal speech, normal affect Problem List: Colonic obstruction secondary to sigmoid mass complicated by SBO and Uterine Fibroid now s/p Goel's procedure with lysis of adhesions (11/30) Post-op Ileus Hypokalemia Pseudohypocalcemia Left Foot wound s/p recent I&D (11/22) Chronic Anemia IDDM2 Ascites Volume overload Colonic obstruction secondary to sigmoid mass complicated by SBO and Uterine Fibroid now s/p Goel's procedure with lysis of adhesions (11/30) Post-op Ileus, resolved CT abd/pelvis (11/29): High-grade colonic obstruction secondary to suspected annular constricting mass at the proximal sigmoid. Mild pneumatosis. Mild Ascites. Hepatic steatosis. Large Uterine fibroid. CTA chest (11/29): no PE. low lung volumes with bilateral groundglass opacities that could reflect atelectasis and/or edema. Mild distal esophageal thickening. Dr. Queen general surgeon consulted, GI consulted. Found to have Colonic obstruction secondary to sigmoid mass now s/p Goel's procedure with lysis of adhesions with Dr. Queen (11/30) IV fluids, pain control Continue IV zosyn (11/29-) Pain and nausea improving daily. Tolerating Diet Barriers to discharge: potassium remains low, await home health set up with supplies Hypokalemia Pseudohypocalcemia Monitor and replete electrolytes as needed Suspect pseudohypocalcemia; albumin was low on 11/29 Potassium persistently low replace potassium dc IV fluids Left Foot wound s/p recent I&D (11/22) Had recent I&D of left foot with Dr. Queen on 11/22. Wound care per surgery pain control Chronic Anemia Daily labs. Monitor hgb. Uncontrolled type 2 diabetes with hyperglycemia / IDDM2 accu-cheks, SSI recently started on lantus insulin A1c was 11.9 last hospitalization 12/07 Patient has chills, no recorded fever Check blood culture, chest x-ray shows no significant acute infiltrate, obtain urinalysis to rule out UTI. Start IV vancomycin and and meropenem given prior history of infected foot ulcer. Abdominal midline surgical wound examined and noted it is clean with no discharge. Continue supportive measures with IV fluid, analgesics as needed, antiemetics as needed. Monitor and correct electrolytes. General surgery Dr. Queen continue to follow 12/08 UA suggest the presence of UTI, associated leukocytosis. Blood cultures pending. Patient symptoms improved with IV meropenem and vancomycin. Patient has high risk for MRSA. Continue current antibiotics. Severe hypokalemia today noted. Family reports that they saw a potassium tablet and her colostomy output indicating poor absorption. Replace potassium IV. Monitor and correct electrolytes as needed Continue IV NS given decreased oral intake. General surgery Dr. Queen to follow. 12/09 Clinically improved. WBC trending down. Blood cultures negative. Urine cultures pending. Continue aggressive broad-spectrum IV antibiotics-meropenem and vancomycin Hypokalemia secondary to increased GI losses from the colostomy. Continue to correct hypokalemia IV. May use potassium effervescent orally Continue to monitor electrolytes. Increase activity as tolerated. Continue IV NS with potassium. Monitor CBC to follow leukocytosis. 12/10 Leukocytosis resolved, remains on Merrem and Vanco Will need outpatient colonoscopy with GI Follow-up with Dr. Dunne as outpatient Potassium remains low at 3. Supplement and check mag level Hyperglycemia, continue sliding scale insulin Awaiting results of biopsy KUB in the a.m. 12/11 CBC and CMP reviewed and improved KUB and chest x-ray reviewed Add PT OT Follow-up with wound healing center for foot wound and abdominal wounds Needs follow-up with oncology for cancer staging and chemotherapy Abnormal UA with many yeast. Add 3 days of Diflucan Add as needed Phenergan for nausea 12/12 - Urine culture with Lizzeth, continue Diflucan - Replace potassium, hypokalemia improved - Await home health care set up and supplies prior to discharge - Currently on Merrem, Vanco, Diflucan - Outpatient heme-onc follow-up 12/13 - Continue Zofran and as needed Phenergan - KUB reviewed, obtain CT abdomen pelvis - Trial simethicone - 1 unit PRBC for hemoglobin less than 8 in the surgical patient - Recheck hemoglobin - Discussed with general surgery - Replace potassium - Complete IV Diflucan today - Day 6 of Merrem and day 3 of Vanco 12/14 - Stop all antibiotics - Start Lasix due to fluid overload seen on CT - Leukocytosis resolved - CT abdomen pelvis reviewed without any acute abnormal findings. - Hemoglobin stable at 8.4 - Follow-up with heme-onc for further evaluation of cancer - Completed Diflucan - Follow-up with wound care center for foot VTE: Lovenox Code: Full Dispo: 24 to 48 hours Vital Signs/Physical Exam: Temp Pulse Resp BP Pulse Ox 98.2 F 95 H 18 125/70 92 12/14/24 04:00 12/14/24 04:00 12/14/24 04:00 12/14/24 04:00 12/14/24 04:00 Laboratory Data at Discharge: WBC 7.30 thou/uL (4.3-10.9) 12/14/24 06:10 Hgb 8.4 g/dL (12.0-15.0) L 12/14/24 06:10 Hct 25.9 % (36.0-45.0) L 12/14/24 06:10 Plt Count 401 thou/uL (152-406) 12/14/24 06:10 PT 13.4 SECONDS (10-13.0) H 11/29/24 13:52 INR 1.19 11/29/24 13:52 Sodium 137 mEq/L (136-145) 12/14/24 06:10 Potassium 3.1 mEq/L (3.5-5.1) L 12/14/24 06:10 BUN 5 mg/dL (7-18) L 12/14/24 06:10 Creatinine 0.60 mg/dL (0.55-1.02) 12/14/24 06:10 Glucose 132 mg/dL (74-106) H 12/14/24 06:10 Phosphorus 2.0 mg/dL (2.5-4.9) L 12/14/24 06:10 Magnesium Cancelled 12/14/24 Unknown Total Bilirubin 0.3 mg/dL (0.2-1.0) 12/13/24 09:46 AST < 10 U/L (15-37) L 12/13/24 09:46 ALT < 14 U/L (13-56) 12/13/24 09:46 Alkaline Phosphatase 58 U/L (45-117) 12/13/24 09:46 Triglycerides 77 mg/dL (<150) 11/30/24 06:08 Cholesterol 161 mg/dL (<200) 11/30/24 06:08 HDL Cholesterol 41 mg/dL (40-60) 11/30/24 06:08 Cholesterol/HDL Ratio 3.93 11/30/24 06:08 Lipase 10 U/L (13-75) L 11/29/24 13:52 Home Medications: Acidophilus/Bulgaricus [Lactinex Tablet Chewable] 1 each PO BID #30 tab.chew 11/25/24 Collagenase [Santyl Ointment*] 1 appl TOP DAILY #30 gm 11/25/24 Hydrocodone 5/APAP 325 [Annabella 5/325*] 1 tab PO Q6H PRN #15 tab 11/25/24 Insulin Glargine,Hum.rec.anlog [Lantus Solostar] 20 unit SQ DAILY #15 ml 11/25/24 Metformin HCl 500 mg PO BID #60 tab 11/25/24 Furosemide [Lasix] 20 mg PO BID 5 Days #10 tab 12/14/24 Potassium Oral Tab [Klor-Con 10 mEq Tab*] 10 meq PO DAILY 10 Days #10 tab 12/14/24 New Medications: Potassium Oral Tab [Klor-Con 10 mEq Tab*] 10 meq PO DAILY 10 Days #10 tab Furosemide [Lasix] 20 mg PO BID 5 Days #10 tab Physician Discharge Instructions: May shower Keep wound clean and dry with dry gauze daily Ostomy care teaching Resume home meds and diet Activity as tolerated, no heavy lifting Follow-up wound center in my clinic in 1 week Incentive spirometry as instructed Abdominal binder as instructed Diet: Regular Activity: No lifting more than 10 lbs Followup: NONE,NONE [Primary Care Provider] - Carlos Queen MD [ACTIVE - CAN ADMIT] - 1 Week (Follow-up in the wound healing center in clinic [phone])
--- NOTE | 2024-12-14 11:15 | PN ---
Date of Progress Note: 12/14/2024 Subjective: The patient is awake, alert, tolerating diet. Objective: Vital Signs: Stable, afebrile. Abdomen: Benign. Ostomy is working. Laboratory Data: White count is normal. There is slight left shift. Potassium is 3.1 and phosphoru s is 2.0, being replaced. The patient had a CT of the abdomen and pelvis yesterday which is reviewed , essentially shows sequela of distal colectomy and left lower quadrant colostomy creation. Mild maximiliano e ascites, pleural effusions bilaterally. The patient has a large uterine fibroid and cholelithiasis as well. Assessment: Status post Crys's procedure, the patient with colon cancer. Recommendation: Awaiting discharge planning. The patient does not have funds for colostomy supplies . Potassium is being replaced to see if she needs further workup for her persistent hypokalemia. Pl an of care discussed with Hospitalist Team lucrecia. ROBERT/MODL Voice ID: [id number] Report ID: [id number]
[2024-12-14 16:41] LABS: Anion Gap 8.2 mEq/L (5.0-15.0); BUN Blood Urea Nitrogen 5.0 mg/dL (7-18); Glucose Level 230.0 mg/dL (74-106); Magnesium 2.0 mg/dL (1.6-2.4); Potassium 3.2 mEq/L (3.5-5.1)
[2024-12-14] MEDS: KCL 20 MEQ/100 mL IVPB 100 ML IV ONE (18:16)
[2024-12-14] MEDS: KCL 20 MEQ/100 mL IVPB 20 MEQ/100 ML BAG IV SCH (20:46)
[2024-12-15] MEDS: PROMETHAZINE INJ 25 MG/ML AMP IM PRN (02:51)
[2024-12-15 08:24] LABS: Absolute Lymphocytes (CBC) 1.4 K/uL (0.7-4.9); Hematocrit 20.4 % (36.0-45.0); Hemoglobin 6.7 g/dL (12.0-15.0); MCH 25.5 pg (27.0-35.0); MCHC 32.9 g/dL (32.0-36.0); MCV 77.4 fL (80-100); MPV 7.4 fL (7.6-11.3); Nucleated RBC Absolute Count 0.0 (0-0); Nucleated Red Blood Cells % 0.1 % (0-0); RBC Red Blood Cell Count 2.64 M/uL (3.86-4.86); White Blood Count 8.50 thou/uL (4.3-10.9)
[2024-12-15 08:42] LABS: Albumin 1.2 g/dL (3.4-5.0); Albumin/Globulin Ratio 0.3 (1.1-1.8); Alkaline Phosphatase 48 U/L (45-117); Anion Gap 7.9 mEq/L (5.0-15.0); BUN Blood Urea Nitrogen 5 mg/dL (7-18); Globulin 4.5 g/dL (2.3-3.5); Glucose Level 175 mg/dL (74-106)
[2024-12-15 08:43] LABS: ALT/SGPT < 14 U/L (13-56); AST/SGOT 17 U/L (15-37); Potassium 3.9 mEq/L (3.5-5.1)
[2024-12-15 09:14] VITALS: BP 134/64; TEMP 98.1
--- NOTE | 2024-12-16 15:36 | CON ---
Date of Consultation: 12/15/2024 Additional Consulting Physician: Dr. Stevenson. Reason For Consultation: Elevated BUN, creatinine, fluid management. History Of Present Illness: This is a 44-year-old female with significant past medical history of di abetes complicated with neuropathy, colon CA, obesity, hypertension, hyperlipidemia. The patient cam e to the hospital with decreased intake, nausea and vomiting, found to have severe hypokalemia. For that reason, we have been consulted. Kidney function being stable. She denied taking any nonsteroid al, no IV contrast. Past Medical History: 1. Diabetes. 2. Obesity. 3. Colon cancer. Family History: Positive for hypertension and cancer. Social History: Denies smoking. Denies drinking or drugs abuse. Review of Systems: Review of Systems: Head and Neck: No red eye. No ear pain. GI: Has abdominal distention. 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 Respiratory: No shortness of breath. Cardiovascular: No chest pain. Endocrine: No polydipsia. Skin: No rash. Neuro: Has neuropathy. Musculoskeletal: Generalized fatigue. Home Medication: Includin. Hydrocodone. 2. Insulin. 3. . 4. Levofloxacin. Past Surgical History: Include colostomy. Physical Examination: Vital Signs: When I showed the patient, blood pressure 134/64, pulse of 95. Chest: Clear to auscultation. Heart: S1, S2. Regular. Abdomen: Soft. Colostomy tube. Extremities: Trace edema. Neurologic: Alert, oriented x3. Nonfocal. Laboratory Data: WBC 8.5, hemoglobin 6.7. Sodium 137, potassium 3.9, bicarb 30, BUN 5, creatinine 0 .6, calcium 7.5. Assessment And Plan: 1. Hypokalemia secondary to GI loss secondary to high-output colostomy superimposed with marginal hyp omagnesemia, we will supplement aggressively. We will send for urine electrolyte, and we will follow up. 2. Hypophosphatemia. We will supplement. 3. Diabetes as by primary. JUAN PABLO/JOHN Voice ID: [id number] Report ID: [id number]
== END 2024-12-15 09:55 | disposition home or self-care (01) | DRG 329 ==
LOC: ER 12:36 → ERHOLD 17:57 → 2ND 19:37 → 3RD-ICU 11-30 11:58 → 2ND 12-01 17:30
PROVIDERS: ADMIT Internal Medicine; ATTEND Family Medicine
PROC: 0DH67UZ Insertion of Feeding Device into Stomach, Via Natural or Artificial Opening (ICD-10-PCS; 2024-11-29)
PROC: 0DBN0ZZ Excision of Sigmoid Colon, Open Approach (ICD-10-PCS; 2024-11-30)
PROC: 0D1N0Z4 Bypass Sigmoid Colon to Cutaneous, Open Approach (ICD-10-PCS; principal; 2024-11-30 08:30)
PROC: 0T9B70Z Drainage of Bladder with Drainage Device, Via Natural or Artificial Opening (ICD-10-PCS; 2024-12-01)
PROC: 02HV33Z Insertion of Infusion Device into Superior Vena Cava, Percutaneous Approach (ICD-10-PCS; 2024-12-04)
PROC: 30233N1 Transfusion of Nonautologous Red Blood Cells into Peripheral Vein, Percutaneous Approach (ICD-10-PCS; 2024-12-13)
DX: C18.7 Malignant neoplasm of sigmoid colon (principal); R65.11 Systemic inflammatory response syndrome (SIRS) of non-infectious origin with acute organ dysfunction; K56.699 Other intestinal obstruction unspecified as to partial versus complete obstruction; R18.8 Other ascites; K55.9 Vascular disorder of intestine, unspecified; N39.0 Urinary tract infection, site not specified; E87.6 Hypokalemia; E87.70 Fluid overload, unspecified; J98.4 Other disorders of lung; D25.9 Leiomyoma of uterus, unspecified; K63.89 Other specified diseases of intestine; E66.09 Other obesity due to excess calories; K76.0 Fatty (change of) liver, not elsewhere classified; I12.9 Hypertensive chronic kidney disease with stage 1 through stage 4 chronic kidney disease, or unspecified chronic kidney disease; N18.2 Chronic kidney disease, stage 2 (mild); E11.22 Type 2 diabetes mellitus with diabetic chronic kidney disease; E11.65 Type 2 diabetes mellitus with hyperglycemia; E11.40 Type 2 diabetes mellitus with diabetic neuropathy, unspecified; E11.610 Type 2 diabetes mellitus with diabetic neuropathic arthropathy; D63.1 Anemia in chronic kidney disease; Z79.4 Long term (current) use of insulin; Z79.84 Long term (current) use of oral hypoglycemic drugs; Z79.899 Other long term (current) drug therapy
CPT/HCPCS: 36415; 71045; 71275; 74018; 74019; 74177; 80048; 80053; 80061; 80069; 80076; 80202; 81001; 81003; 81025; 82330; 82378; 82947; 83690; 83735; 83880; 84100; 84132; 84145; 84484; 85025; 85027; 85610; 86850; 86900; 86901; 86920; 87040; 87086; 87088; 88305; 88307; 88309; 93005; 93970; 94010; 97116; 97161; 97530; 99285; A4216; J0171; J0330; J0612; J0696; J0744; J1100; J1171; J1450; J1650; J1815; J1938; J2003; J2185; J2250; J2270; J2405; J2470; J2543; J2550; J2704; J2765; J2795; J3010; J3370; J3475; J3480; J3590; J7030; J7040; J7050; P9016; Q9967

== ENCOUNTER 2024-12-16 09:46 | Emergency (ER) | payer OTHER ==
[2024-12-16 11:15] LABS: Iron 17.0 ug/dL (50-170); Transferrin 113.0 mg/dL (200-360)
[2024-12-16 11:18] LABS: Absolute Lymphocytes (CBC) 1.2 K/uL (0.7-4.9); Hematocrit 28.8 % (36.0-45.0); Hemoglobin 9.2 g/dL (12.0-15.0); MCH 24.9 pg (27.0-35.0); MCHC 32.1 g/dL (32.0-36.0); MCV 77.4 fL (80-100); MPV 7.3 fL (7.6-11.3); Nucleated RBC Absolute Count 0.0 (0-0); Nucleated Red Blood Cells % 0.1 % (0-0); RBC Red Blood Cell Count 3.72 M/uL (3.86-4.86); White Blood Count 7.50 thou/uL (4.3-10.9)
[2024-12-16 11:19] LABS: Albumin 1.3 g/dL (3.4-5.0); Albumin/Globulin Ratio 0.3 (1.1-1.8); Alkaline Phosphatase 55 U/L (45-117); Anion Gap 8.4 mEq/L (5.0-15.0); BUN Blood Urea Nitrogen 5 mg/dL (7-18); Ferritin 93.6 ng/mL (8-252); Globulin 4.9 g/dL (2.3-3.5); Glucose Level 214 mg/dL (74-106); Potassium 3.4 mEq/L (3.5-5.1)
[2024-12-16 11:21] LABS: ALT/SGPT < 14 U/L (13-56); AST/SGOT < 10 U/L (15-37)
--- NOTE | 2024-12-16 12:03 | ER ---
Nurse's Notes [facility] Name: Brenda Loyd Age: 44 yrs Sex: Female : 1980 Arrival Date: 12/16/2024 Time: 09:46 Bed 19 Private MD: Diagnosis: Iron deficiency anemia, unspecified Presentation: 12/16 10:07 Chief complaint: Patient states: Discharged from hospital yesterday morning. Pt was ss told by hospitalist to come back for a blood transfusion. Coronavirus screen: Client denies travel out of the [place] in the last 14 days. Ebola Screen: Patient denies exposure to infectious person. Patient denies travel to an Ebola-affected area in the 21 days before illness onset. Initial Sepsis Screen: Does the patient meet any 2 criteria? No. Patient's initial sepsis screen is negative. Does the patient have a suspected source of infection? No. Patient's initial sepsis screen is negative. Risk Assessment: Do you want to hurt yourself or someone else? Patient reports no desire to harm self or others. Onset of symptoms is unknown. 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 - Infectious Disease History:: Denies. - Social history:: Smoking status: Patient denies any tobacco usage or history of. Screenin:52 [facility] ED Fall Risk Assessment (Adult) History of falling in the last 3 months, hb including since admission No falls in past 3 months (0 pts) Confusion or Disorientation No (0 pts) Intoxicated or Sedated No (0 pts) Impaired Gait Yes (1 pt) Mobility Assist Device Used No (0 pt) Altered Elimination Yes (1 pt) Score/Fall Risk Level 3 or more points = High Risk Oriented to surroundings, Maintained a safe environment, Educated pt \T\ family on fall prevention, incl call for assistance when getting out of bed. Abuse screen: Denies threats or abuse. Denies injuries from another. Nutritional screening: No deficits noted. Tuberculosis screening: No symptoms or risk factors identified. Assessment: 10:52 General: Appears in no apparent distress. ill, Behavior is calm, cooperative, flat. hb Pain: Denies pain. Neuro: Level of Consciousness is obeys commands, lethargic, Oriented to person, place, time, situation. Cardiovascular: Patient's skin is warm and dry. Respiratory: Respiratory effort is even, unlabored, Respiratory pattern is regular, symmetrical. GI: No signs and/or symptoms were reported involving the gastrointestinal system. : No signs and/or symptoms were reported regarding the genitourinary system. EENT: No signs and/or symptoms were reported regarding the EENT system. Derm: Skin is pink, warm \T\ dry. Musculoskeletal: No signs and/or symptoms reported regarding the musculoskeletal system. Vital Signs: 10:07 BP 122 / 70; Pulse 100; Resp 16; Temp 98.9(O); Pulse Ox 99% on R/A; Weight 76.66 kg; ss Height 4 ft. 10 in. ; 10:07 Body Mass Index 35.32 (76.66 kg, 147.32 cm) ED Course: 09:48 Patient arrived in ED. mr 09:49 Seth Guzmna, ENTERPRISE SYSTEMS ENGINEER-C is [facility]. dr5 09:49 Lauri Liao MD is Attending Physician. dr5 10:08 Triage completed. ss 10:09 Arm band placed on right wrist. ss 10:51 Sasha Veliz, GIOVANNY is Primary Nurse. hb 10:51 Initial lab(s) drawn, by ct, sent to lab. Inserted saline lock: 22 gauge in right hb antecubital area, using aseptic technique. Blood collected. Flushed with 10 mL NS. 10:52 Patient has correct armband on for positive identification. Bed in low position. Call hb light in reach. Provided Education on: call light, tests, result times. Client placed on continuous cardiac and pulse oximetry monitoring. NIBP monitoring applied. monitor tech on. Pulse ox on. NIBP on. Warm blanket given. Administered Medications: No medications were administered Medication: 10:52 VIS not applicable for this client. hb Outcome: 12:03 Discharge ordered by . dr5 12:45 Patient left the ED. hb Signatures: Kirsty Garcia, Reg Reg Hannah Rios RN RN Sasha Veliz RN RN hb Thomas, Seth, ENTERPRISE SYSTEMS ENGINEER-C ENTER[employer]ISE SYSTEMS ENGINEER-Cdr5
--- NOTE | 2024-12-16 12:03 | EDPHYS ---
Physician Documentation [facility] Name: Brenda Loyd Age: 44 yrs Sex: Female : 1980 Arrival Date: 12/16/2024 Time: 09:46 Bed 19 Private MD: YVONNE Physician Lauri Liao HPI: 12/16 10:17 This 44 yrs old Female presents to ER via Wheelchair with complaints of Blood dr5 transfusion. 10:17 Onset: The symptoms/episode began/occurred acutely. Patient is a 44-year-old female dr5 With history of diabetes, neuropathy, obesity, Charcot arthropathy returning to the hospital this morning for a hemoglobin of 6.7. Patient was called last night but was unable to get a ride to the hospital reported that she come back this morning. Patient recently had colonic obstruction secondary to sigmoid mass complicated by SBO and uterine fibroid now status post Goel's procedure with lysis of adhesions on 11/30.. REAL ESTATE REP: 10:09 LMP 12/08/2024, unknown ss Historical: - Allergies: 10:08 NKDA; ss - PMHx: 10:08 Chronic nerve pain; diabetes mellitus; Anemia; Colon CA; ss - PSHx: 10:08 L foot; ss 10:09 colostomy; ss - Immunization history:: Adult Immunizations up to date. - Infectious Disease History:: Denies. - Social history:: Smoking status: Patient denies any tobacco usage or history of. ROS: 12:03 Constitutional: as per hpi dr5 Exam: 12:04 Constitutional: This is a well developed, well nourished patient who is awake, alert, dr5 and in no acute distress. Head/Face: Normocephalic, atraumatic. Eyes: Pupils equal round and reactive to light, extra-ocular motions intact. Lids and lashes normal. Conjunctiva and sclera are non-icteric and not injected. Cornea within normal limits. Periorbital areas with no swelling, redness, or edema. Chest/axilla: Normal chest wall appearance and motion. Nontender with no deformity. No lesions are appreciated. Cardiovascular: Regular rate and rhythm with a normal S1 and S2. Normal PMI, no JVD. No pulse deficits. Respiratory: Lungs have equal breath sounds bilaterally, clear to auscultation. No rales, rhonchi or wheezes noted. No increased work of breathing, no retractions or nasal flaring. Abdomen/GI: Soft, non-tender, non-distended. Patient has colostomy with stool without melena or blood. Back: No spinal tenderness. No costovertebral tenderness. Full range of motion. Skin: Warm, dry with normal turgor. Normal color with no rashes, no lesions, and no evidence of cellulitis. MS/ Extremity: Pulses equal, no cyanosis. Neurovascular intact. Full, normal range of motion. Neuro: Awake and alert, GCS 15, oriented to person, place, time, and situation. Cranial nerves II-XII grossly intact. Motor strength 5/5 in all extremities. Sensory grossly intact. Cerebellar exam normal. Normal gait. Vital Signs: 10:07 BP 122 / 70; Pulse 100; Resp 16; Temp 98.9(O); Pulse Ox 99% on R/A; Weight 76.66 kg; ss Height 4 ft. 10 in. ; 10:07 Body Mass Index 35.32 (76.66 kg, 147.32 cm) ss MDM: 09:53 Medical Screening Exam initiated dr5 12:04 Differential diagnosis: viral Infection, Iron deficiency anemia, acute kidney injury, dr5 hypo or hyperkalemia. Data reviewed: vital signs, nurses notes, lab test result(s), CBC, white blood cell count, hemoglobin, hematocrit, platelets, electrolytes, sodium, potassium, chloride, serum bicarbonate, BUN, creatinine, serum glucose, Iron Levels. Consideration of Admission/Observation Escalation of care including admission/observation considered. Admission considered but patient's hemoglobin went from 6.7-9.3 overnight. Patient reports she is feeling well.. I considered the following discharge prescriptions or medication management in the emergency department I discussed and recommended Over The Counter medications, Medications were administered in the Emergency Department. See MAR. Care significantly affected by the following chronic conditions: Diabetes, anemia, colon cancer, chronic nerve pain. Care significantly affected by the following Social Determinants of Health: Poor access to healthcare and/or lack of insurance, Poor access to transportation, Problems related to employment. Counseling: I had a detailed discussion with the patient and/or guardian regarding the historical points, exam findings, and any diagnostic results supporting the discharge/admit diagnosis, the presence of at least one elevated blood pressure reading (>120/80) during this emergency department visit, lab results, the need for outpatient follow up, for definitive care, a family practitioner, a general surgeon, to return to the emergency department if symptoms worsen or persist or if there are any questions or concerns that arise at home. ED course: Patient's anemia has resolved. Blood work reveals iron deficiency anemia. Will start patient on iron. Recommended patient follow-up at her scheduled appointment next week. All questions were answered. Strict ER precautions given.. 12/16 09:53 Order name: CBC with Diff; Complete Time: : dr5 12/16 09:53 Order name: CMP; Complete Time: : dr5 12/16 09:53 Order name: Iron Level; Complete Time: : dr5 12/16 09:53 Order name: Type And Screen dr5 12/16 10:05 Order name: TIBC; Complete Time: : la1 Administered Medications: No medications were administered Disposition Summary: 12/16/24 12:03 Discharge Ordered Notes: Location: Home dr5 Condition: Stable dr5 Diagnosis - Iron deficiency anemia, unspecified dr5 Followup: dr5 - With: Emergency Department - When: As needed - Reason: Worsening of condition Followup: dr5 - With: Private Physician - When: 1 - 2 days - Reason: Recheck today's complaints, Continuance of care, Re-evaluation by your physician Discharge Instructions: - Discharge Summary Sheet dr5 - Iron Deficiency Anemia, Adult dr5 Forms: - Medication Reconciliation Form dr5 - Patient Portal Instructions dr5 - Leadership Thank You Letter dr5 Prescriptions: - Ferrous Sulfate 325 mg (65 mg Iron) Oral Tablet - take 1 tablet ORAL route every 8 hours; 90 tablet; Refills: 0, Product dr5 Selection Permitted Addendum: 12/17/2024 13:34 Co-signature as Attending Physician, Lauri Liao MD I agree with the assessment and c bonilla plan of care. I reviewed the patient's care provided by Advanced Practice Provider \T\ agree w/ the diagnosis \T\ care plan. I personally saw the pt \T\ performed a substantive portion of the visit, incldng all aspects of the (History/Exam/Medical Decision Making). Signatures: Dispatcher [employer] Lauri Lang MD MD cha Blanchard, Shelby, RN RN ss Sasha Veliz RN RN hb Rhodes, Dustin, ROLL EDGE MACHINE OPERATOR-C ROLL EDGE MACHINE OPERATOR-Cdr5 Corrections: (The following items were deleted from the chart) 12/16 09:54 09:54 CBC+H.LAB.BRZ ordered. EDMS EDMS 09:54 09:54 COMPREHENSIVE METABOLIC PANEL+C.LAB.BRZ ordered. EDMS EDMS 09:54 09:54 FERRITIN+C.LAB.BRZ ordered. EDMS EDMS 09:54 09:54 TYPE AND SCREEN+BB.LAB.BRZ ordered. EDMS EDMS
[2024-12-16 19:30] VITALS: BP 122/70; TEMP 98.9; O2SAT 99
== END 2024-12-16 12:45 | disposition home or self-care (01) ==
LOC: ER 09:46
DX: D50.9 Iron deficiency anemia, unspecified (principal)
CPT/HCPCS: 36415; 80053; 82728; 83540; 84466; 85025; 86850; 86900; 86901; 99284

== ENCOUNTER 2025-01-14 06:27 | Day surgery (SDC) | payer OTHER ==
[2025-01-14 07:25] LABS: Absolute Lymphocytes (CBC) 1.5 K/uL (0.7-4.9); Hematocrit 26.1 % (36.0-45.0); Hemoglobin 8.4 g/dL (12.0-15.0); MCH 25.2 pg (27.0-35.0); MCHC 32.0 g/dL (32.0-36.0); MCV 78.6 fL (80-100); MPV 7.7 fL (7.6-11.3); Nucleated RBC Absolute Count 0.0 (0-0); Nucleated Red Blood Cells % 0.1 % (0-0); RBC Red Blood Cell Count 3.32 M/uL (3.86-4.86); White Blood Count 6.10 thou/uL (4.3-10.9)
[2025-01-14] MEDS ORDERED: HEPARIN 5000 UNIT/ML 1 ML VIAL ONE (08:37)
[2025-01-14] MEDS ORDERED: NS 0.9% VIAL 20 ML ONE (08:37)
[2025-01-14] MEDS: CEFAZOLIN SODIUM 2 GM/VIAL IVPB ONE ×2 (08:44→09:31)
[2025-01-14] MEDS ORDERED: MIDAZOLAM HCL 2 MG/2 ML INJ ONE (08:55)
[2025-01-14] MEDS ORDERED: FENTANYL CITR 100 MCG/2 ML ONE (08:55)
[2025-01-14] MEDS ORDERED: ONDANSETRON 4 MG/2 ML VIAL ONE (08:55)
[2025-01-14] MEDS ORDERED: LIDOCAINE 2% MPF 5 ML VIAL ONE (08:55)
[2025-01-14] MEDS ORDERED: EPHEDRINE SULF 50 MG/ML VIAL ONE (09:20)
[2025-01-14] MEDS ORDERED: CEFAZOLIN SODIUM 1 GM/VIAL ONE (09:40)
[2025-01-14] MEDS ORDERED: Mastisol Adhesive Liq ONE (10:22)
--- NOTE | 2025-01-14 10:22 | RAD REPORT ---
EXAM: Fluoroscopy use, Fluoroscopy <1 Hour HISTORY: PLACEMENT OF PORTACATH COMPARISON: None FINDINGS: Multiple images were sent to PACS, during a fluoroscopically guided procedure. No radiologi st was involved in protocoling or performance of the study, and no radiologist was present for the duration of the procedure. No interpretation of the saved images will be provided. Total fluoroscopy time: 1.1 minute. 35.1 mGy dose IMPRESSION: Documentation of fluoroscopy use as above. Transcribed Date/Time: 01/14/2025 10:22 AM
--- NOTE | 2025-01-14 10:28 | P.OP ---
Date of Service: 01/14/25 Preop diagnosis: Colon cancer Postop diagnosis: Same Procedure performed: Placement of right IJ vascular access device, utilization of Doppler and fluoroscopy Surgeon: Carlos Queen MD Shift Mgr: None Estimated blood loss: Minimal Specimen: None Findings: Anatomy Anesthesia: Room Complications: None Drains: None Fluids and blood products: Nonapplicable Disposition: Recovery room Operative note: Patient brought to the OR and placed in spine position. General anesthesia began. Patient prepped and draped in usual sterile fashion. Lidocaine 1% infiltrated locally. Doppler device used to isolate the right internal jugular vein. 18-gauge needle used to access the right internal jugular vein. Guidewire passed in position confirmed with fluoroscopy. 3 cm incision made in the right anterior chest. Pocket created. Bleeding controlled cautery. Tunneling device used to tunnel the catheter between the 2 wounds. Sa karin technique used and the tip of the catheter placed at the SVC right atrial junction under fluoroscopy. Catheter cut to appropriate size. Catheter attached to Port-A-Cath device. Port-A-Cath device attached to subcu tissue with 3-0 Vicryl. 3-0 chromic used to reapproximate subcu tissue and close skin. Port-A-Cath device flush with heparin and packed with heparin with good blood flow. Sterile dressing applied. Patient awakened and taken to recovery room in good general condition. CC: Dr. Dunne's office
--- NOTE | 2025-01-14 11:17 | RAD REPORT ---
EXAMINATION: ONE VIEW CHEST XR CLINICAL INDICATION: Status post vascular access device placement TECHNIQUE: Frontal chest projection is submitted. Examination is limited by patient positioning and t echnique. COMPARISON: No prior exam. FINDINGS: Right-sided portacatheter is in place with its tip in SVC. No postprocedure pneumothorax. Mild bilate ral pulmonary edema suspected. The heart is mildly prominent in size.
[2025-01-14 12:09] VITALS: BP 171/87; TEMP 97; O2SAT 93
[2025-01-14] MEDS: HYDROCODONE/APAP 7.5/325 MG TAB PO PRN (13:00)
[2025-01-14] MEDS ORDERED: HYDROCODONE/APAP 7.5/325 MG TAB ONE (13:01)
== END 2025-01-14 13:08 | disposition home or self-care (01) ==
LOC: OR 06:27
PROVIDERS: ATTEND Surgery
PROC: 0JH60WZ Insertion of Totally Implantable Vascular Access Device into Chest Subcutaneous Tissue and Fascia, Open Approach (ICD-10-PCS; principal; 2025-01-14 09:00)
DX: C18.9 Malignant neoplasm of colon, unspecified (principal)
CPT/HCPCS: 85025; 36415; 84703; 82947 ×2; 71045; 76000; 36561; J1644 ×2; A4216; J2704; J1100; J2003; J2250; J3010; J2405; J0690; C1788

== ENCOUNTER 2025-01-30 18:11 | Emergency (ER) | payer OTHER ==
[2025-01-30] MEDS ORDERED: ONDANSETRON 4 MG/2 ML VIAL ONE (19:47)
[2025-01-30] MEDS ORDERED: MORPHINE 4 MG/ML SYR ONE (19:47)
[2025-01-30 19:53] LABS: Absolute Lymphocytes (CBC) 1.2 K/uL (0.7-4.9); Hematocrit 29.9 % (36.0-45.0); Hemoglobin 9.6 g/dL (12.0-15.0); MCH 25.1 pg (27.0-35.0); MCHC 31.9 g/dL (32.0-36.0); MCV 78.4 fL (80-100); MPV 8.1 fL (7.6-11.3); Nucleated RBC Absolute Count 0.0 (0-0); Nucleated Red Blood Cells % 0.0 % (0-0); RBC Red Blood Cell Count 3.81 M/uL (3.86-4.86); White Blood Count 7.50 thou/uL (4.3-10.9)
[2025-01-30 20:17] LABS: ALT/SGPT 16.0 U/L (13-56); AST/SGOT 14.0 U/L (15-37); Albumin 3.1 g/dL (3.4-5.0); Albumin/Globulin Ratio 0.6 (1.1-1.8); Alkaline Phosphatase 92.0 U/L (45-117); Anion Gap 8.6 mEq/L (5.0-15.0); BUN Blood Urea Nitrogen 21.0 mg/dL (7-18); Globulin 4.9 g/dL (2.3-3.5); Glucose Level 257.0 mg/dL (74-106); Lipase 16.0 U/L (13-75); Potassium 3.6 mEq/L (3.5-5.1)
[2025-01-30 20:43] LABS: Urine Crystals Unidentified Few /HPF (None Seen); Urine Culture Reflex Order REFLEXED; Urine Microscopic Reflex YN ORDER UMIC; Urine Yeast (Budding) Occasional /HPF (None Seen)
--- NOTE | 2025-01-30 21:09 | RAD REPORT ---
EXAMINATION: CT ABDOMEN AND PELVIS WITH CONTRAST CLINICAL INDICATION: ABD PAIN TECHNIQUE: CT abdomen and pelvis was performed, after the administration of IV contrast[facility]. Axial, sagittal and coronal reconstructions were obtained. One or more of the following dose reduction techniques were used: Automated exposure control, adjustment of the mA and k V according to patient size, and iterative reconstruction. Unless otherwise specified, incidental findings do not require dedicated imaging follow-up. COMPARISON: 12/13/2024 FINDINGS: LOWER CHEST: The visualized lung bases are clear. LIVER: Mild fatty liver is present. No focal lesion or biliary dilatation is seen. Cholelithiasis. SPLEEN: Normal size. No focal lesion. PANCREAS: No mass, ductal dilation, or bryant-pancreatic fluid. ADRENALS: Normal; no mass. KIDNEYS: Normal size and contour. No hydronephrosis. GASTROINTESTINAL TRACT: No evidence of free air, significant intra-abdominal free fluid, bowel obstru ction or abscess. Left lower quadrant colostomy with mild peristomal herniation fat and a small section of small bowel. No fluid is seen. No bowel obstruction. Postsurgical changes are present invo lving the sigmoid colon. Small fat-containing umbilical hernia with a small amount of fluid. APPENDIX: Normal appendix. LYMPH NODES: No lymphadenopathy. MUSCULOSKELETAL: Moderate thoracolumbar degenerative changes. ADDITIONAL FINDINGS: Very large uterine mass in the fundal region measuring up to 12 cm segment likel y a fibroid. IMPRESSION: No acute abnormalities seen in the abdomen or pelvis. Very large uterine mass, presumably fibroid. Cholelithiasis.
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
--- NOTE | 2025-01-30 21:56 | EDPHYS ---
Physician Documentation [facility] Name: Brenda Loyd Age: 44 yrs Sex: Female : 1980 Arrival Date: 01/30/2025 Time: 18:11 Bed 17 Private MD: ED Physician Deion Tucker HPI: 01/30 19:05 This 44 yrs old Female presents to ER via EMS with complaints of Abdominal cp Pain, Anxiety. 19:05 The patient presents with abdominal pain in the left lower quadrant. Onset: The cp symptoms/episode began/occurred today, after verbal argument with step daughter. 19:05 Associated signs and symptoms: Pertinent positives: anxiety, Pertinent negatives: blood cp in stools, chest pain, constipation, fever, palpitations, shortness of breath, vomiting. The symptoms are described as constant. Severity of pain: in the emergency department the pain is unchanged despite EMS interventions. 19:05 Recent colon resection surgery with colonostomy. 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 - Infectious Disease History:: Denies. - Social history:: Smoking status: Patient denies any tobacco usage or history of. ROS: 19:10 Constitutional: Negative for body aches, chills, fever, poor PO intake, cp 19:10 Eyes: Negative for injury, pain, redness, and discharge, cp 19:10 Cardiovascular: Negative for chest pain, 19:10 Respiratory: Negative for cough, shortness of breath, wheezing, 19:10 Abdomen/GI: Positive for abdominal pain, nausea, Negative for vomiting, diarrhea, constipation, 19:10 Neuro: Negative for altered mental status, dizziness, headache, loss of consciousness, numbness, weakness, 19:10 All other systems are negative, Exam: 19:15 Constitutional: The patient appears in no acute distress, alert, awake, cp non-diaphoretic, non-toxic, well developed, well nourished, overweight 19:15 Head/Face: Normocephalic, atraumatic. cp 19:15 Eyes: Periorbital structures: appear normal, Conjunctiva: normal, no exudate, no injection, Sclera: no appreciated abnormality, Lids and lashes: appear normal, bilaterally, 19:15 ENT: External ear(s): are unremarkable, Nose: is normal, Mouth: Lips: moist, Oral mucosa: moist, Posterior pharynx: Airway: no evidence of obstruction, patent, 19:15 Chest/axilla: Inspection: normal, 19:15 Cardiovascular: Rate: normal, Rhythm: regular, Edema: is not appreciated, JVD: is not appreciated, 19:15 Respiratory: the patient does not display signs of respiratory distress, Respirations: normal, no use of accessory muscles, no retractions, labored breathing, is not present, Breath sounds: are clear throughout, no decreased breath sounds, no stridor, no wheezing, 19:15 Abdomen/GI: Inspection: obese colostomy LLQ abdomen, Bowel sounds: active, all quadrants, Palpation: soft, in all quadrants, moderate abdominal tenderness, in the left lower quadrant, rebound tenderness, is not appreciated, involuntary guarding, is not appreciated, 19:15 Back: CVA tenderness, is absent, 19:15 Neuro: Orientation: to person, place \T\ time. Mentation: is normal, Motor: moves all fours, strength is normal, Vital Signs: 18:07 BP 174 / 84; Pulse 92; Resp 18; Temp 99.4(O); Pulse Ox 98% ; Weight 81.65 kg; Height 4 db ft. 10 in. ; 19:31 BP 179 / 82; Pulse 85; Resp 18; Pulse Ox 98% ; cp4 20:38 BP 163 / 80; Pulse 81; Resp 18; Pulse Ox 100% ; cp4 21:43 BP 163 / 80; Pulse 84; Resp 18; Pulse Ox 99% ; cp4 22:27 BP 165 / 85; Pulse 77; Resp 18; Pulse Ox 98% ; cp4 18:07 Body Mass Index 37.62 (81.65 kg, 147.32 cm) db MDM: 18:19 Medical Screening Exam initiated cp 21:55 Data reviewed: vital signs, nurses notes, lab test result(s), radiologic studies, CT cp scan, ultrasound, and as a result, I will discharge patient. 21:55 Differential diagnosis: bowel obstruction, non-specific abd pain, pancreatitis, cp Pyelonephritis, Ureterolithiasis, urinary tract infection. I considered the following discharge prescriptions or medication management in the emergency department Medications were administered in the Emergency Department. See MAR. Care significantly affected by the following chronic conditions: Diabetes, Cancer. Counseling: I had a detailed discussion with the patient and/or guardian regarding the historical points, exam findings, and any diagnostic results supporting the discharge/admit diagnosis, lab results, radiology results, the need for outpatient follow up, a general surgeon, to return to the emergency department if symptoms worsen or persist or if there are any questions or concerns that arise at home. Response to treatment: the patient's symptoms have mildly improved after treatment, and as a result, I will discharge patient. Special discussion: Based on the patient's Hx, exam, and Dx evaluation, there is no indication for emergent surgery or inpatient Tx. It is understood by the patient/guardian that if the Sx's persist or worsen they need to return immediately for re-evaluation. 01/30 19:05 Order name: CBC with Diff; Complete Time: 20:32 cp 01/30 22:29 Interpretation: Normal except: RBC 3.81; HGB 9.6; HCT 29.9; MCV 78.4; MCH 25.1; MCHC cp 31.9; RDW 17.7; EFFIE% 75.0. 01/30 19:05 Order name: CMP; Complete Time: 20:32 cp 01/30 19:05 Order name: Lipase; Complete Time: 20:32 cp 01/30 19:05 Order name: UA Rfx Kendrick Cult if indicated; Complete Time: 21:37 cp 01/30 20:46 Order name: Urine Culture EDMS 01/30 20:32 Order name: CT Abd/Pelvis - IV Contrast Only; Complete Time: 21:37 cp 01/30 21:39 Order name: US Abdomen Limited: gallbladder; Complete Time: 22:29 cp 01/30 19:05 Order name: IV Saline Lock; Complete Time: 19:45 cp 01/30 19:05 Order name: Labs collected and sent; Complete Time: 19:45 cp Administered Medications: 19:51 Drug: morphine IVP or IV 4 mg IVP once over 4 mins Route: IVP; Infused Over: 4 mins; cp4 Site: right antecubital; 21:11 Follow up: Response: No adverse reaction; Pain is decreased cp4 19:51 Drug: Ondansetron IVP 4 mg IVP once; over 2 minutes Route: IVP; Site: right antecubital;cp4 21:11 Follow up: Response: No adverse reaction; Nausea is decreased cp4 22:02 Drug: Ativan IVP 1 mg IVP once Route: IVP; Site: right antecubital; cp4 22:13 Follow up: Response: No adverse reaction; Anxiety decreased cp4 22:02 Drug: Ketorolac IVP 15 mg IVP once Route: IVP; Site: right antecubital; cp4 22:14 Follow up: Response: No adverse reaction; Pain is decreased cp4 Disposition: 01/31 07:02 Co-signature as Attending Physician, Deion Tucker MD I reviewed the patient's care rn provided by the Advanced Practice Provider and agree with the diagnosis and treatment plan. Disposition Summary: 01/30/25 21:56 Discharge Ordered Notes: Location: Home cp Problem: new cp Symptoms: have improved cp Condition: Stable cp Diagnosis - Abdominal pain, unspecified cp - Other cholelithiasis without obstruction cp Followup: cp - With: Private Physician - When: 2 - 3 days - Reason: Recheck today's complaints Discharge Instructions: - Discharge Summary Sheet cp - Abdominal Pain, Adult cp - Cholelithiasis cp Forms: - Medication Reconciliation Form cp - Antibiotic Education cp - Prescription Opioid Use cp - Patient Portal Instructions cp - Leadership Thank You Letter cp Prescriptions: - Cipro 500 mg Oral Tablet - take 1 tablet ORAL route every 12 hours for 7 days; 14 tablet; Refills: 0, cp Product Selection Permitted - Bactrim DS 800-160 mg Oral Tablet - take 1 tablet ORAL route every 12 hours for 10 days; 20 tablet; Refills: 0, dr5 Product Selection Permitted Signatures: Dispatcher [employer] Deion Vallejo MD MD rn Page, Corey, PA-C PAJoselin Layne cp, RN RN db Potter, Christina cp4 Corrections: (The following items were deleted from the chart) 05:24 01/30 19:05 Onset: The symptoms/episode began/occurred today, after verbal argument cp with daughter, cp
[2025-01-30] MEDS ORDERED: KETOROLAC 30 MG/ML INJ ONE (21:59)
[2025-01-30] MEDS ORDERED: LORazepam 2 MG/ML VIAL ONE (21:59)
--- NOTE | 2025-01-30 22:21 | RAD REPORT ---
EXAM: Right upper quadrant ultrasound. CLINICAL HISTORY: ABD PAIN COMPARISON: None. FINDINGS: Gallbladder: Large shadowing gallstone. Gallbladder wall upper limit of normal measuring 4 mm. Bile ducts: No intrahepatic or extrahepatic biliary dilatation. Common bile duct measures 5 mm. Limited imaging of the liver shows no concerning finding. IMPRESSION: Cholelithiasis. Upper limit of normal gallbladder wall.
[2025-01-31 03:03] VITALS: BP 165/85; O2SAT 98
== END 2025-01-30 22:31 | disposition home or self-care (01) ==
LOC: ER 18:11
DX: K80.80 Other cholelithiasis without obstruction (principal)
CPT/HCPCS: 87088; 85025; 81001; 87086; 36415; 87077 ×2; 87186 ×2; 83690; 80053; 74177; 76705; 96375; 96374; 99284; Q9967; J1885; J2405

== ENCOUNTER 2025-02-10 18:16 | Emergency (ER) | payer OTHER ==
[2025-02-10 18:57] LABS: Absolute Lymphocytes (CBC) 0.2 K/uL (0.7-4.9); Hematocrit 27.3 % (36.0-45.0); Hemoglobin 8.8 g/dL (12.0-15.0); MCH 25.5 pg (27.0-35.0); MCHC 32.2 g/dL (32.0-36.0); MCV 79.1 fL (80-100); MPV 8.4 fL (7.6-11.3); Nucleated RBC Absolute Count 0.0 (0-0); Nucleated Red Blood Cells % 0.0 % (0-0); RBC Red Blood Cell Count 3.46 M/uL (3.86-4.86); White Blood Count 6.70 thou/uL (4.3-10.9)
[2025-02-10 19:22] LABS: ALT/SGPT 36 U/L (13-56); AST/SGOT 55 U/L (15-37); Albumin 3.1 g/dL (3.4-5.0); Albumin/Globulin Ratio 0.7 (1.1-1.8); Alkaline Phosphatase 102 U/L (45-117); Anion Gap 12.1 mEq/L (5.0-15.0); BUN Blood Urea Nitrogen 33 mg/dL (7-18); Globulin 4.4 g/dL (2.3-3.5); Magnesium 1.9 mg/dL (1.6-2.4); Potassium 4.1 mEq/L (3.5-5.1); Troponin High Sensitivity 5.6 pg/mL (<58.9)
[2025-02-10 19:23] LABS: Bilirubin Indirect, Calculated 0.2 mg/dL (0.2-0.8)
[2025-02-10 19:27] LABS: Glucose Level 499 mg/dL (74-106)
[2025-02-10] MEDS ORDERED: INSULIN REGULAR (HUMAN) 100 UNIT/ML ONE ×2 (19:30→21:42)
[2025-02-10] MEDS ORDERED: FENTANYL CITR 100 MCG/2 ML ONE (19:30)
[2025-02-10] MEDS ORDERED: NA CHLORIDE 0.9% 1,000 ML ONE (19:31)
--- NOTE | 2025-02-10 20:34 | RAD REPORT ---
Procedure: Chest Single View HISTORY: Generalized weakness COMPARISON: December 2024 FINDINGS: The lungs appear clear of acute infiltrate. No significant pleural effusion noted. The heart is mildly enlarged. Central venous catheter in place. Linear opaque density overlies the right upper quadrant which could represent overlying artifact or foreign body. Lateral x-ray of the upper abdomen could be obtained for further evaluation.
[2025-02-10] MEDS ORDERED: HYDRALAZINE HCL 20 MG/ML VIAL ONE (21:41)
[2025-02-10] MEDS ORDERED: NA CHLORIDE 0.9% 500 ML ONE (21:42)
--- NOTE | 2025-02-10 22:49 | EDPHYS ---
Physician Documentation [facility] Name: Brenda Loyd Age: 44 yrs Sex: Female : 1980 Arrival Date: 02/10/2025 Time: 18:16 Bed 4 Private MD: ED Physician Lauri Liao HPI: 02/10 18:45 This 44 yrs old Female presents to ER via EMS with complaints of General cp Weakness. 18:45 The patient's problem is reported as weakness, that is generalized. cp 18:45 Onset: The symptoms/episode began/occurred today. Context: Patient reports she took her cp first round of chemo today for colon cancer. Started having some general weakness. Patient reports her blood glucose level has been elevated and her blood pressure has been elevated. She was told this would be a side effect of the chemo but comes into the emergency department for evaluation. 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 - Infectious Disease History:: Denies. - Social history:: Smoking status: unknown. ROS: 18:50 Constitutional: Negative for body aches, chills, fever, poor PO intake, cp 18:50 Eyes: Negative for injury, pain, redness, and discharge, cp 18:50 ENT: Negative for drainage from ear(s), ear pain, sore throat, difficulty swallowing, difficulty handling secretions, 18:50 Cardiovascular: Negative for chest pain, edema, palpitations, 18:50 Respiratory: Negative for cough, shortness of breath, wheezing, 18:50 Abdomen/GI: Negative for abdominal pain, vomiting, diarrhea, constipation, 18:50 Neuro: Positive for weakness, Negative for altered mental status, 18:50 All other systems are negative, Exam: 18:55 Constitutional: The patient appears in no acute distress, alert, awake, cp non-diaphoretic, non-toxic, well developed, well nourished, 18:55 Head/Face: Normocephalic, atraumatic. cp 18:55 Eyes: Periorbital structures: appear normal, Conjunctiva: normal, no exudate, no injection, Sclera: no appreciated abnormality, Lids and lashes: appear normal, bilaterally, 18:55 ENT: External ear(s): are unremarkable, Nose: is normal, Mouth: Lips: moist, Oral mucosa: moist, Posterior pharynx: Airway: normal, erythema, is not appreciated, exudate, is not appreciated, Voice: is normal, 18:55 Chest/axilla: Inspection: normal, 18:55 Cardiovascular: Rate: normal, Rhythm: regular, Edema: is not appreciated, JVD: is not appreciated, 18:55 Respiratory: the patient does not display signs of respiratory distress, Respirations: normal, no use of accessory muscles, no retractions, labored breathing, is not present, Breath sounds: are clear throughout, no decreased breath sounds, no stridor, no wheezing, 18:55 Abdomen/GI: Inspection: colostomy noted LLQ with tenderness to palpation, Bowel sounds: active, all quadrants, 18:55 Back: pain, is absent, ROM is normal, 18:55 Neuro: Orientation: to person, place \T\ time. Mentation: is normal, Motor: moves all fours, no focal deficits, Sensation: no obvious gross deficits, 20:00 ECG was reviewed by the Attending Physician. cp 20:00 CT study not indicated or reported. Reason for not performing CT: no neuro deficits on cp exam Vital Signs: 18:44 BP 168 / 79; Pulse 82; Resp 18; Temp 98.6; Pulse Ox 100% on R/A; Weight 72.57 kg; kb4 Height 4 ft. 10 in. ; Pain 0/10; 19:19 BP 181 / 91; Pulse 85; Resp 19; Pulse Ox 99% on R/A; mf3 20:15 BP 167 / 91; Pulse 78; Resp 18; Pulse Ox 96% on R/A; mf3 21:00 BP 181 / 97; Pulse 81; Resp 17; Pulse Ox 98% on R/A; mf3 22:00 BP 185 / 94; Pulse 93; Resp 19; Pulse Ox 95% ; mf3 22:49 BP 156 / 85; Pulse 91; Resp 17; Temp 98.6; Pulse Ox 98% ; Pain 0/10; bm8 18:44 Body Mass Index 33.44 (72.57 kg, 147.32 cm) kb4 18:44 Pain Scale: Adult kb4 22:49 Pain Scale: Adult bm8 Homer Coma Score: 22:49 Eye Response: spontaneous(4). Motor Response: obeys commands(6). Verbal Response: bm8 oriented(5). Total: 15. MDM: 18:38 Medical Screening Exam initiated cp 22:47 Data reviewed: vital signs, nurses notes, lab test result(s), EKG, radiologic studies, cp plain films. 22:47 Differential diagnosis: CVA, TIA, drug effects, bronchitis, pneumonia UTI, cp gastroenteritis. I considered the following discharge prescriptions or medication management in the emergency department Medications were administered in the Emergency Department. See MAR. Independent interpretation of the following test(s) in the Emergency Department EKG: See my EKG interpretation above. Test considered but Not performed: CT: head/brain. Care significantly affected by the following chronic conditions: Diabetes, Cancer. Counseling: I had a detailed discussion with the patient and/or guardian regarding the historical points, exam findings, and any diagnostic results supporting the discharge/admit diagnosis, lab results, radiology results, the need for outpatient follow up, a family practitioner, oncology, to return to the emergency department if symptoms worsen or persist or if there are any questions or concerns that arise at home. Response to treatment: the patient's symptoms have mildly improved after treatment, and as a result, I will discharge patient. 02/10 18:42 Order name: Basic Metabolic Panel; Complete Time: 19:33 cp 02/10 19:33 Interpretation: Normal except: NA 130; GLUC 499; BUN 33; CRE 1.41; GFR 47; CA 8.2. cp 02/10 18:42 Order name: CBC with Diff; Complete Time: 19:22 cp 02/10 19:33 Interpretation: Normal except: RBC 3.46; HGB 8.8; HCT 27.3; MCV 79.1; MCH 25.5; RDW cp 18.2; EFFIE% 95.1; LYM% 3.7; MN% 1.1; LYMA 0.2. 02/10 18:42 Order name: LFT's; Complete Time: 19:33 cp 02/10 22:19 Interpretation: Normal except: AST 55. cp 02/10 18:42 Order name: Magnesium; Complete Time: 19:33 cp 02/10 18:42 Order name: Troponin HS; Complete Time: 19:33 cp 02/10 21:34 Order name: Glucose, Ancillary Testing; Complete Time: 22:18 EDMS 02/10 22:19 Interpretation: Reviewed. cp 02/10 22:58 Order name: Glucose, Ancillary Testing EDMS 02/10 18:42 Order name: XRAY Chest (1 view); Complete Time: 21:14 cp 02/10 18:42 Order name: EKG; Complete Time: 18:42 cp 02/10 18:42 Order name: Cardiac monitoring; Complete Time: 18:59 cp 02/10 18:42 Order name: EKG - Nurse/Tech; Complete Time: 18:50 cp 02/10 18:42 Order name: IV Saline Lock; Complete Time: 18:50 cp 02/10 18:42 Order name: Labs collected and sent; Complete Time: 18:59 cp 02/10 18:42 Order name: O2 Per Protocol; Complete Time: 18:59 cp 02/10 18:42 Order name: O2 Sat Monitoring; Complete Time: 18:59 cp 02/10 18:47 Order name: Accucheck Blood Glucose; Complete Time: 18:59 cp 02/10 21:14 Order name: Accucheck Blood Glucose; Complete Time: 21:23 cp 02/10 21:14 Order name: Blood Pressure Recheck; Complete Time: 21:23 cp EC:00 Rate is 75 beats/min. Rhythm is regular. MA interval is normal. QRS interval is normal. cp QT interval is normal. T waves are Inverted in leads III, aVR. Interpreted by me. Reviewed by me. Administered Medications: 19:32 Drug: NS 0.9% IV 1000 ml IV at 1000 ml once; to be given as a bolus over 60 minutes mf3 Route: IV; Rate: 1000 ml; Site: left antecubital; 22:50 Follow up: Response: No adverse reaction; IV Status: Completed infusion bm8 19:32 Drug: Insulin Regular Human IVP 10 units IVP once; if blood glucose >300 {Co-Signature: 3 jb4 (Alan Gaitan RN).} Route: IVP; Site: left antecubital; 22:50 Follow up: Response: No adverse reaction bm8 19:32 Drug: fentaNYL (PF) IVP 25 mcg IVP once; if having pain Route: IVP; Site: left mf3 antecubital; 21:51 Follow up: Response: No adverse reaction mf3 21:44 Drug: NS 0.9% IV 500 ml 500 ml IV at 1 bolus once; to be given as a bolus over 30 mf3 minutes Volume: 500 ml; Route: IV; Rate: 1 bolus; Site: left antecubital; 22:50 Follow up: Response: No adverse reaction; IV Status: Completed infusion bm8 21:44 Drug: Insulin Regular Human IVP 10 units IVP once {Co-Signature: bm8 (Fab Dela Cruz mf3 RN).} Route: IVP; Site: left antecubital; 21:50 Follow up: Response: No adverse reaction mf3 21:45 Drug: hydrALAZINE IVP 10 mg IVP once Route: IVP; Site: left antecubital; mf3 21:50 Follow up: Response: No adverse reaction mf3 21:50 Not Given (Patient Refused; pt states she is not in any pain ): fentanyl (pf)25 mcg IVP mf3 once; if having pain 22:50 Drug: amLODIPine PO 5 mg PO once Route: PO; bm8 22:51 Follow up: Response: Medication Administered at Departure bm8 Disposition Summary: 02/10/25 22:48 Discharge Ordered Notes: Location: Home cp Problem: new cp Symptoms: have improved cp Condition: Stable cp Diagnosis - Weakness cp - Diabetes mellitus due to underlying condition with hyperglycemia cp - Hypertensive heart disease without heart failure cp - Dehydration cp Followup: cp - With: Private Physician - When: 2 - 3 days - Reason: Recheck today's complaints Discharge Instructions: - Discharge Summary Sheet cp - Dehydration, Adult cp - Type 2 Diabetes Mellitus, Diagnosis, Adult cp - Hyperglycemia cp - Hypertension, Adult cp - Daily Diabetes Mellitus Record cp - Blood Glucose Monitoring, Adult cp - Diabetes Mellitus and Nutrition, Adult cp - Form - Blood Pressure Record Sheet cp - How to Take Your Blood Pressure cp Forms: - Medication Reconciliation Form cp - Antibiotic Education cp - Prescription Opioid Use cp - Patient Portal Instructions cp - Leadership Thank You Letter cp Prescriptions: - amlodipine 5 mg Oral tablet - take 1 tablet ORAL route daily; 30 tablet; Refills: 0, Product Selection cp Permitted Signatures: Dispatcher [facility] Yumi Otero, RN RN aa5 Lauri Sorensen PA-Carl PAFab Reaves cp, RN RN bm8 Radha Hawthorne RN RN kb4 Stefany Braden, RN RN mf3 Alan Gaitan RN jb4 Fab Dela Cruz RN bm8 Corrections: (The following items were deleted from the chart) 18:42 18:42 BASIC METABOLIC PANEL+C.LAB.BRZ ordered. EDMS EDMS 18:42 18:42 CBC+H.LAB.BRZ ordered. EDMS EDMS 18:42 18:42 HEPATIC FUNCTION+C.LAB.BRZ ordered. EDMS EDMS 18:42 18:42 MAGNESIUM+C.LAB.BRZ ordered. EDMS EDMS 18:42 18:42 Troponin High Sensitivity+C.LAB.BRZ ordered. EDMS EDMS 18:48 18:48 PMHx: diabetes mellitus; kb4 kb4 18:48 18:48 PMHx: Chronic nerve pain; kb4 kb4 18:48 18:48 PMHx: Anemia; kb4 kb4 18:48 18:48 PSHx: L foot; kb4 kb4 18:48 18:48 PSHx: Colostomy; kb4 kb4 19:01 18:48 PSHx: DM 1 (COLON CA); kb4 aa5
--- NOTE | 2025-02-10 22:49 | ER ---
Nurse's Notes [facility] Name: Brenda Loyd Age: 44 yrs Sex: Female : 1980 Arrival Date: 02/10/2025 Time: 18:16 Bed 4 Private MD: Diagnosis: Weakness;Diabetes mellitus due to underlying condition with hyperglycemia;Hypertensive heart disease without heart failure;Dehydration Presentation: 02/10 18:44 Chief complaint: Patient states: pt reports 1st chemo round today for colon cancer, pt kb4 now feeling weak and dizzy, reports taking medication prescribed by Dr will cause BS to rise. Coronavirus screen: At this time, unable to obtain information related to travel outside the [place] Ebola Screen: No symptoms or risks identified at this time. Initial Sepsis Screen: Does the patient meet any 2 criteria? No. Patient's initial sepsis screen is negative. Does the patient have a suspected source of infection? No. Patient's initial sepsis screen is negative. Risk Assessment: Do you want to hurt yourself or someone else? Patient reports no desire to harm self or others. Onset of symptoms was February 10, 2025. 18:44 Method Of Arrival: EMS: [facility] kb4 18:44 Acuity: SUSAN 3 kb4 18:44 Care prior to arrival: IV initiated. 20 GA, in the left antecubital area. aa5 Triage Assessment: 18:48 General: Appears in no apparent distress. comfortable, Behavior is calm, cooperative. kb4 Pain: Denies pain. 18:48 Neuro: Level of Consciousness is awake, alert, obeys commands, lethargic, Oriented to kb4 person, place, time, situation. Cardiovascular: Patient's skin is warm and dry. Respiratory: Airway is patent Respiratory effort is even, unlabored, Respiratory pattern is regular, symmetrical. Derm: Skin is pink, warm \T\ dry. SEO COORDINATOR: 18:51 Not kb4 Historical: - Allergies: 18:48 NKDA; kb4 - PMHx: 18:48 COLON CA; kb4 18:48 Diabetes mellitus; aa5 18:48 Anemia; aa5 18:48 Chronic nerve pain; aa5 - PSHx: 18:48 Colostomy; aa5 18:48 Left foot sx; aa5 - Immunization history:: Adult Immunizations up to date. - Infectious Disease History:: Denies. - Social history:: Smoking status: unknown. Screenin:50 [facility] ED Fall Risk Assessment (Adult) History of falling in the last 3 months, kb4 including since admission No falls in past 3 months (0 pts) Confusion or Disorientation No (0 pts) Intoxicated or Sedated No (0 pts) Impaired Gait No (0 pts) Mobility Assist Device Used No (0 pt) Altered Elimination No (0 pt) Score/Fall Risk Level 0 - 2 = Low Risk. Abuse screen: Denies threats or abuse. Denies injuries from another. Nutritional screening: No deficits noted. Tuberculosis screening: No symptoms or risk factors identified. Assessment: 18:49 Reassessment: see triage. kb4 19:19 General: Appears in no apparent distress. comfortable. Pain: Denies pain. Neuro: Level mf3 of Consciousness is awake, alert, obeys commands, Oriented to person, place, time, situation. Respiratory: Airway is patent Trachea midline Respiratory effort is even, unlabored, Respiratory pattern is regular, symmetrical. Derm: Skin is intact, is healthy with good turgor, Skin is pink, warm \T\ dry. 21:51 Reassessment: Patient is alert, oriented x 3, equal unlabored respirations, skin mf3 warm/dry/pink. Patient is alert/active/playful, equal unlabored respirations, skin warm/dry/pink. Pt cbg 369. KRAIG Sorensen ordered another 10 units of insulin. pt BP high as well, so pt given hydralazine Patient states feeling better. 22:49 Reassessment: Patient appears in no apparent distress at this time. Patient and/or bm8 family updated on plan of care and expected duration. Pain level reassessed. Patient is alert, oriented x 3, equal unlabored respirations, skin warm/dry/pink. Patient denies pain at this time. Patient states feeling better. Patient states symptoms have improved. Vital Signs: 18:44 BP 168 / 79; Pulse 82; Resp 18; Temp 98.6; Pulse Ox 100% on R/A; Weight 72.57 kg; kb4 Height 4 ft. 10 in. ; Pain 0/10; 19:19 BP 181 / 91; Pulse 85; Resp 19; Pulse Ox 99% on R/A; mf3 20:15 BP 167 / 91; Pulse 78; Resp 18; Pulse Ox 96% on R/A; mf3 21:00 BP 181 / 97; Pulse 81; Resp 17; Pulse Ox 98% on R/A; mf3 22:00 BP 185 / 94; Pulse 93; Resp 19; Pulse Ox 95% ; mf3 22:49 BP 156 / 85; Pulse 91; Resp 17; Temp 98.6; Pulse Ox 98% ; Pain 0/10; bm8 18:44 Body Mass Index 33.44 (72.57 kg, 147.32 cm) kb4 18:44 Pain Scale: Adult kb4 22:49 Pain Scale: Adult bm8 Homer Coma Score: 22:49 Eye Response: spontaneous(4). Motor Response: obeys commands(6). Verbal Response: bm8 oriented(5). Total: 15. ED Course: 18:32 Patient arrived in ED. mr 18:36 Lauri Sorensen PA-C is PHCP. cp 18:36 Lauri Liao MD is Attending Physician. cp 18:44 Radha Hawthorne, RN is Primary Nurse. kb4 18:48 Triage completed. kb4 18:50 Maintain EMS IV. Dressing intact. Good blood return noted. Site clean \T\ dry. Gauge \T\ kb 4 site: 20g L AC. Flushed with 10 mL NS. 18:50 Initial lab(s) drawn, by me, sent to lab. aa5 18:51 Arm band placed on right wrist. kb4 18:51 Patient has correct armband on for positive identification. Bed in low position. Call kb4 light in reach. 18:55 EKG done, by ED staff, reviewed by Lauri Liao MD. aa5 19:15 Primary Nurse role handed off by Radha Hawthorne, RN mf3 19:15 Stefany Braden, RN is Primary Nurse. mf3 19:26 Notified ED physician of a critical lab result(s). GLUCOSE 499. br2 19:53 XRAY Chest (1 view) In Process Unspecified. EDMS 22:49 No provider procedures requiring assistance completed. IV discontinued, intact, bm8 bleeding controlled, No redness/swelling at site. Pressure dressing applied. 22:49 Provided Education on: post er care. bm8 Administered Medications: 19:32 Drug: NS 0.9% IV 1000 ml IV at 1000 ml once; to be given as a bolus over 60 minutes mf3 Route: IV; Rate: 1000 ml; Site: left antecubital; 22:50 Follow up: Response: No adverse reaction; IV Status: Completed infusion bm8 19:32 Drug: Insulin Regular Human IVP 10 units IVP once; if blood glucose >300 {Co-Signature: 3 jb4 (Alan Gaitan RN).} Route: IVP; Site: left antecubital; 22:50 Follow up: Response: No adverse reaction bm8 19:32 Drug: fentaNYL (PF) IVP 25 mcg IVP once; if having pain Route: IVP; Site: left 3 antecubital; 21:51 Follow up: Response: No adverse reaction 3 21:44 Drug: NS 0.9% IV 500 ml 500 ml IV at 1 bolus once; to be given as a bolus over 30 mf3 minutes Volume: 500 ml; Route: IV; Rate: 1 bolus; Site: left antecubital; 22:50 Follow up: Response: No adverse reaction; IV Status: Completed infusion bm8 21:44 Drug: Insulin Regular Human IVP 10 units IVP once {Co-Signature: bm8 (Fab Dela Cruz 3 RN).} Route: IVP; Site: left antecubital; 21:50 Follow up: Response: No adverse reaction 3 21:45 Drug: hydrALAZINE IVP 10 mg IVP once Route: IVP; Site: left antecubital; 3 21:50 Follow up: Response: No adverse reaction 3 21:50 Not Given (Patient Refused; pt states she is not in any pain ): fentanyl (pf)25 mcg IVP mf3 once; if having pain 22:50 Drug: amLODIPine PO 5 mg PO once Route: PO; 8 22:51 Follow up: Response: Medication Administered at Departure bm8 Medication: 18:51 VIS not applicable for this client. kb4 Outcome: 22:48 Discharge ordered by . marychuy 22:51 Discharged to home via wheelchair, bm8 22:51 Condition: stable 22:51 Discharge instructions given to patient, family, Instructed on discharge instructions, follow up and referral plans. no drinking with medication, no driving heavy equipment, medication usage, safety practices, Demonstrated understanding of instructions, follow-up care, medications, Prescriptions given X 1, 22:58 Patient left the ED. bm8 Signatures: Dispatcher [employer] EDND Kirsty Garcia, Reg Reg mr JuniorYumi, RN RN aa5 Lauri Sorensen PA-C PAFab Reaves cp RN RN bm8 Ursula Hui RN RN br2 aRdha Hawthorne RN RN kb4 Stefany Braden RN RN mf3 Alan Gaitan RN jb4 Fab Dela Cruz RN bm8 Corrections: (The following items were deleted from the chart) 18:48 18:48 PMHx: diabetes mellitus; kb4 kb4 18:48 18:48 PMHx: Chronic nerve pain; kb4 kb4 18:48 18:48 PMHx: Anemia; kb4 kb4 18:48 18:48 PSHx: L foot; kb4 kb4 18:48 18:48 PSHx: Colostomy; kb4 kb4 19:01 18:48 PSHx: DM 1 (COLON CA); kb4 aa5
[2025-02-10] MEDS ORDERED: AMLODIPINE 5 MG TAB ONE (22:53)
[2025-02-10 23:43] VITALS: TEMP 98.6
[2025-02-10 23:56] VITALS: BP 156/85; O2SAT 98
== END 2025-02-10 22:58 | disposition home or self-care (01) ==
LOC: ER 18:16
DX: R53.1 Weakness (principal); E08.65 Diabetes mellitus due to underlying condition with hyperglycemia; E86.0 Dehydration; I11.9 Hypertensive heart disease without heart failure; C18.9 Malignant neoplasm of colon, unspecified
CPT/HCPCS: 96361; 93005; 85025; 80048; 36415; 83735; 82947 ×2; 80076; 84484; 71045; 96375; 96374; 99284; J0360; J3010; J1815 ×2; J7040; J7030